=== PATIENT | female | born 1930 | race Caucasian/White ===

== ENCOUNTER 2016-12-04 12:16 | Inpatient (IN) | payer MEDICARE, OTHER ==
[~2016-12-04] VITALS: Ht 160 cm; Wt 67.0 kg
[~2016-12-04 12:16] MED LIST: ASPI-535 PO; ATOR40TA68 PO; CARV6.2579 PO; CLOP75TA4 PO; FURO20TA3 PO; LISI10TA2 PO
[2016-12-04] MEDS ORDERED: NITROGLYCERIN 2% 1 GM OINT PKT TD STA (13:24)
[2016-12-04] MEDS ORDERED: ASPIRIN 325 MG TAB PO STA (13:24)
[2016-12-04] MEDS ORDERED: FUROSEMIDE 40 MG INJ IV STA (13:24)
[2016-12-04 13:51] LABS: HEMATOCRIT 15.5 % (37.0-47.0); MEAN CORPUSCULAR HEMOGLOBIN 18.5 pg (29.0-33.0); MEAN CORPUSCULAR HGB CONC 29.6 g/dl (32.0-37.0); MEAN CORPUSCULAR VOLUME 62.3 fl (82.0-101.0); MEAN PLATELET VOLUME 7.6 fl (7.4-10.4); PLATELET COUNT 449 10^3/UL (140-440); RED BLOOD COUNT 2.49 10^6/ul (4.20-5.40); RED CELL DISTRIBUTION WIDTH 23.6 % (11.5-14.5); UNCORRECTED WBC 6.2 10^3/ul (4.8-10.8)
[2016-12-04 14:00] LABS: ALBUMIN 4.1 g/dl (3.3-4.9); CONDITION 1; LH ANALYZER COMMENTS 1
[2016-12-04 14:01] LABS: POTASSIUM 3.7 mmol/L (3.5-5.1)
[2016-12-04 14:02] LABS: PROTIME 13.2 Sec (12.2-14.2)
[2016-12-04 14:03] LABS: ALBUMIN/GLOBULIN RATIO 1.28; BILIRUBIN,INDIRECT 0.1 mg/dl (0-1.1); BILIRUBIN,TOTAL 0.1 mg/dl (0.2-1.3); CREATININE 0.75 mg/dl (0.44-1.00); HEMOGLOBIN 4.6 g/dl (12.0-16.0); PARTIAL THROMBOPLASTIN TIME 35.3 Sec (25.0-35.0); TOTAL PROTEIN 7.3 g/dl (6.1-8.1)
[2016-12-04] MEDS ORDERED: SOD CHLORIDE 0.9% 250 ML IV ONE (14:04)
[2016-12-04 14:15] LABS: TROPONIN-I 0.019 ng/ml (0.00-0.12)
--- NOTE | 2016-12-04 14:18 | RADRPT ---
PROCEDURE: XR Chest. CLINICAL INDICATION: Sepsis. TECHNIQUE: Single frontal view of the chest was obtained. COMPARISON: 11/05/2014. FINDINGS: Cardiac silhouette is normal. There is calcification in the thoracic aorta. Pulmonary vasculature appears normal. Lungs appear clear. Costophrenic angles are well defined. There are senescent sander nges in the axial skeleton.. IMPRESSION: 1. Borderline cardiomegaly and aortic atherosclerosis. 2. No acute cardiopulmonary process. RPTAT: [facility] Physician Luis Date Time Electronically viewed and signed by Martell Maier Physician on 12/04/2016 14:18 /
[2016-12-04] MEDS ORDERED: PANTOPRAZOLE 40 MG INJ IV ONE (14:30)
--- NOTE | 2016-12-04 14:51 | ERA ---
ER Documentation Chief Complaint Date/Time DATE: 12/04/16 TIME: 1321 Chief Complaint sent with admitting paperwork with the dx of CHF HPI 86 yo female referred from her physician's office for evaluation for SOB. Patient states over the last few days, she has had significant dyspnea on exertion. She states she cannot walk across the room without feeling exhausted. She reports no chest pain but feels short of breath. She reports no fevers or chills. She reports normal stool. She reports no other bleeding. She has no other complaints or pain. ROS All systems reviewed and are negative except as per history of present illness. Medications Home Meds Reported Medications Lisinopril* (Lisinopril*) 10 Mg Tablet, 10 MG PO DAILY, TAB 12/23/14 Atorvastatin* (Atorvastatin*) 40 Mg Tablet, 40 MG PO HS, TAB 12/23/14 Carvedilol* (Carvedilol*) 6.25 Mg Tablet, 6.25 MG PO BID, TAB 12/23/14 Furosemide* (Furosemide*) 20 Mg Tablet, 20 MG PO DAILY, TAB 12/23/14 Clopidogrel Bisulfate* (Clopidogrel Bisulfate*) 75 Mg Tablet, 75 MG PO DAILY, TAB 12/23/14 Aspirin Ec (Aspir 81) 81 Mg Tablet.dr, 81 MG PO DAILY, TAB 12/23/14 Allergies Allergies: Coded Allergies: No Known Allergy (Unverified , 03/30/15) PMhx/Soc History of Surgery: No Anesthesia Reaction: No Hx Neurological Disorder: No Hx Respiratory Disorders: No Hx Cardiac Disorders: No Hx Psychiatric Problems: No Hx Miscellaneous Medical Probl: Yes (CHF, Anemia) Hx Alcohol Use: No Hx Substance Use: No Hx Tobacco Use: No Smoking Status: Never smoker FmHx Noncontributory for chief complaint Physical Exam Vitals Vital Signs Date Time Temp Pulse Resp B/P Pulse Ox O2 Delivery O2 Flow Rate FiO2 12/04/16 12:24 98.4 78 18 149/59 99 Physical Exam GENERAL: Patient is a frail, pale, elderly patient in no acute distress HEENT: Pupils equal, round, and reactive to light. EOMI. There is no scleral icterus. NECK: C-spine is soft and supple, there is no meningismus. There is no cervical lymphadenopathy. LUNGS: Occasional crackle at both bases. No tachypnea or retractions HEART: Regular rate and rhythm, no murmurs, clicks, rubs or gallops. A murmur is appreciated in the precordium ABDOMEN: Soft, non-tender, non-distended. There are bowel sounds in all four quadrants. No rebound or guarding. EXTREMITIES: There is no peripheral cyanosis or edema. No focal swelling or erythema. NEURO: The patient moves all four extremities with 5/5 strength. Cranial nerves II - XII are intact. Normal gait. Alert and oriented SKIN: There is no apparent rash or petechiae. Pallor is noted HEME/LYMPHATIC: There is no evidence of excessive bruising or lymphedema. PSYCHIATRIC: The patient does not appear anxious or depressed. Result Diagram: 12/04/16 1330 12/04/16 1330 Results 24 hrs Laboratory Tests Test 12/04/16 13:30 Activated Partial Thromboplast Time 35.3Sec Alanine Aminotransferase (ALT/SGPT) 17IU/L Albumin 4.1g/dl Albumin/Globulin Ratio 1.28 Alkaline Phosphatase 154IU/L Anion Gap 17 Aspartate Amino Transf (AST/SGOT) 27IU/L B-Type Natriuretic Peptide 4390PG/ML Blood Morphology Comment Blood Urea Nitrogen 18mg/dl Calcium Level 9.0mg/dl Carbon Dioxide Level 28mmol/L Chloride Level 104mmol/L Creatinine 0.75mg/dl Direct Bilirubin 0.00mg/dl Globulin 3.20g/dl Glucose Level 124mg/dl Hematocrit 15.5% Hemoglobin 4.6g/dl INR International Normalized Ratio 1.00 Indirect Bilirubin 0.1mg/dl Mean Corpuscular Hemoglobin 18.5pg Mean Corpuscular Hemoglobin Concent 29.6g/dl Mean Corpuscular Volume 62.3fl Mean Platelet Volume 7.6fl Platelet Count 62774^3/UL Potassium Level 3.7mmol/L Prothrombin Time 13.2Sec Prothrombin Time Ratio 1.0 Red Blood Count 2.4910^6/ul Red Cell Distribution Width 23.6% Sodium Level 145mmol/L Total Bilirubin 0.1mg/dl Total Protein 7.3g/dl Troponin I 0.019ng/ml White Blood Count 6.210^3/ul Current Medications Medications (Trade) Dose Ordered Sig/Hemant Route PRN Reason Start Time Stop Time Status Last Admin Dose Admin Nitroglycerin (Nitroglycerin 2% Oint) 1 inch ONCE STAT TD 1/3/17 13:24 12/04/16 13:25 DC 12/04/16 13:45 Aspirin (Aspirin) 325 mg ONCE STAT PO 12/04/16 13:24 12/04/16 13:25 DC 12/04/16 13:43 Furosemide 40 mg 40 mg ONCE STAT IV 12/04/16 13:24 12/04/16 14:14 DC 12/04/16 13:44 Sodium Chloride (NS) 250 ml @ 0 mls/hr Q0M ONCE IV 12/04/16 14:04 12/04/16 14:06 DC Pantoprazole (Protonix Iv) 40 mg ONCE ONCE IV 12/04/16 14:30 12/04/16 14:31 DC Procedures/MDM Patient was taken to a room, seen and evaluated. Comfort measures were initiated. Diagnostic tests were ordered and reviewed. 3 LEAD RHYTHM STRIP: Normal sinus rhythm without ectopy EK lead EKG reviewed by myself: Normal Sinus Rhythm Left axis deviation, right bundle branch block Nonspecific ST and T-wave changes Impression: Nonspecific EKG RADIOLOGY: reviewed with the radiologist CONSULTATION: Patient's primary care doctor was notified for admission. GI consultation has been requested with Dr. Pennington REEVALUATION: Patient remained hemodynamically stable and comfortable in the emergency department with blood transfusion pending MEDICAL DECISION MAKIN-year-old female presents to the emergency department with shortness of breath. Initially, patient's initial presentation seem to be consistent with congestive heart failure especially given her history of heart disease and the crackles at her base. I initially treated her with aspirin and nitroglycerin with the thought that this was congestive heart failure. However, upon review of the patient's lab tests, it is clear that the patient's symptoms are consistent with her severe anemia. Given her use of aspirin and Plavix, it is likely that she has an underlying occult GI bleed causing the anemia and therefore symptoms. At this time, I have initiated GI protective medication and have requested transfusion. This is pending at this current time. Patient will require admission to the hospital for further observation, GI consultation, transfusion and further's treatment. CRITICAL CARE: Time:>35 minutes Patient has a significant chance of clinical deterioration Treatments/Evaluations: Close monitoring and treatment of unstable vital signs, cardiorespiratory, and neurologic status, while maintaining tight balance of fluid, respiratory, and cardiac interventions. Departure Diagnosis: Primary Impression: Anemia Additional Impressions: GI bleed Anticoagulant disorder Condition: Serious HERMINIO CORBIN Dec 04, 2016 14:50
[2016-12-04 14:54] LABS: ANISOCYTOSIS 3+; EOSINOPHILS # 0.1 10^3/ul (0.0-0.5); HYPOCHROMASIA 3+; MICROCYTOSIS 3+; MONOCYTE # 0.1 10^3/ul (0.3-0.9); PLATELET ESTIMATE PLT APPEAR ADEQUATE
[2016-12-04] MEDS ORDERED: PEG/ELECTROLYTES 4L BTL PO ONE (17:30)
[2016-12-04 20:30] VITALS: TEMP 98.4
[2016-12-04 23:30] VITALS: BP 156/72; PULSE 91; RESP 18; Ht 160 cm; Wt 67.0 kg
[2016-12-04 23:32] VITALS: PULSE 92
--- NOTE | 2016-12-04 23:59 | HP ---
DATE OF ADMISSION: 12/04/2016 CHIEF COMPLAINT: Shortness of breath. HISTORY OF PRESENT ILLNESS: This 86-year-old female with a history of coronary artery disease and congestive heart failure, status post non-STEMI in 2013, status post stent placement in November 2014 and December 2014 of the LAD and the left circumflex respectively, presents to the office with 2-week progressive weakness and shortness of breath when she walks. The patient has been having difficulty ambulating for a couple of steps and required her sister to bring her in a wheelchair. The patient reports that the symptoms are similar to when she had her heart attack 2 years previously. However, she denies any chest pain, any wheezing. No ankle edema. She also denies any fever , chills, any abdominal pain, nausea, vomiting. No blood in the stool. In the emergency room, the patient was noted to be severely anemic, most likely from occult GI source. The patient is admitted for workup of severe anemia and GI bleed. PAST MEDICAL HISTORY: 1. Coronary artery disease. 2. Congestive heart failure. 3. Knee osteoarthritis. 4. Hypertension. 5. Hypercholesterolemia. 6. Status post non-ST elevation myocardial infarction in 2013, status post angioplasty with stent placement in 2013 and possibly early 2014. ALLERGIES: NKDA. MEDICATIONS ON ADMISSION: Include: 1. Plavix 75 mg p.o. daily. 2. Atorvastatin 40 mg p.o. daily. 3. Carvedilol 6.25 mg p.o. b.i.d. 4. Lisinopril 10 mg p.o. daily. 5. Furosemide 20 mg p.o. daily. 6. Aspirin 81 mg p.o. daily. SOCIAL HISTORY: The patient lives with her sister and nephew in her own home. She does not smoke, does not drink alcohol. FAMILY HISTORY: Noncontributory. PHYSICAL EXAMINATION: GENERAL: Well-developed, well-nourished female who is awake, alert, and oriented, complaining of shortness of breath only with exertion. VITAL SIGNS: Temperature 98.9, blood pressure 144/53, pulse of 74, respiration rate of 20, O2 saturation 100% on room air. HEENT: Pupils equally round, reactive to light. There is conjunctival pallor. Oropharynx clear. NECK: No jugular venous distention, no nodes, no goiter. LUNGS: Notable for minimal bibasilar crackles. CARDIAC: Regular rate and rhythm. Normal S1, S2. ABDOMEN: Active bowel sounds, soft, nondistended, nontender. No hepatosplenomegaly. EXTREMITIES: No clubbing, cyanosis, or edema. LABORATORY: WBC of 6.2, hemoglobin of 4.6, hematocrit 15.5, platelet count 449, 000. Sodium 145, potassium 3.7, chloride 104, bicarbonate 28, BUN 18, creatinine 0.75, glucose 124. Her liver enzymes are notable for mildly elevated alkaline phosphatase of 154. Her proBNP is elevated at 4390. Troponin is normal at 0.019. The patient's PT is 13.2 with an INR of 1.0 and PTT mildly elevated at 35.3. Her EKG shows normal sinus rhythm with nonspecific ST-T wave changes. Her chest x-ray is notable for borderline cardiomegaly and aortic atherosclerosis, but no acute cardiopulmonary process. IMPRESSION: 1. Severe anemia. The patient will be admitted for transfusion and workup of occult gastrointestinal source of bleeding. We will have to hold the Plavix and aspirin. I will call hearing instrument specialist, Dr. Pennington, for probable endoscopy and colonoscopy. 2. Cardiac problems. We will continue the patient's blood pressure medications and diuretic. Check 2D-Echo for current systolic and diastolic dysfunction, especially in light of the multiple blood transfusions we will be giving her. I will notify dental prosthetist regarding the stopping of Plavix. Dictated By: RIANNA QUINTANA MD DP/NTS Conf#: [id number] DID#: [id number] MTDD
[2016-12-05] VITALS (22 sets, daily range): BP systolic 107–181; BP diastolic 51–86; PULSE 76–117; RESP 14–25
[2016-12-05] MEDS: PANTOPRAZOLE 40 MG INJ IV SCH ×2 (05:40→17:12)
[2016-12-05] MEDS ORDERED: FUROSEMIDE 20 MG INJ IV SCH ×2 (06:00→16:48)
[2016-12-05 07:38] LABS: HEMATOCRIT 26.8 % (37.0-47.0); HEMOGLOBIN 8.6 g/dl (12.0-16.0); MEAN CORPUSCULAR HEMOGLOBIN 22.6 pg (29.0-33.0); MEAN CORPUSCULAR HGB CONC 32.2 g/dl (32.0-37.0); MEAN CORPUSCULAR VOLUME 70.3 fl (82.0-101.0); MEAN PLATELET VOLUME 7.7 fl (7.4-10.4); PLATELET COUNT 381 10^3/UL (140-440); RED BLOOD COUNT 3.81 10^6/ul (4.20-5.40); RED CELL DISTRIBUTION WIDTH 28.2 % (11.5-14.5); UNCORRECTED WBC 9.4 10^3/ul (4.8-10.8); WHITE BLOOD COUNT 9.4 10^3/ul (4.8-10.8)
[2016-12-05 07:44] LABS: CONDITION 1; LH ANALYZER COMMENTS 1; SUSPECT 1
[2016-12-05] MEDS ORDERED: FUROSEMIDE 20 MG TAB PO SCH (09:00)
[2016-12-05] MEDS: LISINOPRIL 10 MG TAB PO SCH ×2 (09:00→13:10)
[2016-12-05 10:28] LABS: ANISOCYTOSIS 2+; HYPOCHROMASIA 2+; LYMPHOCYTES # 0.8 10^3/ul (0.8-2.9); MICROCYTOSIS 2+; MONOCYTE # 0.8 10^3/ul (0.3-0.9); NEUTROPHIL # 7.8 10^3/ul (1.6-7.5)
[2016-12-05] MEDS ORDERED: PROPOFOL 20 ML ONE ×3 (11:14→11:15)
[2016-12-05] MEDS ORDERED: FENTAnyl 50 MCG/ML VIAL ONE (11:14)
[2016-12-05] MEDS ORDERED: MIDAZOLAM 1 MG/ML 2 ML INJ ONE (11:14)
--- NOTE | 2016-12-05 12:05 | GILP ---
DATE OF PROCEDURE: 12/05/2016 NAME OF PROCEDURE: Esophagogastroduodenoscopy. PREOPERATIVE DIAGNOSIS: Patient presenting with history of severe iron deficiency anemia with hemog lobin 4.6. The patient has been on Plavix, rule out underlying peptic ulcer disease, arteriovenous malformation, neoplasm of the upper gastrointestinal tract. POSTOPERATIVE DIAGNOSES: 1. Multiple erosions noted in the antrum of the stomach. 2. Linear hyperemic area noted for about 2 cm in length above the GE junction. This represents eso phagitis. DESCRIPTION OF PROCEDURE: After informed written consent was obtained, the patient was asked to lie on the left lateral side. Intravenous anesthesia was given by anesthesiologist, Dr. Mcclelland. When the patient became somnolent, the Olympus video upper endoscope was introduced into the oropharynx, then into the esophagus. The esophagus showed evidence of a long hyperemic area above the GE juncti on for about 2 cm in length consistent with a grade II Overton classifications reflux esophagiti s. Biopsies were done to rule out Carlson's esophagus. Scope at this time was advanced into the [facility]. Multiple erosions were noted in the antrum of the stomach. Rest of the stomach appeared nor mal. No ulcers, no neoplasm or AVM noted. The mucosa of the duodenum appeared normal up to the end of the third portion with no evidence of ulcer. No evidence of AVM, etc. Scope at this time was w ithdrawn and on the way out, no additional abnormalities detected, but biopsies were done from the a ntrum, the lesser curvature and the fundus to rule out H. pylori infection. Scope at this time was withdrawn and the procedure was terminated. PLAN: Recommend proton pump inhibitor therapy to be continued. Recommend hold off on the Plavix fo r a brief period of time if possible. Dictated By: ANGELA MCLAIN/NTS Conf#: [id number] DID#: [id number] CC: RIANNA QUINTANA MD; ANGELA MAJOR MD;*EndCC*
--- NOTE | 2016-12-05 12:19 | GILP ---
DATE OF PROCEDURE: PROCEDURE: Colonoscopy and biopsy. PREOPERATIVE DIAGNOSIS: Patient presenting with history of severe iron deficiency anemia. Patient has been on Plavix, rule out gastrointestinal bleeding from the colon, either due to neoplasm, arter iovenous malformation, diverticulosis, etc. POSTOPERATIVE DIAGNOSES: 1. A 5 mm flat polyp was noted in the mid descending colon. Biopsy was done. 2. Diverticulosis. 3. Minimal internal and external hemorrhoids. DESCRIPTION OF PROCEDURE: After the informed written consent was obtained, the patient was asked to lie on the left lateral side. Intravenous anesthesia was given by anesthesiologist, Dr. Mcclelland. W hen the patient became somnolent, the Olympus video colonoscope was introduced into the rectum and s cope was advanced all the way to the cecum and severe diverticulosis noted all along the colon, but no active bleeding noted at this time. A 5 mm flat polyp was noted in the mid descending colon. Thi s was biopsied. Rest of the colon was again thoroughly examined. On the way out, minimal internal hemorrhoids and minimal external hemorrhoids were noted and the procedure was terminated. PLAN: Recommend small bowel evaluation by means of capsule endoscopy. Dictated By: ANGELA MCLAIN/NTS Conf#: [id number] DID#: [id number] CC: RIANNA QUINTANA MD; ANGELA MAJOR MD;*End*
--- NOTE | 2016-12-05 14:32 | RADRPT ---
Echocardiogram Report Patient Name: BERLIN WHITEHEAD Gender: Female Date: 1930 Study Date: 05-Dec-2016 Desk Director: Pepito Luke [facility] Location: [facility] Ref. Physician: JEFFRY SHANKS Quality: Good Procedures: Transthoracic echocardiogram with complete 2D, M-Mode, and doppler examination. Indications: Congestive Heart Failure. 2D/M Mode Doppler Measurement Value Normal Ranges Measurement Value Normal Ranges LVIDd 2D 6.2 3.5 - 5.6 cm AV Peak Guillaume 2.3 m/sec LVIDs 2D 4.4 2.1 - 4.1 cm AV Peak PG 20.7 mmHg LVPWd 2D 1.0 0.6 - 1.1 cm AI Peak PG 72.2 mmHg IVSd 2D 1.1 0.6 - 1.1 cm AI Peak Guillaume 4.2 m/sec AoR Diam 2D 2.7 2.0 - 3.7 cm AI PHT 195.5 msec EDV 2D 194.0 cm3 LVOT Peak Guillaume 1.2 m/sec ESV 2D 84.2 cm3 LVOT Peak PG 5.6 mmHg LA Dimen 2D 4.4 2.3 - 4.0 cm MV E Peak Guillaume 0.9 m/sec MV A Peak Guillaume 1.4 m/sec MV E/A 0.7 MV Decel Time 198 msec MV Decel Wagoner 5 MV E/A 0.7 TR Peak Guillaume 2.9 m/sec TR Peak PG 33.9 mmHg RVSP 49.0 mmHg Findings Left Ventricle: Normal left ventricular wall thickness. Mild enlargement of left ventricle cavity. Mild left ventricular systolic dysfunction. Ejection fraction is visually estimated at 45 %. Tissue Doppler/Mitral Doppler indices are consistent with impaired relaxation (Stage I diastolic dysfunction). Right Ventricle: Normal right ventricular size. Normal right ventricular systolic function. Left Atrium: There is mild enlargement of left atrium. Right Atrium: The right atrium is normal in size. Mitral Valve: Mitral valve leaflets appear mildly thickened. Mild mitral annular calcification. Mild to moderate mitral valve regurgitation. Aortic Valve: Aortic sclerosis without stenosis. Aortic cusps appear mildly calcified. Trace to mild aortic valve regurgitation. Tricuspid Valve: Normal appearance of the tricuspid valve. Estimated peak PA systolic pressure 49 mmHg. There is mild to moderate tricuspid regurgitation. Pericardium: Normal pericardium with no significant pericardial effusion. Aorta: Normal aortic root. IVC: Dilated IVC without respiratory collapse consistent with elevated right atrial pressure. Conclusions 1.Normal left ventricular wall thickness. Mild enlargement of left ventricle cavity. Mild left ventricular systolic dysfunction. Ejection fraction is visually estimated at 45 %. Tissue Doppler/Mitral Doppler indices are consistent with impaired relaxation (Stage I diastolic dysfunction). 2.Normal right ventricular size. Normal right ventricular systolic function. 3.There is mild enlargement of left atrium. 4.The right atrium is normal in size. 5.Mild to moderate mitral valve regurgitation. 6.Aortic sclerosis without stenosis. Trace to mild aortic valve regurgitation. 7.Estimated peak PA systolic pressure 49 mmHg. There is mild to moderate tricuspid regurgitation. 8.Normal pericardium with no significant pericardial effusion. Electronically Signed By: Asa Swann 05-Dec-2016 14:32:23 -0800 Patient Name: BERLIN WHITEHEAD Study Date: 05-Dec-[id number]
[2016-12-05] MEDS ORDERED: POTASSIUM CHLORIDE (SR) 10 MEQ TAB PO ONE (15:00)
[2016-12-05] MEDS ORDERED: FUROSEMIDE 20 MG INJ IM ONE (15:00)
--- NOTE | 2016-12-05 15:47 | CONS ---
Date/Time of Note Date/Time of Note DATE: 12/05/16 TIME: 15:38 Assessment/Plan Assessment/Plan Additional Assessment/Plan Acute blood loss anemia Acute decompensated systolic and diastolic congestive heart failure Cardiomyopathy with ejection fraction 45% Mitral and tricuspid valve regurgitation. Coronary artery disease with history of PCI, most recent December 2014 Carotid artery stenosis status post carotid endarterectomy Hypertension -Patient with significant improvement in symptoms after blood transfusion. Echocardiogram reviewed with improvement in ejection fraction to 45%, but pulmonary artery systolic pressures have increased compared to last echocardiogram as well as IVC is dilated and not collapsing likely indicative of volume overload. She is currently on 20 mg of IV Lasix daily, I would give an extra dose of Lasix this afternoon. Would switch to 40 mg Lasix daily starting from tomorrow. Would continue beta junaid and MERRY inhibitor. Antiplatelet therapy is on hold given concern for GI bleeding and severe anemia. Will not restart until okay by our gastroenterology colleagues. Continue statin therapy if no contraindication. Consultation Date/Type/Reason Admit Date/Time Dec 04, 2016 at 14:51 Type of Consultation: cv Reason for Consultation Shortness of breath and congestive heart failure Hx of Present Illness This is an 86-year-old female well-known to me from previous admissions with past medical history of cardiomyopathy, coronary artery disease with history of PCI, peripheral arterial disease who presented with symptoms of fatigue, shortness of breath progressing over the past 2-3 weeks. She denies any exertional chest pain but did feel at times lightheaded. Laboratory studies demonstrate severe anemia and patient was admitted for further management and care. She is status post 3 units of packed red blood cells with significant improvement in symptoms. She currently denies any chest pain, shortness of breath, dizziness and her energy has increased. She denies any rectal bleeding, epistaxis. 12 point review of systems was performed with all pertinent positives and negatives mentioned above and all else is negative Past Medical History Peripheral arterial disease Medical History: congestive heart failure, coronary artery disease, hypertension Past Surgical History Carotid endarterectomy Past Surgical Hx: angioplasty Family History Significant Family History: no pertinent family hx Social History Alcohol Use: rarely Smoking Status: Former smoker Exam/Review of Systems Vital Signs Vitals Vital Signs Date Time Temp Pulse Resp B/P Pulse Ox O2 Delivery O2 Flow Rate FiO2 12/05/16 12:46 98.4 85 18 142/63 96 Room Air 12/05/16 11:37 5 Intake and Output 12/04/16 12/04/16 12/05/16 15:00 23:00 07:00 Intake Total 700 ml 300 ml Balance 700 ml 300 ml Exam No apparent distress Constitutional: alert, oriented Head: normocephalic Neck: supple Respiratory: other (course breath sounds bilaterally, no wheezing) Cardiovascular: other (S1-S2 heard), regular rate and rhythm, systolic murmur Gastrointestinal: bowel sounds, non-tender, other (no guarding), soft Extremities: edema (trace) Results Result Diagram: 12/05/16 0720 12/04/16 1330 Results 24 hrs Laboratory Tests Test 12/05/16 07:20 Anisocytosis 2+ Blood Morphology Comment Differential Comment MANUAL DIFF Hematocrit 26.8 #L Hemoglobin 8.6 #L Hypochromasia 2+ Lymphocytes # 0.8 Lymphocytes % 8.0 L Mean Corpuscular Hemoglobin 22.6 #L Mean Corpuscular Hemoglobin Concent 32.2 Mean Corpuscular Volume 70.3 L Mean Platelet Volume 7.7 Microcytosis 2+ Monocytes # 0.8 Monocytes % 9.0 Neutrophils # 7.8 H Neutrophils % 83.0 H Platelet Count 381 Red Blood Count 3.81 #L Red Cell Distribution Width 28.2 H Thyroid Stimulating Hormone (TSH) 1.320 White Blood Count 9.4 # Medications Medications Current Medications Atorvastatin Calcium (Lipitor) 40 mg HS PO ; Start 12/05/16 at 21:00 Carvedilol (Coreg) 6.25 mg BID PO Last administered on 12/05/16 13:08; Admin Dose 6.25 MG; Start 12/05/16 at 09:00 Lisinopril (Zestril) 10 mg DAILY PO Last administered on 12/05/16 13:10; Admin Dose 10 MG; Start 12/05/16 at 09:00 Pantoprazole (Protonix Iv) 40 mg BID@06,18 IV Last administered on 12/05/16 05: 40; Admin Dose 40 MG; Start 12/05/16 at 06:00 Furosemide (Lasix) 20 mg DAILY@06 IV Last administered on 12/05/16 05:33; Admin Dose 20 MG; Start 12/05/16 at 06:00 Influenza Virus Vaccine (Fluzone) 0.5 ml ONCE ONCE IM* ; Start 12/07/16 at 09:00 ; Stop 12/07/16 at 09:01 Asa wSann DO Dec 05, 2016 15:46
[2016-12-05 16:43] LABS: WHITE BLOOD COUNT 6.2 10^3/ul (4.8-10.8)
[2016-12-05] MEDS: ATORVASTATIN 40 MG TAB PO SCH (20:34)
[2016-12-05] MEDS ORDERED: ONDANSETRON 4 MG INJ IV PRN (23:00)
--- NOTE | 2016-12-05 23:16 | PN ---
DATE: 12/05/2016 SUBJECTIVE: The patient reports feeling better after 3 units of blood transfusion. OBJECTIVE: VITAL SIGNS: Temperature 98.7, blood pressure 123/73, pulse of 74, respiration rate 20, O2 saturation 100% on room air. HEENT: Pupils equally round, reactive to light. Mild conjunctival pallor. NECK: No jugular venous distention. LUNGS: Minimal bibasilar rales. CARDIAC: Regular rate and rhythm. Normal S1, S2. ABDOMEN: Active bowel sounds, soft, nondistended, nontender. EXTREMITIES: No clubbing, cyanosis, or edema. LABORATORY DATA: Hemoglobin 8.6, hematocrit 26.8. Endoscopy reports multiple erosions in the gastric antrum as well as evidence of esophagitis. Colonoscopy shows a small polyp. No active sources of bleeding. ASSESSMENT AND PLAN: 1. Anemia, improving after transfusion. The patient is showing some evidence of fluid overload via the 2D echo. Will increase diuresis as per cardiology recommendation. 2. Gastrointestinal bleed versus other sources of anemia. Abdominal CT pending at electrician's recommendation. 3. Other problems stable. Continue current medicines. Dictated By: RIANNA QUINTANA MD DP/STU Conf#: [id number] DID#: [id number] MTDD
[2016-12-06] VITALS (10 sets, daily range): BP systolic 121–140; BP diastolic 56–59; PULSE 71–82; RESP 15–20
[2016-12-06] MEDS: PANTOPRAZOLE 40 MG INJ IV SCH ×2 (05:33→18:22)
[2016-12-06 07:37] LABS: HEMATOCRIT 24.5 % (37.0-47.0); HEMOGLOBIN 7.9 g/dl (12.0-16.0); MEAN CORPUSCULAR HEMOGLOBIN 22.9 pg (29.0-33.0); MEAN CORPUSCULAR HGB CONC 32.4 g/dl (32.0-37.0); MEAN CORPUSCULAR VOLUME 70.8 fl (82.0-101.0); MEAN PLATELET VOLUME 8.2 fl (7.4-10.4); PLATELET COUNT 310 10^3/UL (140-440); RED BLOOD COUNT 3.46 10^6/ul (4.20-5.40); RED CELL DISTRIBUTION WIDTH 28.8 % (11.5-14.5); UNCORRECTED WBC 7.1 10^3/ul (4.8-10.8); WHITE BLOOD COUNT 7.1 10^3/ul (4.8-10.8)
[2016-12-06 07:52] LABS: CONDITION 1; LH ANALYZER COMMENTS 1; POTASSIUM 3.6 mmol/L (3.5-5.1); SUSPECT 1
[2016-12-06 07:54] LABS: CREATININE 0.7 mg/dl (0.44-1.00)
[2016-12-06 07:55] LABS: CALCIUM 8.7 mg/dl (8.4-10.2)
[2016-12-06] MEDS: LISINOPRIL 10 MG TAB PO SCH (09:00)
[2016-12-06] MEDS: FUROSEMIDE 40 MG TAB PO SCH (09:00)
[2016-12-06 09:53] LABS: EOSINOPHILS # 0.3 10^3/ul (0.0-0.5); LYMPHOCYTES # 1.1 10^3/ul (0.8-2.9); MONOCYTE # 0.5 10^3/ul (0.3-0.9); NEUTROPHIL # 5.3 10^3/ul (1.6-7.5)
[2016-12-06 09:54] LABS: ANISOCYTOSIS 2+; BURR CELLS RARE; HYPOCHROMASIA 2+; MICROCYTOSIS 2+
[2016-12-06] MEDS: HYDROCODONE/APAP (5/325) TAB PO PRN ×2 (11:05→15:45)
[2016-12-06] MEDS ORDERED: ACETAMINOPHEN 500 MG TAB PO STA (15:21)
[2016-12-06] MEDS ORDERED: DIPHENHYDRAMINE 25 MG CAP PO ONE (15:30)
[2016-12-06] MEDS ORDERED: POTASSIUM CHLORIDE (SR) 20 MEQ TAB PO STA (16:14)
--- NOTE | 2016-12-06 16:16 | CONS ---
Date/Time of Note Date/Time of Note DATE: 12/06/16 TIME: 16:12 Assessment/Plan Assessment/Plan Additional Assessment/Plan Acute blood loss anemia Acute decompensated systolic and diastolic congestive heart failure Cardiomyopathy with ejection fraction 45% Mitral and tricuspid valve regurgitation. Coronary artery disease with history of PCI, most recent December 2014 Carotid artery stenosis status post carotid endarterectomy Hypertension -Patient feeling much better after diuretics and blood transfusion. Blood pressure trend has remained stable. Would continue Coreg, MERRY inhibitor, statin therapy. Would continue diuretic therapy. Antiplatelet therapy on hold until okay to restart by our gastroenterology colleagues. Patient plan for additional blood transfusion, would give diuretics as well. Consultation Date/Type/Reason Admit Date/Time Dec 04, 2016 at 14:51 Initial Consult Date Type of Consultation: cv 24 HR Interval Summary Free Text/Dictation Patient feels much better, energy has improved, denies exertional chest pain or shortness of breath Exam/Review of Systems Vital Signs Vitals Vital Signs Date Time Temp Pulse Resp B/P Pulse Ox O2 Delivery O2 Flow Rate FiO2 12/06/16 15:40 98.0 78 18 140/59 98 12/05/16 12:46 Room Air 12/05/16 11:37 5 Intake and Output 12/05/16 12/05/16 12/06/16 15:00 23:00 07:00 Intake Total 420 ml 500 ml Output Total 1000 ml 850 ml Balance -580 ml -350 ml Exam Constitutional: alert, oriented, other (no apparent distress) Neck: supple Respiratory: other (course breath sounds bilaterally, no wheezing) Cardiovascular: other (S1 and S2 heard), regular rate and rhythm Gastrointestinal: bowel sounds, non-tender, soft Extremities: edema (trace) Results Result Diagram: 12/06/16 0610 12/06/16 0610 Results 24 hrs Laboratory Tests Test 12/06/16 06:10 Anion Gap 17 H Anisocytosis 2+ Blood Morphology Comment Blood Urea Nitrogen 15 Calcium Level 8.7 Carbon Dioxide Level 27 Chloride Level 101 Creatinine 0.70 Differential Comment MANUAL DIFF Dimorphic Red Blood Cells RARE Eosinophils # 0.3 Eosinophils % 4.0 Glucose Level 97 Hematocrit 24.5 L Hemoglobin 7.9 L Hypochromasia 2+ Lymphocytes # 1.1 Lymphocytes % 15.0 Magnesium Level 1.9 Mean Corpuscular Hemoglobin 22.9 L Mean Corpuscular Hemoglobin Concent 32.4 Mean Corpuscular Volume 70.8 L Mean Platelet Volume 8.2 Microcytosis 2+ Monocytes # 0.5 Monocytes % 7.0 Neutrophils # 5.3 Neutrophils % 74.0 Platelet Count 310 Potassium Level 3.6 Red Blood Count 3.46 L Red Cell Distribution Width 28.8 H Sodium Level 141 White Blood Count 7.1 # Medications Medications Current Medications Atorvastatin Calcium (Lipitor) 40 mg HS PO Last administered on 12/05/16 20:34 ; Admin Dose 40 MG; Start 12/05/16 at 21:00 Carvedilol (Coreg) 6.25 mg BID PO Last administered on 12/06/16 09:00; Admin Dose 6.25 MG; Start 12/05/16 at 09:00 Lisinopril (Zestril) 10 mg DAILY PO Last administered on 12/06/16 09:00; Admin Dose 10 MG; Start 12/05/16 at 09:00 Pantoprazole (Protonix Iv) 40 mg BID@,18 IV Last administered on 12/06/16 05: 33; Admin Dose 40 MG; Start 12/05/16 at 06:00 Influenza Virus Vaccine (Fluzone) 0.5 ml ONCE ONCE IM* ; Start 12/07/16 at 09:00 ; Stop 12/07/16 at 09:01 Furosemide (Lasix) 40 mg DAILY PO Last administered on 12/06/16 09:00; Admin Dose 40 MG; Start 12/06/16 at 09:00 Acetaminophen (Tylenol Tab) 650 mg Q4H PRN PO PAIN AND OR ELEVATED TEMP; Start 12/05/16 at 23:00 Acetaminophen/ Hydrocodone Bitart ([place] (5/325)) 1 tab Q4H PRN PO PAIN LEVEL 4 -7 Last administered on 12/06/16 15:45; Admin Dose 1 TAB; Start 12/05/16 at 23:00 Ondansetron HCl (Zofran Inj) 4 mg Q8 PRN IV NAUSEA AND/OR VOMITING; Start at 23:00 Clonidine (Catapres) 0.1 mg Q6H PRN PO ELEVATED BLOOD PRESSURE; Start 12/05/16 at 23:00 Ferrous Sulfate (Slow Fe) 142 mg BID PO ; Start 12/06/16 at 21:00 Asa Swann DO Dec 06, 2016 16:15
[2016-12-06] MEDS ORDERED: MAGNESIUM SULFATE 2 GM/50 ML 50 ML IVPB ONE (16:30)
[2016-12-06] MEDS ORDERED: FUROSEMIDE 20 MG INJ IV ONE (16:30)
[2016-12-06 17:19] LABS: IRON 14 ug/dl (35-150)
[2016-12-06 17:29] LABS: TOTAL IRON BINDING CAPACITY 486 ug/dl (241-421)
[2016-12-06] MEDS: FERROUS SULFATE (SR) 142 MG TAB PO SCH (21:03)
[2016-12-06] MEDS: ATORVASTATIN 40 MG TAB PO SCH (21:04)
[2016-12-06] MEDS ORDERED: SOD CHLORIDE 0.9% 100 ML ONE (21:06)
[2016-12-06] MEDS ORDERED: IOHEXOL 300MG/ML 150 ML BTL ONE (21:06)
--- NOTE | 2016-12-06 22:27 | RADRPT ---
PROCEDURE: CT Abdomen and Pelvis with Contrast CLINICAL INDICATION: Anemia TECHNIQUE: Transaxial images were obtained through the abdomen and pelvis on a multi-slice scanner following the intravenous administration of iodinated contrast. no oral contrast had previously bee n given. Sagittal and coronal re-formations were subsequently reconstructed. One or more of the following dose reduction techniques were used: - Automated exposure control. - Adjustment of the mA and/or kV according to patient size. - Use of iterative reconstruction technique. Radiation dose: CTDIvol = 12.32 mGy; DLP = 628.85 mGy-cm. COMPARISON: No prior studies are available for comparison. FINDINGS: Lung bases: There is a trace gravitating left pleural fluid accumulation. Subsegmental atelectasis is seen in the right middle lobe containing a 3 mm calcification suspicious for a granuloma. A 5 mm calcified granuloma is seen in the left lower lobe. The heart is mildly enlarged. Liver: The liver is mildly enlarged but no focal lesion is evident. The hepatic and portal veins ar e patent. \ Gallbladder: The wall is not thickened. No radiopaque stones are identified. Bile ducts: The intra and extrahepatic bile ducts are normal in caliber. Pancreas: The pancreatic duct is borderline thickened at 2 mm but the pancreas otherwise appears unr emarkable. Spleen: Normal in size with no focal lesion. Adrenals: The adrenals are slightly prominent particularly on the left but no discrete nodule is bryan dent. Kidneys, ureters and bladder: A 5 cm cyst is seen to extend superiorly off the anterior superior latrell e of the right kidney. 3 other small cysts less than 6 mm in diameter are seen in the right kidney. A 3 cm parapelvic cyst is seen within the inferior pole of the left kidney extending posteriorly a nd a 4 mm cyst is seen at the anterior mid pole of the left kidney. There is no significant hydrone phrosis. The ureters and bladder appear unremarkable. Reproductive organs: The uterus deviates to the right of midline. No adnexal mass is evident. Stomach, bowel, and mesentery: There is colonic diverticulosis most evident in the sigmoid region. Substantial stool seen within the colon. Neural there is no evidence of bowel obstruction. There i s a moderate-sized right inguinal hernia containing small bowel. The stomach is moderately distende d with food debris.. Appendix: The vermiform appendix is not discretely identified. Peritoneum: No free intraperitoneal fluid or air is identified. Aorta: There is atherosclerotic vascular calcification with no abdominal aortic aneurysm evident. IVC: Unremarkable. Lymph nodes: No pathologically enlarged nodes are identified. Osseous structures: There is grade 1 anterolisthesis of L4 on L5 associated degenerative disk endpla te and facet changes. There are diffuse degenerative disk changes and extensive anterior spondylosi s is noted. IMPRESSION: 1. There is a moderate-sized right inguinal hernia containing loops of small bowel. There is diver ticulosis of the colon with substantial stool seen in the colon without evidence of bowel obstructio n or inflammation. The stomach is moderately distended with food debris. 2. Bilateral renal cysts as described without evidence of urinary outflow obstruction or ureterolit hiasis. The bladder appears unremarkable. 3. Mild hepatomegaly with no focal lesion. 4. No evidence of cholelithiasis or bile duct dilatation. The pancreatic duct is borderline promin ent just under 2 mm. 5. Atherosclerotic vascular calcification 6. Extensive degenerative spine changes with grade 1 anterolisthesis of L4 on L5 associated degener ative disk endplate and facet changes. 7. Trace gravitating left pleural fluid accumulation with discoid atelectasis seen in the right mid dle lobe containing a 3 mm calcified granuloma and with a 5 mm calcified granuloma seen in the left lower lobe. The heart is mildly enlarged with coronary artery disease. Physician Ministerio Date Time Electronically viewed and signed by Physician Ministerio on 12/06/2016 22:26 /
[2016-12-07] VITALS (10 sets, daily range): BP systolic 103–144; BP diastolic 48–82; PULSE 81–87; RESP 15–20
--- NOTE | 2016-12-07 00:44 | PN ---
DATE: 12/06/2016 SUBJECTIVE: The patient reports feeling weak and tired today but then she has not been getting any food because she was waiting for the abdominal CT all day. OBJECTIVE: VITAL SIGNS: Temperature 98.7, blood pressure 123/58, pulse of 74, respiration rate 20, O2 saturation 100% on room air. HEENT: Pupils equally round, reactive to light. Mild conjunctival pallor. CHEST: Lungs are clear to auscultation. CARDIAC: Regular rate and rhythm. ABDOMEN: Active bowel sounds, soft, nondistended, nontender. EXTREMITIES: No clubbing, cyanosis, or edema. LABORATORY DATA: Notable for decreased hemoglobin of 7.9 and hematocrit of 24.5. BMP values are within normal limits. ASSESSMENT AND PLAN 1. Anemia, most likely from GI bleed from gastric erosions. Await abdominal CT result. In the meantime, since the patient is markedly anemic again, we will transfuse her with 2 units of packed red cells and premedicate with Tylenol and Benadryl. 2. Congestive heart failure. Will continue diuresis with Lasix, especially after the 2 units of packed red blood cells tomorrow morning. 3. Other problems stable. Continue current medications. Dictated By: RIANNA QUINTANA MD DP/STU Conf#: [id number] DID#: [id number] MTDD
[2016-12-07] MEDS: ACETAMINOPHEN 325 MG TAB PO PRN (02:12)
[2016-12-07] MEDS ORDERED: FUROSEMIDE 20 MG INJ IV ONE ×2 (03:00→15:00)
[2016-12-07] MEDS: HYDROCODONE/APAP (5/325) TAB PO PRN (04:41)
[2016-12-07] MEDS: PANTOPRAZOLE 40 MG INJ IV SCH ×2 (05:17→17:27)
[2016-12-07 08:07] LABS: BASOPHILS % 0.1 % (0.0-2.0); EOSINOPHILS % 0.1 % (0.0-7.0); HEMATOCRIT 32.2 % (37.0-47.0); HEMOGLOBIN 10.6 g/dl (12.0-16.0); LYMPHOCYTES # 0.9 10^3/ul (0.8-2.9); LYMPHOCYTES % 8.9 % (15.0-51.0); MEAN CORPUSCULAR HEMOGLOBIN 24.5 pg (29.0-33.0); MEAN CORPUSCULAR HGB CONC 32.8 g/dl (32.0-37.0); MEAN CORPUSCULAR VOLUME 74.7 fl (82.0-101.0); MEAN PLATELET VOLUME 7.9 fl (7.4-10.4); MONOCYTE # 1.3 10^3/ul (0.3-0.9); MONOCYTES % 13.2 % (0.0-11.0); NEUTROPHIL # 7.4 10^3/ul (1.6-7.5); NEUTROPHILS % 77.7 % (39.0-77.0); PLATELET COUNT 282 10^3/UL (140-440); RED BLOOD COUNT 4.31 10^6/ul (4.20-5.40); RED CELL DISTRIBUTION WIDTH 27.5 % (11.5-14.5); UNCORRECTED WBC 9.6 10^3/ul (4.8-10.8); WHITE BLOOD COUNT 9.6 10^3/ul (4.8-10.8)
[2016-12-07 08:10] LABS: CONDITION 1; LH ANALYZER COMMENTS 1; SUSPECT 1
[2016-12-07] MEDS: FUROSEMIDE 40 MG TAB PO SCH (08:12)
[2016-12-07] MEDS: FERROUS SULFATE (SR) 142 MG TAB PO SCH ×2 (08:12→22:27)
[2016-12-07] MEDS: LISINOPRIL 10 MG TAB PO SCH (08:12)
[2016-12-07 08:31] LABS: ALBUMIN 3.7 g/dl (3.3-4.9)
[2016-12-07 08:34] LABS: ALBUMIN/GLOBULIN RATIO 1.19; BILIRUBIN,INDIRECT 0.5 mg/dl (0-1.1); BILIRUBIN,TOTAL 0.5 mg/dl (0.2-1.3); CREATININE 0.89 mg/dl (0.44-1.00); TOTAL PROTEIN 6.8 g/dl (6.1-8.1)
[2016-12-07 08:35] LABS: CALCIUM 8.7 mg/dl (8.4-10.2); MAGNESIUM 2.3 mg/dl (1.7-2.5)
[2016-12-07] MEDS ORDERED: FUROSEMIDE 20 MG INJ IM ONE (09:00)
[2016-12-07] MEDS ORDERED: INFLUENZA VIRUS VACCINE 0.5 ML SYG IM* ONE (09:00)
[2016-12-07 09:31] LABS: THYROID STIMULATING HORMONE 1.46 MIU/L (0.465-4.680)
--- NOTE | 2016-12-07 11:44 | CONS ---
Date/Time of Note Date/Time of Note DATE: 12/07/16 TIME: 11:42 Assessment/Plan Assessment/Plan Additional Assessment/Plan Acute blood loss anemia Acute decompensated systolic and diastolic congestive heart failure Cardiomyopathy with ejection fraction 45% Mitral and tricuspid valve regurgitation. Coronary artery disease with history of PCI, most recent December 2014 Carotid artery stenosis status post carotid endarterectomy Hypertension -Patient status post more units of blood transfusion yesterday and feeling better. Hemoglobin now 10. Would give extra dose of IV diuretics this afternoon. From a congestive heart failure standpoint, patient with good progress. Blood pressure well-controlled on current medication regimen. Would continue maintenance diuretics, DC planning next one to 2 days from a cardiovascular standpoint. Antiplatelet therapy on hold until cleared by GI to restart. Consultation Date/Type/Reason Admit Date/Time Dec 04, 2016 at 14:51 Type of Consultation: cv 24 HR Interval Summary Free Text/Dictation Patient continues to feel better, denies chest pain, shortness of breath. Fatigue has improved Exam/Review of Systems Vital Signs Vitals Vital Signs Date Time Temp Pulse Resp B/P Pulse Ox O2 Delivery O2 Flow Rate FiO2 12/07/16 11:22 98.2 84 20 144/69 98 12/07/16 07:57 Nasal Cannula 2.0 Intake and Output 12/06/16 12/06/16 12/07/16 15:00 23:00 07:00 Intake Total 0 ml 850 ml Balance 0 ml 850 ml Exam No apparent distress Constitutional: alert, oriented Head: normocephalic Neck: supple Respiratory: other (course breath sounds bilaterally, minimal crackles left base) Cardiovascular: other (S1-S2 heard), regular rate and rhythm Gastrointestinal: bowel sounds, non-tender, soft Extremities: edema (trace) Results Result Diagram: 12/07/16 0750 12/07/16 0750 Results 24 hrs Laboratory Tests Test 12/06/16 16:25 12/07/16 07:50 Erythrocyte Sedimentation Rate 60 H 45 H Iron Level 14 L Percent Iron Saturation 3 L Total Iron Binding Capacity 486 H Alanine Aminotransferase (ALT/SGPT) 30 Albumin 3.7 Albumin/Globulin Ratio 1.19 Alkaline Phosphatase 162 H Amylase Level 85 Anion Gap 14 Aspartate Amino Transf (AST/SGOT) 52 H B-Type Natriuretic Peptide 63584 H Basophils # 0.0 Basophils % 0.1 Blood Morphology Comment Blood Urea Nitrogen 19 Calcium Level 8.7 Carbon Dioxide Level 29 Chloride Level 102 Creatinine 0.89 Direct Bilirubin 0.00 Eosinophils # 0.0 Eosinophils % 0.1 Globulin 3.10 Glucose Level 146 # Hematocrit 32.2 #L Hemoglobin 10.6 #L Indirect Bilirubin 0.5 Lipase 144 Lymphocytes # 0.9 Lymphocytes % 8.9 L Magnesium Level 2.3 Mean Corpuscular Hemoglobin 24.5 L Mean Corpuscular Hemoglobin Concent 32.8 Mean Corpuscular Volume 74.7 L Mean Platelet Volume 7.9 Monocytes # 1.3 H Monocytes % 13.2 H Neutrophils # 7.4 Neutrophils % 77.7 H Nucleated Red Blood Cells # 0.0 Nucleated Red Blood Cells % 0.0 Platelet Count 282 Potassium Level 4.0 Red Blood Count 4.31 # Red Cell Distribution Width 27.5 H Sodium Level 141 Thyroid Stimulating Hormone (TSH) 1.460 Total Bilirubin 0.5 Total Protein 6.8 White Blood Count 9.6 # Medications Medications Current Medications Atorvastatin Calcium (Lipitor) 40 mg HS PO Last administered on 12/06/16 21:04 ; Admin Dose 40 MG; Start 12/05/16 at 21:00 Carvedilol (Coreg) 6.25 mg BID PO Last administered on 12/07/16 08:12; Admin Dose 6.25 MG; Start 12/05/16 at 09:00 Lisinopril (Zestril) 10 mg DAILY PO Last administered on 12/07/16 08:12; Admin Dose 10 MG; Start 12/05/16 at 09:00 Pantoprazole (Protonix Iv) 40 mg BID@06,18 IV Last administered on 12/07/16 05: 17; Admin Dose 40 MG; Start 12/05/16 at 06:00 Furosemide (Lasix) 40 mg DAILY PO Last administered on 12/07/16 08:12; Admin Dose 40 MG; Start 12/06/16 at 09:00 Acetaminophen (Tylenol Tab) 650 mg Q4H PRN PO PAIN AND OR ELEVATED TEMP Last administered on 12/07/16 02:12; Admin Dose 650 MG; Start 12/05/16 at 23:00 Acetaminophen/ Hydrocodone Bitart ([place] (5/325)) 1 tab Q4H PRN PO PAIN LEVEL 4 -7 Last administered on 12/07/16 04:41; Admin Dose 1 TAB; Start 12/05/16 at 23:00 Ondansetron HCl (Zofran Inj) 4 mg Q8 PRN IV NAUSEA AND/OR VOMITING; Start at 23:00 Clonidine (Catapres) 0.1 mg Q6H PRN PO ELEVATED BLOOD PRESSURE; Start 12/05/16 at 23:00 Ferrous Sulfate (Slow Fe) 142 mg BID PO Last administered on 12/07/16t 08:12; Admin Dose 142 MG; Start 12/06/16 at 21:00 Asa Swann DO Dec 07, 2016 11:44
[2016-12-07] MEDS ORDERED: POTASSIUM CHLORIDE (SR) 20 MEQ TAB PO STA (15:38)
[2016-12-07] MEDS ORDERED: FUROSEMIDE 40 MG INJ IV ONE (16:00)
[2016-12-07] MEDS ORDERED: SOD CHLORIDE 0.9% 100 ML ONE (18:59)
[2016-12-07] MEDS ORDERED: IODIXANOL LOCM 100 ML BTL ONE (18:59)
--- NOTE | 2016-12-07 19:35 | RADRPT ---
PROCEDURE: CT Chest with contrast. CLINICAL INDICATION: Bilateral lung nodules, not otherwise specified. TECHNIQUE: CT scan of the chest with contrast was performed on a multidetector high-resolution CT scanner. The patient was scanned following the uncomplicated intravenous administration of 100 cc o f Omnipaque-300 contrast. Coronal and sagittal reformatted images were obtained from the axial sour ce images. Images were reviewed on a high-resolution PACS workstation. The total exam CTDI equals 8. 64 mGy and the total exam DLP equals 291.45 mGy-cm. COMPARISON: Plain film chest dated 12/04/2016. CT examination of the abdomen and pelvis dated 12/06. FINDINGS: Small bilateral pleural effusions, left greater than right. Atelectasis of the bilateral anterior l ungs and bilateral posterior costophrenic angles, left greater than right. Hyperinflation suggests a degree of COPD, and there are likely changes of centrolobular emphysema. Lungs are otherwise subst antially clear. Calcified granulomata again identified bilateral lung bases. Otherwise, no identif ied noncalcified pulmonary nodules. Cardiomegaly. No evident pleural effusion or pleural thickening The mediastinum is unremarkable without evidence for mass or lymphadenopathy. The vascular structur es of the mediastinum are normal in course and caliber. Aortic vascular calcifications and coronary artery calcifications are present. The heart size is normal without evidence for pericardial thick ening or effusion. The axillary regions, subpectoral regions, and supraclavicular regions are all unremarkable. The samir rounding chest wall is unremarkable. Imaging obtained through the upper abdomen reveals 4 cm septate d right renal cyst. Septations are thin, without identified enhancing mass or nodularity. Consider ultrasound correlation. Nonspecific 26 x 14 mm left renal nodule. Post contrast enhancement measures up to about [address] examination of the abdomen dated 12/06/2015. Pre and postcontrast CT examination of the abdomen, i ncluding delayed images may be of further use in characterizing this lesion. Otherwise, CT followup is required. The surrounding osseous structures are remarkable for degenerative spondylosis of the spine. No ost eolytic or osteoblastic lesion is detected. IMPRESSION: 1. Small bilateral pleural effusions, left greater than right. 2. Bilateral lung base atelectasis, at the anterior lungs and of the posterior costophrenic angles, left greater than right. 3. Cardiomegaly. 4. 4 cm septated right renal cyst is partially visualized. 5. Nonspecific 26 x 14 mm left renal nodule. Consider pre and postcontrast CT examination of the a bdomen and pelvis for further characterization. 6. Calcified granulomata again identified bilateral lung bases. 7. Otherwise, no identified noncalcified pulmonary nodules. RPTAT: [facility] Physician Jazz Date Time Electronically viewed and signed by Physician Jazz on 12/07/2016 19:35 RS/
--- NOTE | 2016-12-07 20:19 | RADRPT ---
PROCEDURE: XR Chest. CLINICAL INDICATION: chf TECHNIQUE: PA and lateral views of the chest were obtained COMPARISON: None FINDINGS: The cardiac silhouette is mildly enlarged. Mild vascular congestion. Small bilateral pleural effusions left greater than right. Left base air space opacity. The bones and soft tissues are unremarkable. IMPRESSION: Vascular congestion and bilateral pleural effusions left greater than right. Superimposed infectiou s or inflammatory process cannot be excluded. RPTAT:AAJJ Physician Pipe Date Time Electronically viewed and signed by Physician Pipe on 12/07/2016 20:19 ENRIQUE/
[2016-12-07] MEDS: ATORVASTATIN 40 MG TAB PO SCH (22:26)
--- NOTE | 2016-12-07 23:44 | PN ---
DATE: 12/07/2016 SUBJECTIVE: The patient reports mild fatigue and weakness, but she says she can ambulate to the bathroom on her own. OBJECTIVE: VITAL SIGNS: Temperature 98.2, blood pressure 144/69, pulse of 84, respiration rate 20, O2 saturation 98% on 2 liters nasal cannula. HEENT: Pupils equally round, reactive to light. Oropharynx clear. CHEST: Lungs are clear to auscultation except for mild bibasilar crackles. CARDIAC: Regular rate and rhythm, normal S1, S2. ABDOMEN: Active bowel sounds, soft, nondistended, nontender. EXTREMITIES: No clubbing, cyanosis, or edema. LABORATORY DATA: WBC 9.6, hemoglobin 10.6, hematocrit 32.2, platelet count is 282,000. ESR is 45. The patient's sodium is 141, potassium 4.0, chloride 102, bicarb 29, BUN 19, creatinine 0.89, glucose 146. Iron is 14. TIBC is 486, percent saturation is 3%. The patient's liver enzymes are noted for mildly elevated AST of 52, ALT of 162 and proBNP is double from admission at 11,300. The patient's abdominal and pelvic CT scan notable for a moderate sized right inguinal hernia containing loops of small bowel. There is diverticulosis of the colon with substantial stool seen in the colon. Stomach moderately distended with food, bilateral renal cysts without evidence of urinary outflow obstruction or stones, mild hepatomegaly with no focal lesions, pancreatic duct is borderline prominent just under 2 mm, but there is no evidence of cholelithiasis or bile duct dilatation. There are degenerative changes in the spine, particularly on L4 and L5 level. There are trace gravitating left pleural fluid accumulation with discoid atelectasis in the right middle lobe containing a 3 mm calcified granuloma and with a 5 mm calcified granuloma seen in the left lower lobe. The heart is mildly enlarged with coronary artery disease. ASSESSMENT AND PLAN: 1. Anemia, most likely source of iron deficiency anemia is chronic slow bleed from gastric erosions. The patient has been started on pantoprazole and her anemia has improved with 5 units of packed red blood cells transfusion. We will recheck the hemoglobin and hematocrit tomorrow and if her anemia remains stable I will discharge her to home. 2. Congestive heart failure. The patient has increased proBNP and mild increased hypoxia. I will check a stat chest x-ray for evidence of congestion and increase diuresis tonight with 40 mg IV Lasix and increase potassium supplement. 3. Bilateral pulmonary calcified nodules. These were not noted on previous chest x-ray. Since the patient is in the hospital I will obtain a chest CT scan to clarify the etiology of these lung nodules. 4. Weakness. The patient is able to ambulate independently, but could use further physical therapy in the outpatient setting. I will plan on discharging her to home with home health nurse. Dictated By: RIANNA QUINTANA MD DP/NTS Conf#: [id number] DID#: [id number] CC: RIANNA QUINTANA MD;*EndCC* MTDD
[2016-12-08] MEDS: PANTOPRAZOLE 40 MG INJ IV SCH ×2 (06:08→17:56)
[2016-12-08 06:23] LABS: HEMOGLOBIN 10.6 g/dl (12.0-16.0); MEAN CORPUSCULAR HEMOGLOBIN 24.6 pg (29.0-33.0); MEAN CORPUSCULAR VOLUME 74.5 fl (82.0-101.0); MEAN PLATELET VOLUME 8.4 fl (7.4-10.4); PLATELET COUNT 287 10^3/UL (140-440); RED CELL DISTRIBUTION WIDTH 28.5 % (11.5-14.5); UNCORRECTED WBC 7.4 10^3/ul (4.8-10.8); WHITE BLOOD COUNT 7.4 10^3/ul (4.8-10.8)
[2016-12-08 06:39] LABS: CONDITION 1; LH ANALYZER COMMENTS 1; SUSPECT 1
--- NOTE | 2016-12-08 06:47 | PN ---
Date/Time of Note Date/Time of Note DATE: 12/08/16 TIME: 06:46 Assessment/Plan VTE Prophylaxis VTE Prophylaxis Intervention: SCD's Lines/Catheters IV [facility]ter Type (from [facility]): Saline Lock Urinary Cath still in place: No Assessment/Plan Assessment/Plan Acute blood loss anemia Acute decompensated systolic and diastolic congestive heart failure Cardiomyopathy with ejection fraction 45% Mitral and tricuspid valve regurgitation. Coronary artery disease with history of PCI, most recent December 2014 Carotid artery stenosis status post carotid endarterectomy Hypertension -Patient status post more units of blood transfusion and feeling better. s/p extra dose of IV diuretics yesterday Conintue po lasix wiht good diuresis overnight -From a congestive heart failure standpoint, patient with good progress. Blood pressure well-controlled on current medication regimen. Would continue maintenance diuretics, DC planning next one to 2 days from a cardiovascular standpoint. Antiplatelet therapy on hold until cleared by GI to restart. Subjective 24 Hr Interval Summary Free Text/Dictation The patient stable overnight Exam/Review of Systems Vital Signs Vitals Vital Signs Date Time Temp Pulse Resp B/P Pulse Ox O2 Delivery O2 Flow Rate FiO2 12/07/16 20:04 98.6 92 16 141/82 95 12/07/16 17:56 2.0 12/07/16 07:57 Nasal Cannula Intake and Output 12/07/16 12/07/16 12/08/16 15:00 23:00 07:00 Intake Total 720 ml 200 ml Output Total 1300 ml Balance -580 ml 200 ml Results Result Diagram: 12/08/16 0505 12/07/16 0750 Results 24 hrs Laboratory Tests Test 12/07/16 07:50 12/08/16 05:05 Alanine Aminotransferase (ALT/SGPT) 30 Albumin 3.7 Albumin/Globulin Ratio 1.19 Alkaline Phosphatase 162 H Amylase Level 85 Anion Gap 14 Aspartate Amino Transf (AST/SGOT) 52 H B-Type Natriuretic Peptide 30561 H Basophils # 0.0 Basophils % 0.1 Blood Morphology Comment Blood Urea Nitrogen 19 Calcium Level 8.7 Carbon Dioxide Level 29 Chloride Level 102 Creatinine 0.89 Direct Bilirubin 0.00 Eosinophils # 0.0 Eosinophils % 0.1 Erythrocyte Sedimentation Rate 45 H Globulin 3.10 Glucose Level 146 # Hematocrit 32.2 #L 32.0 L Hemoglobin 10.6 #L 10.6 L Indirect Bilirubin 0.5 Lipase 144 Lymphocytes # 0.9 Lymphocytes % 8.9 L Magnesium Level 2.3 Mean Corpuscular Hemoglobin 24.5 L 24.6 L Mean Corpuscular Hemoglobin Concent 32.8 33.0 Mean Corpuscular Volume 74.7 L 74.5 L Mean Platelet Volume 7.9 8.4 Monocytes # 1.3 H Monocytes % 13.2 H Neutrophils # 7.4 Neutrophils % 77.7 H Nucleated Red Blood Cells # 0.0 Nucleated Red Blood Cells % 0.0 Platelet Count 282 287 Potassium Level 4.0 Red Blood Count 4.31 # 4.30 Red Cell Distribution Width 27.5 H 28.5 H Sodium Level 141 Thyroid Stimulating Hormone (TSH) 1.460 Total Bilirubin 0.5 Total Protein 6.8 White Blood Count 9.6 # 7.4 # Medications Medications Current Medications Atorvastatin Calcium (Lipitor) 40 mg HS PO Last administered on 12/07/16 22:26 ; Admin Dose 40 MG; Start 12/05/16 at 21:00 Carvedilol (Coreg) 6.25 mg BID PO Last administered on 12/07/16 22:27; Admin Dose 6.25 MG; Start 12/05/16 at 09:00 Lisinopril (Zestril) 10 mg DAILY PO Last administered on 12/07/16 08:12; Admin Dose 10 MG; Start 12/05/16 at 09:00 Pantoprazole (Protonix Iv) 40 mg BID@06,18 IV Last administered on 12/08/16 06: 08; Admin Dose 40 MG; Start 12/05/16 at 06:00 Furosemide (Lasix) 40 mg DAILY PO Last administered on 12/07/16 08:12; Admin Dose 40 MG; Start 12/06/16 at 09:00 Acetaminophen (Tylenol Tab) 650 mg Q4H PRN PO PAIN AND OR ELEVATED TEMP Last administered on 12/07/16 02:12; Admin Dose 650 MG; Start 12/05/16 at 23:00 Acetaminophen/ Hydrocodone Bitart ([place] (5/325)) 1 tab Q4H PRN PO PAIN LEVEL 4 -7 Last administered on 12/07/16 04:41; Admin Dose 1 TAB; Start 12/05/16 at 23:00 Ondansetron HCl (Zofran Inj) 4 mg Q8 PRN IV NAUSEA AND/OR VOMITING; Start at 23:00 Clonidine (Catapres) 0.1 mg Q6H PRN PO ELEVATED BLOOD PRESSURE; Start 12/05/16 at 23:00 Ferrous Sulfate (Slow Fe) 142 mg BID PO Last administered on 12/07/16t 22:27; Admin Dose 142 MG; Start 12/06/16 at 21:00 TANK BATES MD Dec 08, 2016 06:47
[2016-12-08 06:52] LABS: CREATININE 0.85 mg/dl (0.44-1.00)
[2016-12-08 06:53] LABS: CALCIUM 8.7 mg/dl (8.4-10.2); MAGNESIUM 2.1 mg/dl (1.7-2.5)
[2016-12-08 07:26] LABS: POTASSIUM 2.9 mmol/L (3.5-5.1)
[2016-12-08] MEDS ORDERED: POTASSIUM CHLORIDE 20 MEQ POWDER FOR ORAL SOLN PO ONE ×2 (08:00→12:00)
[2016-12-08 08:04] VITALS: BP 109/84; RESP 18
[2016-12-08] MEDS: LISINOPRIL 10 MG TAB PO SCH (09:15)
[2016-12-08] MEDS: FUROSEMIDE 40 MG TAB PO SCH (09:15)
[2016-12-08] MEDS: FERROUS SULFATE (SR) 142 MG TAB PO SCH ×2 (09:15→21:41)
[2016-12-08] MEDS ORDERED: POTASSIUM CHLORIDE 20 MEQ in SOD CHLORIDE 0.9% 100 ML IVPB ONE (09:30)
[2016-12-08 10:26] LABS: EOSINOPHILS # 0.1 10^3/ul (0.0-0.5); LYMPHOCYTES # 1.7 10^3/ul (0.8-2.9); NEUTROPHIL # 4.4 10^3/ul (1.6-7.5)
--- NOTE | 2016-12-08 12:15 | PN ---
Date/Time of Note Date/Time of Note DATE: 12/08/16 TIME: 12:14 Assessment/Plan VTE Prophylaxis VTE Prophylaxis Intervention: contraindicated Lines/Catheters IV Catheter Type (from [facility]): Saline Lock Urinary Cath still in place: No Assessment/Plan Chief Complaint/Hosp Course 1) anemia - monitor blood count - workup ongoing 2) CHF - stable at this point Problems: Subjective 24 Hr Interval Summary Free Text/Dictation Patient has no complaints, no longer feel weak Exam/Review of Systems Vital Signs Vitals Vital Signs Date Time Temp Pulse Resp B/P Pulse Ox O2 Delivery O2 Flow Rate FiO2 12/08/16 08:04 98.0 72 18 109/84 95 12/07/16 17:56 2.0 12/07/16 07:57 Nasal Cannula Intake and Output 12/07/16 12/07/16 12/08/16 15:00 23:00 07:00 Intake Total 720 ml 200 ml Output Total 1300 ml Balance -580 ml 200 ml Exam Constitutional: well developed Head: atraumatic, normocephalic Neck: supple Respiratory: clear to auscultation Cardiovascular: regular rate and rhythm Gastrointestinal: non-tender, soft Extremities: normal pulses Results Result Diagram: 12/08/16 0505 12/08/16 0505 Results 24 hrs Laboratory Tests Test 12/08/16 05:05 Anion Gap 16 B-Type Natriuretic Peptide 65339 H Band Neutrophils % 2.0 Blood Morphology Comment Blood Urea Nitrogen 20 Calcium Level 8.7 Carbon Dioxide Level 33 H Chloride Level 98 Creatinine 0.85 Differential Comment MANUAL DIFF Eosinophils # 0.1 Eosinophils % 2.0 Glucose Level 88 # Hematocrit 32.0 L Hemoglobin 10.6 L Lymphocytes # 1.7 Lymphocytes % 23.0 Magnesium Level 2.1 Mean Corpuscular Hemoglobin 24.6 L Mean Corpuscular Hemoglobin Concent 33.0 Mean Corpuscular Volume 74.5 L Mean Platelet Volume 8.4 Monocytes # 1.0 H Monocytes % 13.0 H Neutrophils # 4.4 Neutrophils % 60.0 Platelet Count 287 Potassium Level 2.9 *L Red Blood Count 4.30 Red Cell Distribution Width 28.5 H Sodium Level 144 White Blood Count 7.4 # Medications Medications Current Medications Atorvastatin Calcium (Lipitor) 40 mg HS PO Last administered on 12/07/16t 22:26 ; Admin Dose 40 MG; Start 12/05/16 at 21:00 Carvedilol (Coreg) 6.25 mg BID PO Last administered on 12/07/16 22:27; Admin Dose 6.25 MG; Start 12/05/16 at 09:00 Lisinopril (Zestril) 10 mg DAILY PO Last administered on 12/08/16 09:15; Admin Dose 10 MG; Start 12/05/16 at 09:00 Pantoprazole (Protonix Iv) 40 mg BID@18 IV Last administered on 12/08/16 06: 08; Admin Dose 40 MG; Start 12/05/16 at 06:00 Furosemide (Lasix) 40 mg DAILY PO Last administered on 12/08/16 09:15; Admin Dose 40 MG; Start 12/06/16 at 09:00 Acetaminophen (Tylenol Tab) 650 mg Q4H PRN PO PAIN AND OR ELEVATED TEMP Last administered on 12/07/16 02:12; Admin Dose 650 MG; Start 12/05/16 at 23:00 Acetaminophen/ Hydrocodone Bitart ([place] (5/325)) 1 tab Q4H PRN PO PAIN LEVEL 4 -7 Last administered on 12/07/16 04:41; Admin Dose 1 TAB; Start 12/05/16 at 23:00 Ondansetron HCl (Zofran Inj) 4 mg Q8 PRN IV NAUSEA AND/OR VOMITING; Start at 23:00 Clonidine (Catapres) 0.1 mg Q6H PRN PO ELEVATED BLOOD PRESSURE; Start 12/05/16 at 23:00 Ferrous Sulfate (Slow Fe) 142 mg BID PO Last administered on 12/08/16 09:15; Admin Dose 142 MG; Start 12/06/16 at 21:00 MICHAEL RÍOS Dec 08, 2016 12:15
[2016-12-08 19:29] VITALS: BP 151/68; RESP 18
[2016-12-08 19:34] VITALS: BP 127/67; RESP 16
[2016-12-08] MEDS: ATORVASTATIN 40 MG TAB PO SCH (21:41)
[2016-12-08] MEDS: ACETAMINOPHEN 325 MG TAB PO PRN (21:42)
[2016-12-09] VITALS (7 sets, daily range): BP systolic 145–191; BP diastolic 63–86; PULSE 73–82; RESP 16–22
[2016-12-09] MEDS: HYDROCODONE/APAP (5/325) TAB PO PRN ×2 (00:40→20:10)
[2016-12-09] MEDS: PANTOPRAZOLE 40 MG INJ IV SCH ×2 (05:29→18:42)
[2016-12-09 05:45] LABS: POTASSIUM 3.9 mmol/L (3.5-5.1)
[2016-12-09 05:47] LABS: CREATININE 0.77 mg/dl (0.44-1.00)
[2016-12-09 05:48] LABS: CALCIUM 8.9 mg/dl (8.4-10.2)
[2016-12-09 05:50] LABS: BASOPHILS % 0.1 % (0.0-2.0); EOSINOPHILS # 0.2 10^3/ul (0.0-0.5); EOSINOPHILS % 2.9 % (0.0-7.0); LYMPHOCYTES # 1.7 10^3/ul (0.8-2.9); LYMPHOCYTES % 24.1 % (15.0-51.0); MEAN CORPUSCULAR HEMOGLOBIN 24.4 pg (29.0-33.0); MEAN CORPUSCULAR HGB CONC 32.3 g/dl (32.0-37.0); MEAN CORPUSCULAR VOLUME 75.4 fl (82.0-101.0); MEAN PLATELET VOLUME 8.6 fl (7.4-10.4); MONOCYTE # 0.7 10^3/ul (0.3-0.9); MONOCYTES % 10.1 % (0.0-11.0); NEUTROPHIL # 4.4 10^3/ul (1.6-7.5); NEUTROPHILS % 62.8 % (39.0-77.0); PLATELET COUNT 321 10^3/UL (140-440); RED CELL DISTRIBUTION WIDTH 28.7 % (11.5-14.5); UNCORRECTED WBC 6.9 10^3/ul (4.8-10.8); WHITE BLOOD COUNT 6.9 10^3/ul (4.8-10.8)
[2016-12-09 06:09] LABS: CONDITION 1; LH ANALYZER COMMENTS 1; NUCLEATED RED BLOOD CELLS # 0.1 10^3/ul (0.0-0.0); SUSPECT 1
[2016-12-09] MEDS: LISINOPRIL 10 MG TAB PO SCH (09:32)
[2016-12-09] MEDS: FUROSEMIDE 40 MG TAB PO SCH (09:32)
[2016-12-09] MEDS: FERROUS SULFATE (SR) 142 MG TAB PO SCH ×2 (09:32→20:11)
--- NOTE | 2016-12-09 11:20 | PN ---
Date/Time of Note Date/Time of Note DATE: 12/09/16 TIME: 11:19 Assessment/Plan VTE Prophylaxis VTE Prophylaxis Intervention: contraindicated Lines/Catheters IV Catheter Type (from [facility]): Saline Lock Urinary Cath still in place: No Assessment/Plan Chief Complaint/Hosp Course 1) anemia - monitor blood count - workup ongoing 2) CHF - stable at this point Problems: Subjective 24 Hr Interval Summary Free Text/Dictation Patient has no complaints Exam/Review of Systems Vital Signs Vitals Vital Signs Date Time Temp Pulse Resp B/P Pulse Ox O2 Delivery O2 Flow Rate FiO2 12/09/16 07:48 98.4 68 22 170/73 97 12/07/16 17:56 2.0 12/07/16 07:57 Nasal Cannula Intake and Output 12/08/16 12/08/16 12/09/16 15:00 23:00 07:00 Intake Total 100 ml 1420 ml 860 ml Balance 100 ml 1420 ml 860 ml Exam Constitutional: well developed Head: atraumatic, normocephalic Neck: supple Respiratory: clear to auscultation Cardiovascular: regular rate and rhythm Gastrointestinal: non-tender, soft Results Result Diagram: 12/09/16 0443 12/09/16 0443 Results 24 hrs Laboratory Tests Test 12/08/16 18:45 12/09/16 04:43 Potassium Level 4.0 3.9 Anion Gap 17 H Basophils # 0.0 Basophils % 0.1 Blood Morphology Comment Blood Urea Nitrogen 20 Calcium Level 8.9 Carbon Dioxide Level 28 Chloride Level 103 Creatinine 0.77 Eosinophils # 0.2 Eosinophils % 2.9 Glucose Level 124 Hematocrit 34.0 L Hemoglobin 11.0 L Lymphocytes # 1.7 Lymphocytes % 24.1 Mean Corpuscular Hemoglobin 24.4 L Mean Corpuscular Hemoglobin Concent 32.3 Mean Corpuscular Volume 75.4 L Mean Platelet Volume 8.6 Monocytes # 0.7 Monocytes % 10.1 Neutrophils # 4.4 Neutrophils % 62.8 Nucleated Red Blood Cells # 0.1 H Nucleated Red Blood Cells % 2.0 H Platelet Count 321 Red Blood Count 4.50 Red Cell Distribution Width 28.7 H Sodium Level 144 White Blood Count 6.9 Medications Medications Current Medications Atorvastatin Calcium (Lipitor) 40 mg HS PO Last administered on 12/08/16t 21:41 ; Admin Dose 40 MG; Start 12/05/16 at 21:00 Carvedilol (Coreg) 6.25 mg BID PO Last administered on 12/09/16 09:33; Admin Dose 6.25 MG; Start 12/05/16 at 09:00 Lisinopril (Zestril) 10 mg DAILY PO Last administered on 12/09/16 09:32; Admin Dose 10 MG; Start 12/05/16 at 09:00 Pantoprazole (Protonix Iv) 40 mg BID@,18 IV Last administered on 12/09/16 05: 29; Admin Dose 40 MG; Start 12/05/16 at 06:00 Furosemide (Lasix) 40 mg DAILY PO Last administered on 12/09/16 09:32; Admin Dose 40 MG; Start 12/06/16 at 09:00 Acetaminophen (Tylenol Tab) 650 mg Q4H PRN PO PAIN AND OR ELEVATED TEMP Last administered on 12/08/16 21:42; Admin Dose 650 MG; Start 12/05/16 at 23:00 Acetaminophen/ Hydrocodone Bitart ([place] (5/325)) 1 tab Q4H PRN PO PAIN LEVEL 4 -7 Last administered on 12/09/16 00:40; Admin Dose 1 TAB; Start 12/05/16 at 23:00 Ondansetron HCl (Zofran Inj) 4 mg Q8 PRN IV NAUSEA AND/OR VOMITING; Start at 23:00 Clonidine (Catapres) 0.1 mg Q6H PRN PO ELEVATED BLOOD PRESSURE; Start 12/05/16 at 23:00 Ferrous Sulfate (Slow Fe) 142 mg BID PO Last administered on 12/09/16 09:32; Admin Dose 142 MG; Start 12/06/16 at 21:00 MICHAEL RÍOS Dec 09, 2016 11:20
[2016-12-09] MEDS ORDERED: DIPHENHYDRAMINE 25 MG CAP PO PRN (11:30)
--- NOTE | 2016-12-09 11:54 | CONS ---
Date/Time of Note Date/Time of Note DATE: 12/09/16 TIME: 11:52 Assessment/Plan Assessment/Plan Additional Assessment/Plan Acute blood loss anemia Acute decompensated systolic and diastolic congestive heart failure Cardiomyopathy with ejection fraction 45% Mitral and tricuspid valve regurgitation. Coronary artery disease with history of PCI, most recent December 2014 Carotid artery stenosis status post carotid endarterectomy Hypertension Conintue po lasix -From a congestive heart failure appearts euvolemic Blood pressure well-controlled on current medication regimen. Would continue maintenance diuretics, . Antiplatelet therapy on hold until cleared by GI to restart. Consultation Date/Type/Reason Admit Date/Time Dec 04, 2016 at 14:51 Initial Consult Date Type of Consultation: cv Exam/Review of Systems Vital Signs Vitals Vital Signs Date Time Temp Pulse Resp B/P Pulse Ox O2 Delivery O2 Flow Rate FiO2 12/09/16 07:48 98.4 68 22 170/73 97 12/07/16 17:56 2.0 12/07/16 07:57 Nasal Cannula Intake and Output 12/08/16 12/08/16 12/09/16 15:00 23:00 07:00 Intake Total 100 ml 1420 ml 860 ml Balance 100 ml 1420 ml 860 ml Exam Constitutional: alert, distress, frail, non-verbal, obese, oriented, other, well developed Eyes: nl conjunctiva Respiratory: clear to auscultation Cardiovascular: regular rate and rhythm Results Result Diagram: 12/09/16 0443 12/09/16 0443 Results 24 hrs Laboratory Tests Test 12/08/16 18:45 12/09/16 04:43 Potassium Level 4.0 3.9 Anion Gap 17 H Basophils # 0.0 Basophils % 0.1 Blood Morphology Comment Blood Urea Nitrogen 20 Calcium Level 8.9 Carbon Dioxide Level 28 Chloride Level 103 Creatinine 0.77 Eosinophils # 0.2 Eosinophils % 2.9 Glucose Level 124 Hematocrit 34.0 L Hemoglobin 11.0 L Lymphocytes # 1.7 Lymphocytes % 24.1 Mean Corpuscular Hemoglobin 24.4 L Mean Corpuscular Hemoglobin Concent 32.3 Mean Corpuscular Volume 75.4 L Mean Platelet Volume 8.6 Monocytes # 0.7 Monocytes % 10.1 Neutrophils # 4.4 Neutrophils % 62.8 Nucleated Red Blood Cells # 0.1 H Nucleated Red Blood Cells % 2.0 H Platelet Count 321 Red Blood Count 4.50 Red Cell Distribution Width 28.7 H Sodium Level 144 White Blood Count 6.9 Medications Medications Current Medications Atorvastatin Calcium (Lipitor) 40 mg HS PO Last administered on 12/08/16 21:41 ; Admin Dose 40 MG; Start 12/05/16 at 21:00 Carvedilol (Coreg) 6.25 mg BID PO Last administered on 12/09/16 09:33; Admin Dose 6.25 MG; Start 12/05/16 at 09:00 Lisinopril (Zestril) 10 mg DAILY PO Last administered on 12/09/16 09:32; Admin Dose 10 MG; Start 12/05/16 at 09:00 Pantoprazole (Protonix Iv) 40 mg BID@18 IV Last administered on 12/09/16 05: 29; Admin Dose 40 MG; Start 12/05/16 at 06:00 Furosemide (Lasix) 40 mg DAILY PO Last administered on 12/09/16 09:32; Admin Dose 40 MG; Start 12/06/16 at 09:00 Acetaminophen (Tylenol Tab) 650 mg Q4H PRN PO PAIN AND OR ELEVATED TEMP Last administered on 12/08/16 21:42; Admin Dose 650 MG; Start 12/05/16 at 23:00 Acetaminophen/ Hydrocodone Bitart ([place] (5/325)) 1 tab Q4H PRN PO PAIN LEVEL 4 -7 Last administered on 12/09/16 00:40; Admin Dose 1 TAB; Start 12/05/16 at 23:00 Ondansetron HCl (Zofran Inj) 4 mg Q8 PRN IV NAUSEA AND/OR VOMITING; Start at 23:00 Clonidine (Catapres) 0.1 mg Q6H PRN PO ELEVATED BLOOD PRESSURE; Start 12/05/16 at 23:00 Ferrous Sulfate (Slow Fe) 142 mg BID PO Last administered on 12/09/16 09:32; Admin Dose 142 MG; Start 12/06/16 at 21:00 Diphenhydramine HCl (Benadryl) 25 mg Q6H PRN PO ITCHING; Start 12/09/16 at 11:30 IGOR ABDI MD Dec 09, 2016 11:54
[2016-12-09] MEDS: ATORVASTATIN 40 MG TAB PO SCH (20:11)
[2016-12-10 06:04] LABS: POTASSIUM 3.9 mmol/L (3.5-5.1)
[2016-12-10 06:06] LABS: CREATININE 0.71 mg/dl (0.44-1.00)
[2016-12-10 06:12] LABS: BASOPHILS % 0.3 % (0.0-2.0); EOSINOPHILS # 0.3 10^3/ul (0.0-0.5); EOSINOPHILS % 3.3 % (0.0-7.0); HEMATOCRIT 34.5 % (37.0-47.0); HEMOGLOBIN 11.1 g/dl (12.0-16.0); LYMPHOCYTES # 2.1 10^3/ul (0.8-2.9); LYMPHOCYTES % 26.1 % (15.0-51.0); MEAN CORPUSCULAR HEMOGLOBIN 24.2 pg (29.0-33.0); MEAN CORPUSCULAR HGB CONC 32.1 g/dl (32.0-37.0); MEAN CORPUSCULAR VOLUME 75.4 fl (82.0-101.0); MEAN PLATELET VOLUME 8.1 fl (7.4-10.4); MONOCYTE # 0.7 10^3/ul (0.3-0.9); MONOCYTES % 8.7 % (0.0-11.0); NEUTROPHIL # 4.9 10^3/ul (1.6-7.5); NEUTROPHILS % 61.6 % (39.0-77.0); PLATELET COUNT 349 10^3/UL (140-440); RED BLOOD COUNT 4.57 10^6/ul (4.20-5.40); RED CELL DISTRIBUTION WIDTH 28.6 % (11.5-14.5)
[2016-12-10 06:18] LABS: CONDITION 1; LH ANALYZER COMMENTS 1; NUCLEATED RED BLOOD CELLS # 0.2 10^3/ul (0.0-0.0); SUSPECT 1
[2016-12-10] MEDS: PANTOPRAZOLE 40 MG INJ IV SCH ×2 (06:21→18:15)
[2016-12-10 07:26] VITALS: BP 169/72; RESP 22
[2016-12-10] MEDS: FERROUS SULFATE (SR) 142 MG TAB PO SCH (08:43)
[2016-12-10] MEDS: FUROSEMIDE 40 MG TAB PO SCH (08:44)
[2016-12-10] MEDS: LISINOPRIL 10 MG TAB PO SCH (08:44)
--- NOTE | 2016-12-10 15:41 | CONS ---
Date/Time of Note Date/Time of Note DATE: 12/10/16 TIME: 15:39 Assessment/Plan Assessment/Plan Additional Assessment/Plan Acute blood loss anemia Acute decompensated systolic and diastolic congestive heart failure Cardiomyopathy with ejection fraction 45% Mitral and tricuspid valve regurgitation. Coronary artery disease with history of PCI, most recent December 2014 Carotid artery stenosis status post carotid endarterectomy Hypertension -Blood pressure has been elevated, would increase lisinopril dosing to twice a day, antiplatelet therapy on hold secondary to anemia requiring blood transfusion. Patient appears near euvolemic and would continue on maintenance diuretics as long as renal function permits. DC planning Consultation Date/Type/Reason Admit Date/Time Dec 04, 2016 at 14:51 Type of Consultation: cv 24 HR Interval Summary Free Text/Dictation Denies shortness of breath, chest pain or palpitations Exam/Review of Systems Vital Signs Vitals Vital Signs Date Time Temp Pulse Resp B/P Pulse Ox O2 Delivery O2 Flow Rate FiO2 12/10/16 07:26 97.6 69 22 169/72 97 12/09/16 20:58 Room Air 12/07/16 17:56 2.0 Intake and Output 12/09/16 12/09/16 12/10/16 15:00 23:00 07:00 Intake Total 720 ml 120 ml Balance 720 ml 120 ml Exam No apparent distress Constitutional: alert, oriented Head: normocephalic Neck: supple Respiratory: other (course breath sounds bilaterally, no wheezing) Cardiovascular: other (S1-S2 heard), regular rate and rhythm Gastrointestinal: bowel sounds, non-tender, soft Extremities: edema Results Result Diagram: 12/10/16 0510 12/10/16 0510 Results 24 hrs Laboratory Tests Test 12/10/16 05:10 Anion Gap 18 H Basophils # 0.0 Basophils % 0.3 Blood Morphology Comment Blood Urea Nitrogen 15 Calcium Level 9.0 Carbon Dioxide Level 30 Chloride Level 101 Creatinine 0.71 Eosinophils # 0.3 Eosinophils % 3.3 Glucose Level 93 Hematocrit 34.5 L Hemoglobin 11.1 L Lymphocytes # 2.1 Lymphocytes % 26.1 Mean Corpuscular Hemoglobin 24.2 L Mean Corpuscular Hemoglobin Concent 32.1 Mean Corpuscular Volume 75.4 L Mean Platelet Volume 8.1 Monocytes # 0.7 Monocytes % 8.7 Neutrophils # 4.9 Neutrophils % 61.6 Nucleated Red Blood Cells # 0.2 H Nucleated Red Blood Cells % 2.0 H Platelet Count 349 Potassium Level 3.9 Red Blood Count 4.57 Red Cell Distribution Width 28.6 H Sodium Level 145 H White Blood Count 8.0 Medications Medications Current Medications Atorvastatin Calcium (Lipitor) 40 mg HS PO Last administered on 12/09/16 20:11 ; Admin Dose 40 MG; Start 12/05/16 at 21:00 Carvedilol (Coreg) 6.25 mg BID PO Last administered on 12/10/16 08:43; Admin Dose 6.25 MG; Start 12/05/16 at 09:00 Lisinopril (Zestril) 10 mg DAILY PO Last administered on 12/10/16 08:44; Admin Dose 10 MG; Start 12/05/16 at 09:00 Pantoprazole (Protonix Iv) 40 mg BID@06,18 IV Last administered on 12/10/16 06: 21; Admin Dose 40 MG; Start 12/05/16 at 06:00 Furosemide (Lasix) 40 mg DAILY PO Last administered on 12/10/16 08:44; Admin Dose 40 MG; Start 12/06/16 at 09:00 Acetaminophen (Tylenol Tab) 650 mg Q4H PRN PO PAIN AND OR ELEVATED TEMP Last administered on 12/08/16 21:42; Admin Dose 650 MG; Start 12/05/16 at 23:00 Acetaminophen/ Hydrocodone Bitart ([place] (5/325)) 1 tab Q4H PRN PO PAIN LEVEL 4 -7 Last administered on 12/09/16 20:10; Admin Dose 1 TAB; Start 12/05/16 at 23:00 Ondansetron HCl (Zofran Inj) 4 mg Q8 PRN IV NAUSEA AND/OR VOMITING; Start at 23:00 Clonidine (Catapres) 0.1 mg Q6H PRN PO ELEVATED BLOOD PRESSURE Last administered on 12/09/16 20:11; Admin Dose 0.1 MG; Start 12/05/16 at 23:00 Ferrous Sulfate (Slow Fe) 142 mg BID PO Last administered on 12/10/16 08:43; Admin Dose 142 MG; Start 12/06/16 at 21:00 Diphenhydramine HCl (Benadryl) 25 mg Q6H PRN PO ITCHING Last administered on t 12:42; Admin Dose 25 MG; Start 12/09/16 at 11:30 Asa Swann DO Dec 10, 2016 15:41
[2016-12-10] MEDS ORDERED: FERR140T2 PO (17:46)
[2016-12-10] MEDS ORDERED: PANT40TA4 PO (17:46)
[2016-12-10] MEDS ORDERED: LISI10TA2 PO (17:46)
[2016-12-10] MEDS ORDERED: FURO40TA4 PO (17:46)
[2016-12-10] MEDS ORDERED: LISINOPRIL 10 MG TAB PO SCH (21:00)
--- NOTE | 2016-12-11 10:19 | DS ---
DATE OF ADMISSION: 12/04/2016 DATE OF DISCHARGE: 12/10/2016 DISCHARGE DIAGNOSES 1. Severe anemia. 2. Gastritis. 3. Congestive heart failure. 4. Fluid overload. 5. Hypokalemia. PROCEDURES DONE THIS ADMISSION: Endoscopy, colonoscopy, 5 units packed red blood cell transfusion, 2D echocardiogram. HOSPITAL COURSE: This is an 86-year-old female with history of coronary artery disease, h ypertension, congestive heart failure, was admitted with severe weakness and shortness of breath on exertion. The patient was then noted to be severely anemic and received 3 units of packed red blood cells on the day of admission. The patient was seen by button spindler, Dr. Pennington, and kennyen t endoscopy and colonoscopy the following day. The colonoscopy showed a 5 mm flat polyp in the mid descending colon which was biopsied. Diverticulosis and minimal internal and external hemorrhoids. The endoscopy showed multiple erosions in the antrum of the stomach and linear hyperemic area about 2 cm in length above the gastroesophageal junction representing esophagitis. The patient was placed on proton pump inhibitor with Pantoprazole 40 mg IV b.i.d. We discontinued t he Plavix and aspirin the patient was on. Cardiology consultation was obtained regarding the fact th at Plavix discontinuation, will have on her stent placement 2 years previously, and regarding possib le fluid overload following blood transfusion. Indeed, the patient's proBNP did rise from a baseline of 4390 on admission to 11,300 after blood transfusion despite doubling of the patient's normal dos e of Lasix from 20 to 40 mg daily. We thus gave the patient and extra dose of 40 mg IV Lasix after the patient received another 2 units of packed red blood cells and followed her H and H which came up from a low of 4.6/15.5 to 7.9/24.5 to 10.6/ 32.0 and stayed above this level throughout the remai nder of the hospitalization. However, following the IV Lasix, the patient's potassium dropped down from 4.0 to 2.9 requiring extr a potassium supplementation and subsequent potassium check showed 3.9 to 4.0 potassium. The patient was also ambulated by physical therapy and deemed to have mild weakness. With the patient able to ambulate with assistive device of a small based quad cane for short distances, the patient was thus deemed safe and stable for discharge today. DISPOSITION: The patient is discharged to home where she lives with her sister and nephew. We will send out a home health nurse and physical therapist to assess the patient in her home safety and am bulation strengthening, as well as following up on medication adjustments. DISCHARGE MEDICATIONS: 1. Pantoprazole 40 mg p.o. b.i.d. 2. Carvedilol 6.25 mg p.o. b.i.d. 3. Lisinopril 10 mg p.o. b.i.d. 4. Ferrous sulfate 142 mg p.o. b.i.d. 5. Lasix 40 mg p.o. every day. 6. Atorvastatin 40 mg p.o. q.p.m. FOLLOWUP: The patient will be seen for followup on further gastroenterology workup with Dr. Pennington who is considering small bowel follow through to assess other sources of bleed since her anemia is s till much more severe than what is evident on endoscopy. DISPOSITION: Patient is also told to follow up with Dr. Faith Burton within 1 to 2 weeks after disch arge. Dictated By: FAITH BURTON MD DP/STU Conf#: [id number] DID#: [id number]
== END 2016-12-10 19:15 | disposition home or self-care (01) | DRG 811 ==
LOC: E/R 12:16 → TEL 14:51 → MS2 12-07 19:32
PROVIDERS: ADMIT Internal Medicine; ATTEND Internal Medicine
PROC: 30233N1 Transfusion of Nonautologous Red Blood Cells into Peripheral Vein, Percutaneous Approach (ICD-10-PCS; 2016-12-04)
PROC: 0DBM8ZX Excision of Descending Colon, Via Natural or Artificial Opening Endoscopic, Diagnostic (ICD-10-PCS; 2016-12-05)
PROC: 0DB58ZX Excision of Esophagus, Via Natural or Artificial Opening Endoscopic, Diagnostic (ICD-10-PCS; principal; 2016-12-05 11:00)
PROC: 0DB68ZX Excision of Stomach, Via Natural or Artificial Opening Endoscopic, Diagnostic (ICD-10-PCS; 2016-12-05 11:00)
DX: D62 Acute posthemorrhagic anemia (principal); I50.43 Acute on chronic combined systolic (congestive) and diastolic (congestive) heart failure; I42.9 Cardiomyopathy, unspecified; I10 Essential (primary) hypertension; K29.70 Gastritis, unspecified, without bleeding; K25.9 Gastric ulcer, unspecified as acute or chronic, without hemorrhage or perforation; E87.6 Hypokalemia; I25.10 Atherosclerotic heart disease of native coronary artery without angina pectoris; K57.90 Diverticulosis of intestine, part unspecified, without perforation or abscess without bleeding; I25.2 Old myocardial infarction; E78.5 Hyperlipidemia, unspecified; K21.0 Gastro-esophageal reflux disease with esophagitis; D12.4 Benign neoplasm of descending colon; I08.1 Rheumatic disorders of both mitral and tricuspid valves; Z95.5 Presence of coronary angioplasty implant and graft
CPT/HCPCS: 36415; 36430; 71010; 71020; 71260; 74177; 80048; 80053; 82150; 83540; 83690; 83735; 83880; 84132; 84443; 84484; 85025; 85610; 85651; 85730; 86644; 86850; 86900; 86901; 86920; 88305; 88312; 88313; 90686; 93005; 93306; 96374; 97110; 97116; 97162; 97530; J1940; C9113; J2250; J3010; J3475; J3480; J7040; P9016; Q9967

== ENCOUNTER 2017-05-24 10:43 | Inpatient (IN) | payer MEDICARE, OTHER ==
[2017-05-24] VITALS (18 sets, daily range): BP systolic 125–217; BP diastolic 55–92; PULSE 72–103; RESP 13–25; Ht 160 cm; Wt 50.0 kg
[~2017-05-24] VITALS: Ht 160 cm; Wt 50.0 kg
[~2017-05-24 10:43] MED LIST changes: -ASPI-535 PO; -CLOP75TA4 PO; +FERR140T2 PO; -FURO20TA3 PO; +FURO40TA4 PO; +PANT40TA4 PO; +SUCCINYLCHOLINE CHLORIDE 100 MG/5 ML SYG IV ONE
[2017-05-24] MEDS ORDERED: SODIUM CHLORIDE 0.9% 1L BAG IV* STA (11:00)
[2017-05-24] MEDS ORDERED: VANCOMYCIN 1 GM (PMX) 250 ML IVPB ONE (11:00)
[2017-05-24] MEDS ORDERED: CEFEPIME 2GM/50 ML (PMX) 50 ML IVPB STA (11:00)
[2017-05-24] MEDS ORDERED: ONDANSETRON 4 MG INJ IV STA (11:10)
[2017-05-24] MEDS ORDERED: morphine 4 MG/ML VIAL IV STA (11:10)
[2017-05-24] MEDS ORDERED: ONDANSETRON 4 MG INJ IV PRN ×2 (11:30→12:30)
[2017-05-24] MEDS ORDERED: ACETAMINOPHEN 325 MG TAB PO PRN (11:30)
[2017-05-24] MEDS ORDERED: LISI10TA2 PO (11:32)
[2017-05-24] MEDS ORDERED: FURO40TA4 PO (11:32)
[2017-05-24 11:33] LABS: ADD SCAN DIFF NO
[2017-05-24 11:36] LABS: BASOPHILS % 0.4 % (0.0-2.0); EOSINOPHILS # 0.1 10^3/ul (0.0-0.5); EOSINOPHILS % 1.3 % (0.0-7.0); HEMOGLOBIN 12.1 g/dl (12.0-16.0); LYMPHOCYTES # 1.6 10^3/ul (0.8-2.9); LYMPHOCYTES % 19.7 % (15.0-51.0); MEAN CORPUSCULAR HGB CONC 32.7 g/dl (32.0-37.0); MEAN CORPUSCULAR VOLUME 85.6 fl (82.0-101.0); MEAN PLATELET VOLUME 10.2 fl (7.4-10.4); MONOCYTE # 0.6 10^3/ul (0.3-0.9); NEUTROPHIL # 5.5 10^3/ul (1.6-7.5); NEUTROPHILS % 70.2 % (39.0-77.0); PLATELET COUNT 328 10^3/UL (140-415); RED BLOOD COUNT 4.32 10^6/ul (4.20-5.40); RED CELL DISTRIBUTION WIDTH 15.1 % (11.5-14.5); WHITE BLOOD COUNT 7.9 10^3/ul (4.8-10.8)
[2017-05-24 11:53] LABS: ALBUMIN/GLOBULIN RATIO 1.47; BILIRUBIN,INDIRECT 0.2 mg/dl (0-1.1); BILIRUBIN,TOTAL 0.2 mg/dl (0.2-1.3); CALCIUM 9.9 mg/dl (8.4-10.2); CREATININE 0.78 mg/dl (0.44-1.00); POTASSIUM 3.8 mmol/L (3.5-5.1); TOTAL PROTEIN 8.4 g/dl (6.1-8.1)
[2017-05-24 11:56] LABS: INR 0.9; PROTIME 12.1 Sec (12.2-14.2); PT RATIO 0.9
[2017-05-24 11:57] LABS: PARTIAL THROMBOPLASTIN TIME 41.8 Sec (25.0-35.0)
[2017-05-24] MEDS ORDERED: FENTAnyl 50 MCG/ML VIAL ONE (12:04)
[2017-05-24] MEDS ORDERED: NEOSTIGMINE 3 MG/3 ML SYRINGE ONE (12:04)
[2017-05-24] MEDS ORDERED: ROCURONIUM 50 MG INJ ONE (12:04)
[2017-05-24] MEDS ORDERED: GLYCOPYRROLATE 0.4 MG INJ ONE (12:04)
[2017-05-24] MEDS ORDERED: MIDAZOLAM 1 MG/ML 2 ML INJ ONE ×2 (12:04→15:49)
[2017-05-24] MEDS ORDERED: PROPOFOL 20 ML ONE (12:04)
[2017-05-24] MEDS ORDERED: LIDOCAINE 2% (SDV) 5 ML INJ ONE (12:04)
[2017-05-24 12:05] LABS: TROPONIN-I 0.021 ng/ml (0.00-0.12)
[2017-05-24] MEDS ORDERED: DEXAMETHASONE 4 MG/ML 1 ML INJ ONE (12:05)
[2017-05-24] MEDS ORDERED: BUPIVACAINE 0.25%/EPI (SDV) 30 ML INJ ONE (12:05)
[2017-05-24] MEDS ORDERED: ONDANSETRON 4 MG INJ ONE (12:05)
[2017-05-24] MEDS ORDERED: OXYCODONE/ACETAMINOPHEN (5/325) TAB PO PRN ×2 (12:30)
[2017-05-24] MEDS ORDERED: MIDAZOLAM 1 MG/ML 2 ML INJ IV PRN (12:30)
[2017-05-24] MEDS ORDERED: MEPERIDINE 25 MG INJ IV PRN (12:30)
[2017-05-24] MEDS ORDERED: FENTAnyl 50 MCG/ML VIAL IV PRN ×2 (12:30)
[2017-05-24] MEDS ORDERED: LABETALOL HCL 20MG INJ IV PRN (12:30)
[2017-05-24] MEDS ORDERED: EPHEDrine SULFATE 50 MG/5 ML SYG IV PRN (12:30)
[2017-05-24] MEDS ORDERED: morphine (1 MG/ML) 10ML SYRINGE IV PRN ×3 (12:30)
[2017-05-24] MEDS ORDERED: DIPHENHYDRAMINE 50 MG INJ IV PRN (12:30)
[2017-05-24] MEDS ORDERED: HYDROmorphONE (0.2 MG/ML) 10ML SYG IV PRN ×3 (12:30)
[2017-05-24] MEDS ORDERED: ATROPINE 1 MG/10 ML SYRINGE IV PRN (12:30)
--- NOTE | 2017-05-24 13:00 | HPN ---
Date/Time of Note Date/Time of Note DATE: 05/24/17 TIME: 13:00 Interval H&P Admission Note Pt. seen H&P reviewed: No system changes Pt. seen H&P reviewed. No system changes (I attest that I have seen and examined the patient and reviewed the operation in detail, as well as its risks , benefits and alternatives of the operation). I attest that I have seen and examined the patient and reviewed in detail the operation, and its associated risks, benefits and alternative. I have answered all the patient's questions to the best of my ability and the patient wishes to proceed. Please refer to rest of electronic medical record for additional updates. CAS RODRIGUEZ M.D. May 24, 2017 13:00
--- NOTE | 2017-05-24 13:37 | ERA ---
ER Documentation Chief Complaint Date/Time DATE: 05/24/17 TIME: 13:35 Chief Complaint Sent from MD for eval HPI Patient is an 87-year-old female with hypertension who presents for incarcerated hernia. She was seen by Dr. Wright seen in the office today and was sent to the emergency department for admission. He requested consultation with Dr. West from general surgery as well. The patient has nausea but no vomiting. The patient has no fevers. She noted a bulging in her right groin with mild pain last night. Her last meal was this morning at 730. ROS All systems reviewed and are negative except as per history of present illness. Medications Home Meds Reported Medications Lisinopril* (Lisinopril*) 10 Mg Tablet, 10 MG PO BID, #30 TAB 05/24/17 Furosemide* (Furosemide*) 40 Mg Tablet, 40 MG PO DAILY, TAB 05/24/17 Atorvastatin* (Atorvastatin*) 40 Mg Tablet, 40 MG PO HS, TAB 12/23/14 Carvedilol* (Carvedilol*) 6.25 Mg Tablet, 6.25 MG PO BID, TAB 12/23/14 Discontinued Scripts Pantoprazole* (Pantoprazole*) 40 Mg Tablet.dr, 40 MG PO DAILY for 30 Days, #30 TAB Prov:RIANNA QUINTANA MD 12/10/16 Lisinopril* (Lisinopril*) 10 Mg Tablet, 10 MG PO BID for 30 Days, #60 TAB Prov:RIANNA QUINTANA MD 12/10/16 Furosemide* (Furosemide*) 40 Mg Tablet, 40 MG PO DAILY for 30 Days, #30 TAB Prov:RIANNA QUINTANA MD 12/10/16 Ferrous Sulfate* (Ferrous Sulfate*) 140 Mg Tablet.er, 142 MG PO BID for 30 Days , #60 TAB Prov:RIANNA QUINTANA MD 12/10/16 Allergies Allergies: Coded Allergies: No Known Allergy (Unverified , 12/06/16) PMhx/Soc Anesthesia Reaction: No Hx Neurological Disorder: No Hx Respiratory Disorders: No Hx Cardiac Disorders: Yes (CHF,CAD,HIGH CHOLESTEROL,GA;) Hx Psychiatric Problems: No Hx Miscellaneous Medical Probl: Yes (OA, HTN, HYPERCHOLESTEROLEMIA) Hx Alcohol Use: No Hx Substance Use: No Hx Tobacco Use: No Smoking Status: Never smoker FmHx Family History: No diabetes Physical Exam Vitals Vital Signs Date Time Temp Pulse Resp B/P Pulse Ox O2 Delivery O2 Flow Rate FiO2 05/24/17 12:10 77 20 163/89 98 05/24/17 10:46 98.2 93 20 234/103 98 Physical Exam Const: No acute distress Head: Atraumatic Eyes: Normal Conjunctiva ENT: Normal External Ears, Nose and Mouth. Neck: Full range of motion..~ No meningismus. Resp: Clear to auscultation bilaterally Cardio: Regular rate and rhythm, no murmurs Abd: Large hernia to the right groin which is tender to palpation, tense, and unable to reduce Skin: No petechiae or rashes Back: No midline or flank tenderness Ext: No cyanosis, or edema Neur: Awake and alert Psych: Normal Mood and Affect Result Diagram: 05/24/17 1123 05/24/17 1123 Results 24 hrs Laboratory Tests Test 05/24/17 11:23 White Blood Count 7.910^3/ul Red Blood Count 4.3210^6/ul Hemoglobin 12.1g/dl Hematocrit 37.0% Mean Corpuscular Volume 85.6fl Mean Corpuscular Hemoglobin 28.0pg Mean Corpuscular Hemoglobin Concent 32.7g/dl Red Cell Distribution Width 15.1% Platelet Count 51107^3/UL Mean Platelet Volume 10.2fl Neutrophils % 70.2% Lymphocytes % 19.7% Monocytes % 8.0% Eosinophils % 1.3% Basophils % 0.4% Nucleated Red Blood Cells % 0.0/100WBC Neutrophils # 5.510^3/ul Lymphocytes # 1.610^3/ul Monocytes # 0.610^3/ul Eosinophils # 0.110^3/ul Basophils # 0.010^3/ul Nucleated Red Blood Cells # 0.010^3/ul Prothrombin Time 12.1Sec Prothrombin Time Ratio 0.9 INR International Normalized Ratio 0.90 Activated Partial Thromboplast Time 41.8Sec Sodium Level 141mmol/L Potassium Level 3.8mmol/L Chloride Level 103mmol/L Carbon Dioxide Level 27mmol/L Anion Gap 15 Blood Urea Nitrogen 16mg/dl Creatinine 0.78mg/dl Glucose Level 102mg/dl Lactic Acid Level 1.0mmol/L Calcium Level 9.9mg/dl Total Bilirubin 0.2mg/dl Direct Bilirubin 0.00mg/dl Indirect Bilirubin 0.2mg/dl Aspartate Amino Transf (AST/SGOT) 26IU/L Alanine Aminotransferase (ALT/SGPT) 22IU/L Alkaline Phosphatase 189IU/L Troponin I 0.021ng/ml Total Protein 8.4g/dl Albumin 5.0g/dl Globulin 3.40g/dl Albumin/Globulin Ratio 1.47 Lipase 155U/L Current Medications Medications (Trade) Dose Ordered Sig/Hemant Route PRN Reason Start Time Stop Time Status Last Admin Dose Admin Sodium Chloride 1550 ml 1,550 ml BOLUS OVER 2 HOURS STAT IV* 05/24/17 11:00 05/24/17 11:02 DC 05/24/17 11:34 Cefepime HCl 50 ml @ 100 mls/hr ONCE STAT IVPB 05/24/17 11:00 05/24/17 11:01 DC Vancomycin HCl (Vancocin) 250 ml @ 125 mls/hr ONCE ONCE IVPB 05/24/17 11:00 05/24/17 11:02 DC Ondansetron HCl (Zofran Inj) 4 mg BRIDGE ORDER PRN IV NAUSEA AND/OR VOMITING 05/24/17 11:30 05/25/17 11:29 Acetaminophen (Tylenol Tab) 650 mg ER BRIDGE PRN PO MILD PAIN/FEVER 05/24/17 11:30 05/25/17 11:29 Morphine Sulfate (morphine) 4 mg ONCE STAT IV 05/24/17 11:10 05/24/17 11:11 DC 05/24/17 11:34 Ondansetron HCl (Zofran Inj) 4 mg ONCE STAT IV 05/24/17 11:10 05/24/17 11:11 DC 05/24/17 11:33 Morphine Sulfate (morphine (REC)) 2 mg PACU ORDER PRN IV MILD PAIN LEVEL 1-3 05/24/17 12:30 05/24/17 17:00 Morphine Sulfate (morphine (REC)) 4 mg PACU ORDER PRN IV MODERATE PAIN LEVEL 4-6 05/24/17 12:30 05/24/17 17:00 Morphine Sulfate (morphine (REC)) 6 mg PACU ORDER PRN IV SEVERE PAIN LEVEL 7-10 05/24/17 12:30 05/24/17 17:00 Hydromorphone HCl (Dilaudid (Rec)) 0.2 mg PACU ORDER PRN IV MILD PAIN LEVEL 1-3 05/24/17 12:30 05/24/17 17:00 Hydromorphone HCl (Dilaudid (Rec)) 0.4 mg PACU ORDER PRN IV MODERATE PAIN LEVEL 4-6 05/24/17 12:30 05/24/17 17:00 Hydromorphone HCl (Dilaudid (Rec)) 0.6 mg PACU ORDER PRN IV SEVERE PAIN LEVEL 7-10 05/24/17 12:30 05/24/17 17:00 Fentanyl (Sublimaze) 25 mcg PACU ORDER PRN IV MILD PAIN LEVEL 1-3 05/24/17 12:30 05/24/17 17:00 Fentanyl (Sublimaze) 50 mcg PACU ODER PRN IV MODERATE PAIN LEVEL 4-6 05/24/17 12:30 05/24/17 17:00 Oxycodone/ Acetaminophen (Percocet (5/ 325)) 1 tab PACU ORDER PRN PO PAIN LEVEL 1-5 05/24/17 12:30 05/24/17 17:00 Oxycodone/ Acetaminophen (Percocet (5/ 325)) 2 tab PACU ORDER PRN PO PAIN LEVEL 6-10 05/24/17 12:30 05/24/17 17:00 Ondansetron HCl (Zofran Inj) 4 mg PACU ORDER PRN IV NAUSEA AND/OR VOMITING 05/24/17 12:30 05/24/17 17:00 Labetalol HCl (Labetalol) 5 mg PACU ORDER PRN IV HIGH BLOOD PRESSURE 05/24/17 12:30 05/24/17 17:00 Hydralazine HCl (Apresoline) 5 mg PACU ORDER PRN IV HIGH BLOOD PRESSURE 05/24/17 12:30 05/24/17 17:00 Ephedrine Sulfate 5 mg PACU ORDER PRN IV MAP LESS THAN 60 05/24/17 12:30 05/24/17 17:00 Atropine Sulfate (Atropine (Syringe)) 0.5 mg PACU ORDER PRN IV HR 50 OR LESS 05/24/17 12:30 05/24/17 17:00 Meperidine HCl (Demerol) 25 mg PACU ORDER PRN IV POST-OP RIGORS 05/24/17 12:30 05/24/17 17:00 Diphenhydramine HCl (Benadryl) 25 mg PACU ORDER PRN IV PRURITUS 05/24/17 12:30 05/24/17 17:00 Midazolam HCl (Versed) 0.5 mg PACU ORDER PRN IV ANXIETY 05/24/17 12:30 05/24/17 17:00 Procedures/MDM CT scan pending at this time. Patient is an 87-year-old female presents with what appears to be an acute incarcerated right inguinal hernia. I spoke with Dr. Downey who called telling me that he was that he meet the patient in the emergency department. I spoke with Dr. West from general surgery who said that he would take the patient to the operating room immediately. The patient will need to be admitted to Dr. Downey following surgery. I am concerned about incarceration and obstruction. Critical Care: Time: 35 minutes excluding all billable procedures. Treatments/Evaluations: Close monitoring and treatment of unstable vital signs, cardiorespiratory, and neurologic status, while maintaining tight balance of fluid, respiratory, and cardiac interventions. Departure Diagnosis: Primary Impression: Incarcerated hernia Condition: GRAHAM Lopez MD May 24, 2017 13:37
--- NOTE | 2017-05-24 13:49 | CONS ---
[facility] INITIAL INPATIENT CONSULTATION DATE OF CONSULTATION: 05/24/2017 PLACE OF SERVICE: Preoperative area ASSESSMENT AND PLAN: A very pleasant 87-year-old lady with multiple comorbid issues, mainly centered around her heart, who is presenting with an incarcerated , possibly strangulated right inguinal hernia containing loops of bowel. This is not reducible and in my judgment, it needs to be addressed in an emergency fashion in the operating room. The patient is obviously high risk and I have already a conversation with Dr. Faith Burton, who knows the patient well, as well as Dr. Nelson Glass, who is a tannery gummer. We all agreed that the risk of this incarcerated hernia threatening the patient's life is much more than the risk of her cardiac condition for general anesthesia. I also discussed this in detail with the patient and her sister, both of whom appeared to understand and agreed with the proposed plans of operating. I described the operation in detail and discussed the risks, benefits, and alternatives. The patient and her sister had a chance to have all their questions answered to the best of my ability. After careful consideration of all their options, they appeared to understand and agreed with proceeding with surgery. With above assessment, I recommend the followin. To the operating room for above. Thank you again for allowing us to participate in the care of this very pleasant lady and her wonderful family. If there are any questions, please feel free to contact me at [phone] UPDATED CLINICAL SUMMARY: The patient is a very pleasant 87-year-old lady with comorbidities including cardiomyopathy, coronary artery disease with history of PCI and peripheral arterial disease with a known right inguinal hernia since at least 12/2016, presenting with what appears to be an incarcerated right inguinal hernia which is somewhat threatened. COMORBIDITIES: 1. BMI 20.2 (previously 26.03 December 2016) 2. Cardiomyopathy. 3. Coronary artery disease with history of PCI. 4. Peripheral arterial disease. 5. Status post 3 units of packed red blood cell transfusion in December 2016. 6. History of congestive heart failure. 7. Hypertension. 8. Carotid endarterectomy. 9. Angioplasty. 10. Ejection fraction of 45%. 11. Acute blood loss anemia. 12. Mitral valve regurgitation. 13. Tricuspid valve regurgitation. 14. Status post percutaneous coronary intervention, most recent in December 2014. 15. Knee osteoarthritis (left). 16. Hypercholesterolemia. 17. Status post non-ST elevation myocardial infarction in 2013, status post angioplasty with stent placement in 2013 and also in 2015 as above. DATE OF ADMISSION: 05/24/2017 HISTORY OF PRESENT ILLNESS: The patient is a very pleasant 87-year-old lady with above-mentioned comorbidities who we were kindly asked to consult regarding management of her right inguinal incarcerated hernia. The patient reported having 1 to 2-day history of above-mentioned pain without associated significant nausea or vomiting and some mild abdominal discomfort. She has had flatus and bowel movements in the last few days. She has known about this inguinal hernia at least since 12/2016 but no other prior episodes of obstruction or need for emergency room evaluation. In the emergency department , her workup included laboratory values that are essentially all normal with the exception of slightly raised alkaline phosphatase of 189. Prior imaging, including CT of abdomen and pelvis 12/06/2016 demonstrated the presence of right inguinal hernia with loop of bowel inside of it. There were also bilateral renal cysts, mild hepatomegaly with no focal lesions, no evidence of cholelithiasis or bile duct dilatation with pancreatic duct that was borderline prominent just under 2 mm, atherosclerotic vascular calcification, extensive degenerative spine changes with grade I anterolisthesis of L4 on L5, associated degenerative disk end plate and facet changes, and trace gravitating left pleural fluid accumulation with discoid atelectasis in the right middle lobe containing a 3 mm calcified granuloma and a 5 mm calcified granuloma seen in the left lower lobe. Heart was also mildly enlarged with coronary artery disease. Currently, no imaging is available. No other complaints during my visit with the patient. SOCIAL HISTORY: The patient lives with her sister and nephew in her own home. She does not report any smoking, drinking, or intravenous drug use. FAMILY HISTORY: No mention of major medical, surgical or oncologic problems in the family. ALLERGIES: NO KNOWN DRUG ALLERGIES. MEDICATIONS: 1. Atorvastatin. 2. Carvedilol. 3. Furosemide. 4. Lisinopril. REVIEW OF SYSTEMS: Other than the above-mentioned, there are no other pertinent positives or pertinent negatives in a complete 14-point review of systems. PHYSICAL EXAMINATION: GENERAL: The patient appears to be a very pleasant lady of non- descent, appearing stated age, lying in bed comfortably and in no acute distress. VITAL SIGNS: Temperature 98.2, blood pressure 162/89, pulse 77, respiratory rate 20, pulse oximetry 98% on room air. HEENT: Normocephalic and atraumatic. Extraocular muscles and hearing are grossly intact bilaterally and symmetrically. Sclerae are nonicteric. Oral cavity is clear; oral mucosa appeared to be pink and moist. Dentition: poor. NECK: Supple. There is no lymphadenopathy or JVD. There is no submental, submandibular or supraclavicular lymphadenopathy. CHEST: Rises symmetrically with each breath; patient is breathing comfortably. There are no audible wheezes, rales or rhonchi on the gross exam. HEART: Pulse is regular and palpable on the left wrist. Capillary refill was normal. Carotid pulses are palpable bilaterally and symmetrically in the neck. EXTREMITIES: Lower extremities contain no pitting edema around the ankles bilaterally and symmetrically. ABDOMEN: Soft, nondistended, and mildly tender to palpation, mainly in the right lower side. The right groin has a large bulge approximately 10 cm in greatest diameter with skin that is slightly discolored over the area. This area is firm and tender to palpation. I was not able to reduce this area with patient relaxation and putting her into Trendelenburg position. There are no peritoneal signs or guarding and no evidence of organomegaly, caput medusae, engorged subcutaneous veins, or ascites. SKIN: Appears to be pink and feels warm to touch. NEUROLOGIC: Awake, alert, and follows commands appropriately. LABORATORY DATA: As above. IMAGING: As above. Note that I personally reviewed all the available and pertinent images and I agree in general with their overall reported findings. Dictated By: CAS PARISH/STU Conf#: [id number] DID#: [id number] MECCA
[2017-05-24] MEDS ORDERED: LABETALOL HCL 20MG INJ ONE (13:58)
[2017-05-24] MEDS ORDERED: BUPIVACAINE 0.25%/EPI (SDV) 30 ML INJ INJ ONE (14:22)
[2017-05-24] MEDS ORDERED: FUROSEMIDE 20 MG INJ ONE (14:39)
[2017-05-24] MEDS ORDERED: BISACODYL 10 MG SUPP PR PRN (16:00)
[2017-05-24] MEDS ORDERED: DOCUSATE SODIUM 100 MG CAP PO PRN (16:00)
[2017-05-24] MEDS ORDERED: HYDROCODONE/APAP (5/325) TAB PO PRN (16:00)
[2017-05-24] MEDS ORDERED: NA PHOSPHATE/BIPHOS 133 ML ENEMA PR PRN (16:00)
[2017-05-24] MEDS ORDERED: HYDROmorphONE 1 MG/ML SYG IV PRN (16:00)
--- NOTE | 2017-05-24 16:05 | OPR ---
Date/Time of Note Date/Time of Note DATE: 05/24/17 TIME: 16:05 Operative Report Operative\Procedure Findings [facility] INPATIENT OPERATIVE NOTE PLACE OF SERVICE: [facility] DATE OF SURGERY: 05/24/2017 PREOPERATIVE DIAGNOSIS: 1. Incarcerated right inguinal hernia 2. BMI 20.2 (previously 26.03 December 2016) 3. Cardiomyopathy. 4. Coronary artery disease with history of PCI. 5. Peripheral arterial disease. 6. Status post 3 units of packed red blood cell transfusion in December 2016. 7. History of congestive heart failure. 8. Hypertension. 9. Angioplasty. 10. Ejection fraction of 45%. 11. Acute blood loss anemia. 12. Mitral valve regurgitation. 13. Tricuspid valve regurgitation. 14. Status post percutaneous coronary intervention, most recent in December 2014. 15. Knee osteoarthritis (left). 16. Hypercholesterolemia. 17. Status post non-ST elevation myocardial infarction in 2013, status post angioplasty with stent placement in 2013 and also in 2014 as above. 18. Carotid endarterectomy. POSTOPERATIVE DIAGNOSIS: 1. Incarcerated right inguinal hernia 2. BMI 20.2 (previously 26.03 December 2016) 3. Cardiomyopathy. 4. Coronary artery disease with history of PCI. 5. Peripheral arterial disease. 6. Status post 3 units of packed red blood cell transfusion in December 2016. 7. History of congestive heart failure. 8. Hypertension. 9. Angioplasty. 10. Ejection fraction of 45%. 11. Acute blood loss anemia. 12. Mitral valve regurgitation. 13. Tricuspid valve regurgitation. 14. Status post percutaneous coronary intervention, most recent in December 2014. 15. Knee osteoarthritis (left). 16. Hypercholesterolemia. 17. Status post non-ST elevation myocardial infarction in 2013, status post angioplasty with stent placement in 2013 and also in 2014 as above. 18. Carotid endarterectomy. OPERATION: 1. Laparoscopic right inguinal hernia repair with mesh (10 cm x 17 cm Symbotex) SURGEON: Cas Rodriguez M.D. DEVELOPMENT DISABILITY SPECIALIST: None ANESTHESIA: General endotracheal tube anesthesia ANESTHESIOLOGIST: Darshan Butcher M.D. BRIEF SUMMARY: An otherwise uncomplicated laparoscopic right inguinal hernia repair with mesh was performed with findings of incarcerated but not strangulated and not ischemic bowel (large bowel and small bowel). UPDATED CLINICAL SUMMARY: The patient is a very pleasant 87-year-old lady with comorbidities including cardiomyopathy, coronary artery disease with history of PCI and peripheral arterial disease with a known right inguinal hernia since at least 12/2016, presenting with what appears to be an incarcerated right inguinal hernia which is somewhat threatened. COMORBIDITIES: 1. BMI 20.2 (previously 26.03 December 2016) 2. Cardiomyopathy. 3. Coronary artery disease with history of PCI. 4. Peripheral arterial disease. 5. Status post 3 units of packed red blood cell transfusion in December 2016. 6. History of congestive heart failure. 7. Hypertension. 8. Carotid endarterectomy. 9. Angioplasty. 10. Ejection fraction of 45%. 11. Acute blood loss anemia. 12. Mitral valve regurgitation. 13. Tricuspid valve regurgitation. 14. Status post percutaneous coronary intervention, most recent in December 2014. 15. Knee osteoarthritis (left). 16. Hypercholesterolemia. 17. Status post non-ST elevation myocardial infarction in 2013, status post angioplasty with stent placement in 2013 and also in 2014 as above. BRIEF HISTORY: The patient is a very pleasant 87-year-old lady with multiple comorbid issues, mainly centered around her heart, who is presenting with an incarcerated, possibly strangulated right inguinal hernia containing loops of bowel. This is not reducible and in my judgment, it needs to be addressed in an emergency fashion in the operating room. The patient is obviously high risk and I have already a conversation with Dr. Faith Burton, who knows the patient well, as well as Dr. Nelson Glass, who is a screener and blender. We all agreed that the risk of this incarcerated hernia threatening the patient's life is much more than the risk of her cardiac condition for general anesthesia. I also discussed this in detail with the patient and her sister, both of whom appeared to understand and agreed with the proposed plans of operating. I described the operation in detail and discussed the risks, benefits, and alternatives. The patient and her sister had a chance to have all their questions answered to the best of my ability. After careful consideration of all their options, they appeared to understand and agreed with proceeding with surgery. For a detailed report of my consultation with patient and family, please refer to my separate consultation note. STATEMENT OF THE INFORMED CONSENT: The patient and family appeared to understand the risks of the operation to include, but not be limited to risk of postoperative pain and scar tissue, possible infection or bleeding requiring other interventions such as opening the wound, placement of drainage catheters, or other operative interventions; possible injury to surrounding to structures including bowel, bladder, bile duct, or blood vessels, or solid organs such as liver, kidney, or pancreas requiring other interventions or procedures; possible infection of the mesh causing significant increase in morbidity and mortality and requiring multiple interventions including but not limited to, placement of drainage catheters, imaging studies, as well as operative interventions with possible removal of the mesh and recurrence of hernia requiring future repair; possible other source of sepsis such as urinary tract infections or pneumonias, or other sources of potentially life threatening problems such as deep venous thrombus formation causing pulmonary embolism, myocardial arrhythmias and infarctions, and even . After careful consideration of all their options, the patient and family appeared to understand and wished to proceed with surgery. DESCRIPTION OF PROCEDURE: After obtaining informed consent, the patient was brought into the operating room and was placed in a normal supine position, where successful general endotracheal tube anesthesia was performed. Intravenous access was already in place and intravenous antimicrobials had been appropriately chosen and dosed prior to the operation. The patient's abdominal skin was prepped and draped from the nipple line down to the level of the upper thighs including the groin and in the usual sterile fashion. We then called a surgical time-out where the patient's identification, date of , nature of the operation, allergies, presence of intravenous antimicrobials, presence of needed equipment, and any other concerns were reviewed and agreed upon by all members of the operating room team. We then started the operation by placing a 5 mm [employer] trocar into the peritoneal space through a left lower quadrant 5 mm skin incision and using direct entry technique visualizing all the layers of the abdominal wall as we entered. Upon entry to the peritoneal space, we did not notice any obvious evidence of injury to underlying structures. We insufflated the abdominal cavity to a maximum pressure of 15 mmHg and again noted no significant adhesions in the region and found presence of a right inguinal hernia as suggested by the preoperative evaluation. We placed a 12 mm trocar in the supra umbilical space as well as another 5 mm trocar in the right lower quadrant all under direct visualization and after injecting the sites with quarter percent Marcaine with epinephrine. With our instruments in place, we had excellent visualization and access to the pelvis. We positioned the patient in a Trendelenburg left side down position. The contents of the inguinal hernia included large bowel and small bowel. We gentle maneuvers both from the inside as well as pushing gently on the outside, I was able to reduce the contents of the hernia sac out back into the abdominal cavity. The bowel appeared to be viable. We carefully inspected the left side and there was no evidence of any hernia on that side. The bladder appear to be full and a Vigil catheter was not placed prior to induction and prepping. For this reason I asked the OR nurse to place a Vigil catheter while we kept all the covering above sterile. This was accomplished without any difficulty. We then placed a transverse cut above the area of the hernia in the standard fashion on the peritoneum and took down the peritoneal covering from the right groin region until we were able to dissect the sac completely from the cord structures. After complete dissection of the sac from the cord structures, we ensured adequate hemostasis and then placed a 10 cm x 17 cm mesh Symbotex mesh into the abdominal cavity and widely covered the area of the right hernia with mesh within the pocket. The mesh laid in the pocket nicely. We then secured the mesh onto the pubic tubercle and on the superior aspect and the most lateral aspect of the mesh using absorbable tacks. This was done under low insufflation. When tacking the upper edge of the mesh, we noticed slight amount of arterial type bleeding. This appeared to be coming from a branch of the iliac artery before going into the femoral artery. The pulse in the right femoral artery was strong and symmetrically identical to the one on the left. It appeared to be a small branch and I placed 1 more clip and after adequate amount of time spent waiting under local to no pressure, we ensured adequate hemostasis. I then covered the mesh with peritoneum using the peritoneal layer that we had taken down previously. After insuring adequate hemostasis, we removed all our equipment from the abdominal cavity including the pneumoperitoneum, closed the supra umbilical fascial defect using one figure-of- eight 0 Vicryl suture on a UR 6 needle, washed the wounds with copious amounts normal saline, injected the initial entry site with quarter percent Marcaine with epinephrine, and then closed the skin using interrupted 4 Monocryl suture. Light dressing was then applied. At the end of the operation, both the sponge count and needle count were reportedly correct x2. The patient tolerated the procedure without any reported complications. ESTIMATED BLOOD LOSS: 30 mL BLOOD OR BLOOD PRODUCT TRANSFUSIONS: None to my knowledge. SPECIMENS: None COMPLICATIONS: None. DISPOSITION: Recovery area. Disclaimer: Inadvertent spelling and grammatical errors are likely due to EHR/ dictation software use and do not reflect on the quality of delivered patient care. Also, please note that the electronic time recorded on this node does not necessarily reflect the actual time of the visit. CAS RODRIGUEZ M.D. May 24, 2017 16:05
[2017-05-24] MEDS: hydrALAzine 20 MG INJ IV PRN ×2 (16:26→16:51)
[2017-05-24] MEDS ORDERED: D5W-0.45 NACL + KCL 20 MEQ 1,000 ML IV ONE (16:33)
[2017-05-24 16:59] LABS: ADD SCAN DIFF NO
[2017-05-24 17:00] LABS: BASOPHILS % 0.2 % (0.0-2.0); EOSINOPHILS # 0.1 10^3/ul (0.0-0.5); EOSINOPHILS % 0.6 % (0.0-7.0); HEMATOCRIT 37.6 % (37.0-47.0); HEMOGLOBIN 12.4 g/dl (12.0-16.0); LYMPHOCYTES % 10.8 % (15.0-51.0); MEAN CORPUSCULAR HEMOGLOBIN 28.7 pg (29.0-33.0); MEAN PLATELET VOLUME 10.6 fl (7.4-10.4); MONOCYTE # 0.2 10^3/ul (0.3-0.9); MONOCYTES % 2.5 % (0.0-11.0); NEUTROPHIL # 8.3 10^3/ul (1.6-7.5); NEUTROPHILS % 85.5 % (39.0-77.0); PLATELET COUNT 328 10^3/UL (140-415); RED BLOOD COUNT 4.32 10^6/ul (4.20-5.40); RED CELL DISTRIBUTION WIDTH 15.3 % (11.5-14.5); WHITE BLOOD COUNT 9.7 10^3/ul (4.8-10.8)
[2017-05-24 17:24] LABS: INR 0.88; PROTIME 11.9 Sec (12.2-14.2); PT RATIO 0.9
[2017-05-24 17:33] LABS: PARTIAL THROMBOPLASTIN TIME 42.5 Sec (25.0-35.0)
[2017-05-24 17:38] LABS: ALBUMIN 4.9 g/dl (3.3-4.9); ALBUMIN/GLOBULIN RATIO 1.4; BILIRUBIN,INDIRECT 0.3 mg/dl (0-1.1); BILIRUBIN,TOTAL 0.3 mg/dl (0.2-1.3); TOTAL PROTEIN 8.4 g/dl (6.1-8.1)
[2017-05-24 17:39] LABS: PHOSPHORUS 3.6 mg/dl (2.5-4.9)
[2017-05-24 17:43] LABS: CALCIUM 9.6 mg/dl (8.4-10.2); CREATININE 0.75 mg/dl (0.44-1.00); POTASSIUM 3.7 mmol/L (3.5-5.1)
--- NOTE | 2017-05-24 18:20 | RADRPT ---
PROCEDURE: XR Chest. CLINICAL INDICATION: Possible Sepsis TECHNIQUE: Single frontal view of the chest. COMPARISON: 12/07/2016. FINDINGS: Cardiomegaly. Atherosclerotic calcifications in the thoracic aorta. Decreased mild right lung base atelectasis versus airspace disease. Interval resolution of left pleural effusion. Likely changes of centrolobular emphysema.. No signs of pleural fluid or pneumothorax are seen. The osseous struct ures and soft tissues are unremarkable. IMPRESSION: 1. Decreased but persistent mild right lung base atelectasis versus airspace disease. 2. Interval resolution of left pleural effusion. RPTAT: [facility] Physician Jazz Date Time Electronically viewed and signed by Physician Jazz on 05/24/2017 18:19 RS/
[2017-05-24] MEDS: D5W-0.45 NACL + KCL 20 MEQ 1,000 ML IV SCH (18:35)
--- NOTE | 2017-05-24 20:14 | HP ---
DATE OF ADMISSION: 05/24/2017 CHIEF COMPLAINT: Large incarcerated hernia. Duration 2 days. HISTORY OF PRESENT ILLNESS: The patient awoke this morning with a large lump in the suprapubic area . The patient states that this mass was not present when she went to bed last night. Examination r evealed a large incarcerated hernia in the suprapubic area. The patient is being admitted to the [facility] at this time for stat surgical consultation and reduction of incarcerated hernia before it be comes strangulated. The patient went to bed last night with no hernia evident; however, she did noti ce she did have an abdominal hernia in the past and has been told that. However, when she awoke this morning there was a large mass in the suprapubic area which could not be reduced, and which was shar rly painful. This was felt to be an incarcerated hernia and she was immediately referred to the [facility] room of this hospital for surgical consultation and reduction and repair of her hernia. The fatou venegas also has arteriosclerotic cardiovascular disease and her blind installer, Dr. Camp has b een called in consultation. For past history, review of systems, etc., please see previous chart, chart # [id number], dated . FAMILY HISTORY: Noncontributory. MEDICATIONS: The patient is on the following medications: She takes: 1. Pantoprazole 40 mg twice a day. 2. Carvedilol 6.25 mg twice a day. 3. Lisinopril 10 mg twice a day. 4. Ferrous sulfate 142 mg twice a day. 5. Lasix 40 mg every day. 6. Atorvastatin 40 mg at bedtime p.r.n. sleep. ALLERGIES: NO KNOWN DRUG ALLERGIES. PHYSICAL EXAMINATION: GENERAL: The patient is a well-developed elderly female who does not appear to be acutely or chroni junior ill but who appears to be in acute distress. VITAL SIGNS: Blood pressure 167/84, pulse 80, respirations 16, temperature 98.6. SKIN: No evidence of dermatitis. NECK: Supple. Thyroid is not palpable. HEENT: Head is symmetrical with no evidence of injury or deformity. EYES: PERRLA, EOM normal. Disks flat. Peripheral and forward vision grossly intact. Ears, nose a nd throat clear. NECK: Supple. Thyroid is not palpable. HEART: PMI left fifth interspace, left midclavicular line. No murmurs, no thrills, no bruits. A2 is greater than P2. No distention of jugular veins. No ankle edema. Hepatojugular reflux is not p resent. CHEST: Clear to A and P. ABDOMEN: Liver, kidneys, spleen are not palpable. Bowel sounds are normal. There are no intraabdo jose masses or bruits. There is a large incarcerated hernia in the suprapubic area, hernia is slig htly tender. Bowel sounds are normal. EXTREMITIES: No evidence of deformity of the musculoskeletal system. NEUROLOGICAL: Normal. DTRs normal and equal bilaterally including biceps, triceps, wrists, knees, a nd ankles. Plantars are flexor and no pathological reflexes are present. PERIPHERAL VASCULAR: No carotid or subclavian artery bruits. Femoral and dorsal pedal pulses are n ormal and equal bilaterally. Posterior tibial pulses are absent bilaterally. IMPRESSION: Incarcerated hernia. Plan patient was referred to the emergency room of the [facility] for reduction of hernia before it becomes strangulated. Surgeon has been notified and cardiologis t has been notified because the patient has arteriosclerotic cardiovascular disease. ADDITIONAL DIAGNOSES: 1. Arteriosclerotic cardiovascular disease. 2. History of congestive heart failure. 3. Osteoarthritis of the knees. 4. Hypertension. 5. Hypercholesterolemia. 6. Status post myocardial infarction. 7. Status post carotid endarterectomy. Dictated By: JEFFRY FLORES/STU Conf#: [id number] DID#: [id number]
[2017-05-24] MEDS: ATORVASTATIN 40 MG TAB PO SCH (20:49)
[2017-05-24] MEDS: LISINOPRIL 10 MG TAB PO SCH (20:49)
[2017-05-24] MEDS: HYDROmorphONE 1 MG/ML SYG IV PRN (20:50)
--- NOTE | 2017-05-24 20:53 | HP ---
DATE OF ADMISSION: 05/24/2017 CHIEF COMPLAINT: Right inguinal pain. HISTORY OF PRESENT ILLNESS: This 87-year-old female with history of hypertension and olman nary artery disease as well as longstanding right inguinal hernia, presents with severe pain since y esterday in the right groin, associated with nausea but no vomiting. No fever, no chills. In the e mergency room, the patient was noted to have incarcerated right inguinal hernia and required acute s urgical consultation. Dr. West saw the patient and took her to the operating room immediately for a laparoscopic right inguinal hernia repair with mesh. I am seeing the patient in the recovery [facility]. She is awake, alert, and oriented, no acute complaints at this time. PAST MEDICAL HISTORY: Includes: 1. Right inguinal hernia. 2. Hypertension. 3. Borderline diabetes mellitus. 4. Left lower extremity peripheral vascular disease. 5. Osteoarthritis. 6. Coronary artery disease status post non-ST elevation myocardial infarction in November 2014 and had 2 angioplasties with stent placement since then, one in November 2014 and one in December 2014. MEDICATIONS: On admission, patient is on: 1. Coreg 6.5 mg p.o. b.i.d. 2. Lasix 40 mg p.o. every day. 3. Protonix 40 mg p.o. b.i.d. 4. Lipitor 1 p.o. every day. 5. Lisinopril 20 mg p.o. every day. SOCIAL HISTORY: Patient lives alone in her own home. She used to smoke prior to her heart attack a nd had a [id number]-mhza history, quit in 2013. No alcohol use. FAMILY HISTORY: The patient's sister of heart attack in her 80s. PHYSICAL EXAMINATION GENERAL: Well-developed, well-nourished patient who is awake and alert. VITAL SIGNS: Temperature 97.8, blood pressure 151/71, pulse of 82, respiration rate 13,%, O2 satura tion 98% on room air. HEENT: Anicteric sclerae. Oropharynx clear. LUNGS: Clear to auscultation. CARDIAC: Regular rate and rhythm, normal S1, S2. ABDOMEN: Active bowel sounds, soft, nondistended, nontender. No erythema around a small surgical sc ars. EXTREMITIES: No clubbing, cyanosis, or edema. LABORATORY: WBC 9.7, hemoglobin 12.4, hematocrit 37.6, platelet count 328,000. Sodium 142, potassi um 3.7, chloride 101, carbon dioxide 30, BUN 14, creatinine 0.75, glucose 128. Liver enzymes notabl e for mildly elevated alkaline phosphatase of 189 and elevated total protein 8.4 with globulin of 3. 5. Troponin was at 0.029. Lipase was normal at 155. ASSESSMENT AND PLAN: Incarcerated inguinal hernia status post laparoscopic hernia repair with mesh placement, appears to be doing well postoperatively. We will resume preoperative blood pressure med ications. We will monitor the patient for postoperative complications and anticipate discharge to [facility] when okay with surgery. Dictated By: RIANNA QUINTANA MD DP/STU Conf#: [id number] DID#: [id number]
--- NOTE | 2017-05-24 22:22 | RADRPT ---
PROCEDURE: CT abdomen and pelvis without contrast. CLINICAL INDICATION: Recent surgery for incarcerated right inguinal hernia. TECHNIQUE: CT scan of the abdomen and pelvis without contrast was performed. Sagittal and coronal reformatted images were obtained from the axial source images. CTDI = 13.27 mGy; DLP = 703.19 mGy-c m COMPARISON: None available FINDINGS: Visualized lower thorax: Mild bronchiectasis right middle lobe with bibasilar subsegmental atelecta sis. Mild cardiomegaly is present. Tiny right pleural effusion is seen. Liver, gallbladder, pancreas and spleen: The liver is normal and size, contour and attenuation. Th ere is no evidence for a liver mass or ductal dilatation. The gallbladder is unremarkable. No comm on bile duct abnormality is demonstrated. The pancreas is unremarkable. The spleen is normal in si ze. Adrenal glands and genitourinary system: Bilateral adrenal gland hyperplasia is present. There are bilateral renal cysts the right upper pole cyst has a thin calcified septation. The left parapelvic cyst is unremarkable. There is no evidence of calculus or hydronephrosis. The ureters are unremar kable. No urinary bladder abnormality is demonstrated. The uterus is atrophic. No ovarian or adne xal masses are present. Gastrointestinal system: A hitghpuj-kz-xzeyk hiatal hernia is present with fluid in the dilated dis kiana esophagus and the stomach distended without wall thickening. The small bowel is normal in calib er with no ileus, obstruction or wall thickening. The appendix and surrounding fat are within the l imits of normal. Diffuse extensive diverticular disease of the descending and sigmoid colon is pres ent. There is no evidence for colitis or diverticulitis. Changes in the right inguinal region are c onsistent with recent surgery including postoperative gas and fluid without organized collection Peritoneum, retroperitoneum, lymph nodes and vessels: The abdominal aorta is normal in caliber. The re is severe extensive aortic and iliac system atherosclerotic calcification. The inferior vena cav a is unremarkable. There is no evidence for adenopathy or mass. There is no ascites. No abscess is demonstrated. Punctate foci of pneumoperitoneum throughout the peritoneal cavity including the uppe r abdomen is present related to recent surgery. Osseous structures and musculoskeletal findings: Demineralization severe spondylosis and multilevel degenerative disk disease of the lumbar spine is present without acute osseous abnormality, lytic o r blastic lesion. Extensive subcutaneous emphysema is identified throughout the anterior lower abdo jose wall. RPTAT:HJJR IMPRESSION: 1. Findings compatible with the provided history of recent right inguinal hernia surgery with fluid and gas in the postoperative bed and extensive subcutaneous emphysema along the lower abdominal wal l as well as pneumoperitoneum. Findings are discussed by telephone with the patient's nurse, Emily , at 22:20. 2. Hiatal hernia with a fluid distended stomach but no evidence of bowel obstruction or ileus, diff use diverticular disease of the colon without diverticulitis. 3. Bilateral renal cysts including a calcified septation in the right renal cyst. 4. Adrenal gland hyperplasia. 5. Extensive atherosclerotic calcification. Physician Jet Date Time Electronically viewed and signed by Hola Leigh Physician on 05/24/2017 22:21 /
[2017-05-25] VITALS (12 sets, daily range): BP systolic 113–142; BP diastolic 54–65; PULSE 72–78; RESP 16–19
[2017-05-25 07:11] LABS: ADD SCAN DIFF NO
[2017-05-25 07:24] LABS: BASOPHILS % 0.1 % (0.0-2.0); HEMATOCRIT 35.3 % (37.0-47.0); HEMOGLOBIN 11.1 g/dl (12.0-16.0); LYMPHOCYTES # 1.2 10^3/ul (0.8-2.9); LYMPHOCYTES % 10.6 % (15.0-51.0); MEAN CORPUSCULAR HEMOGLOBIN 27.5 pg (29.0-33.0); MEAN CORPUSCULAR HGB CONC 31.4 g/dl (32.0-37.0); MEAN CORPUSCULAR VOLUME 87.4 fl (82.0-101.0); MEAN PLATELET VOLUME 10.5 fl (7.4-10.4); MONOCYTE # 1.2 10^3/ul (0.3-0.9); MONOCYTES % 10.2 % (0.0-11.0); NEUTROPHILS % 78.8 % (39.0-77.0); PLATELET COUNT 334 10^3/UL (140-415); RED BLOOD COUNT 4.04 10^6/ul (4.20-5.40); RED CELL DISTRIBUTION WIDTH 15.8 % (11.5-14.5); WHITE BLOOD COUNT 11.5 10^3/ul (4.8-10.8)
[2017-05-25 07:56] LABS: INR 0.98
[2017-05-25 07:57] LABS: PARTIAL THROMBOPLASTIN TIME 38.9 Sec (25.0-35.0)
[2017-05-25 08:00] LABS: ALBUMIN 4.5 g/dl (3.3-4.9); ALBUMIN/GLOBULIN RATIO 1.6; BILIRUBIN,INDIRECT 0.3 mg/dl (0-1.1); BILIRUBIN,TOTAL 0.3 mg/dl (0.2-1.3); CALCIUM 9.2 mg/dl (8.4-10.2); CREATININE 0.82 mg/dl (0.44-1.00); PHOSPHORUS 4.4 mg/dl (2.5-4.9); POTASSIUM 4.2 mmol/L (3.5-5.1); TOTAL PROTEIN 7.3 g/dl (6.1-8.1)
[2017-05-25] MEDS ORDERED: FAMOTIDINE 20 MG INJ IV SCH (09:00)
[2017-05-25] MEDS: FUROSEMIDE 40 MG TAB PO SCH (09:33)
[2017-05-25] MEDS: LISINOPRIL 10 MG TAB PO SCH ×2 (09:33→21:09)
[2017-05-25] MEDS: HYDROCODONE/APAP (5/325) TAB PO PRN (09:35)
[2017-05-25] MEDS: ENOXAPARIN 40 MG/0.4 ML SYG SC SCH (09:52)
[2017-05-25] MEDS: D5W-0.45 NACL + KCL 20 MEQ 1,000 ML IV SCH (10:51)
--- NOTE | 2017-05-25 12:09 | CONS ---
Date/Time of Note Date/Time of Note DATE: 05/25/17 TIME: 12:06 Assessment/Plan Assessment/Plan Additional Assessment/Plan 1. Right inguinal hernia s/p herniorrphy by Dr. West 2. Hypertension. 3. Borderline diabetes mellitus. 4. Left lower extremity peripheral vascular disease. 5. Osteoarthritis. 6. Coronary artery disease status post non-ST elevation myocardial infarction in November 2014 and had 2 angioplasties with stent placement since then, one in November 2014 and one in December 2014. 7. Elevated BNP - continue surgical care -continue cardiac meds -monitor on tele -elevated bnp but no overt chf Consultation Date/Type/Reason Admit Date/Time May 24, 2017 at 11:02 Hx of Present Illness This 87-year-old female with history of hypertension and coronary artery disease as well as longstanding right inguinal hernia, presents with severe pain since yesterday in the right groin, associated with nausea but no vomiting. No fever, no chills. In the emergency room, the patient was noted to have incarcerated right inguinal hernia and required acute surgical consultation. Dr. West saw the patient and took her to the operating room immediately for a laparoscopic right inguinal hernia repair with mesh. I am seeing the patient in the recovery room. She is awake, alert, and oriented, no acute complaints at this time. She has a hx of CAD but no chest pain, no sob and no overt chf and currentlys table post herniorraphy Past Surgical History Past Surgical Hx: angioplasty Social History Smoking Status: Never smoker Exam/Review of Systems Vital Signs Vitals Vital Signs Date Time Temp Pulse Resp B/P Pulse Ox O2 Delivery O2 Flow Rate FiO2 05/25/17 11:24 98.1 73 18 113/54 99 05/24/17 18:00 Room Air Intake and Output 05/24/17 05/24/17 05/25/17 15:00 23:00 07:00 Intake Total 1000 ml 100 ml 400 ml Output Total 630 ml 500 ml Balance 370 ml -400 ml 400 ml Results Result Diagram: 05/25/17 0646 05/25/17 0640 Results 24 hrs Laboratory Tests Test 05/24/17 16:35 05/24/17 18:35 05/24/17 20:55 05/25/17 00:09 White Blood Count 9.7 # Red Blood Count 4.32 Hemoglobin 12.4 Hematocrit 37.6 Mean Corpuscular Volume 87.0 Mean Corpuscular Hemoglobin 28.7 L Mean Corpuscular Hemoglobin Concent 33.0 Red Cell Distribution Width 15.3 H Platelet Count 328 Mean Platelet Volume 10.6 H Neutrophils % 85.5 H Lymphocytes % 10.8 L Monocytes % 2.5 Eosinophils % 0.6 Basophils % 0.2 Nucleated Red Blood Cells % 0.0 Neutrophils # 8.3 H Lymphocytes # 1.0 Monocytes # 0.2 L Eosinophils # 0.1 Basophils # 0.0 Nucleated Red Blood Cells # 0.0 Prothrombin Time 11.9 L Prothrombin Time Ratio 0.9 INR International Normalized Ratio 0.88 Activated Partial Thromboplast Time 42.5 H Sodium Level 142 Potassium Level 3.7 Chloride Level 101 Carbon Dioxide Level 30 Anion Gap 15 Blood Urea Nitrogen 14 Creatinine 0.75 Glucose Level 128 Lactic Acid Level 1.6 1.9 2.2 Calcium Level 9.6 Phosphorus Level 3.6 Magnesium Level 2.0 Total Bilirubin 0.3 Direct Bilirubin 0.00 Indirect Bilirubin 0.3 Aspartate Amino Transf (AST/SGOT) 28 Alanine Aminotransferase (ALT/SGPT) 24 Alkaline Phosphatase 189 H Troponin I 0.029 0.024 Total Protein 8.4 H Albumin 4.9 Globulin 3.50 H Albumin/Globulin Ratio 1.40 Test 05/25/17 06:40 05/25/17 06:46 Sodium Level 140 Potassium Level 4.2 Chloride Level 99 Carbon Dioxide Level 29 Anion Gap 16 Blood Urea Nitrogen 15 Creatinine 0.82 Glucose Level 113 Calcium Level 9.2 Phosphorus Level 4.4 Magnesium Level 2.0 Total Bilirubin 0.3 Direct Bilirubin 0.00 Indirect Bilirubin 0.3 Aspartate Amino Transf (AST/SGOT) 26 Alanine Aminotransferase (ALT/SGPT) 22 Alkaline Phosphatase 140 H B-Type Natriuretic Peptide 3650 H Total Protein 7.3 # Albumin 4.5 Globulin 2.80 Albumin/Globulin Ratio 1.60 White Blood Count 11.5 H Red Blood Count 4.04 L Hemoglobin 11.1 L Hematocrit 35.3 L Mean Corpuscular Volume 87.4 Mean Corpuscular Hemoglobin 27.5 L Mean Corpuscular Hemoglobin Concent 31.4 L Red Cell Distribution Width 15.8 H Platelet Count 334 Mean Platelet Volume 10.5 H Neutrophils % 78.8 H Lymphocytes % 10.6 L Monocytes % 10.2 Eosinophils % 0.0 Basophils % 0.1 Nucleated Red Blood Cells % 0.0 Neutrophils # 9.0 H Lymphocytes # 1.2 Monocytes # 1.2 H Eosinophils # 0.0 Basophils # 0.0 Nucleated Red Blood Cells # 0.0 Prothrombin Time 13.0 Prothrombin Time Ratio 1.0 INR International Normalized Ratio 0.98 Activated Partial Thromboplast Time 38.9 H Lactic Acid Level 1.9 Medications Medications Current Medications Potassium Chloride/Dextrose/ Sod Cl (D5-1/2ns + KCl 20 Meq) 1,000 ml @ 50 mls/ hr Q20H IV ; Start 05/24/17 at 15:50 Acetaminophen/ Hydrocodone Bitart ([place] (5/325)) 1 tab Q4H PRN PO PAIN LEVEL 4 -7 Last administered on 05/25/17 09:35; Admin Dose 1 TAB; Start 05/24/17 at 16: 00 Acetaminophen/ Hydrocodone Bitart ([place] (5/325)) 2 tab Q4H PRN PO PAIN LEVEL 7 -10; Start 05/24/17 at 16:00 Hydromorphone HCl (Dilaudid) 0.5 mg Q2 PRN IV PAIN; Start 05/24/17 at 16:00 Hydromorphone HCl (Dilaudid) 1 mg Q2 PRN IV PAIN Last administered on 20:50; Admin Dose 1 MG; Start 05/24/17 at 16:00 Docusate Sodium (Colace) 100 mg BID PRN PO CONSTIPATION; Start 05/24/17 at 16: 00 Bisacodyl (Dulcolax Supp) 10 mg BID PRN [place] CONSTIPATION; Start 05/24/17 at 16: 00 Sodium Biphosphate/ Sodium Phosphate (Fleet Enema) 133 ml BID PRN [place] CONSTIPATION; Start 05/24/17 at 16:00 Famotidine (Pepcid Iv) 20 mg DAILY IV Last administered on 05/25/17 09:33; Admin Dose 20 MG; Start 05/25/17 at 09:00 Enoxaparin Sodium (Lovenox) 40 mg DAILY SC Last administered on 05/25/17 09:52 ; Admin Dose 40 MG; Start 05/25/17 at 09:00 Atorvastatin Calcium (Lipitor) 40 mg HS PO Last administered on 05/24/17 20:49 ; Admin Dose 40 MG; Start 05/24/17 at 21:00 Carvedilol (Coreg) 6.25 mg BID PO Last administered on 05/25/17 09:34; Admin Dose 6.25 MG; Start 05/24/17 at 21:00 Furosemide (Lasix) 40 mg DAILY PO Last administered on 05/25/17 09:33; Admin Dose 40 MG; Start 05/25/17 at 09:00 Lisinopril (Zestril) 10 mg BID PO Last administered on 05/25/17 09:33; Admin Dose 10 MG; Start 05/24/17 at 21:00 Clonidine (Catapres) 0.1 mg Q4H PRN PO ELEVATED BLOOD PRESSURE; Start 05/24/17 at 19:00 TANK BATES MD May 25, 2017 12:08
--- NOTE | 2017-05-25 15:20 | PN ---
Date/Time of Note Date/Time of Note DATE: 05/25/17 TIME: 15:16 Assessment/Plan Lines/Catheters IV Catheter Type (from Nrs): Peripheral IV Vigil in Place (from Nrs): No Assessment/Plan Assessment/Plan [facility] Progress Note Date of Service: 05/25/17 Today's Impression & Plan: Overall doing well post op without major issues. No major wound problems. Abd remains benign. No indication of hemorrhage or other major post operative complications. Stable from a cardiac standpoint. D/w Dr. Glass. With above assessment, I've recommended the following for today: 1. Increase activity 2. Increase ICS 3. Regular diet 4. Set up for discharge home today or tomorrow am (does not need more from a surgical standpoint) 5. F/u with me in my office in 2-3 weeks 6. D/c instructions: "Please call [phone] if any of fever, nausea, vomiting, discharge from wound, wound redness, increase or sudden pain, blood in stool or vomit, or any other unusual signs or symptoms. Also, please call the same number in a few days to schedule an appointment for your follow up visit. Patient may remove dressings tomorrow. Showers OK starting tomorrow. No swimming , hot tub or bath for 2 weeks. No lifting more than 25 lbs for 8 weeks." Thank you again for your great care of this very pleasant patient and wonderful family. If there are any questions, please feel free to call me at [phone]. TOTAL VISIT TIME: 20 minutes of which more than half was spent in [id number] discussion with the patient, possibly including family, as well as coordination of care between multiple physicians and providers. Disclaimer: Inadvertent spelling or grammatical errors are likely due to EHR/ dictation software use and do not reflect on the overall quality of patient care. Updated Clinical Summary: The patient is a very pleasant 87-year-old lady with comorbidities including cardiomyopathy, coronary artery disease with history of PCI and peripheral arterial disease with a known right inguinal hernia since at least 12/2016, presenting with what appears to be an incarcerated right inguinal hernia which is somewhat threatened. S/p laparoscopic right inguinal hernia repair with mesh (10 cm x 17 cm Symbotex) at [facility] 05/24/17. COMORBIDITIES: 1. Incarcerated right inguinal hernia, s/p laparoscopic right inguinal hernia repair with mesh (10 cm x 17 cm Symbotex) at [facility] 05/24/17 2. BMI 20.2 (previously 26.03 December 2016) 3. Cardiomyopathy. 4. Coronary artery disease with history of PCI. 5. Peripheral arterial disease. 6. Status post 3 units of packed red blood cell transfusion in December 2016. 7. History of congestive heart failure. 8. Hypertension. 9. Angioplasty. 10. Ejection fraction of 45%. 11. Acute blood loss anemia. 12. Mitral valve regurgitation. 13. Tricuspid valve regurgitation. 14. Status post percutaneous coronary intervention, most recent in December 2014. 15. Knee osteoarthritis (left). 16. Hypercholesterolemia. 17. Status post non-ST elevation myocardial infarction in 2013, status post angioplasty with stent placement in 2013 and also in 2014 as above. 18. Carotid endarterectomy. Subjective: No major events or complaints; no major abd pain and under control with medications; no n/v/d; no sob or cp; + flatus; - BM; minimal activity Objective: Vitals: See below Exam: GENERAL: On exam, the patient was laying in bed and appeared to be comfortable and in no acute distress. ABDOMEN: Soft, nontender and nondistended. Incision dressings are clean, dry and intact without any evidence of obvious underlying erythema, edema, discharge , or hernia. There are no peritoneal signs or guarding. SKIN: Skin appears to be pink and feels warm to touch. NEUROLOGIC: Patient is awake, alert, and follows commands appropriately. Exam/Review of Systems Vital Signs Vitals Vital Signs Date Time Temp Pulse Resp B/P Pulse Ox O2 Delivery O2 Flow Rate FiO2 05/25/17 15:14 97.9 77 18 122/55 93 05/24/17 18:00 Room Air Intake and Output 05/24/17 05/24/17 05/25/17 15:00 23:00 07:00 Intake Total 1000 ml 100 ml 400 ml Output Total 630 ml 500 ml Balance 370 ml -400 ml 400 ml Results Result Diagram: 05/25/17 0646 05/25/17 0640 CAS RODRIGUEZ M.D. May 25, 2017 15:20
--- NOTE | 2017-05-25 17:02 | PN ---
Date/Time of Note Date/Time of Note DATE: 05/25/17 TIME: 17:01 Assessment/Plan VTE Prophylaxis VTE Prophylaxis Intervention: other Lines/Catheters IV [facility]ter Type (from [facility]): Peripheral IV Urinary Cath still in place: No Assessment/Plan Chief Complaint/Hosp Course 1) Incarcerated inguinal hernia status post laparoscopic hernia repair with mesh placement, appears to be doing well postoperatively. 2) hypertension - resume preoperative blood pressure medications. Problems: Subjective 24 Hr Interval Summary Free Text/Dictation Patient still has some abdominal discomfort Exam/Review of Systems Vital Signs Vitals Vital Signs Date Time Temp Pulse Resp B/P Pulse Ox O2 Delivery O2 Flow Rate FiO2 05/25/17 16:23 77 05/25/17 15:14 97.9 18 122/55 93 05/24/17 18:00 Room Air Intake and Output 05/24/17 05/24/17 05/25/17 15:00 23:00 07:00 Intake Total 1000 ml 100 ml 400 ml Output Total 630 ml 500 ml Balance 370 ml -400 ml 400 ml Exam Constitutional: well developed Head: atraumatic, normocephalic Neck: supple Respiratory: clear to auscultation Cardiovascular: regular rate and rhythm Gastrointestinal: soft, tender Extremities: normal pulses Results Result Diagram: 05/25/17 0646 05/25/17 0640 Results 24 hrs Laboratory Tests Test 05/24/17 18:35 05/24/17 20:55 05/25/17 00:09 05/25/17 06:40 Lactic Acid Level 1.9 2.2 Troponin I 0.024 Sodium Level 140 Potassium Level 4.2 Chloride Level 99 Carbon Dioxide Level 29 Anion Gap 16 Blood Urea Nitrogen 15 Creatinine 0.82 Glucose Level 113 Calcium Level 9.2 Phosphorus Level 4.4 Magnesium Level 2.0 Total Bilirubin 0.3 Direct Bilirubin 0.00 Indirect Bilirubin 0.3 Aspartate Amino Transf (AST/SGOT) 26 Alanine Aminotransferase (ALT/SGPT) 22 Alkaline Phosphatase 140 H B-Type Natriuretic Peptide 3650 H Total Protein 7.3 # Albumin 4.5 Globulin 2.80 Albumin/Globulin Ratio 1.60 Test 05/25/17 06:46 05/25/17 11:52 White Blood Count 11.5 H Red Blood Count 4.04 L Hemoglobin 11.1 L Hematocrit 35.3 L Mean Corpuscular Volume 87.4 Mean Corpuscular Hemoglobin 27.5 L Mean Corpuscular Hemoglobin Concent 31.4 L Red Cell Distribution Width 15.8 H Platelet Count 334 Mean Platelet Volume 10.5 H Neutrophils % 78.8 H Lymphocytes % 10.6 L Monocytes % 10.2 Eosinophils % 0.0 Basophils % 0.1 Nucleated Red Blood Cells % 0.0 Neutrophils # 9.0 H Lymphocytes # 1.2 Monocytes # 1.2 H Eosinophils # 0.0 Basophils # 0.0 Nucleated Red Blood Cells # 0.0 Prothrombin Time 13.0 Prothrombin Time Ratio 1.0 INR International Normalized Ratio 0.98 Activated Partial Thromboplast Time 38.9 H Lactic Acid Level 1.9 Troponin I 0.019 Medications Medications Current Medications Potassium Chloride/Dextrose/ Sod Cl (D5-1/2ns + KCl 20 Meq) 1,000 ml @ 50 mls/ hr Q20H IV ; Start 05/24/17 at 15:50 Acetaminophen/ Hydrocodone Bitart ([place] (5/325)) 1 tab Q4H PRN PO PAIN LEVEL 4 -7 Last administered on 05/25/17 09:35; Admin Dose 1 TAB; Start 05/24/17 at 16: 00 Acetaminophen/ Hydrocodone Bitart ([place] (5/325)) 2 tab Q4H PRN PO PAIN LEVEL 7 -10; Start 05/24/17 at 16:00 Hydromorphone HCl (Dilaudid) 0.5 mg Q2 PRN IV PAIN; Start 05/24/17 at 16:00 Hydromorphone HCl (Dilaudid) 1 mg Q2 PRN IV PAIN Last administered on 20:50; Admin Dose 1 MG; Start 05/24/17 at 16:00 Docusate Sodium (Colace) 100 mg BID PRN PO CONSTIPATION; Start 05/24/17 at 16: 00 Bisacodyl (Dulcolax Supp) 10 mg BID PRN [place] CONSTIPATION; Start 05/24/17 at 16: 00 Sodium Biphosphate/ Sodium Phosphate (Fleet Enema) 133 ml BID PRN [place] CONSTIPATION; Start 05/24/17 at 16:00 Enoxaparin Sodium (Lovenox) 40 mg DAILY SC Last administered on 05/25/17 09:52 ; Admin Dose 40 MG; Start 05/25/17 at 09:00 Atorvastatin Calcium (Lipitor) 40 mg HS PO Last administered on 05/24/17 20:49 ; Admin Dose 40 MG; Start 05/24/17 at 21:00 Carvedilol (Coreg) 6.25 mg BID PO Last administered on 05/25/17 09:34; Admin Dose 6.25 MG; Start 05/24/17 at 21:00 Furosemide (Lasix) 40 mg DAILY PO Last administered on 05/25/17 09:33; Admin Dose 40 MG; Start 05/25/17 at 09:00 Lisinopril (Zestril) 10 mg BID PO Last administered on 05/25/17 09:33; Admin Dose 10 MG; Start 05/24/17 at 21:00 Clonidine (Catapres) 0.1 mg Q4H PRN PO ELEVATED BLOOD PRESSURE; Start 05/24/17 at 19:00 Famotidine (Pepcid) 20 mg DAILY PO ; Start 05/26/17 at 09:00 MICHAEL RÍOS May 25, 2017 17:02
[2017-05-25] MEDS: ATORVASTATIN 40 MG TAB PO SCH (21:09)
[2017-05-25] MEDS: HYDROmorphONE 1 MG/ML SYG IV PRN (21:13)
[2017-05-26] VITALS (12 sets, daily range): BP systolic 92–187; BP diastolic 46–78; PULSE 65–75; RESP 16–18
[2017-05-26] MEDS: D5W-0.45 NACL + KCL 20 MEQ 1,000 ML IV SCH (07:50)
[2017-05-26] MEDS: FUROSEMIDE 40 MG TAB PO SCH (08:45)
[2017-05-26] MEDS: LISINOPRIL 10 MG TAB PO SCH ×2 (08:45→20:30)
[2017-05-26] MEDS: FAMOTIDINE 20 MG TAB PO SCH (08:45)
[2017-05-26] MEDS: ENOXAPARIN 40 MG/0.4 ML SYG SC SCH (08:48)
[2017-05-26] MEDS: HYDROCODONE/APAP (5/325) TAB PO PRN ×2 (08:56→14:39)
--- NOTE | 2017-05-26 09:53 | PN ---
Date/Time of Note Date/Time of Note DATE: 05/26/17 TIME: 09:50 Assessment/Plan Lines/Catheters IV Catheter Type (from Nrs): Saline Lock Vigil in Place (from Nrs): No Assessment/Plan Assessment/Plan [facility] Progress Note Date of Service: 05/26/17 Today's Impression & Plan: Overall doing well post op without major issues. No major wound problems. Abd remains benign. No indication of hemorrhage or other major post operative complications. Stable from a cardiac standpoint. Can d/c home from my standpoint. With above assessment, I've recommended the following for today: 1. D/c home 2. F/u with me in my office in 2-3 weeks 3. D/c instructions: "Please call [phone] if any of fever, nausea, vomiting, discharge from wound, wound redness, increase or sudden pain, blood in stool or vomit, or any other unusual signs or symptoms. Also, please call the same number in a few days to schedule an appointment for your follow up visit. Patient may remove dressings tomorrow. Showers OK starting tomorrow. No swimming , hot tub or bath for 2 weeks. No lifting more than 25 lbs for 8 weeks." Thank you again for your great care of this very pleasant patient and wonderful family. If there are any questions, please feel free to call me at [phone]. TOTAL VISIT TIME: 20 minutes of which more than half was spent in [id number] discussion with the patient, possibly including family, as well as coordination of care between multiple physicians and providers. Disclaimer: Inadvertent spelling or grammatical errors are likely due to EHR/ dictation software use and do not reflect on the overall quality of patient care. Updated Clinical Summary: The patient is a very pleasant 87-year-old lady with comorbidities including cardiomyopathy, coronary artery disease with history of PCI and peripheral arterial disease with a known right inguinal hernia since at least 12/2016, presenting with what appears to be an incarcerated right inguinal hernia which is somewhat threatened. S/p laparoscopic right inguinal hernia repair with mesh (10 cm x 17 cm Symbotex) at [facility] 05/24/17. COMORBIDITIES: 1. Incarcerated right inguinal hernia, s/p laparoscopic right inguinal hernia repair with mesh (10 cm x 17 cm Symbotex) at [facility] 05/24/17 2. BMI 20.2 (previously 26.03 December 2016) 3. Cardiomyopathy. 4. Coronary artery disease with history of PCI. 5. Peripheral arterial disease. 6. Status post 3 units of packed red blood cell transfusion in December 2016. 7. History of congestive heart failure. 8. Hypertension. 9. Angioplasty. 10. Ejection fraction of 45%. 11. Acute blood loss anemia. 12. Mitral valve regurgitation. 13. Tricuspid valve regurgitation. 14. Status post percutaneous coronary intervention, most recent in December 2014. 15. Knee osteoarthritis (left). 16. Hypercholesterolemia. 17. Status post non-ST elevation myocardial infarction in 2013, status post angioplasty with stent placement in 2013 and also in 2014 as above. 18. Carotid endarterectomy. Subjective: No major events or complaints; no major abd pain and under control with medications; no n/v/d; no sob or cp; + flatus; + BM; + activity Objective: Vitals: See below Exam: GENERAL: On exam, the patient was laying in bed and appeared to be comfortable and in no acute distress. ABDOMEN: Soft, nontender and nondistended. Incision dressings d/c'd and incisions are clean, dry and intact without any evidence of obvious erythema, edema, discharge, or hernia. There are no peritoneal signs or guarding. SKIN: Skin appears to be pink and feels warm to touch. NEUROLOGIC: Patient is awake, alert, and follows commands appropriately. Exam/Review of Systems Vital Signs Vitals Vital Signs Date Time Temp Pulse Resp B/P Pulse Ox O2 Delivery O2 Flow Rate FiO2 05/26/17 08:17 70 05/26/17 08:08 98.3 18 187/78 91 05/24/17 18:00 Room Air Intake and Output 05/25/17 05/25/17 05/26/17 15:00 23:00 07:00 Intake Total 500 ml Output Total 300 ml Balance 200 ml Results Result Diagram: 05/25/17 0646 05/25/17 0640 CAS RODRIGUEZ M.D. May 26, 2017 09:53
--- NOTE | 2017-05-26 12:08 | PN ---
Date/Time of Note Date/Time of Note DATE: 05/26/17 TIME: 12:07 Assessment/Plan VTE Prophylaxis VTE Prophylaxis Intervention: other Lines/Catheters IV Catheter Type (from Nrsg): Saline Lock Urinary Cath still in place: Yes Reason Cath still needed: skin wounds contaminated by urine Assessment/Plan Chief Complaint/Hosp Course 1) Incarcerated inguinal hernia status post laparoscopic hernia repair with mesh placement, appears to be doing well postoperatively. 2) hypertension - resume preoperative blood pressure medications. Problems: Subjective 24 Hr Interval Summary Free Text/Dictation Patient still with some abdominal discomfort and also difficulty with transfer to and from bed Exam/Review of Systems Vital Signs Vitals Vital Signs Date Time Temp Pulse Resp B/P Pulse Ox O2 Delivery O2 Flow Rate FiO2 05/26/17 11:24 98.9 70 17 179/72 92 05/24/17 18:00 Room Air Intake and Output 05/25/17 05/25/17 05/26/17 15:00 23:00 07:00 Intake Total 500 ml Output Total 300 ml Balance 200 ml Exam Constitutional: well developed Head: atraumatic, normocephalic Neck: supple Respiratory: clear to auscultation Cardiovascular: regular rate and rhythm Gastrointestinal: non-tender, soft Extremities: normal pulses Results Result Diagram: 05/25/17 0646 05/25/17 0640 Medications Medications Current Medications Potassium Chloride/Dextrose/ Sod Cl (D5-1/2ns + KCl 20 Meq) 1,000 ml @ 50 mls/ hr Q20H IV ; Start 05/24/17 at 15:50 Acetaminophen/ Hydrocodone Bitart ([place] (5/325)) 1 tab Q4H PRN PO PAIN LEVEL 4 -7 Last administered on 05/26/17 08:56; Admin Dose 1 TAB; Start 05/24/17 at 16: 00 Acetaminophen/ Hydrocodone Bitart ([place] (5/325)) 2 tab Q4H PRN PO PAIN LEVEL 7 -10 Last administered on 05/25/17 18:49; Admin Dose 2 TAB; Start 05/24/17 at 16 :00 Hydromorphone HCl (Dilaudid) 0.5 mg Q2 PRN IV PAIN; Start 05/24/17 at 16:00 Hydromorphone HCl (Dilaudid) 1 mg Q2 PRN IV PAIN Last administered on 21:13; Admin Dose 1 MG; Start 05/24/17 at 16:00 Docusate Sodium (Colace) 100 mg BID PRN PO CONSTIPATION; Start 05/24/17 at 16: 00 Bisacodyl (Dulcolax Supp) 10 mg BID PRN [place] CONSTIPATION; Start 05/24/17 at 16: 00 Sodium Biphosphate/ Sodium Phosphate (Fleet Enema) 133 ml BID PRN [place] CONSTIPATION; Start 05/24/17 at 16:00 Enoxaparin Sodium (Lovenox) 40 mg DAILY SC Last administered on 05/26/17 08:48 ; Admin Dose 40 MG; Start 05/25/17 at 09:00 Atorvastatin Calcium (Lipitor) 40 mg HS PO Last administered on 05/25/17 21:09 ; Admin Dose 40 MG; Start 05/24/17 at 21:00 Carvedilol (Coreg) 6.25 mg BID PO Last administered on 05/26/17 08:46; Admin Dose 6.25 MG; Start 05/24/17 at 21:00 Furosemide (Lasix) 40 mg DAILY PO Last administered on 05/26/17 08:45; Admin Dose 40 MG; Start 05/25/17 at 09:00 Lisinopril (Zestril) 10 mg BID PO Last administered on 05/26/17 08:45; Admin Dose 10 MG; Start 05/24/17 at 21:00 Clonidine (Catapres) 0.1 mg Q4H PRN PO ELEVATED BLOOD PRESSURE Last administered on 05/26/17 11:35; Admin Dose 0.1 MG; Start 05/24/17 at 19:00 Famotidine (Pepcid) 20 mg DAILY PO Last administered on 05/26/17 08:45; Admin Dose 20 MG; Start 05/26/17 at 09:00 MICHAEL RÍOS May 26, 2017 12:08
[2017-05-26] MEDS: ATORVASTATIN 40 MG TAB PO SCH (20:29)
[2017-05-27] VITALS (12 sets, daily range): BP systolic 126–206; BP diastolic 60–82; PULSE 63–76; RESP 20
[2017-05-27] MEDS: D5W-0.45 NACL + KCL 20 MEQ 1,000 ML IV SCH (03:50)
[2017-05-27] MEDS: HYDROCODONE/APAP (5/325) TAB PO PRN ×2 (07:53→20:22)
--- NOTE | 2017-05-27 08:27 | PN ---
Date/Time of Note Date/Time of Note DATE: 05/27/17 TIME: 08: Assessment/Plan VTE Prophylaxis VTE Prophylaxis Intervention: SCD's Lines/Catheters IV Catheter Type (from [facility]): Saline Lock Urinary Cath still in place: No Assessment/Plan Chief Complaint/Hosp Course This 87-year-old female with history of hypertension and coronary artery disease as well as longstanding right inguinal hernia, presents with severe pain since yesterday in the right groin, associated with nausea but no vomiting. No fever, no chills. In the emergency room, the patient was noted to have incarcerated right inguinal hernia and required acute surgical consultation. Dr. West saw the patient and took her to the operating room immediately for a laparoscopic right inguinal hernia repair with mesh. I am seeing the patient in the recovery room. She is awake, alert, and oriented, no acute complaints at this time. She has a hx of CAD but no chest pain, no sob and no overt chf and currentlys table post herniorraphy Problems: Assessment/Plan 1. Right inguinal hernia s/p herniorrphy by Dr. West 2. Hypertension. 3. Borderline diabetes mellitus. 4. Left lower extremity peripheral vascular disease. 5. Osteoarthritis. 6. Coronary artery disease status post non-ST elevation myocardial infarction in November 2014 and had 2 angioplasties with stent placement since then, one in November 2014 and one in December 2014. 7. Elevated BNP - continue surgical care -continue cardiac meds -april d/c telemetry -elevated bnp but no overt chf -no further cardiac work up or monitoring necessary Subjective 24 Hr Interval Summary Free Text/Dictation The patient with no change and doing well Exam/Review of Systems Vital Signs Vitals Vital Signs Date Time Temp Pulse Resp B/P Pulse Ox O2 Delivery O2 Flow Rate FiO2 05/27/17 08:14 71 05/27/17 07:34 98.3 20 206/82 96 05/24/17 18:00 Room Air Intake and Output 05/26/17 05/26/17 05/27/17 15:00 23:00 07:00 Intake Total 1000 ml 500 ml Balance 1000 ml 500 ml Results Result Diagram: 05/25/17 0646 05/25/17 0640 Medications Medications Current Medications Potassium Chloride/Dextrose/ Sod Cl (D5-1/2ns + KCl 20 Meq) 1,000 ml @ 50 mls/ hr Q20H IV ; Start 05/24/17 at 15:50 Acetaminophen/ Hydrocodone Bitart ([place] (5/325)) 1 tab Q4H PRN PO PAIN LEVEL 4 -7 Last administered on 05/27/17 07:53; Admin Dose 1 TAB; Start 05/24/17 at 16: 00 Acetaminophen/ Hydrocodone Bitart ([place] (5/325)) 2 tab Q4H PRN PO PAIN LEVEL 7 -10 Last administered on 05/25/17 18:49; Admin Dose 2 TAB; Start 05/24/17 at 16 :00 Hydromorphone HCl (Dilaudid) 0.5 mg Q2 PRN IV PAIN Last administered on 20:30; Admin Dose 0.5 MG; Start 05/24/17 at 16:00 Hydromorphone HCl (Dilaudid) 1 mg Q2 PRN IV PAIN Last administered on 21:13; Admin Dose 1 MG; Start 05/24/17 at 16:00 Docusate Sodium (Colace) 100 mg BID PRN PO CONSTIPATION Last administered on 17:46; Admin Dose 100 MG; Start 05/24/17 at 16:00 Bisacodyl (Dulcolax Supp) 10 mg BID PRN [place] CONSTIPATION; Start 05/24/17 at 16: 00 Sodium Biphosphate/ Sodium Phosphate (Fleet Enema) 133 ml BID PRN [place] CONSTIPATION; Start 05/24/17 at 16:00 Enoxaparin Sodium (Lovenox) 40 mg DAILY SC Last administered on 05/26/17 08:48 ; Admin Dose 40 MG; Start 05/25/17 at 09:00 Atorvastatin Calcium (Lipitor) 40 mg HS PO Last administered on 05/26/17 20:29 ; Admin Dose 40 MG; Start 05/24/17 at 21:00 Carvedilol (Coreg) 6.25 mg BID PO Last administered on 05/26/17 20:30; Admin Dose 6.25 MG; Start 05/24/17 at 21:00 Furosemide (Lasix) 40 mg DAILY PO Last administered on 05/26/17 08:45; Admin Dose 40 MG; Start 05/25/17 at 09:00 Lisinopril (Zestril) 10 mg BID PO Last administered on 05/26/17 20:30; Admin Dose 10 MG; Start 05/24/17 at 21:00 Clonidine (Catapres) 0.1 mg Q4H PRN PO ELEVATED BLOOD PRESSURE Last administered on 05/27/17 07:40; Admin Dose 0.1 MG; Start 05/24/17 at 19:00 Famotidine (Pepcid) 20 mg DAILY PO Last administered on 05/26/17 08:45; Admin Dose 20 MG; Start 05/26/17 at 09:00 TANK BATES MD May 27, 2017 08:27
[2017-05-27] MEDS: FAMOTIDINE 20 MG TAB PO SCH (08:46)
[2017-05-27] MEDS: FUROSEMIDE 40 MG TAB PO SCH (08:46)
[2017-05-27] MEDS: LISINOPRIL 10 MG TAB PO SCH ×2 (08:46→20:16)
[2017-05-27] MEDS: ENOXAPARIN 40 MG/0.4 ML SYG SC SCH (09:01)
[2017-05-27] MEDS ORDERED: MAGNESIUM HYDROXIDE 30ML CUP PO ONE (19:00)
[2017-05-27] MEDS: ATORVASTATIN 40 MG TAB PO SCH (20:16)
--- NOTE | 2017-05-27 22:37 | RADRPT ---
PROCEDURE: XR Chest. CLINICAL INDICATION: Chest pain and leukocytosis TECHNIQUE: AP Portable chest. COMPARISON: 12/07/2016 PA and lateral chest x-ray FINDINGS: The soft tissues and bones are remarkable for generalized osteopenia and thoracic spondylosis.. No f ocal infiltrates, masses, or effusions are noted. The mediastinum and heart are remarkable for vasc ular calcifications of the thoracic aorta and mild cardiomegaly. No pneumothorax is present. IMPRESSION: 1. No radiographic evidence for acute cardiopulmonary disease 2. Mild cardiomegaly and atherosclerotic vascular disease RPTAT: HDC .Kaley Carmichael MD, MD Date Time Electronically viewed and signed by .Kaley Carmichael MD, on 05/27/2017 22:37 .C/
[2017-05-28] VITALS (12 sets, daily range): BP systolic 141–181; BP diastolic 65–79; PULSE 61–75; RESP 17–20
--- NOTE | 2017-05-28 00:05 | PN ---
Date/Time of Note Date/Time of Note DATE: 05/27/17 TIME: 23:59 Assessment/Plan VTE Prophylaxis VTE Prophylaxis Intervention: ambulation Lines/Catheters IV Catheter Type (from Nrs): Saline Lock Urinary Cath still in place: No Assessment/Plan Assessment/Plan Number one. Incarcerated inguinal hernia status post repair with mesh placement. Still with marked pain on ambulation now with the elevated white cell count . I will check for the sources of infection including urine cultures and blood cultures as well as chest x-ray. I will recheck the CBC in the morning and if the white cell count improves we should be able to discharge her home with home health care and physical therapy for follow-up. Subjective 24 Hr Interval Summary Free Text/Dictation mild abdominal pain with ambulation, patient also has not had about movement since on admission Exam/Review of Systems Vital Signs Vitals Vital Signs Date Time Temp Pulse Resp B/P Pulse Ox O2 Delivery O2 Flow Rate FiO2 05/27/17 20:19 69 05/27/17 20:00 98.3 20 198/66 96 05/24/17 18:00 Room Air Intake and Output 05/26/17 05/26/17 05/27/17 15:00 23:00 07:00 Intake Total 1000 ml 500 ml Balance 1000 ml 500 ml Exam Constitutional: alert, oriented Eyes: nl conjunctiva Neck: non-tender, supple Respiratory: clear to auscultation, normal air movement Cardiovascular: nl pulses, regular rate and rhythm Gastrointestinal: soft, tender Musculoskeletal: nl extremities to inspection Results Result Diagram: 05/25/17 0646 05/25/17 0640 Medications Medications Current Medications Acetaminophen/ Hydrocodone Bitart ([place] (5/325)) 1 tab Q4H PRN PO PAIN LEVEL 4 -7 Last administered on 05/27/17 20:22; Admin Dose 1 TAB; Start 05/24/17 at 16: 00 Acetaminophen/ Hydrocodone Bitart ([place] (5/325)) 2 tab Q4H PRN PO PAIN LEVEL 7 -10 Last administered on 05/25/17 18:49; Admin Dose 2 TAB; Start 05/24/17 at 16 :00 Hydromorphone HCl (Dilaudid) 0.5 mg Q2 PRN IV PAIN Last administered on 20:30; Admin Dose 0.5 MG; Start 05/24/17 at 16:00 Hydromorphone HCl (Dilaudid) 1 mg Q2 PRN IV PAIN Last administered on 21:13; Admin Dose 1 MG; Start 05/24/17 at 16:00 Docusate Sodium (Colace) 100 mg BID PRN PO CONSTIPATION Last administered on 17:46; Admin Dose 100 MG; Start 05/24/17 at 16:00 Bisacodyl (Dulcolax Supp) 10 mg BID PRN [place] CONSTIPATION; Start 05/24/17 at 16: 00 Sodium Biphosphate/ Sodium Phosphate (Fleet Enema) 133 ml BID PRN [place] CONSTIPATION; Start 05/24/17 at 16:00 Enoxaparin Sodium (Lovenox) 40 mg DAILY SC Last administered on 05/27/17 09:01 ; Admin Dose 40 MG; Start 05/25/17 at 09:00 Atorvastatin Calcium (Lipitor) 40 mg HS PO Last administered on 05/27/17 20:16 ; Admin Dose 40 MG; Start 05/24/17 at 21:00 Carvedilol (Coreg) 6.25 mg BID PO Last administered on 05/27/17 20:15; Admin Dose 6.25 MG; Start 05/24/17 at 21:00 Furosemide (Lasix) 40 mg DAILY PO Last administered on 05/27/17 08:46; Admin Dose 40 MG; Start 05/25/17 at 09:00 Lisinopril (Zestril) 10 mg BID PO Last administered on 05/27/17 20:16; Admin Dose 10 MG; Start 05/24/17 at 21:00 Clonidine (Catapres) 0.1 mg Q4H PRN PO ELEVATED BLOOD PRESSURE Last administered on 05/27/17 07:40; Admin Dose 0.1 MG; Start 05/24/17 at 19:00 Famotidine (Pepcid) 20 mg DAILY PO Last administered on 05/27/17 08:46; Admin Dose 20 MG; Start 05/26/17 at 09:00 RIANNA QUINTANA MD May 28, 2017 00:05
[2017-05-28 07:45] LABS: ADD SCAN DIFF NO
[2017-05-28 07:57] LABS: BASOPHILS % 0.1 % (0.0-2.0); EOSINOPHILS # 0.2 10^3/ul (0.0-0.5); EOSINOPHILS % 2.7 % (0.0-7.0); HEMATOCRIT 30.9 % (37.0-47.0); HEMOGLOBIN 9.7 g/dl (12.0-16.0); LYMPHOCYTES # 1.6 10^3/ul (0.8-2.9); LYMPHOCYTES % 22.6 % (15.0-51.0); MEAN CORPUSCULAR HEMOGLOBIN 27.6 pg (29.0-33.0); MEAN CORPUSCULAR HGB CONC 31.4 g/dl (32.0-37.0); MEAN PLATELET VOLUME 10.4 fl (7.4-10.4); MONOCYTE # 0.8 10^3/ul (0.3-0.9); MONOCYTES % 11.3 % (0.0-11.0); NEUTROPHIL # 4.4 10^3/ul (1.6-7.5); PLATELET COUNT 291 10^3/UL (140-415); RED BLOOD COUNT 3.51 10^6/ul (4.20-5.40); RED CELL DISTRIBUTION WIDTH 15.8 % (11.5-14.5); WHITE BLOOD COUNT 7.1 10^3/ul (4.8-10.8)
[2017-05-28] MEDS: FAMOTIDINE 20 MG TAB PO SCH (08:13)
[2017-05-28] MEDS: LISINOPRIL 10 MG TAB PO SCH ×2 (08:13→20:53)
[2017-05-28] MEDS: FUROSEMIDE 40 MG TAB PO SCH (08:13)
[2017-05-28 08:14] LABS: ALBUMIN 4.1 g/dl (3.3-4.9); ALBUMIN/GLOBULIN RATIO 1.51; BILIRUBIN,INDIRECT 0.1 mg/dl (0-1.1); BILIRUBIN,TOTAL 0.1 mg/dl (0.2-1.3); CALCIUM 9.3 mg/dl (8.4-10.2); CREATININE 0.83 mg/dl (0.44-1.00); POTASSIUM 3.6 mmol/L (3.5-5.1); TOTAL PROTEIN 6.8 g/dl (6.1-8.1)
[2017-05-28] MEDS: ENOXAPARIN 40 MG/0.4 ML SYG SC SCH (08:27)
[2017-05-28] MEDS: HYDROCODONE/APAP (5/325) TAB PO PRN ×2 (09:12→19:06)
--- NOTE | 2017-05-28 15:30 | CONS ---
Date/Time of Note Date/Time of Note DATE: 05/28/17 TIME: 15:23 Assessment/Plan Assessment/Plan Additional Assessment/Plan Incarcerated hernia status post emergent surgery Cardiomyopathy with ejection fraction 45% Mitral and tricuspid valve regurgitation. Coronary artery disease with history of PCI, most recent December 2014 Carotid artery stenosis status post carotid endarterectomy Hypertension -Patient doing well from a cardiac perspective with no evidence of acute decompensated congestive heart failure. Blood pressure on the higher end and patient complaining of significant groin pain. Patient currently on cardiac home medication regimen. Would restart aspirin when okay by our surgery colleagues. Would start hydralazine. If blood pressure trend remains elevated , would increase current medication regimen dosing. Consultation Date/Type/Reason Admit Date/Time May 24, 2017 at 11:02 Initial Consult Date Type of Consultation: cv 24 HR Interval Summary Free Text/Dictation Denies chest pain or shortness of breath. Undergoing physical therapy and feels much better, denies dizziness or lightheadedness Exam/Review of Systems Vital Signs Vitals Vital Signs Date Time Temp Pulse Resp B/P Pulse Ox O2 Delivery O2 Flow Rate FiO2 05/28/17 15:09 97.4 70 20 160/70 97 05/24/17 18:00 Room Air Intake and Output 05/27/17 05/27/17 05/28/17 15:00 23:00 07:00 Intake Total 600 ml Balance 600 ml Exam No apparent distress, undergoing physical therapy Constitutional: alert, oriented Head: normocephalic Neck: supple Respiratory: other (Coarse breath sounds bilaterally, no wheezing) Cardiovascular: other (S1-S2 heard), regular rate and rhythm Gastrointestinal: bowel sounds, non-tender, other (No guarding), soft Extremities: other (No edema) Results Result Diagram: 05/28/17 0656 05/28/17 0656 Results 24 hrs Laboratory Tests Test 05/28/17 06:56 White Blood Count 7.1 # Red Blood Count 3.51 L Hemoglobin 9.7 L Hematocrit 30.9 L Mean Corpuscular Volume 88.0 Mean Corpuscular Hemoglobin 27.6 L Mean Corpuscular Hemoglobin Concent 31.4 L Red Cell Distribution Width 15.8 H Platelet Count 291 Mean Platelet Volume 10.4 Neutrophils % 63.0 Lymphocytes % 22.6 Monocytes % 11.3 H Eosinophils % 2.7 Basophils % 0.1 Nucleated Red Blood Cells % 0.0 Neutrophils # 4.4 Lymphocytes # 1.6 Monocytes # 0.8 Eosinophils # 0.2 Basophils # 0.0 Nucleated Red Blood Cells # 0.0 Erythrocyte Sedimentation Rate 71.0 H Sodium Level 141 Potassium Level 3.6 Chloride Level 100 Carbon Dioxide Level 34 H Anion Gap 11 Blood Urea Nitrogen 19 Creatinine 0.83 Glucose Level 109 Calcium Level 9.3 Total Bilirubin 0.1 L Direct Bilirubin 0.00 Indirect Bilirubin 0.1 Aspartate Amino Transf (AST/SGOT) 33 Alanine Aminotransferase (ALT/SGPT) 33 Alkaline Phosphatase 167 H Total Protein 6.8 Albumin 4.1 Globulin 2.70 Albumin/Globulin Ratio 1.51 Medications Medications Current Medications Acetaminophen/ Hydrocodone Bitart ([place] (5/325)) 1 tab Q4H PRN PO PAIN LEVEL 4 -7 Last administered on 05/28/17 09:12; Admin Dose 1 TAB; Start 05/24/17 at 16: 00 Acetaminophen/ Hydrocodone Bitart ([place] (5/325)) 2 tab Q4H PRN PO PAIN LEVEL 7 -10 Last administered on 05/25/17 18:49; Admin Dose 2 TAB; Start 05/24/17 at 16 :00 Hydromorphone HCl (Dilaudid) 0.5 mg Q2 PRN IV PAIN Last administered on 20:30; Admin Dose 0.5 MG; Start 05/24/17 at 16:00 Hydromorphone HCl (Dilaudid) 1 mg Q2 PRN IV PAIN Last administered on 21:13; Admin Dose 1 MG; Start 05/24/17 at 16:00 Docusate Sodium (Colace) 100 mg BID PRN PO CONSTIPATION Last administered on 17:46; Admin Dose 100 MG; Start 05/24/17 at 16:00 Bisacodyl (Dulcolax Supp) 10 mg BID PRN [place] CONSTIPATION; Start 05/24/17 at 16: 00 Sodium Biphosphate/ Sodium Phosphate (Fleet Enema) 133 ml BID PRN [place] CONSTIPATION Last administered on 05/28/17 09:39; Admin Dose 133 ML; Start at 16:00 Enoxaparin Sodium (Lovenox) 40 mg DAILY SC Last administered on 05/28/17 08:27 ; Admin Dose 40 MG; Start 05/25/17 at 09:00 Atorvastatin Calcium (Lipitor) 40 mg HS PO Last administered on 05/27/17 20:16 ; Admin Dose 40 MG; Start 05/24/17 at 21:00 Carvedilol (Coreg) 6.25 mg BID PO Last administered on 05/28/17 08:13; Admin Dose 6.25 MG; Start 05/24/17 at 21:00 Furosemide (Lasix) 40 mg DAILY PO Last administered on 05/28/17 08:13; Admin Dose 40 MG; Start 05/25/17 at 09:00 Lisinopril (Zestril) 10 mg BID PO Last administered on 05/28/17 08:13; Admin Dose 10 MG; Start 05/24/17 at 21:00 Clonidine (Catapres) 0.1 mg Q4H PRN PO ELEVATED BLOOD PRESSURE Last administered on 05/27/17 07:40; Admin Dose 0.1 MG; Start 05/24/17 at 19:00 Famotidine (Pepcid) 20 mg DAILY PO Last administered on 05/28/17 08:13; Admin Dose 20 MG; Start 05/26/17 at 09:00 Asa Swann DO May 28, 2017 15:29
--- NOTE | 2017-05-28 17:37 | PN ---
Date/Time of Note Date/Time of Note DATE: 05/28/17 TIME: 17:36 Assessment/Plan Lines/Catheters IV Catheter Type (from Nrs): Saline Lock Vigil in Place (from Nrs): No Assessment/Plan Assessment/Plan [facility] Progress Note Date of Service: 05/28/17 Today's Impression & Plan: Overall doing well post op without major issues. No major wound problems. Abd remains benign. No indication of hemorrhage or other major post operative complications. Stable from a cardiac standpoint. Can d/c home from my standpoint. With above assessment, I've recommended the following for today: 1. D/c home 2. F/u with me in my office in 2-3 weeks 3. D/c instructions: "Please call [phone] if any of fever, nausea, vomiting, discharge from wound, wound redness, increase or sudden pain, blood in stool or vomit, or any other unusual signs or symptoms. Also, please call the same number in a few days to schedule an appointment for your follow up visit. Patient may remove dressings tomorrow. Showers OK starting tomorrow. No swimming , hot tub or bath for 2 weeks. No lifting more than 25 lbs for 8 weeks." Thank you again for your great care of this very pleasant patient and wonderful family. If there are any questions, please feel free to call me at [phone]. TOTAL VISIT TIME: 20 minutes of which more than half was spent in [id number] discussion with the patient, possibly including family, as well as coordination of care between multiple physicians and providers. Disclaimer: Inadvertent spelling or grammatical errors are likely due to EHR/ dictation software use and do not reflect on the overall quality of patient care. Updated Clinical Summary: The patient is a very pleasant 87-year-old lady with comorbidities including cardiomyopathy, coronary artery disease with history of PCI and peripheral arterial disease with a known right inguinal hernia since at least 12/2016, presenting with what appears to be an incarcerated right inguinal hernia which is somewhat threatened. S/p laparoscopic right inguinal hernia repair with mesh (10 cm x 17 cm Symbotex) at [facility] 05/24/17. COMORBIDITIES: 1. Incarcerated right inguinal hernia, s/p laparoscopic right inguinal hernia repair with mesh (10 cm x 17 cm Symbotex) at [facility] 05/24/17 2. BMI 20.2 (previously 26.03 December 2016) 3. Cardiomyopathy. 4. Coronary artery disease with history of PCI. 5. Peripheral arterial disease. 6. Status post 3 units of packed red blood cell transfusion in December 2016. 7. History of congestive heart failure. 8. Hypertension. 9. Angioplasty. 10. Ejection fraction of 45%. 11. Acute blood loss anemia. 12. Mitral valve regurgitation. 13. Tricuspid valve regurgitation. 14. Status post percutaneous coronary intervention, most recent in December 2014. 15. Knee osteoarthritis (left). 16. Hypercholesterolemia. 17. Status post non-ST elevation myocardial infarction in 2013, status post angioplasty with stent placement in 2013 and also in 2014 as above. 18. Carotid endarterectomy. Subjective: No major events or complaints; no major abd pain and under control with medications; no n/v/d; no sob or cp; + flatus; + BM; + activity Objective: Vitals: See below Exam: GENERAL: On exam, the patient was sitting up in a chair and appeared to be comfortable and in no acute distress. ABDOMEN: Soft, nontender and nondistended. Incisions are clean, dry and intact without any evidence of obvious erythema, edema, discharge, or hernia. There are no peritoneal signs or guarding. SKIN: Skin appears to be pink and feels warm to touch. NEUROLOGIC: Patient is awake, alert, and follows commands appropriately. Exam/Review of Systems Vital Signs Vitals Vital Signs Date Time Temp Pulse Resp B/P Pulse Ox O2 Delivery O2 Flow Rate FiO2 05/28/17 16:31 69 05/28/17 15:09 97.4 20 160/70 97 05/24/17 18:00 Room Air Intake and Output 05/27/17 05/27/17 05/28/17 14:59 22:59 06:59 Intake Total 600 ml Balance 600 ml Results Result Diagram: 05/28/17 0656 05/28/17 0656 CAS RODRIGUEZ M.D. May 28, 2017 17:37
[2017-05-28] MEDS: ATORVASTATIN 40 MG TAB PO SCH (20:49)
--- NOTE | 2017-05-28 22:49 | PN ---
Date/Time of Note Date/Time of Note DATE: 05/28/17 TIME: 22:33 Assessment/Plan VTE Prophylaxis VTE Prophylaxis Intervention: ambulation Lines/Catheters IV C[facility]ter Type (from [facility]): Saline Lock Urinary Cath still in place: No Assessment/Plan Assessment/Plan incarcerated inguinal hernia status post repair. Improving in pain level and function. Leukocytosis. Improved, cxr clear. elevated esr may be post surgical. Anemia. New onset drop in h/h, maybe due to dilution but will need recheck in am. If stable, will discharge to home with home health care. Subjective 24 Hr Interval Summary Constitutional: improved, no complaints Gastrointestinal: pain, passing stool Exam/Review of Systems Vital Signs Vitals Vital Signs Date Time Temp Pulse Resp B/P Pulse Ox O2 Delivery O2 Flow Rate FiO2 05/28/17 20:56 97.6 75 18 181/75 05/28/17 15:09 97 05/24/17 18:00 Room Air Intake and Output 05/27/17 05/27/17 05/28/17 15:00 23:00 07:00 Intake Total 600 ml Balance 600 ml Exam ENMT: nl external ears & nose Neck: non-tender, supple Respiratory: clear to auscultation Cardiovascular: regular rate and rhythm Gastrointestinal: soft, tender Musculoskeletal: nl extremities to inspection Results Result Diagram: 05/28/17 0656 05/28/17 0656 Results 24 hrs Laboratory Tests Test 05/28/17 06:56 White Blood Count 7.1 # Red Blood Count 3.51 L Hemoglobin 9.7 L Hematocrit 30.9 L Mean Corpuscular Volume 88.0 Mean Corpuscular Hemoglobin 27.6 L Mean Corpuscular Hemoglobin Concent 31.4 L Red Cell Distribution Width 15.8 H Platelet Count 291 Mean Platelet Volume 10.4 Neutrophils % 63.0 Lymphocytes % 22.6 Monocytes % 11.3 H Eosinophils % 2.7 Basophils % 0.1 Nucleated Red Blood Cells % 0.0 Neutrophils # 4.4 Lymphocytes # 1.6 Monocytes # 0.8 Eosinophils # 0.2 Basophils # 0.0 Nucleated Red Blood Cells # 0.0 Erythrocyte Sedimentation Rate 71.0 H Sodium Level 141 Potassium Level 3.6 Chloride Level 100 Carbon Dioxide Level 34 H Anion Gap 11 Blood Urea Nitrogen 19 Creatinine 0.83 Glucose Level 109 Calcium Level 9.3 Total Bilirubin 0.1 L Direct Bilirubin 0.00 Indirect Bilirubin 0.1 Aspartate Amino Transf (AST/SGOT) 33 Alanine Aminotransferase (ALT/SGPT) 33 Alkaline Phosphatase 167 H Total Protein 6.8 Albumin 4.1 Globulin 2.70 Albumin/Globulin Ratio 1.51 Medications Medications Current Medications Acetaminophen/ Hydrocodone Bitart ([place] (5/325)) 1 tab Q4H PRN PO PAIN LEVEL 4 -7 Last administered on 05/28/17 19:06; Admin Dose 1 TAB; Start 05/24/17 at 16: 00 Acetaminophen/ Hydrocodone Bitart ([place] (5/325)) 2 tab Q4H PRN PO PAIN LEVEL 7 -10 Last administered on 05/25/17 18:49; Admin Dose 2 TAB; Start 05/24/17 at 16 :00 Hydromorphone HCl (Dilaudid) 0.5 mg Q2 PRN IV PAIN Last administered on 20:30; Admin Dose 0.5 MG; Start 05/24/17 at 16:00 Hydromorphone HCl (Dilaudid) 1 mg Q2 PRN IV PAIN Last administered on 21:13; Admin Dose 1 MG; Start 05/24/17 at 16:00 Docusate Sodium (Colace) 100 mg BID PRN PO CONSTIPATION Last administered on 17:46; Admin Dose 100 MG; Start 05/24/17 at 16:00 Bisacodyl (Dulcolax Supp) 10 mg BID PRN [place] CONSTIPATION; Start 05/24/17 at 16: 00 Sodium Biphosphate/ Sodium Phosphate (Fleet Enema) 133 ml BID PRN [place] CONSTIPATION Last administered on 05/28/17 09:39; Admin Dose 133 ML; Start at 16:00 Enoxaparin Sodium (Lovenox) 40 mg DAILY SC Last administered on 05/28/17 08:27 ; Admin Dose 40 MG; Start 05/25/17 at 09:00 Atorvastatin Calcium (Lipitor) 40 mg HS PO Last administered on 05/28/17 20:49 ; Admin Dose 40 MG; Start 05/24/17 at 21:00 Carvedilol (Coreg) 6.25 mg BID PO Last administered on 05/28/17 20:52; Admin Dose 6.25 MG; Start 05/24/17 at 21:00 Furosemide (Lasix) 40 mg DAILY PO Last administered on 05/28/17 08:13; Admin Dose 40 MG; Start 05/25/17 at 09:00 Lisinopril (Zestril) 10 mg BID PO Last administered on 05/28/17 20:53; Admin Dose 10 MG; Start 05/24/17 at 21:00 Clonidine (Catapres) 0.1 mg Q4H PRN PO ELEVATED BLOOD PRESSURE Last administered on 05/28/17 19:07; Admin Dose 0.1 MG; Start 05/24/17 at 19:00 Famotidine (Pepcid) 20 mg DAILY PO Last administered on 05/28/17 08:13; Admin Dose 20 MG; Start 05/26/17 at 09:00 Hydralazine HCl (Apresoline) 10 mg Q8 PO Last administered on 05/28/17 21:03; Admin Dose 10 MG; Start 05/28/17 at 15:30 RIANNA QUINTANA MD May 28, 2017 22:47
[2017-05-29] VITALS (10 sets, daily range): BP systolic 115–159; BP diastolic 53–85; PULSE 61–70; RESP 17–20
[2017-05-29] MEDS: HYDROCODONE/APAP (5/325) TAB PO PRN ×2 (00:33→10:27)
[2017-05-29 07:33] LABS: ADD SCAN DIFF NO
[2017-05-29 07:37] LABS: BASOPHILS % 0.1 % (0.0-2.0); EOSINOPHILS # 0.2 10^3/ul (0.0-0.5); EOSINOPHILS % 3.1 % (0.0-7.0); HEMATOCRIT 30.9 % (37.0-47.0); HEMOGLOBIN 9.9 g/dl (12.0-16.0); LYMPHOCYTES # 1.8 10^3/ul (0.8-2.9); LYMPHOCYTES % 26.9 % (15.0-51.0); MEAN CORPUSCULAR VOLUME 87.5 fl (82.0-101.0); MEAN PLATELET VOLUME 9.8 fl (7.4-10.4); MONOCYTE # 0.8 10^3/ul (0.3-0.9); MONOCYTES % 11.1 % (0.0-11.0); NEUTROPHIL # 3.9 10^3/ul (1.6-7.5); NEUTROPHILS % 58.5 % (39.0-77.0); PLATELET COUNT 298 10^3/UL (140-415); RED BLOOD COUNT 3.53 10^6/ul (4.20-5.40); RED CELL DISTRIBUTION WIDTH 15.6 % (11.5-14.5); WHITE BLOOD COUNT 6.7 10^3/ul (4.8-10.8)
[2017-05-29] MEDS: FUROSEMIDE 40 MG TAB PO SCH (09:37)
[2017-05-29] MEDS: FAMOTIDINE 20 MG TAB PO SCH (09:37)
[2017-05-29] MEDS: LISINOPRIL 10 MG TAB PO SCH (09:37)
[2017-05-29] MEDS: ENOXAPARIN 40 MG/0.4 ML SYG SC SCH (09:40)
--- NOTE | 2017-05-29 11:30 | CONS ---
Date/Time of Note Date/Time of Note DATE: 05/29/17 TIME: 11:29 Assessment/Plan Assessment/Plan Additional Assessment/Plan Incarcerated hernia status post emergent surgery Cardiomyopathy with ejection fraction 45% Mitral and tricuspid valve regurgitation. Coronary artery disease with history of PCI, most recent December 2014 Carotid artery stenosis status post carotid endarterectomy Hypertension -Blood pressure trend improving. If hemoglobin remains stable, would restart aspirin. Consultation Date/Type/Reason Admit Date/Time May 24, 2017 at 11:02 Type of Consultation: cv 24 HR Interval Summary Free Text/Dictation Denies chest pain, shortness of breath. Having less groin pain Exam/Review of Systems Vital Signs Vitals Vital Signs Date Time Temp Pulse Resp B/P Pulse Ox O2 Delivery O2 Flow Rate FiO2 05/29/17 11:05 98.3 67 17 157/63 97 Intake and Output 05/28/17 05/28/17 05/29/17 15:00 23:00 07:00 Intake Total 800 ml 240 ml Balance 800 ml 240 ml Exam No apparent distress Constitutional: alert, oriented Head: normocephalic Neck: supple Respiratory: clear to auscultation, normal air movement Cardiovascular: other (S1-S2 heard), regular rate and rhythm Gastrointestinal: bowel sounds, non-tender, soft Extremities: other (No edema) Results Result Diagram: 05/29/17 0730 05/28/17 0656 Results 24 hrs Laboratory Tests Test 05/29/17 07:30 White Blood Count 6.7 Red Blood Count 3.53 L Hemoglobin 9.9 L Hematocrit 30.9 L Mean Corpuscular Volume 87.5 Mean Corpuscular Hemoglobin 28.0 L Mean Corpuscular Hemoglobin Concent 32.0 Red Cell Distribution Width 15.6 H Platelet Count 298 Mean Platelet Volume 9.8 Neutrophils % 58.5 Lymphocytes % 26.9 Monocytes % 11.1 H Eosinophils % 3.1 Basophils % 0.1 Nucleated Red Blood Cells % 0.0 Neutrophils # 3.9 Lymphocytes # 1.8 Monocytes # 0.8 Eosinophils # 0.2 Basophils # 0.0 Nucleated Red Blood Cells # 0.0 Medications Medications Current Medications Acetaminophen/ Hydrocodone Bitart ([employer] (5/325)) 1 tab Q4H PRN PO PAIN LEVEL 4 -7 Last administered on 05/29/17t 10:27; Admin Dose 1 TAB; Start 05/24/17 at 16: 00 Acetaminophen/ Hydrocodone Bitart ([employer] (5/325)) 2 tab Q4H PRN PO PAIN LEVEL 7 -10 Last administered on 05/25/17 18:49; Admin Dose 2 TAB; Start 05/24/17 at 16 :00 Hydromorphone HCl (Dilaudid) 0.5 mg Q2 PRN IV PAIN Last administered on 20:30; Admin Dose 0.5 MG; Start 05/24/17 at 16:00 Hydromorphone HCl (Dilaudid) 1 mg Q2 PRN IV PAIN Last administered on 21:13; Admin Dose 1 MG; Start 05/24/17 at 16:00 Docusate Sodium (Colace) 100 mg BID PRN PO CONSTIPATION Last administered on 17:46; Admin Dose 100 MG; Start 05/24/17 at 16:00 Bisacodyl (Dulcolax Supp) 10 mg BID PRN [place] CONSTIPATION; Start 05/24/17 at 16: 00 Sodium Biphosphate/ Sodium Phosphate (Fleet Enema) 133 ml BID PRN [place] CONSTIPATION Last administered on 05/28/17 09:39; Admin Dose 133 ML; Start at 16:00 Enoxaparin Sodium (Lovenox) 40 mg DAILY SC Last administered on 05/29/17 09:40 ; Admin Dose 40 MG; Start 05/25/17 at 09:00 Atorvastatin Calcium (Lipitor) 40 mg HS PO Last administered on 05/28/17 20:49 ; Admin Dose 40 MG; Start 05/24/17 at 21:00 Carvedilol (Coreg) 6.25 mg BID PO Last administered on 05/29/17 09:37; Admin Dose 6.25 MG; Start 05/24/17 at 21:00 Furosemide (Lasix) 40 mg DAILY PO Last administered on 05/29/17 09:37; Admin Dose 40 MG; Start 05/25/17 at 09:00 Lisinopril (Zestril) 10 mg BID PO Last administered on 05/29/17 09:37; Admin Dose 10 MG; Start 05/24/17 at 21:00 Clonidine (Catapres) 0.1 mg Q4H PRN PO ELEVATED BLOOD PRESSURE Last administered on 05/28/17 19:07; Admin Dose 0.1 MG; Start 05/24/17 at 19:00 Famotidine (Pepcid) 20 mg DAILY PO Last administered on 05/29/17 09:37; Admin Dose 20 MG; Start 05/26/17 at 09:00 Hydralazine HCl (Apresoline) 10 mg Q8 PO Last administered on 05/29/17 06:22; Admin Dose 10 MG; Start 05/28/17 at 15:30 Asa Swann DO May 29, 2017 11:30
--- NOTE | 2017-05-29 15:02 | DS ---
Date/Time of Note Date/Time of Note DATE: 05/29/17 TIME: 14:43 Discharge Summary Admission/Discharge Info Admit Date/Time May 24, 2017 at 11:02 Discharge Date/Time May 29, 2017 Discharge Diagnosis 1. Incarcerated inguinal hernia s/p repair with mesh 2. Anemia 3. Leukocytosis 4. Subcutaneous emphysema 5. Constipation 5. Hypertension 6. Coronary artery disease s/p acute HI and stents [id number] Patient Condition: Fair Consults Surgery Cardiology Procedures Inguinal hernia repair with mesh placement Hospital Course Patient was admitted with incarcerated inguinal hernia, underwent laparoscopic hernia repair with mesh placement immediately by Dr. West. Postoperatively , patient had persistent pain especially with ambulation, and constipation. Abdominal CT was good except for subcutaneous emphysema and her constipation resolved with milk of magnesia . She also had transient leukocytosis and new onset anemia that remained stable with follow up cbc. Her hypertension was stable on her preoperative blood pressure medications. Patient is discharged to home with outpatient home health care follow up for wound check and rehabilitation. Home Meds Reported Medications Lisinopril* (Lisinopril*) 10 Mg Tablet, 10 MG PO BID, #30 TAB 05/24/17 Furosemide* (Furosemide*) 40 Mg Tablet, 40 MG PO DAILY, TAB 05/24/17 Atorvastatin* (Atorvastatin*) 40 Mg Tablet, 40 MG PO HS, TAB 12/23/14 Carvedilol* (Carvedilol*) 6.25 Mg Tablet, 6.25 MG PO BID, TAB 12/23/14 Discontinued Scripts Pantoprazole* (Pantoprazole*) 40 Mg Tablet.dr, 40 MG PO DAILY for 30 Days, #30 TAB Prov:RIANNA BURTON MD 12/10/16 Lisinopril* (Lisinopril*) 10 Mg Tablet, 10 MG PO BID for 30 Days, #60 TAB Prov:RIANNA BURTON MD 12/10/16 Furosemide* (Furosemide*) 40 Mg Tablet, 40 MG PO DAILY for 30 Days, #30 TAB Prov:RIANNA BURTON MD 12/10/16 Ferrous Sulfate* (Ferrous Sulfate*) 140 Mg Tablet.er, 142 MG PO BID for 30 Days , #60 TAB Prov:RIANNA BURTON MD 12/10/16 Follow-up Plan Home health care follow up by [facility]. Follow up with Dr. Burton in 3 weeks Follow up with Dr. West in 2 weeks Primary Care Provider Rianna Burton MD Time spent on discharge: > 30 minutes Pending Labs Laboratory Tests Test 05/29/17 07:30 White Blood Count 6.710^3/ul (4.8-10.8) Red Blood Count 3.5310^6/ul (4.20-5.40) Hemoglobin 9.9g/dl (12.0-16.0) Hematocrit 30.9% (37.0-47.0) Mean Corpuscular Volume 87.5fl (82.0-101.0) Mean Corpuscular Hemoglobin 28.0pg (29.0-33.0) Mean Corpuscular Hemoglobin Concent 32.0g/dl (32.0-37.0) Red Cell Distribution Width 15.6% (11.5-14.5) Platelet Count 91778^3/UL (140-415) Mean Platelet Volume 9.8fl (7.4-10.4) Neutrophils % 58.5% (39.0-77.0) Lymphocytes % 26.9% (15.0-51.0) Monocytes % 11.1% (0.0-11.0) Eosinophils % 3.1% (0.0-7.0) Basophils % 0.1% (0.0-2.0) Nucleated Red Blood Cells % 0.0/100WBC (0.0-0.0) Neutrophils # 3.910^3/ul (1.6-7.5) Lymphocytes # 1.810^3/ul (0.8-2.9) Monocytes # 0.810^3/ul (0.3-0.9) Eosinophils # 0.210^3/ul (0.0-0.5) Basophils # 0.010^3/ul (0.0-0.1) Nucleated Red Blood Cells # 0.010^3/ul (0.0-0.0) RIANNA BURTON MD May 29, 2017 14:56
== END 2017-05-29 16:05 | disposition home health service (06) | DRG 351 ==
LOC: E/R 10:43 → MS1 11:02 → REC 12:17 → TEL 17:30
PROC: 0YU54JZ Supplement Right Inguinal Region with Synthetic Substitute, Percutaneous Endoscopic Approach (ICD-10-PCS; principal; 2017-05-24 13:00)
DX: K40.30 Unilateral inguinal hernia, with obstruction, without gangrene, not specified as recurrent (principal); I42.9 Cardiomyopathy, unspecified; D62 Acute posthemorrhagic anemia; I73.9 Peripheral vascular disease, unspecified; I11.0 Hypertensive heart disease with heart failure; I50.9 Heart failure, unspecified; I08.1 Rheumatic disorders of both mitral and tricuspid valves; D72.829 Elevated white blood cell count, unspecified; I25.10 Atherosclerotic heart disease of native coronary artery without angina pectoris; E78.00 Pure hypercholesterolemia, unspecified; Z95.5 Presence of coronary angioplasty implant and graft; I25.2 Old myocardial infarction; Z98.890 Other specified postprocedural states; Z60.2 Problems related to living alone; Z87.891 Personal history of nicotine dependence; R73.03 Prediabetes; M17.9 Osteoarthritis of knee, unspecified; T81.82XA Emphysema (subcutaneous) resulting from a procedure, initial encounter; Y83.9 Surgical procedure, unspecified as the cause of abnormal reaction of the patient, or of later complication, without mention of misadventure at the time of the procedure; Y92.239 Unspecified place in hospital as the place of occurrence of the external cause; K59.00 Constipation, unspecified
CPT/HCPCS: 36415; 71010; 74176; 80053; 83605; 83690; 83735; 83880; 84100; 84484; 85025; 85610; 85651; 85730; 87040; 93005; 96374; 96375; 97110; 97116; 97162; 97530; J1940; J0360; J1100; J1170; J1650; J2250; J2270; J2405; J2710; J3010; J3480; J7030; J7999

== ENCOUNTER 2018-10-16 20:32 | Inpatient (IN) | END 2018-10-23 12:04 | disposition home or self-care (01) | DRG 382 ==

== ENCOUNTER 2019-01-05 17:28 | Inpatient (IN) | payer MEDICARE, OTHER ==
[~2019-01-05] VITALS: Ht 160 cm; Wt 54.6 kg
[~2019-01-05 17:28] MED LIST changes: +DOCU-144 PO; +FER325 PO; -FERR140T2 PO; -SUCCINYLCHOLINE CHLORIDE 100 MG/5 ML SYG IV ONE
[2019-01-05 18:25] VITALS: Ht 160 cm; Wt 54.6 kg
[2019-01-05] MEDS: DEXTROSE 5%-0.45% NACL 1,000 ML IV SCH (18:26)
[2019-01-05 18:28] VITALS: BP 172/74; RESP 18
[2019-01-05] MEDS: PIPER-TAZO 3.375 GM IV (PMX) 100 ML IVPB SCH ×2 (18:31→23:56)
[2019-01-05 20:18] VITALS: BP 151/68; PULSE 75; RESP 18
--- NOTE | 2019-01-05 22:28 | HP ---
Date/Time of Note Date/Time of Note DATE: 01/05/19 TIME: 21:51 Assessment/Plan VTE Prophylaxis SCD applied (from Nsg): Yes Pharmacological prophylaxis: NA/contraindicated Pharm contraindication: bleeding, blood coag disorder Lines/Catheters IV Catheter Type (from Nrsg): Peripheral IV Assessment/Plan Problems: (1) Mass of right lung Status: Acute Comment: Start antibiotics and nebulizer for possible post-obstructive pneumonia. Obtain chest CT to clarify nature of mass and if necessary , evaluate for best approach for biopsy. (2) Congestive heart failure Status: Chronic Comment: Continue carvedilol and lisinopril as tolerated by bp but hold lasix for today due to azotemia. Will resume when bun/ creat better. (3) Gastric ulcer Status: Acute Comment: Continue pantoprazole. Hold anticoagulants. (4) Anemia Status: Chronic Comment: Patient is scheduled for small bowel follow through with Dr. Pennington later this week. Will notify him regarding patient's hospitalization. (5) Hypertension Status: Chronic Comment: continue current meds. (6) Elevated partial thromboplastin time (PTT) Status: Acute Comment: Most likely due to hemolysis but will recheck in am along with lupus anticoagulant. If abnormality persist , will consult Heme/Onc for further work up, especially since patient has history of severe anemia. Result Diagram: 01/05/19181401/05/19 1916 Results 24hrs Laboratory Tests Test 01/05/19 18:15 01/05/19 19:16 White Blood Count 12.8 #H Red Blood Count 3.75 L Hemoglobin 9.9 L Hematocrit 32.3 L Mean Corpuscular Volume 86.1 Mean Corpuscular Hemoglobin 26.4 L Mean Corpuscular Hemoglobin Concent 30.7 L Red Cell Distribution Width 25.8 #H Platelet Count 498 #H Mean Platelet Volume 11.2 H Immature Granulocytes % 0.400 Neutrophils % 78.6 H Lymphocytes % 13.9 L Monocytes % 6.9 Eosinophils % 0.0 Basophils % 0.2 Nucleated Red Blood Cells % 0.0 Immature Granulocytes # 0.050 H Neutrophils # 10.1 H Lymphocytes # 1.8 Monocytes # 0.9 Eosinophils # 0.0 Basophils # 0.0 Nucleated Red Blood Cells # 0.0 Prothrombin Time 13.3 Prothrombin Time Ratio 1.0 INR International Normalized Ratio 1.00 Activated Partial Thromboplast Time 48.9 H Sodium Level 142 Potassium Level 3.5 Chloride Level 97 Carbon Dioxide Level 36 H Anion Gap 9 Blood Urea Nitrogen 22 H Creatinine 1.29 H Est Glomerular Filtrat Rate mL/min Glucose Level 124 Calcium Level 9.3 Total Bilirubin 0.1 L Direct Bilirubin 0.00 Indirect Bilirubin 0.1 Aspartate Amino Transf (AST/SGOT) 18 Alanine Aminotransferase (ALT/SGPT) < 6 L Alkaline Phosphatase 185 H Total Protein 7.7 Albumin 3.6 Globulin 4.10 H Albumin/Globulin Ratio 0.87 HPI/ROS Admit Date/Time Admit Date/Time Jan 05, 2019 at 17:45 Hx of Present Illness 88 year old female presents with progressive weakness, loss of appetite and weig ht loss. Work up shows elevated wbc, bun/ cr and right middle lobe mass. Patient is admitted for treatment and work up of pneumonia vs neoplasm. ROS Constitutional: fatigue, poor po, weight change ENT: no complaints Respiratory: cough Cardiovascular: no complaints Gastrointestinal: decreased appetite Musculoskeletal: bone/joint pain Neurologic: confusion PMH/Family/Social Past Medical History Medical History: congestive heart failure, coronary artery disease, GI bleed, high cholesterol, hypertension Medications Current Medications Dextrose/Sodium Chloride 1,000 ml @ 100 mls/hr Q10H IV Last administered on 01/05/19at 18:26; Admin Dose 100 MLS/HR; Start 01/05/19 at 18:00 Piperacillin Sod/ Tazobactam Sod 100 ml @ 200 mls/hr Q6 IVPB Last administered on 01/05/19at 18:31; Admin Dose 200 MLS/HR; Start 01/05/19 at 18:00 Coded Allergies: No Known Allergy (Unverified , 12/06/16) Past Surgical History Past Surgical Hx: angioplasty, other Family History Significant Family History: no pertinent family hx Social History Alcohol Use: occasionally Smoking Status: Former smoker Drug Use: none Exam/Review of Systems Vital Signs Vitals Vital Signs Date Temp Pulse Resp B/P (MAP) Pulse Ox O2 O2 Flow FiO2 Time Delivery Rate 01/05/19 97.6 75 18 151/68 95 20:18 (95) 01/05/19 Room Air 18:28 Exam Constitutional: alert, oriented, frail Head: normocephalic, atraumatic Eyes: nl conjunctiva, EOMI ENMT: nl external ears & nose Neck: supple, non-tender Respiratory: clear to auscultation, normal air movement Cardiovascular: regular rate and rhythm Gastrointestinal: soft, non-tender Musculoskeletal: nl extremities to inspection RIANNA QUINTANA MD Jan 05, 2019 22:02
[2019-01-05] MEDS ORDERED: SOD CHLORIDE 0.9% 100 ML ONE (23:06)
[2019-01-05] MEDS ORDERED: IOHEXOL 300MG/ML 150 ML BTL ONE (23:06)
[2019-01-06 02:35] VITALS: BP 175/77; PULSE 88; RESP 18
[2019-01-06] MEDS: LEVALBUTEROL (NEB) 0.63 MG/3 ML AMP HHN SCH ×4 (04:16→23:12)
[2019-01-06] MEDS: DEXTROSE 5%-0.45% NACL 1,000 ML IV SCH (06:19)
[2019-01-06] MEDS: PIPER-TAZO 3.375 GM IV (PMX) 100 ML IVPB SCH ×3 (06:19→18:21)
[2019-01-06] MEDS: PANTOPRAZOLE (EC) 40 MG TAB PO SCH (06:23)
[2019-01-06 06:29] VITALS: BP 135/62; PULSE 79
[2019-01-06] MEDS ORDERED: POTASSIUM CHLORIDE (SR) 20 MEQ TAB PO STA ×2 (07:06→16:03)
[2019-01-06 07:39] VITALS: BP 125/60; PULSE 81; RESP 18
[2019-01-06] MEDS: FERROUS SULFATE (EC) 325 MG TAB PO SCH ×2 (08:42→20:34)
[2019-01-06] MEDS: LISINOPRIL 10 MG TAB PO SCH ×2 (08:42→20:34)
--- NOTE | 2019-01-06 09:30 | CONS ---
Assessment/Plan Assessment/Plan Hospital Course (Demo Recall) 1) probable lung abscess with an indolent course the usual therapy is a prolonged course of antibiotics continue with zosyn at present (unasyn would be sufficient but there is a supply problem with unasyn at present) I have ordered routine sputum cx, nasal swab for MRSA and AFB culture and smear she is a prior smoker so atypical mycobacteria is a possibility I have ordered quant TB gold but doubt she has TB but with lung abscess that is always a possibility I have ordered beta d glucan and coccidiodomycosis titers also I have also ordered procalcitonin 2) CAD with hx of angioplasty and stenting 3) hx of CHF 4) HTN 5) elevated cholesterol 6) hx of GI bleed 7) ARF hydration is already bringing the creatinine down u/a, urine cx are pending Consultation Date/Type/Reason Admit Date/Time Jan 05, 2019 at 17:45 Date of Consultation: Jan 06, 2019 Type of Consult ID Date/Time of Note DATE: 01/06/19 TIME: 09:18 Hx of Present Illness pt reports a cough productive of yellowish phlegm for about 4-6 weeks she has had some chills for about 4 weeks no N, V, D no sore throat, joint pains, muscle aches pt does not typically get URI and was not sick with cold or flu prior to her about symptoms No rashes, dysuria, CHURCH no sick contacts no recent travel Past Medical History Medical History: congestive heart failure, coronary artery disease, GI bleed, high cholesterol, hypertension Home Meds Active Scripts Ferrous Sulfate* (Ferrous Sulfate*) 325 Mg Tabec, 325 MG PO BID for 30 Days, TAB Prov:RIANNA QUINTANA MD 10/22/18 Pantoprazole* (Pantoprazole*) 40 Mg Tablet.dr, 40 MG PO AC BREAKFAST for 30 Days, TAB Prov:RIANNA QUINTANA MD 10/22/18 Reported Medications Lisinopril* (Lisinopril*) 10 Mg Tablet, 10 MG PO BID, #30 TAB 05/24/17 Furosemide* (Furosemide*) 40 Mg Tablet, 40 MG PO DAILY, TAB 05/24/17 Atorvastatin* (Atorvastatin*) 40 Mg Tablet, 40 MG PO HS, TAB 12/23/14 Carvedilol* (Carvedilol*) 6.25 Mg Tablet, 6.25 MG PO BID, TAB 12/23/14 Discontinued Scripts Docusate Sodium* (Colace*) 100 Mg Capsule, 200 MG PO DAILY, #30 CAP Prov:RIANNA QUINTANA MD 10/22/18 Medications Current Medications Piperacillin Sod/ Tazobactam Sod 100 ml @ 200 mls/hr Q6 IVPB Last administered on 01/06/19 06:19; Admin Dose 200 MLS/HR; Start 01/05/19 at 18:00 Atorvastatin Calcium (Lipitor) 40 mg HS PO ; Start 01/06/19 at 21:00 Carvedilol (Coreg) 6.25 mg BID PO Last administered on 01/06/19at 08:41; Admin Dose 6.25 MG; Start 01/06/19 at 09:00 Ferrous Sulfate (Ferrous Sulfate (Ec)) 325 mg BID PO Last administered on 01/06/19at 08:42; Admin Dose 325 MG; Start 01/06/19 at 09:00 Lisinopril (Zestril) 10 mg BID PO Last administered on 01/06/19at 08:42; Admin Dose 10 MG; Start 01/06/19 at 09:00 Pantoprazole (Protonix Tab) 40 mg AC BREAKFAST PO Last administered on 01/06/19 06:23; Admin Dose 40 MG; Start 01/06/19 at 07:00 Levalbuterol (Xopenex Neb) 0.63 mg Q8H RESP THERAPY HHN Last administered on 01/06/19 07:19; Admin Dose 0.63 MG; Start 01/06/19 at 00:00 Clonidine (Catapres) 0.1 mg Q6H PRN PO ELEVATED BLOOD PRESSURE Last administered on 01/06/19 03:18; Admin Dose 0.1 MG; Start 01/06/19 at 03:00 Allergies: Coded Allergies: No Known Allergy (Unverified , 12/06/16) Past Surgical History Past Surgical Hx: angioplasty, other Social History Alcohol Use: occasionally Smoking Status: Former smoker Drug Use: none Exam/Review of Systems Exam Vitals Vital Signs Date Temp Pulse Resp B/P (MAP) Pulse Ox O2 O2 Flow FiO2 Time Delivery Rate 01/06/19 98.2 81 18 125/60 93 Room Air 07:39 (81) 01/06/19 21 07:22 Intake and Output 01/05/19 01/05/19 01/06/19 1414:59 22:59 06:59 IntakeIntake Total 220 ml 1200 ml BalanceBalance 220 ml 1200 ml Constitutional: alert, oriented Eyes: nl sclera ENMT: mucosa pink and moist Neck: supple Respiratory: other (decreased BS at R base) Cardiovascular: regular rate and rhythm Gastrointestinal: soft, non-tender Extremities: other (no edema) Results Result Diagram: 01/06/19 0520 01/06/19 0520 Results 24hrs Laboratory Tests Test 01/05/19 18:15 01/05/19 19:16 01/06/19 05:19 01/06/19 05:20 White Blood Count 12.8 #H 12.3 H Red Blood Count 3.75 L 3.26 L Hemoglobin 9.9 L 8.5 L Hematocrit 32.3 L 27.6 L Mean Corpuscular Volume 86.1 84.7 Mean Corpuscular 26.4 L 26.1 L Hemoglobin Mean Corpuscular 30.7 L 30.8 L Hemoglobin Concent Red Cell Distribution 25.8 #H 24.2 H Width Platelet Count 498 #H 508 H Mean Platelet Volume 11.2 H 9.0 Immature Granulocytes % 0.400 0.500 H Neutrophils % 78.6 H 81.5 H Lymphocytes % 13.9 L 11.1 L Monocytes % 6.9 6.5 Eosinophils % 0.0 0.2 Basophils % 0.2 0.2 Nucleated Red Blood 0.0 0.0 Cells % Immature Granulocytes # 0.050 H 0.060 H Neutrophils # 10.1 H 10.0 H Lymphocytes # 1.8 1.4 Monocytes # 0.9 0.8 Eosinophils # 0.0 0.0 Basophils # 0.0 0.0 Nucleated Red Blood 0.0 0.0 Cells # Prothrombin Time 13.3 Prothrombin Time Ratio 1.0 INR International 1.00 Normalized Ratio Activated 48.9 H 56.0 H Partial Thromboplast Time Sodium Level 142 140 Potassium Level 3.5 2.9 *L Chloride Level 97 97 Carbon Dioxide Level 36 H 32 H Anion Gap 9 11 Blood Urea Nitrogen 22 H 18 Creatinine 1.29 H 1.07 H Est Glomerular Filtrat Rate mL/min Glucose Level 124 144 Calcium Level 9.3 8.6 Total Bilirubin 0.1 L Direct Bilirubin 0.00 Indirect Bilirubin 0.1 Aspartate Amino 18 Transf (AST/SGOT) Alanine < 6 L Aminotransferase (ALT/SG PT) Alkaline Phosphatase 185 H Total Protein 7.7 Albumin 3.6 Globulin 4.10 H Albumin/Globulin Ratio 0.87 Erythrocyte 135 H Sedimentation Rate Medications Medication Current Medications Piperacillin Sod/ Tazobactam Sod 100 ml @ 200 mls/hr Q6 IVPB Last administered on 01/06/19 06:19; Admin Dose 200 MLS/HR; Start 01/05/19 at 18:00 Atorvastatin Calcium (Lipitor) 40 mg HS PO ; Start 01/06/19 at 21:00 Carvedilol (Coreg) 6.25 mg BID PO Last administered on 01/06/19 08:41; Admin Dose 6.25 MG; Start 01/06/19 at 09:00 Ferrous Sulfate (Ferrous Sulfate (Ec)) 325 mg BID PO Last administered on 01/06/19 08:42; Admin Dose 325 MG; Start 01/06/19 at 09:00 Lisinopril (Zestril) 10 mg BID PO Last administered on 01/06/19 08:42; Admin Dose 10 MG; Start 01/06/19 at 09:00 Pantoprazole (Protonix Tab) 40 mg AC BREAKFAST PO Last administered on 01/06/19 06:23; Admin Dose 40 MG; Start 01/06/19 at 07:00 Levalbuterol (Xopenex Neb) 0.63 mg Q8H RESP THERAPY HHN Last administered on 01/06/19 07:19; Admin Dose 0.63 MG; Start 01/06/19 at 00:00 Clonidine (Catapres) 0.1 mg Q6H PRN PO ELEVATED BLOOD PRESSURE Last a dministered on 01/06/19 03:18; Admin Dose 0.1 MG; Start 01/06/19 at 03:00 TAYLOR ADAM MD Jan 06, 2019 09:28
[2019-01-06 14:46] VITALS: BP 145/64; PULSE 77; RESP 20
--- NOTE | 2019-01-06 16:17 | PN ---
Date/Time of Note Date/Time of Note DATE: 01/06/19 TIME: 16:10 Assessment/Plan VTE Prophylaxis Risk score (from [facility] [place])>0 risk: 7 SCD applied (from [facility] [place]): Yes Pharmacological prophylaxis: NA/contraindicated Pharm contraindication: blood coag disorder Lines/Catheters IV Catheter Type ([facility]): Peripheral IV Assessment/Plan Assessment/Plan (1) Mass of right lung Status: Acute Comment: Cont antibiotics for probable pneumonia with abcess. Agree with non- invasive work up per ID guidance. (2) Congestive heart failure Status: Chronic Comment: Continue carvedilol and lisinopril , replace potassium orally and in IV fluid. Resume lasix in am since bun/ creat better. (3) Gastric ulcer Status: Acute Comment: Continue pantoprazole. Hold anticoagulants. (4) Anemia Status: Chronic Comment: Patient was scheduled for small bowel follow through later this week. Dr. Pennington has been notified regarding patient's hospitalization. (5) Hypertension/ Coronary artery disease Status: Chronic Comment: continue current meds. (6) Elevated partial thromboplastin time (PTT) Status: Acute Comment: Consult Heme/Onc for further work up, especially since patient has history of severe anemia out of proportion to GI findings. Result Diagram: 01/06/19 0520 01/06/19 1056 Results 24hrs Laboratory Tests Test 01/05/19 18:15 01/05/19 19:16 01/06/19 05:19 01/06/19 05:20 White Blood Count 12.8 #H 12.3 H Red Blood Count 3.75 L 3.26 L Hemoglobin 9.9 L 8.5 L Hematocrit 32.3 L 27.6 L Mean Corpuscular Volume 86.1 84.7 Mean Corpuscular 26.4 L 26.1 L Hemoglobin Mean Corpuscular 30.7 L 30.8 L Hemoglobin Concent Red Cell Distribution 25.8 #H 24.2 H Width Platelet Count 498 #H 508 H Mean Platelet Volume 11.2 H 9.0 Immature Granulocytes % 0.400 0.500 H Neutrophils % 78.6 H 81.5 H Lymphocytes % 13.9 L 11.1 L Monocytes % 6.9 6.5 Eosinophils % 0.0 0.2 Basophils % 0.2 0.2 Nucleated Red Blood 0.0 0.0 Cells % Immature Granulocytes # 0.050 H 0.060 H Neutrophils # 10.1 H 10.0 H Lymphocytes # 1.8 1.4 Monocytes # 0.9 0.8 Eosinophils # 0.0 0.0 Basophils # 0.0 0.0 Nucleated Red Blood 0.0 0.0 Cells # Prothrombin Time 13.3 Prothrombin Time Ratio 1.0 INR International 1.00 Normalized Ratio Activated 48.9 H 56.0 H Partial Thromboplast Time Sodium Level 142 140 Potassium Level 3.5 2.9 *L Chloride Level 97 97 Carbon Dioxide Level 36 H 32 H Anion Gap 9 11 Blood Urea Nitrogen 22 H 18 Creatinine 1.29 H 1.07 H Est Glomerular Filtrat Rate mL/min Glucose Level 124 144 Calcium Level 9.3 8.6 Total Bilirubin 0.1 L Direct Bilirubin 0.00 Indirect Bilirubin 0.1 Aspartate Amino 18 Transf (AST/SGOT) Alanine < 6 L Aminotransferase (ALT/SG PT) Alkaline Phosphatase 185 H Total Protein 7.7 Albumin 3.6 Globulin 4.10 H Albumin/Globulin Ratio 0.87 Erythrocyte 135 H Sedimentation Rate Test 01/06/19 10:56 Potassium Level 3.2 L Subjective 24 Hr Interval Summary Constitutional: no complaints Exam/Review of Systems Exam Vitals Vital Signs Date Temp Pulse Resp B/P (MAP) Pulse Ox O2 O2 Flow FiO2 Time Delivery Rate 01/06/19 97.9 77 20 145/64 95 Room Air 14:46 (91) 01/06/19 21 07:22 Intake and Output 01/05/19 01/05/19 01/06/19 1414:59 22:59 06:59 IntakeIntake Total 220 ml 1200 ml BalanceBalance 220 ml 1200 ml Constitutional: alert, oriented Psych: no complaints Head: normocephalic, atraumatic ENMT: nl external ears & nose Respiratory: clear to auscultation, normal air movement Cardiovascular: regular rate and rhythm Gastrointestinal: soft, non-tender Musculoskeletal: nl extremities to inspection Results Results 24hrs Laboratory Tests Test 01/05/19 18:15 01/05/19 19:16 01/06/19 05:19 01/06/19 05:20 White Blood Count 12.8 #H 12.3 H Red Blood Count 3.75 L 3.26 L Hemoglobin 9.9 L 8.5 L Hematocrit 32.3 L 27.6 L Mean Corpuscular Volume 86.1 84.7 Mean Corpuscular 26.4 L 26.1 L Hemoglobin Mean Corpuscular 30.7 L 30.8 L Hemoglobin Concent Red Cell Distribution 25.8 #H 24.2 H Width Platelet Count 498 #H 508 H Mean Platelet Volume 11.2 H 9.0 Immature Granulocytes % 0.400 0.500 H Neutrophils % 78.6 H 81.5 H Lymphocytes % 13.9 L 11.1 L Monocytes % 6.9 6.5 Eosinophils % 0.0 0.2 Basophils % 0.2 0.2 Nucleated Red Blood 0.0 0.0 Cells % Immature Granulocytes # 0.050 H 0.060 H Neutrophils # 10.1 H 10.0 H Lymphocytes # 1.8 1.4 Monocytes # 0.9 0.8 Eosinophils # 0.0 0.0 Basophils # 0.0 0.0 Nucleated Red Blood 0.0 0.0 Cells # Prothrombin Time 13.3 Prothrombin Time Ratio 1.0 INR International 1.00 Normalized Ratio Activated 48.9 H 56.0 H Partial Thromboplast Time Sodium Level 142 140 Potassium Level 3.5 2.9 *L Chloride Level 97 97 Carbon Dioxide Level 36 H 32 H Anion Gap 9 11 Blood Urea Nitrogen 22 H 18 Creatinine 1.29 H 1.07 H Est Glomerular Filtrat Rate mL/min Glucose Level 124 144 Calcium Level 9.3 8.6 Total Bilirubin 0.1 L Direct Bilirubin 0.00 Indirect Bilirubin 0.1 Aspartate Amino 18 Transf (AST/SGOT) Alanine < 6 L Aminotransferase (ALT/SG PT) Alkaline Phosphatase 185 H Total Protein 7.7 Albumin 3.6 Globulin 4.10 H Albumin/Globulin Ratio 0.87 Erythrocyte 135 H Sedimentation Rate Test 01/06/19 10:56 Potassium Level 3.2 L Medications Medication Current Medications Piperacillin Sod/ Tazobactam Sod 100 ml @ 200 mls/hr Q6 IVPB Last administered on 01/06/19at 13:03; Admin Dose 200 MLS/HR; Start 01/05/19 at 18:00 Atorvastatin Calcium (Lipitor) 40 mg HS PO ; Start 01/06/19 at 21:00 Carvedilol (Coreg) 6.25 mg BID PO Last administered on 01/06/19at 08:41; Admin Dose 6.25 MG; Start 01/06/19 at 09:00 Ferrous Sulfate (Ferrous Sulfate (Ec)) 325 mg BID PO Last administered on 01/06/19 08:42; Admin Dose 325 MG; Start 01/06/19 at 09:00 Lisinopril (Zestril) 10 mg BID PO Last administered on 01/06/19at 08:42; Admin Dose 10 MG; Start 01/06/19 at 09:00 Pantoprazole (Protonix Tab) 40 mg AC BREAKFAST PO Last administered on 01/06/19at 06:23; Admin Dose 40 MG; Start 01/06/19 at 07:00 Levalbuterol (Xopenex Neb) 0.63 mg Q8H RESP THERAPY HHN Last administered on 01/06/19 07:19; Admin Dose 0.63 MG; Start 01/06/19 at 00:00 Clonidine (Catapres) 0.1 mg Q6H PRN PO ELEVATED BLOOD PRESSURE Last administered on 01/06/19at 03:18; Admin Dose 0.1 MG; Start 01/06/19 at 03:00 Potassium Chloride/Dextrose/ Sod Cl 1,000 ml @ 50 mls/hr Q20H IV ; Start 01/06/19 at 16:30 Furosemide (Lasix) 20 mg DAILY PO ; Start 01/07/19 at 09:00 RIANNA QUINTANA MD Jan 06, 2019 16:17
[2019-01-06] MEDS: D5-NS + KCL 20 MEQ 1,000 ML IV SCH (18:22)
[2019-01-06 19:39] VITALS: BP 117/55; PULSE 78; RESP 18
[2019-01-06] MEDS: ATORVASTATIN 40 MG TAB PO SCH (20:33)
[2019-01-07 01:16] VITALS: BP 132/98; PULSE 86; RESP 16
[2019-01-07] MEDS: PANTOPRAZOLE (EC) 40 MG TAB PO SCH (06:38)
[2019-01-07] MEDS: PIPER-TAZO 3.375 GM IV (PMX) 100 ML IVPB SCH ×4 (06:38→17:21)
--- NOTE | 2019-01-07 07:16 | CONS ---
Assessment/Plan Assessment/Plan Hospital Course (Demo Recall) 1) probable lung abscess with an indolent course the usual therapy is a prolonged course of antibiotics continue with zosyn at present (unasyn would be sufficient but there is a supply problem with unasyn at present) I have ordered routine sputum cx, nasal swab for MRSA and AFB culture and smear she is a prior smoker so atypical mycobacteria is a possibility I have ordered quant TB gold but doubt she has TB but with lung abscess that is always a possibility I have ordered beta d glucan and coccidiodomycosis titers also I have also ordered procalcitonin 2/ - sputum cx was just sent to micro this a.m. continue with zosyn and when sputum cx is done can likely fashion an oral antibiotic regimen 2) CAD with hx of angioplasty and stenting 3) hx of CHF 4) HTN 5) elevated cholesterol 6) hx of GI bleed 7) ARF hydration is already bringing the creatinine down u/a, urine cx are pending 01/07 - spoke to nurse as u/a and urine cx are uncollected Consultation Date/Type/Reason Admit Date/Time Jan 05, 2019 at 17:45 Initial Consult Date 01/06/19 Type of Consult ID Date/Time of Note DATE: 01/07/19 TIME: 07:12 24 HR Interval Summary Free Text/Dictation pt is comfortable on RA no CP, N, V, D has a cough and sputum was collected this a.m. Exam/Review of Systems Exam Vitals Vital Signs Date Temp Pulse Resp B/P (MAP) Pulse Ox O2 O2 Flow FiO2 Time Delivery Rate 01/07/19 97.0 86 16 132/98 91 01:16 (109) 01/06/19 Room Air 14:46 01/06/19 21 07:22 Intake and Output 01/06/19 01/06/19 01/07/19 1515:00 23:00 07:00 IntakeIntake Total 700 ml 340 ml 900 ml BalanceBalance 700 ml 340 ml 900 ml Constitutional: alert, oriented Eyes: nl sclera ENMT: mucosa pink and moist Respiratory: other (decreased BS at R base) Cardiovascular: regular rate and rhythm Gastrointestinal: soft, non-tender Results Result Diagram: 01/06/19 0520 01/06/19 1056 Results 24hrs Laboratory Tests Test 01/06/19 10:56 Potassium Level 3.2 L Medications Medication Current Medications Piperacillin Sod/ Tazobactam Sod 100 ml @ 200 mls/hr Q6 IVPB Last administered on 01/07/19 06:39; Admin Dose 200 MLS/HR; Start 01/05/19 at 18:00 Atorvastatin Calcium (Lipitor) 40 mg HS PO Last administered on 01/06/19 20:33; Admin Dose 40 MG; Start 01/06/19 at 21:00 Carvedilol (Coreg) 6.25 mg BID PO Last administered on 01/06/19 20:34; Admin Dose 6.25 MG; Start 01/06/19 at 09:00 Ferrous Sulfate (Ferrous Sulfate (Ec)) 325 mg BID PO Last administered on 01/06/19 20:34; Admin Dose 325 MG; Start 01/06/19 at 09:00 Lisinopril (Zestril) 10 mg BID PO Last administered on 01/06/19 20:34; Admin Dose 10 MG; Start 01/06/19 at 09:00 Pantoprazole (Protonix Tab) 40 mg AC BREAKFAST PO Last administered on 01/07/19 06:38; Admin Dose 40 MG; Start 01/06/19 at 07:00 Levalbuterol (Xopenex Neb) 0.63 mg Q8H RESP THERAPY HHN Last administered on 01/06/19 07:19; Admin Dose 0.63 MG; Start 01/06/19 at 00:00 Clonidine (Catapres) 0.1 mg Q6H PRN PO ELEVATED BLOOD PRESSURE Last administ ered on 01/06/19 03:18; Admin Dose 0.1 MG; Start 01/06/19 at 03:00 Potassium Chloride/Dextrose/ Sod Cl 1,000 ml @ 50 mls/hr Q20H IV Last administered on 01/06/19 18:22; Admin Dose 50 MLS/HR; Start 01/06/19 at 16:30 Furosemide (Lasix) 20 mg DAILY PO ; Start 01/07/19 at 09:00 TAYLOR ADAM MD Jan 07, 2019 07:16
[2019-01-07 07:34] VITALS: BP 165/69; PULSE 81; RESP 20
[2019-01-07] MEDS: LEVALBUTEROL (NEB) 0.63 MG/3 ML AMP HHN SCH ×3 (08:00→23:11)
--- NOTE | 2019-01-07 08:23 | CONS ---
DATE OF ADMISSION: 01/05/2019 DATE OF CONSULTATION: 01/07/2019 REQUESTING PHYSICIAN: Dr. Faith Burton. REASON FOR CONSULTATION: Anemia and right middle lobe mass. Dear Dr. Burton: Thank you very much for asking me to see this very interesting and pleasant patient in hematologic an d oncologic consultation. As you know, I am familiar with the patient who is an 88-year-old female w ho was admitted to [facility] on 01/05/2019 with complaints of increasing weakness, and loss of appetite. The patient on admission was [place] [address] with 78% neutrophils. T he hemoglobin was 9.9, hematocrit 32.3, MCV 86.3, MCH 26.4, MCHC 30.7, RDW 25.8 and platelet count 49 8,000. Sedimentation rate was 135. On admission, comprehensive metabolic panel revealed a CO2 of 36 , BUN 22, creatinine 1.29. Total bilirubin 0.1, direct bilirubin 0, AST 18, ALT less than 6, alkalin e phosphatase 185 and a total protein 7.7 with albumin of 3.6. Other laboratory included a protime of 13.3 seconds, INR of 1, PTT was 40.9 seconds. This was repeat ed and was 56 seconds. X-rays on admission did reveal a 7x7 cm mass in the right middle lobe which was apparently present on previous examination. A CT scan of the chest was obtained and this demonstrated near complete if no t complete alveolar consolidation of the right middle lobe with an area of necrosis in the right midd le lobe. It was necrosis versus abscess. There was no mention of hilar mass or adenopathy. As mentioned, the patient was admitted because of increasing weakness and fatigue as well as decrease d appetite and weight loss. The patient is unable to quantitate weight loss; however. She states th at her sister had told her that she had a weight loss. The patient did not have any significant feve rs or shaking chills. She denies shortness of breath or cough. She states she has not had any chest pain or hemoptysis. As mentioned, I have seen this patient previously. This was during the hospitalization from 10/16/20 to 10/22/2018. At that time, the patient was admitted to the hospital with a hemoglobin of 6.6 on 10/16/2018. She was found to have significant iron deficiency. The patient was found to have a gas tric ulcer on upper GI endoscopy. A biopsy of this ulcer did not reveal any evidence of malignancy o r H. pylori. During that hospitalization, the patient was transfused with 2 units of packed red bloo d cells and did receive a total of 625 mg of elemental iron. When she was discharged from the hospit al on 10/22/2018 her hemoglobin was 9.3. At that time, chest x-ray did not show any type of parenchy mal lesion. PAST MEDICAL HISTORY: The patient's past history is relatively unremarkable. Prior to her admission to the hospital in October of 2018 the patient had not seen a physician for many years. 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 PAST SURGICAL HISTORY: Review of old records does demonstrate the patient had a laparoscopic reducti on of incarcerated hernia approximately a year ago as well as a left carotid endarterectomy. The pat lee also has a history of coronary artery disease as well as hypertension. On admission, the patient's medications were somewhat limited. ALLERGIES: SHE HAS NO KNOWN ALLERGIES. SOCIAL HISTORY: The patient lives with her sister. She is a former smoker. She uses alcohol occasi onally. PHYSICAL EXAMINATION: GENERAL: At this time reveals a well-developed, well-nourished female who is in no acute distress. VITAL SIGNS: Temperature 98.7 orally, pulse 80 per minute and regular, respirations 20, blood pressu re 165/69 and pulse oximetry is 92% on room air. SKIN: No ecchymosis, no petechiae or rashes. HEENT: Normocephalic with no evidence of trauma. Pupils are equal, round, react to light and accomm odation. Sclerae are nonicteric. Oral mucosa is moist without lesions. Tongue is well papillated. There is no gingival hyperplasia, no hypertrophy of Waldeyer ring. The conjunctiva and oral mucosa are pale. NECK: Supple. No jugular venous distention or thyroid enlargement. No carotid bruits. CHEST: Clear to auscultation and percussion. No rhonchi, wheezes, rales or rubs. HEART: Regular sinus rhythm, no S3, S4 or murmurs. No rubs. ABDOMEN: Soft. There are no masses or ascites. Bowel sounds are active. No hernia defects. EXTREMITIES: Good range of motion. No clubbing, no edema or cyanosis. No palpable cords or Homans sign. NEUROLOGIC: Normal. DISCUSSION: This patient does have a persistent anemia. Although, the indices are not that of hyper chromic and microcytic. The RDW is certainly consistent with iron deficiency as is the increased in platelets. As previously noted, the patient previously did have a gastric ulcer, which was felt to be the cause of iron deficiency during her admission of 10/2018. The patient does not note any melena or hematochezia but do feel stools for occult blood should be ch ecked. We will also repeat iron studies. The patient's right middle lobe consolidation suggesting pneumonia with necrosis. We must consider t he possibility of a postobstructive pneumonia, however. The patient is a former smoker and therefore , a lung cancer should be considered. The patient has a prolonged PTT. It was 40.9 seconds on admission and 56 seconds on repeat. During previous admission, the patient's PTT was minimally prolonged. We will perform a 50/50 PTT to determine whether or not this prolongation is due to an inhibitor such as lupus anticoagulant versus factor deficiency. Depending on the patient's iron studies, we will replace iron parenterally if necessary. Once again, thank you very much for the opportunity of participating in the medical care of this very interesting and pleasant patient. I will be happy to follow this patient with you and assist in her hematologic and oncologic evaluation and followup as necessary. Sincerely, Dictated By: ATILIO PARKER MD SR/NTS Conf#: [id number] DID#: [id number] CC: FAITH BURTON MD;*EndCC*
[2019-01-07] MEDS: FERROUS SULFATE (EC) 325 MG TAB PO SCH ×2 (09:01→20:27)
[2019-01-07] MEDS: FUROSEMIDE 20 MG TAB PO SCH (09:02)
[2019-01-07] MEDS: LISINOPRIL 10 MG TAB PO SCH ×2 (09:03→20:27)
[2019-01-07] MEDS: D5-NS + KCL 20 MEQ 1,000 ML IV SCH ×2 (12:30→15:50)
[2019-01-07 14:26] VITALS: BP 155/69; PULSE 83; RESP 18
--- NOTE | 2019-01-07 18:01 | PN ---
Date/Time of Note Date/Time of Note DATE: 01/07/19 TIME: 17:58 Assessment/Plan VTE Prophylaxis Risk score (from [facility] [place])>0 risk: 7 SCD applied (from [facility] [place]): Yes Pharmacological prophylaxis: NA/contraindicated Pharm contraindication: blood coag disorder Lines/Catheters IV Catheter Type (from [facility]): Peripheral IV Assessment/Plan Assessment/Plan (1) Mass of right lung Status: Acute Comment: Cont antibiotics for probable pneumonia with abcess. Sputum cultures and titers are pending. Continue non-invasive work up per ID guidance. Will check with pulmonary re. possible bronchoscopy versus needle biopsy to rule out post-obstructive disease. (2) Congestive heart failure Status: Chronic Comment: Continue carvedilol and lisinopril , replace potassium orally and in IV fluid. Resume lasix in am since bun/ creat better. (3) Gastric ulcer Status: Acute Comment: Continue pantoprazole. Hold anticoagulants. (4) Anemia Status: Chronic Comment: Patient was scheduled for small bowel follow through later this week. Dr. Pennington has been notified regarding patient's hospitalization. (5) Hypertension/ Coronary artery disease Status: Chronic Comment: continue current meds. (6) Elevated partial thromboplastin time (PTT) Status: Acute Comment: Work up per Heme/Onc. Result Diagram: 01/06/19 0520 01/06/19 1056 Results 24hrs Laboratory Tests Test 01/07/19 07:00 01/07/19 08:19 01/07/19 14:42 Iron Level 26 L Total Iron Binding Capacity 162 L Percent Iron Saturation 16 L Ferritin 306.0 H Activated Partial Thromboplast Time 54.7 H Mix PTT Normal Plasma Immediate 47.8 Mix PTT Normal Plasma 1 Hour Urine Color STRAW Urine Clarity CLEAR Urine pH 5.0 Urine Specific [place] 1.012 Urine Ketones NEGATIVE Urine Nitrite NEGATIVE Urine Bilirubin NEGATIVE Urine Urobilinogen NEGATIVE Urine Leukocyte Esterase NEGATIVE Urine Microscopic RBC 0 Urine Microscopic WBC 2 Urine Hemoglobin 1+ H Urine Glucose NEGATIVE Urine Total Protein NEGATIVE Stool Occult Blood NEGATIVE Subjective 24 Hr Interval Summary Constitutional: no complaints Exam/Review of Systems Exam Vitals Vital Signs Date Temp Pulse Resp B/P (MAP) Pulse Ox O2 O2 Flow FiO2 Time Delivery Rate 01/07/19 98.0 83 18 155/69 93 Room Air 14:26 (97) 01/06/19 21 07:22 Intake and Output 01/06/19 01/06/19 01/07/19 1515:00 23:00 07:00 IntakeIntake Total 700 ml 340 ml 900 ml BalanceBalance 700 ml 340 ml 900 ml Constitutional: alert, oriented Psych: no complaints Head: normocephalic, atraumatic ENMT: nl external ears & nose Respiratory: clear to auscultation, normal air movement Cardiovascular: regular rate and rhythm Gastrointestinal: soft, non-tender Musculoskeletal: nl extremities to inspection Results Results 24hrs Laboratory Tests Test 01/07/19 07:00 01/07/19 08:19 01/07/19 14:42 Iron Level 26 L Total Iron Binding Capacity 162 L Percent Iron Saturation 16 L Ferritin 306.0 H Activated Partial Thromboplast Time 54.7 H Mix PTT Normal Plasma Immediate 47.8 Mix PTT Normal Plasma 1 Hour Urine Color STRAW Urine Clarity CLEAR Urine pH 5.0 Urine Specific [place] 1.012 Urine Ketones NEGATIVE Urine Nitrite NEGATIVE Urine Bilirubin NEGATIVE Urine Urobilinogen NEGATIVE Urine Leukocyte Esterase NEGATIVE Urine Microscopic RBC 0 Urine Microscopic WBC 2 Urine Hemoglobin 1+ H Urine Glucose NEGATIVE Urine Total Protein NEGATIVE Stool Occult Blood NEGATIVE Medications Medication Current Medications Piperacillin Sod/ Tazobactam Sod 100 ml @ 200 mls/hr Q6 IVPB Last administered on 01/07/19 17:21; Admin Dose 200 MLS/HR; Start 01/05/19 at 18:00 Atorvastatin Calcium (Lipitor) 40 mg HS PO Last administered on 01/06/19at 20:33; Admin Dose 40 MG; Start 01/06/19 at 21:00 Carvedilol (Coreg) 6.25 mg BID PO Last administered on 01/07/19 09:03; Admin Dose 6.25 MG; Start 01/06/19 at 09:00 Ferrous Sulfate (Ferrous Sulfate (Ec)) 325 mg BID PO Last administered on 01/07/19 09:01; Admin Dose 325 MG; Start 01/06/19 at 09:00 Lisinopril (Zestril) 10 mg BID PO Last administered on 01/07/19 09:03; Admin Dose 10 MG; Start 01/06/19 at 09:00 Pantoprazole (Protonix Tab) 40 mg AC BREAKFAST PO Last administered on 01/07/19at 06:38; Admin Dose 40 MG; Start 01/06/19 at 07:00 Levalbuterol (Xopenex Neb) 0.63 mg Q8H RESP THERAPY HHN Last administered on 01/06/19at 07:19; Admin Dose 0.63 MG; Start 01/06/19 at 00:00 Clonidine (Catapres) 0.1 mg Q6H PRN PO ELEVATED BLOOD PRESSURE Last administered on 01/06/19at 03:18; Admin Dose 0.1 MG; Start 01/06/19 at 03:00 Potassium Chloride/Dextrose/ Sod Cl 1,000 ml @ 50 mls/hr Q20H IV Last admin istered on 01/07/19at 15:50; Admin Dose 50 MLS/HR; Start 01/06/19 at 16:30 Furosemide (Lasix) 20 mg DAILY PO Last administered on 01/07/19at 09:02; Admin Dose 20 MG; Start 01/07/19 at 09:00 RIANNA QUINTANA MD Jan 07, 2019 18:01
[2019-01-07 20:00] VITALS: BP 169/73; PULSE 80; RESP 18
[2019-01-07] MEDS: ATORVASTATIN 40 MG TAB PO SCH (20:27)
[2019-01-07 22:00] VITALS: BP 145/65; PULSE 82; RESP 18
[2019-01-08] VITALS (7 sets, daily range): BP systolic 122–191; BP diastolic 54–79; PULSE 72–86; RESP 18–20
[2019-01-08] MEDS: PIPER-TAZO 3.375 GM IV (PMX) 100 ML IVPB SCH ×4 (00:20→17:19)
[2019-01-08] MEDS: PANTOPRAZOLE (EC) 40 MG TAB PO SCH (06:05)
--- NOTE | 2019-01-08 07:29 | CONS ---
Assessment/Plan Assessment/Plan Hospital Course (Demo Recall) 1) probable lung abscess with an indolent course the usual therapy is a prolonged course of antibiotics continue with zosyn at present (unasyn would be sufficient but there is a supply problem with unasyn at present) I have ordered routine sputum cx, nasal swab for MRSA and AFB culture and smear she is a prior smoker so atypical mycobacteria is a possibility I have ordered quant TB gold but doubt she has TB but with lung abscess that is always a possibility I have ordered beta d glucan and coccidiodomycosis titers also I have also ordered procalcitonin 2 - sputum cx was just sent to micro this a.m. continue with zosyn and when sputum cx is done can likely fashion an oral antibiotic regimen 01/08 - nasal for MRSA was neg, sputum cx is only yeast at this time continue with zosyn I will order chest U/S to quantify the fluid collection and see if it appears more like an abscess or pleural effusion and if accessible by IR 2) CAD with hx of angioplasty and stenting 3) hx of CHF 4) HTN 5) elevated cholesterol 6) hx of GI bleed 7) ARF hydration is already bringing the creatinine down u/a, urine cx are pending 01/07 - spoke to nurse as u/a and urine cx are uncollected 01/08 - u/a is benign looking and creatinine is back to baseline Consultation Date/Type/Reason Admit Date/Time Jan 05, 2019 at 17:45 Initial Consult Date 01/06/19 Type of Consult ID Date/Time of Note DATE: 01/08/19 TIME: 07:25 24 HR Interval Summary Free Text/Dictation pt denies pain, N, V, D Exam/Review of Systems Exam Vitals Vital Signs Date Temp Pulse Resp B/P (MAP) Pulse Ox O2 O2 Flow FiO2 Time Delivery Rate 01/08/19 72 18 158/64 04:00 (95) 01/08/19 97.9 93 02:00 01/07/19 Room Air 14:26 01/06/19 21 07:22 Intake and Output 01/07/19 01/07/19 01/08/19 1515:00 23:00 07:00 IntakeIntake Total 440 ml 1255 ml 940 ml BalanceBalance 440 ml 1255 ml 940 ml Constitutional: alert Eyes: nl sclera Respiratory: other (decreased BS at R base) Cardiovascular: regular rate and rhythm Gastrointestinal: soft, non-tender Results Result Diagram: 01/08/1943801/08/19438 Results 24hrs Laboratory Tests Test 01/07/19 08:19 01/07/19 14:42 01/08/19 04:39 Activated Partial Thromboplast Time 54.7 H Mix PTT Normal Plasma Immediate 47.8 Mix PTT Normal Plasma 1 Hour Urine Color STRAW Urine Clarity CLEAR Urine pH 5.0 Urine Specific [place] 1.012 Urine Ketones NEGATIVE Urine Nitrite NEGATIVE Urine Bilirubin NEGATIVE Urine Urobilinogen NEGATIVE Urine Leukocyte Esterase NEGATIVE Urine Microscopic RBC 0 Urine Microscopic WBC 2 Urine Hemoglobin 1+ H Urine Glucose NEGATIVE Urine Total Protein NEGATIVE Stool Occult Blood NEGATIVE White Blood Count 8.0 # Red Blood Count 3.03 L Hemoglobin 8.0 L Hematocrit 25.7 L Mean Corpuscular Volume 84.8 Mean Corpuscular Hemoglobin 26.4 L Mean Corpuscular Hemoglobin Concent 31.1 L Red Cell Distribution Width 24.6 H Platelet Count 488 H Mean Platelet Volume 9.2 Immature Granulocytes % 0.400 Neutrophils % 69.5 Lymphocytes % 20.5 Monocytes % 8.1 Eosinophils % 1.4 Basophils % 0.1 Nucleated Red Blood Cells % 0.0 Immature Granulocytes # 0.030 Neutrophils # 5.6 Lymphocytes # 1.6 Monocytes # 0.7 Eosinophils # 0.1 Basophils # 0.0 Nucleated Red Blood Cells # 0.0 Sodium Level 142 Potassium Level 3.4 L Chloride Level 104 Carbon Dioxide Level 30 Anion Gap 8 Blood Urea Nitrogen 5 #L Creatinine 0.73 Est Glomerular Filtrat Rate mL/min Glucose Level 116 Calcium Level 8.7 Medications Medication Current Medications Piperacillin Sod/ Tazobactam Sod 100 ml @ 200 mls/hr Q6 IVPB Last administered on 01/08/19at 06:05; Admin Dose 200 MLS/HR; Start 01/05/19 at 18:00 Atorvastatin Calcium (Lipitor) 40 mg HS PO Last administered on 01/07/19at 20:27; Admin Dose 40 MG; Start 01/06/19 at 21:00 Carvedilol (Coreg) 6.25 mg BID PO Last administered on 01/07/19at 20:27; Admin Dose 6.25 MG; Start 01/06/19 at 09:00 Ferrous Sulfate (Ferrous Sulfate (Ec)) 325 mg BID PO Last administered on 01/07/19 20:27; Admin Dose 325 MG; Start 01/06/19 at 09:00 Lisinopril (Zestril) 10 mg BID PO Last administered on 01/07/19 20:27; Admin Dose 10 MG; Start 01/06/19 at 09:00 Pantoprazole (Protonix Tab) 40 mg AC BREAKFAST PO Last administered on 01/08/19 06:05; Admin Dose 40 MG; Start 01/06/19 at 07:00 Levalbuterol (Xopenex Neb) 0.63 mg Q8H RESP THERAPY HHN Last administered on 01/06/19 07:19; Admin Dose 0.63 MG; Start 01/06/19 at 00:00 Clonidine (Catapres) 0.1 mg Q6H PRN PO ELEVATED BLOOD PRESSURE Last administered on 01/08/19 02:26; Admin Dose 0.1 MG; Start 01/06/19 at 03:00 Potassium Chloride/Dextrose/ Sod Cl 1,000 ml @ 50 mls/hr Q20H IV Last admini stered on 01/07/19 15:50; Admin Dose 50 MLS/HR; Start 01/06/19 at 16:30 Furosemide (Lasix) 20 mg DAILY PO Last administered on 01/07/19 09:02; Admin Dose 20 MG; Start 01/07/19 at 09:00 TAYLOR ADAM MD Jan 08, 2019 07:29
[2019-01-08] MEDS: LEVALBUTEROL (NEB) 0.63 MG/3 ML AMP HHN SCH ×2 (07:52→16:00)
[2019-01-08] MEDS: FUROSEMIDE 20 MG TAB PO SCH (08:22)
[2019-01-08] MEDS: LISINOPRIL 10 MG TAB PO SCH ×2 (08:22→20:23)
[2019-01-08] MEDS: FERROUS SULFATE (EC) 325 MG TAB PO SCH ×2 (08:22→20:23)
[2019-01-08] MEDS ORDERED: POTASSIUM CHLORIDE (SR) 20 MEQ TAB PO STA (16:38)
--- NOTE | 2019-01-08 16:43 | PN ---
Date/Time of Note Date/Time of Note DATE: 01/08/19 TIME: 16:35 Assessment/Plan VTE Prophylaxis Risk score (from Ns)>0 risk: 6 [place]CD applied [place]from [facility] [place] Yes Pharmacological prophylaxis: NA/contraindicated Pharm contraindication: surgical contra Lines/Catheters IV C[facility]ter Type (from [facility]): Peripheral IV Urinary Cath still in place: No Assessment/Plan Assessment/Plan (1) Mass of right lung Status: Acute Comment: Clinically improved with normalizing WBC, will continue antibiotics for probable pneumonia with abcess. Sputum cultures and titers are pending. Continue work up per ID guidance. Plan for ultrasound guided thoracentesis. Will check with pulmonary consult re. bronchoscopy. Recheck cxr in am. (2) Congestive heart failure Status: Chronic Comment: Continue carvedilol, lisinopril and lasix . Add kdur for hypokalemia, jeff lytes in am. (3) Elevated partial thromboplastin time (PTT) Status: Acute Comment: Work up per Heme/Onc shows presence of lupus anticoagulant which may i ncrease risk of thrombotic events. Will need anticoagulant after patient is done with biopsy or bronchoscopy. (4) Anemia Status: Chronic Comment: work up and treatment per Heme. Patient does have gastric ulcer, esophagitis with hiatal hernia and colon polyp on previous GI work up but anemia is more severe than expected. (5) Hypertension/ Coronary artery disease Status: Chronic Comment: continue current meds. (6) Gastric ulcer Status: Acute Comment: Continue pantoprazole. Result Diagram: 01/08/19 0439 01/08/19 0439 Results 24hrs Laboratory Tests Test 01/08/19 04:39 White Blood Count 8.0 # Red Blood Count 3.03 L Hemoglobin 8.0 L Hematocrit 25.7 L Mean Corpuscular Volume 84.8 Mean Corpuscular Hemoglobin 26.4 L Mean Corpuscular Hemoglobin Concent 31.1 L Red Cell Distribution Width 24.6 H Platelet Count 488 H Mean Platelet Volume 9.2 Immature Granulocytes % 0.400 Neutrophils % 69.5 Lymphocytes % 20.5 Monocytes % 8.1 Eosinophils % 1.4 Basophils % 0.1 Nucleated Red Blood Cells % 0.0 Immature Granulocytes # 0.030 Neutrophils # 5.6 Lymphocytes # 1.6 Monocytes # 0.7 Eosinophils # 0.1 Basophils # 0.0 Nucleated Red Blood Cells # 0.0 Sodium Level 142 Potassium Level 3.4 L Chloride Level 104 Carbon Dioxide Level 30 Anion Gap 8 Blood Urea Nitrogen 5 #L Creatinine 0.73 Est Glomerular Filtrat Rate mL/min Glucose Level 116 Calcium Level 8.7 Subjective 24 Hr Interval Summary Constitutional: no complaints Exam/Review of Systems Exam Vitals Vital Signs Date Temp Pulse Resp B/P (MAP) Pulse Ox O2 O2 Flow FiO2 Time Delivery Rate 01/08/19 97.8 86 20 179/79 97 Room Air 14:45 (112) 01/08/19 21 07:52 Intake and Output 01/07/19 01/07/19 01/08/19 1515:00 23:00 07:00 IntakeIntake Total 440 ml 1255 ml 940 ml BalanceBalance 440 ml 1255 ml 940 ml Constitutional: alert, oriented Eyes: nl conjunctiva, EOMI ENMT: nl external ears & nose Respiratory: clear to auscultation Cardiovascular: regular rate and rhythm Gastrointestinal: soft, non-tender Musculoskeletal: nl extremities to inspection Results Results 24hrs Laboratory Tests Test 01/08/19 04:39 White Blood Count 8.0 # Red Blood Count 3.03 L Hemoglobin 8.0 L Hematocrit 25.7 L Mean Corpuscular Volume 84.8 Mean Corpuscular Hemoglobin 26.4 L Mean Corpuscular Hemoglobin Concent 31.1 L Red Cell Distribution Width 24.6 H Platelet Count 488 H Mean Platelet Volume 9.2 Immature Granulocytes % 0.400 Neutrophils % 69.5 Lymphocytes % 20.5 Monocytes % 8.1 Eosinophils % 1.4 Basophils % 0.1 Nucleated Red Blood Cells % 0.0 Immature Granulocytes # 0.030 Neutrophils # 5.6 Lymphocytes # 1.6 Monocytes # 0.7 Eosinophils # 0.1 Basophils # 0.0 Nucleated Red Blood Cells # 0.0 Sodium Level 142 Potassium Level 3.4 L Chloride Level 104 Carbon Dioxide Level 30 Anion Gap 8 Blood Urea Nitrogen 5 #L Creatinine 0.73 Est Glomerular Filtrat Rate mL/min Glucose Level 116 Calcium Level 8.7 Medications Medication Current Medications Piperacillin Sod/ Tazobactam Sod 100 ml @ 200 mls/hr Q6 IVPB Last administered on 01/08/19at 11:46; Admin Dose 200 MLS/HR; Start 01/05/19 at 18:00 Atorvastatin Calcium (Lipitor) 40 mg HS PO Last administered on 01/07/19 20:27; Admin Dose 40 MG; Start 01/06/19 at 21:00 Carvedilol (Coreg) 6.25 mg BID PO Last administered on 01/08/19 08:23; Admin Dose 6.25 MG; Start 01/06/19 at 09:00 Ferrous Sulfate (Ferrous Sulfate (Ec)) 325 mg BID PO Last administered on 01/08/19 08:22; Admin Dose 325 MG; Start 01/06/19 at 09:00 Lisinopril (Zestril) 10 mg BID PO Last administered on 01/08/19 08:22; Admin Dose 10 MG; Start 01/06/19 at 09:00 Pantoprazole (Protonix Tab) 40 mg AC BREAKFAST PO Last administered on 9at 06:05; Admin Dose 40 MG; Start 01/06/19 at 07:00 Levalbuterol (Xopenex Neb) 0.63 mg Q8H RESP THERAPY HHN Last administered on 01/06/19 07:19; Admin Dose 0.63 MG; Start 01/06/19 at 00:00 Clonidine (Catapres) 0.1 mg Q6H PRN PO ELEVATED BLOOD PRESSURE Last administered on 01/08/19 02:26; Admin Dose 0.1 MG; Start 01/06/19 at 03:00 Potassium Chloride/Dextrose/ Sod Cl 1,000 ml @ 50 mls/hr Q20H IV Last administered on 01/07/19 15:50; Admin Dose 50 MLS/HR; Start 01/06/19 at 16:30 Furosemide (Lasix) 20 mg DAILY PO Last administered on 01/08/19 08:22; Admin Dose 20 MG; Start 01/07/19 at 09:00 RIANNA QUINTANA MD Jan 08, 2019 16:43
--- NOTE | 2019-01-08 18:46 | PN ---
DATE: 01/08/2019 SUBJECTIVE: The patient has no new complaints. Denies chest pain, cough, or hemoptysis. OBJECTIVE: GENERAL: The patient is a well-developed, well-nourished female in no acute distress. VITAL SIGNS: Temperature 97.8, pulse 86 per minute and regular, respirations 20, blood pressure 179/ 79, and pulse oximetry 92% on room air. SKIN: Pale. No ecchymosis. No petechiae or rashes. HEENT: Normocephalic. No evidence of trauma. Pupils equal, round, and react to light and accommoda tion. Sclerae nonicteric. Oral mucosa is moist without lesions. Tongue is well papillated. No gin gival hyperplasia. No hypertrophy of Waldeyer's ring. There is pallor of the mucosa and conjunctiva . NECK: Supple. No jugular venous distention or thyroid enlargement. No carotid bruits. CHEST: Decreased breath sounds on the right side. There are no rhonchi, wheezes, rales, or rubs. T here is dullness to percussion in the right base. No FRANKIE changes HEART: Regular sinus rhythm. No S3 or S4. No murmurs. No rubs. NODES: No palpable lymphadenopathy in any lymph node bearing area. ABDOMEN: Soft. No masses and no ascites. Bowel sounds active. EXTREMITIES: No clubbing, edema, or cyanosis. No palpable cords or Homans sign. NEUROLOGIC: Normal. LABORATORY DATA: White count 8,000 with an absolute neutrophil count of 5,600; hemoglobin 8; hematoc rit 25.7; MCV 84.8; MCH 26.4; MCHC 31.1; RDW 24.6; and platelet count 488,000. Serum iron is 26, iron binding capacity 162 and percent saturation 16, and ferritin is 306. The PTT does not correct with dilution with normal plasma. This is consistent with an inhibitor. Fu rther studies do demonstrate that this is a "lupus anticoagulant." Still pending are the anticardiol ipin antibodies and JAZMIN. ASSESSMENT: 1. 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 2. Right middle lobe infiltrate, probable pneumonia, rule out tuberculosis, and rule out postobstruc tive pneumonia. 3. Lupus anticoagulant. DISCUSSION: As noted, I feel that this patient's anemia is due to both iron deficiency, which has be en a recurrent problem for this patient as well as a decreased erythropoiesis due to an inflammatory process i.e. the patient's right middle lobe pneumonic process. We will institute parenteral iron replacement. As noted, the patient does have lupus anticoagulant, which is associated with increased thromboemboli c events. Would favor use of some type of anticoagulation; however, perhaps this should be delayed u ntil invasive procedures such as bronchoscopy and biopsy have been completed. Dictated By: ATILIO PARKER MD SR/NTS Conf#: [id number] DID#: [id number] CC: JEFFRY SHANKS MD; CAS RODRIGUEZ MD; NAMITA ANGEL MD; ATILIO PARKER MD; PRIMITIVO ROSS MD; RIANNA QUINTANA MD; ANGELA MAJOR MD; SHWETA ROY MD; KULDEEP SALES DO; SHWETA HITCHCOCK MD;*EndCC*
[2019-01-08] MEDS: ATORVASTATIN 40 MG TAB PO SCH (20:22)
[2019-01-09] VITALS (7 sets, daily range): BP systolic 128–194; BP diastolic 60–87; PULSE 72–83; RESP 16–18
[2019-01-09] MEDS: PIPER-TAZO 3.375 GM IV (PMX) 100 ML IVPB SCH ×4 (00:30→17:29)
[2019-01-09] MEDS: PANTOPRAZOLE (EC) 40 MG TAB PO SCH (06:02)
--- NOTE | 2019-01-09 07:10 | CONS ---
Assessment/Plan Assessment/Plan Hospital Course (Demo Recall) 1) probable lung abscess with an indolent course the usual therapy is a prolonged course of antibiotics continue with zosyn at present (unasyn would be sufficient but there is a supply problem with unasyn at present) I have ordered routine sputum cx, nasal swab for MRSA and AFB culture and smear she is a prior smoker so atypical mycobacteria is a possibility I have ordered quant TB gold but doubt she has TB but with lung abscess that is always a possibility I have ordered beta d glucan and coccidiodomycosis titers also I have also ordered procalcitonin 01/07 - sputum cx was just sent to micro this a.m. continue with zosyn and when sputum cx is done can likely fashion an oral antibiotic regimen 01/08 - nasal for MRSA was neg, sputum cx is only yeast at this time continue with zosyn I will order chest U/S to quantify the fluid collection and see if it appears more like an abscess or pleural effusion and if accessible by IR 01/09 - moderate pleural effusion seen I have order u/s guided thorancentesis with routine, fungal and AFB cx, LDH, pH, glucose, protein and serum LDH continue with zosyn, sputum cx only had c.alb which is likely a colonizer 2) CAD with hx of angioplasty and stenting 3) hx of CHF 4) HTN 5) elevated cholesterol 6) hx of GI bleed 7) ARF hydration is already bringing the creatinine down u/a, urine cx are pending 01/07 - spoke to nurse as u/a and urine cx are uncollected 01/08 - u/a is benign looking and creatinine is back to baseline Consultation Date/Type/Reason Admit Date/Time Jan 05, 2019 at 17:45 Initial Consult Date 01/06/19 Type of Consult ID Date/Time of Note DATE: 01/09/19 TIME: 07:09 24 HR Interval Summary Free Text/Dictation pt is stable no N, V, D Exam/Review of Systems Exam Vitals Vital Signs Date Temp Pulse Resp B/P (MAP) Pulse Ox O2 O2 Flow FiO2 Time Delivery Rate 01/09/19 79 18 149/87 04:30 (107) 01/09/19 98.4 91 02:00 01/08/19 21 16:36 01/08/19 Room Air 14:45 Intake and Output 01/08/19 01/08/19 01/09/19 1515:00 23:00 07:00 IntakeIntake Total 340 ml 685 ml 200 ml BalanceBalance 340 ml 685 ml 200 ml Results Result Diagram: 01/09/19 0446 01/09/19 0446 Results 24hrs Laboratory Tests Test 01/09/19 04:46 White Blood Count 9.2 Red Blood Count 3.08 L Hemoglobin 8.3 L Hematocrit 26.9 L Mean Corpuscular Volume 87.3 Mean Corpuscular Hemoglobin 26.9 L Mean Corpuscular Hemoglobin Concent 30.9 L Red Cell Distribution Width 23.9 H Platelet Count 470 H Mean Platelet Volume 9.0 Immature Granulocytes % 0.400 Neutrophils % 70.5 Lymphocytes % 19.5 Monocytes % 8.1 Eosinophils % 1.3 Basophils % 0.2 Nucleated Red Blood Cells % 0.0 Immature Granulocytes # 0.040 H Neutrophils # 6.5 Lymphocytes # 1.8 Monocytes # 0.7 Eosinophils # 0.1 Basophils # 0.0 Nucleated Red Blood Cells # 0.0 Sodium Level 141 Potassium Level 3.5 Chloride Level 102 Carbon Dioxide Level 29 Anion Gap 10 Blood Urea Nitrogen 5 L Creatinine 0.69 Est Glomerular Filtrat Rate mL/min Glucose Level 118 Calcium Level 8.7 Medications Medication Current Medications Piperacillin Sod/ Tazobactam Sod 100 ml @ 200 mls/hr Q6 IVPB Last administered on 01/09/19at 06:02; Admin Dose 200 MLS/HR; Start 01/05/19 at 18:00 Atorvastatin Calcium (Lipitor) 40 mg HS PO Last administered on 01/08/19 20:22; Admin Dose 40 MG; Start 01/06/19 at 21:00 Carvedilol (Coreg) 6.25 mg BID PO Last administered on 01/08/19 20:23; Admin Dose 6.25 MG; Start 01/06/19 at 09:00 Ferrous Sulfate (Ferrous Sulfate (Ec)) 325 mg BID PO Last administered on 20:23; Admin Dose 325 MG; Start 01/06/19 at 09:00 Lisinopril (Zestril) 10 mg BID PO Last administered on 01/08/19 20:23; Admin Dose 10 MG; Start 01/06/19 at 09:00 Pantoprazole (Protonix Tab) 40 mg AC BREAKFAST PO Last administered on 01/09/19 06:02; Admin Dose 40 MG; Start 01/06/19 at 07:00 Levalbuterol (Xopenex Neb) 0.63 mg Q8H RESP THERAPY HHN Last administered on 01/06/19 07:19; Admin Dose 0.63 MG; Start 01/06/19 at 00:00 Clonidine (Catapres) 0.1 mg Q6H PRN PO ELEVATED BLOOD PRESSURE Last administered on 01/09/19at 02:28; Admin Dose 0.1 MG; Start 01/06/19 at 03:00 Furosemide (Lasix) 20 mg DAILY PO Last administered on 01/08/19 08:22; Admin Dose 20 MG; Start 01/07/19 at 09:00 Potassium Chloride (Klor-Con 10) 10 meq DAILY PO ; Start 01/09/19 at 09:00 Ferric Sodium Gluconate Complex 125 mg/Sodium Chloride 100 ml @ 100 mls/hr DAILY@1300 IVPB ; Start 01/09/19 at 13:00; Stop 01/11/19 at 13:59 Epoetin Arvin (Epogen (Esrd)) 10,000 units MoWeFr@17 SC ; Start 01/09/19 at 17:00 TAYLOR ADAM MD Jan 09, 2019 07:10
[2019-01-09] MEDS: LEVALBUTEROL (NEB) 0.63 MG/3 ML AMP HHN SCH ×4 (08:00→17:16)
[2019-01-09] MEDS: FUROSEMIDE 20 MG TAB PO SCH (08:37)
[2019-01-09] MEDS: FERROUS SULFATE (EC) 325 MG TAB PO SCH ×2 (08:37→21:14)
[2019-01-09] MEDS: LISINOPRIL 10 MG TAB PO SCH ×2 (08:37→21:14)
[2019-01-09] MEDS ORDERED: POTASSIUM CHLORIDE (SR) 10 MEQ TAB PO SCH (09:00)
[2019-01-09] MEDS: SOD FERRIC GLUC COMPLX 125 MG in SOD CHLORIDE 0.9% 100 ML IVPB SCH (13:22)
--- NOTE | 2019-01-09 17:22 | PN ---
Date/Time of Note Date/Time of Note DATE: 01/09/19 TIME: 17:13 Assessment/Plan VTE Prophylaxis Risk score [place]from [facility] [place] risk: 5 SCD applied (from [facility] [place] Yes Pharmacological prophylaxis: NA/contraindicated Pharm contraindication: surgical contra Lines/Catheters [facility]from [facility] Saline Lock Urinary Cath still in place: No Assessment/Plan Assessment/Plan (1) Right lung abcess vs post-obstructive pneumonia with necrosis Status: Acute Comment: Status post ultrasound guided thoracentesis. Discussed with Pulmonary consult re. bronchoscopy. Recheck clinical status on Saturday. For now, will continue antibiotics for probable pneumonia with abcess. Sputum and pleural fluid cultures and titers are pending. So far, AFB stain has been negative, but need to obtain 2 more AFB sputum , when AFB stains are negative times 3 , we can take patient off respiratory isolation. (2) Congestive heart failure Status: Chronic Comment: Continue carvedilol, lisinopril and lasix . (3) Elevated partial thromboplastin time (PTT) Status: Acute Comment: Work up per Heme/Onc shows presence of lupus anticoagulant which may increase risk of thrombotic events. Will need anticoagulant after patient is done with biopsy or bronchoscopy. (4) Anemia Status: Chronic Comment: work up and treatment per Heme. Patient does have gastric ulcer, esophagitis with hiatal hernia and colon polyp on previous GI work up but anemia is more severe than expected. (5) Hypertension/ Coronary artery disease Status: Chronic Comment: Increase carvedilol for rising bp. (6) Gastric ulcer/ GERD Status: Acute Comment: Continue pantoprazole. Result Diagram: 01/09/19 0446 01/09/19 0446 Results 24hrs Laboratory Tests Test 01/09/19 04:44 01/09/19 04:46 01/09/19 12:08 Sodium Level 141 141 Potassium Level 4.0 3.5 Chloride Level 105 102 Carbon Dioxide Level 31 29 Anion Gap 5 10 # Blood Urea Nitrogen 4 L 5 L Creatinine 0.69 0.69 Est Glomerular Filtrat Rate mL/min Glucose Level 111 118 Calcium Level 8.6 8.7 Total Bilirubin 0.0 L Direct Bilirubin 0.00 Indirect Bilirubin 0.0 Aspartate Amino 21 Transf (AST/SGOT) Alanine 16 Aminotransferase (ALT/SGPT) Alkaline Phosphatase 165 H Total Protein 5.7 L Albumin 2.6 L Globulin 3.10 Albumin/Globulin Ratio 0.83 White Blood Count 9.2 Red Blood Count 3.08 L Hemoglobin 8.3 L Hematocrit 26.9 L Mean Corpuscular Volume 87.3 Mean Corpuscular Hemoglobin 26.9 L Mean Corpuscular 30.9 L Hemoglobin Concent Red Cell Distribution Width 23.9 H Platelet Count 470 H Mean Platelet Volume 9.0 Immature Granulocytes % 0.400 Neutrophils % 70.5 Lymphocytes % 19.5 Monocytes % 8.1 Eosinophils % 1.3 Basophils % 0.2 Nucleated Red Blood Cells % 0.0 Immature Granulocytes # 0.040 H Neutrophils # 6.5 Lymphocytes # 1.8 Monocytes # 0.7 Eosinophils # 0.1 Basophils # 0.0 Nucleated Red Blood Cells # 0.0 Body Fluid Type PARACENTESIS FLUID Body Fluid Glucose 103 Body Fluid Total Protein 4.1 Body Fluid Lactate Dehydrogenase 854 Subjective 24 Hr Interval Summary Constitutional: no complaints Exam/Review of Systems Exam Vitals Vital Signs Date Temp Pulse Resp B/P (MAP) Pulse Ox O2 O2 Flow FiO2 Time Delivery Rate 01/09/19 98.3 80 18 194/81 92 15:09 (118) 01/09/19 21 09:02 01/08/19 Room Air 14:45 Intake and Output 01/08/19 01/08/19 01/09/19 1515:00 23:00 07:00 IntakeIntake Total 340 ml 685 ml 200 ml BalanceBalance 340 ml 685 ml 200 ml Constitutional: alert, oriented Head: normocephalic, atraumatic ENMT: nl external ears & nose Respiratory: clear to auscultation, normal air movement Cardiovascular: regular rate and rhythm Gastrointestinal: soft, non-tender Musculoskeletal: nl extremities to inspection Extremities: normal pulses Results Results 24hrs Laboratory Tests Test 01/09/19 04:44 01/09/19 04:46 01/09/19 12:08 Sodium Level 141 141 Potassium Level 4.0 3.5 Chloride Level 105 102 Carbon Dioxide Level 31 29 Anion Gap 5 10 # Blood Urea Nitrogen 4 L 5 L Creatinine 0.69 0.69 Est Glomerular Filtrat Rate mL/min Glucose Level 111 118 Calcium Level 8.6 8.7 Total Bilirubin 0.0 L Direct Bilirubin 0.00 Indirect Bilirubin 0.0 Aspartate Amino 21 Transf (AST/SGOT) Alanine 16 Aminotransferase (ALT/SGPT) Alkaline Phosphatase 165 H Total Protein 5.7 L Albumin 2.6 L Globulin 3.10 Albumin/Globulin Ratio 0.83 White Blood Count 9.2 Red Blood Count 3.08 L Hemoglobin 8.3 L Hematocrit 26.9 L Mean Corpuscular Volume 87.3 Mean Corpuscular Hemoglobin 26.9 L Mean Corpuscular 30.9 L Hemoglobin Concent Red Cell Distribution Width 23.9 H Platelet Count 470 H Mean Platelet Volume 9.0 Immature Granulocytes % 0.400 Neutrophils % 70.5 Lymphocytes % 19.5 Monocytes % 8.1 Eosinophils % 1.3 Basophils % 0.2 Nucleated Red Blood Cells % 0.0 Immature Granulocytes # 0.040 H Neutrophils # 6.5 Lymphocytes # 1.8 Monocytes # 0.7 Eosinophils # 0.1 Basophils # 0.0 Nucleated Red Blood Cells # 0.0 Body Fluid Type PARACENTESIS FLUID Body Fluid Glucose 103 Body Fluid Total Protein 4.1 Body Fluid Lactate Dehydrogenase 854 Medications Medication Current Medications Piperacillin Sod/ Tazobactam Sod 100 ml @ 200 mls/hr Q6 IVPB Last administered on 01/09/19 12:39; Admin Dose 200 MLS/HR; Start 01/05/19 at 18:00 Atorvastatin Calcium (Lipitor) 40 mg HS PO Last administered on 01/08/19 20:22; Admin Dose 40 MG; Start 01/06/19 at 21:00 Carvedilol (Coreg) 6.25 mg BID PO Last administered on 01/09/19 08:37; Admin Dose 6.25 MG; Start 01/06/19 at 09:00 Ferrous Sulfate (Ferrous Sulfate (Ec)) 325 mg BID PO Last administered on 01/09/19 08:37; Admin Dose 325 MG; Start 01/06/19 at 09:00 Lisinopril (Zestril) 10 mg BID PO Last administered on 01/09/19 08:37; Admin Dose 10 MG; Start 01/06/19 at 09:00 Pantoprazole (Protonix Tab) 40 mg AC BREAKFAST PO Last administered on 01/09/19 06:02; Admin Dose 40 MG; Start 01/06/19 at 07:00 Levalbuterol (Xopenex Neb) 0.63 mg Q8H RESP THERAPY HHN Last administered on 2/5/19at 07:19; Admin Dose 0.63 MG; Start 01/06/19 at 00:00 Clonidine (Catapres) 0.1 mg Q6H PRN PO ELEVATED BLOOD PRESSURE Last admi nistered on 01/09/19at 14:35; Admin Dose 0.1 MG; Start 01/06/19 at 03:00 Furosemide (Lasix) 20 mg DAILY PO Last administered on 01/09/19at 08:37; Admin Dose 20 MG; Start 01/07/19 at 09:00 Potassium Chloride (Klor-Con 10) 10 meq DAILY PO Last administered on 01/09/19at 09:58; Admin Dose 10 MEQ; Start 01/09/19 at 09:00 Ferric Sodium Gluconate Complex 125 mg/Sodium Chloride 100 ml @ 100 mls/hr DAILY@1300 IVPB Last administered on 01/09/19at 13:22; Admin Dose 100 MLS/HR; Start 01/09/19 at 13:00; Stop 01/11/19 at 13:59 Epoetin Arvin (Epogen (Esrd)) 10,000 units MoWeFr@17 SC ; Start 01/09/19 at 17:00 RIANNA QUINTANA MD Jan 09, 2019 17:22
[2019-01-09] MEDS: EPOETIN 10000 UNITS/1 ML INJ (ESRD) SC SCH (17:30)
--- NOTE | 2019-01-09 17:54 | CONS ---
DATE OF ADMISSION: 01/05/2019 DATE OF CONSULTATION: TYPE OF CONSULTATION: Pulmonary. REASON FOR CONSULT: Shortness of breath, abnormal chest CT. HISTORY OF PRESENT ILLNESS: This is a pleasant 88-year-old lady who presents with weakness, fatigue, weight loss and dense right lower lobe infiltrate with loculated fluid collections and cavitating pr ocess. The patient is a poor historian, unable to give me significant history; however, she states s he was well up until about 4 weeks ago. No preceding upper respiratory tract symptoms. No hemoptysi s, hematemesis. PAST MEDICAL HISTORY: As above. MEDICATIONS: Per chart. ALLERGIES: NONE. SOCIAL HISTORY: She is a nonsmoker. No alcohol, no history of drug use. FAMILY HISTORY: Noncontributory. REVIEW OF SYSTEMS: A 12-point review of systems was negative other than that mentioned above. PHYSICAL EXAMINATION: GENERAL: Well-nourished, well-developed lady, comfortable at rest, in no acute distress. VITAL SIGNS: Currently afebrile, pulse is 80, blood pressure 169/77, O2 saturation 96% on room air. NECK: Supple. No JVD. No lymphadenopathy. CARDIAC: S1, S2. No added sounds or murmurs. CHEST: Diminished air entry bilaterally. ABDOMEN: Soft, nontender. No guarding or rebound. EXTREMITIES: No cyanosis, clubbing, edema. NEUROLOGIC: Grossly intact. No focal deficits. IMAGING: Chest findings per chart. LABORATORY DATA: White count initially 12.8, now 9.2. Chemistry within normal limits. Negative JAZMIN , status post thoracentesis with pleural fluid studies. IMPRESSION AND PLAN: Dense multi-loculated process in the right middle lobe with air fluid level, ap pears to be necrotic abscess, likely secondary to aspiration from probable hiatal hernia. The patient should: 1. Continue with current antibiotic coverage, pending pleural fluid studies. 2. Repeat imaging in several days' time to quantify any improvement. 3. If no significant improvement, may require bronchoscopy to exclude endobronchial lesion; however I feel this is less likely. Dictated By: LAURA LOTT MD SV/NTS Conf#: [id number] DID#: [id number] CC: RIANNA QUINTANA MD;*EndCC*
[2019-01-09] MEDS: ATORVASTATIN 40 MG TAB PO SCH (21:14)
[2019-01-09] MEDS: DOCUSATE SODIUM 100 MG CAP PO SCH (21:14)
[2019-01-10] VITALS (7 sets, daily range): BP systolic 126–177; BP diastolic 60–79; PULSE 75–85; RESP 16–18
[2019-01-10] MEDS: LEVALBUTEROL (NEB) 0.63 MG/3 ML AMP HHN SCH ×3 (00:04→16:00)
[2019-01-10] MEDS: PIPER-TAZO 3.375 GM IV (PMX) 100 ML IVPB SCH ×4 (00:24→17:22)
[2019-01-10] MEDS: PANTOPRAZOLE (EC) 40 MG TAB PO SCH (06:17)
--- NOTE | 2019-01-10 07:04 | CONS ---
Assessment/Plan Assessment/Plan Hospital Course (Demo Recall) 1) probable lung abscess with an indolent course the usual therapy is a prolonged course of antibiotics continue with zosyn at present (unasyn would be sufficient but there is a supply problem with unasyn at present) I have ordered routine sputum cx, nasal swab for MRSA and AFB culture and smear she is a prior smoker so atypical mycobacteria is a possibility I have ordered quant TB gold but doubt she has TB but with lung abscess that is always a possibility I have ordered beta d glucan and coccidiodomycosis titers also I have also ordered procalcitonin 01/07 - sputum cx was just sent to micro this a.m. continue with zosyn and when sputum cx is done can likely fashion an oral antibiotic regimen 01/08 - nasal for MRSA was neg, sputum cx is only yeast at this time continue with zosyn I will order chest U/S to quantify the fluid collection and see if it appears more like an abscess or pleural effusion and if accessible by IR 01/09 - moderate pleural effusion seen I have order u/s guided thorancentesis with routine, fungal and AFB cx, LDH, pH, glucose, protein and serum LDH continue with zosyn, sputum cx only had c.alb which is likely a colonizer 01/10 - pt has exudative fluid, around 500cc removed, pH was not done and I have just ordered the cell count on the fluid in lab LDH from serum was not done as ordered either, will order one today cx from pleural fluid are pending, cytology for pleural fluid ordered today continue with zosyn special serologies are pending 2) CAD with hx of angioplasty and stenting 3) hx of CHF 4) HTN 5) elevated cholesterol 6) hx of GI bleed 7) ARF hydration is already bringing the creatinine down u/a, urine cx are pending 01/07 - spoke to nurse as u/a and urine cx are uncollected 01/08 - u/a is benign looking and creatinine is back to baseline Consultation Date/Type/Reason Admit Date/Time Jan 05, 2019 at 17:45 Initial Consult Date 01/06/19 Type of Consult ID Date/Time of Note DATE: 01/10/19 TIME: 06:59 24 HR Interval Summary Free Text/Dictation pt states she feels a bit better, less SOB cough is less no N, V, D Exam/Review of Systems Exam Vitals Vital Signs Date Temp Pulse Resp B/P (MAP) Pulse Ox O2 O2 Flow FiO2 Time Delivery Rate 01/10/19 97.8 85 18 150/79 92 01:27 (102) 01/10/19 21 00:05 01/08/19 Room Air 14:45 Intake and Output 01/09/19 01/09/19 01/10/19 1515:00 23:00 07:00 IntakeIntake Total 580 ml 920 ml 200 ml BalanceBalance 580 ml 920 ml 200 ml Constitutional: alert Eyes: nl sclera ENMT: mucosa pink and moist Respiratory: other (better aeration to R lung) Cardiovascular: regular rate and rhythm Gastrointestinal: soft, non-tender Results Result Diagram: 01/09/1944501/09/19445 Results 24hrs Laboratory Tests Test 01/09/19 12:08 Body Fluid Type PARACENTESIS FLUID Body Fluid Glucose 103 Body Fluid Total Protein 4.1 Body Fluid Lactate Dehydrogenase 854 Medications Medication Current Medications Piperacillin Sod/ Tazobactam Sod 100 ml @ 200 mls/hr Q6 IVPB Last administered on 01/10/19 05:50; Admin Dose 200 MLS/HR; Start 01/05/19 at 18:00 Atorvastatin Calcium (Lipitor) 40 mg HS PO Last administered on 01/09/19 21:14; Admin Dose 40 MG; Start 01/06/19 at 21:00 Ferrous Sulfate (Ferrous Sulfate (Ec)) 325 mg BID PO Last administered on 01/09/19 21:14; Admin Dose 325 MG; Start 01/06/19 at 09:00 Lisinopril (Zestril) 10 mg BID PO Last administered on 01/09/19 21:14; Admin Dose 10 MG; Start 01/06/19 at 09:00 Pantoprazole (Protonix Tab) 40 mg AC BREAKFAST PO Last administered on 01/10/19 06:17; Admin Dose 40 MG; Start 01/06/19 at 07:00 Levalbuterol (Xopenex Neb) 0.63 mg Q8H RESP THERAPY HHN Last administered on 01/10/19 00:04; Admin Dose 0.63 MG; Start 01/06/19 at 00:00 Clonidine (Catapres) 0.1 mg Q6H PRN PO ELEVATED BLOOD PRESSURE Last adminis tered on 01/09/19 14:35; Admin Dose 0.1 MG; Start 01/06/19 at 03:00 Furosemide (Lasix) 20 mg DAILY PO Last administered on 01/09/19 08:37; Admin Dose 20 MG; Start 01/07/19 at 09:00 Ferric Sodium Gluconate Complex 125 mg/Sodium Chloride 100 ml @ 100 mls/hr DAILY@1300 IVPB Last administered on 01/09/19 13:22; Admin Dose 100 MLS/HR; Start 01/09/19 at 13:00; Stop 01/11/19 at 13:59 Epoetin Arvin (Epogen (Esrd)) 10,000 units MoWeFr@17 SC Last administered on 01/09/19 17:30; Admin Dose 10,000 UNITS; Start 01/09/19 at 17:00 Carvedilol (Coreg) 12.5 mg BID PO Last administered on 01/09/19 21:16; Admin D ose 12.5 MG; Start 01/09/19 at 21:00 Potassium Chloride (Klor-Con 20) 20 meq DAILY PO ; Start 01/10/19 at 09:00 Docusate Sodium (Colace) 200 mg HS PO Last administered on 01/09/19 21:14; Admin Dose 200 MG; Start 01/09/19 at 21:00 TAYLOR ADAM MD Jan 10, 2019 07:04
[2019-01-10] MEDS: FERROUS SULFATE (EC) 325 MG TAB PO SCH ×2 (08:53→21:02)
[2019-01-10] MEDS: FUROSEMIDE 20 MG TAB PO SCH (08:53)
[2019-01-10] MEDS: POTASSIUM CHLORIDE (SR) 20 MEQ TAB PO SCH (08:53)
[2019-01-10] MEDS: LISINOPRIL 10 MG TAB PO SCH ×2 (08:54→21:05)
--- NOTE | 2019-01-10 09:10 | CONS ---
Consult Date/Type/Reason Admit Date/Time Jan 05, 2019 at 17:45 Initial Consult Date 01/06/19 Date/Time of Note DATE: 01/10/19 TIME: 09:08 Subjective No new issues. Some sob and cough but overall breathing easier. Objective Vitals Vital Signs Date Temp Pulse Resp B/P (MAP) Pulse Ox O2 O2 Flow FiO2 Time Delivery Rate 01/10/19 99.1 79 18 177/76 92 Room Air 07:53 (109) 01/10/19 21 00:05 Intake and Output 01/09/19 01/09/19 01/10/19 1515:00 23:00 07:00 IntakeIntake Total 580 ml 920 ml 200 ml BalanceBalance 580 ml 920 ml 200 ml Exam NAD/A&Ox4 OP clear RRR no m/g/r Bilateral rales (right greater than left) Soft, NT, ND, +BS No c/c/e Results/Medications Result Diagram: 01/09/1944501/09/196 Results 24 hrs Laboratory Tests Test 01/09/19 12:08 01/09/19 12:10 01/10/19 08:28 Body Fluid Type PARACENTESIS FLUID THORACENTESIS Body Fluid Glucose 103 Body Fluid Total Protein 4.1 Body Fluid 854 Lactate Dehydrogenase Body Fluid Volume 400.0 Body Fluid Color YELLOW Body Fluid Appearance SLIGHTLY CLOUDY Body Fluid WBC 56325 Body Fluid RBC (Auto) 2000 Body Fluid Polynuclear 85.1 WBCs (%) Body Fluid Mononuclear 14.9 Cells % Auto Lactate Dehydrogenase 382 Home Meds Active Scripts Ferrous Sulfate* (Ferrous Sulfate*) 325 Mg Tabec, 325 MG PO BID for 30 Days, TAB Prov:RIANNA QUINTANA MD 10/22/18 Pantoprazole* (Pantoprazole*) 40 Mg Tablet.dr, 40 MG PO AC BREAKFAST for 30 Days, TAB Prov:RIANNA QUINTANA MD 10/22/18 Reported Medications Lisinopril* (Lisinopril*) 10 Mg Tablet, 10 MG PO BID, #30 TAB 05/24/17 Furosemide* (Furosemide*) 40 Mg Tablet, 40 MG PO DAILY, TAB 05/24/17 Atorvastatin* (Atorvastatin*) 40 Mg Tablet, 40 MG PO HS, TAB 12/23/14 Carvedilol* (Carvedilol*) 6.25 Mg Tablet, 6.25 MG PO BID, TAB 12/23/14 Discontinued Scripts Docusate Sodium* (Colace*) 100 Mg Capsule, 200 MG PO DAILY, #30 CAP Prov:RIANNA QUINTANA MD 10/22/18 Medications Current Medications Piperacillin Sod/ Tazobactam Sod 100 ml @ 200 mls/hr Q6 IVPB Last administered on 01/10/19 05:50; Admin Dose 200 MLS/HR; Start 01/05/19 at 18:00 Atorvastatin Calcium (Lipitor) 40 mg HS PO Last administered on 01/09/19 21:14; Admin Dose 40 MG; Start 01/06/19 at 21:00 Ferrous Sulfate (Ferrous Sulfate (Ec)) 325 mg BID PO Last administered on 01/10/19 08:53; Admin Dose 325 MG; Start 01/06/19 at 09:00 Lisinopril (Zestril) 10 mg BID PO Last administered on 01/10/19 08:54; Admin Dose 10 MG; Start 01/06/19 at 09:00 Pantoprazole (Protonix Tab) 40 mg AC BREAKFAST PO Last administered on 06:17; Admin Dose 40 MG; Start 01/06/19 at 07:00 Levalbuterol (Xopenex Neb) 0.63 mg Q8H RESP THERAPY HHN Last administered on 01/10/19 09:01; Admin Dose 0.63 MG; Start 01/06/19 at 00:00 Clonidine (Catapres) 0.1 mg Q6H PRN PO ELEVATED BLOOD PRESSURE Last administered on 01/09/19 14:35; Admin Dose 0.1 MG; Start 01/06/19 at 03:00 Furosemide (Lasix) 20 mg DAILY PO Last administered on 01/10/19 08:53; Admin Dose 20 MG; Start 01/07/19 at 09:00 Ferric Sodium Gluconate Complex 125 mg/Sodium Chloride 100 ml @ 100 mls/hr DAILY@1300 IVPB Last administered on 01/09/19 13:22; Admin Dose 100 MLS/HR; Start 01/09/19 at 13:00; Stop 01/11/19 at 13:59 Epoetin Arvin (Epogen (Esrd)) 10,000 units MoWeFr@17 SC Last administered on 2/8/19at 17:30; Admin Dose 10,000 UNITS; Start 01/09/19 at 17:00 Carvedilol (Coreg) 12.5 mg BID PO Last administered on 01/10/19at 08:53; Admin Dose 12.5 MG; Start 01/09/19 at 21:00 Potassium Chloride (Klor-Con 20) 20 meq DAILY PO Last administered on 01/10/19at 08:53; Admin Dose 20 MEQ; Start 01/10/19 at 09:00 Docusate Sodium (Colace) 200 mg HS PO Last administered on 01/09/19at 21:14; Admin Dose 200 MG; Start 01/09/19 at 21:00 Assessment/Plan Assessment/Plan (Daily) 1. Anemia: secondary to anemia of chronic disease (PNA). Associated with high ferritin, low TIBC, and elevated ESR. Given IV iron. Hb 8.3. Stable. 2. RML PNA: on abx. W/u ongoing 3. 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 Recommend Lovenox 30mg sq day. Will start. SUMI CHRISTIANSEN Jan 10, 2019 09:10
--- NOTE | 2019-01-10 11:23 | PN ---
Date/Time of Note Date/Time of Note DATE: 01/10/19 TIME: 11:21 Assessment/Plan VTE [place]phylaxis [place] [facility] [place]: 4 [place]CD applied [place] [facility] [place] Yes Pharmacological prophylaxis: NA/contraindicated Pharm contraindication: bleeding Lines/Catheters IV Catheter Type (from [facility] [place] Saline Lock Urinary Cath still in place: No Assessment/Plan Assessment/Plan (1) Right lung abcess vs post-obstructive pneumonia with necrosis Status: Acute Comment: Status post ultrasound guided thoracentesis. Discussed with Pulmonary consult re. bronchoscopy. Recheck clinical status on Saturday. For now, will continue antibiotics for probable pneumonia with abcess. Sputum and pleural fluid cultures and titers are pending. So far, AFB stain has been negative, but need to obtain 2 more AFB sputum , when AFB stains are negative times 3 , we can take patient off respiratory isolation. (2) Congestive heart failure Status: Chronic Comment: Continue carvedilol, lisinopril and lasix . (3) Elevated partial thromboplastin time (PTT) Status: Acute Comment: Work up per Heme/Onc shows presence of lupus anticoagulant which may increase risk of thrombotic events. Will need anticoagulant after patient is done with biopsy or bronchoscopy. (4) Anemia Status: Chronic Comment: work up and treatment per Heme. Patient does have gastric ulcer, esophagitis with hiatal hernia and colon polyp on previous GI work up but anemia is more severe than expected. (5) Hypertension/ Coronary artery disease Status: Chronic Comment: Increase carvedilol for rising bp. (6) Gastric ulcer/ GERD Status: Acute Comment: Continue pantoprazole. Result Diagram: 7 htn poor control. will add low dose amlodipine 2.5. Result Diagram: 01/09/19 0446 01/09/19 0446 Results 24hrs Laboratory Tests Test 01/09/19 12:08 01/09/19 12:10 01/10/19 08:28 Body Fluid Type PARACENTESIS FLUID THORACENTESIS Body Fluid Glucose 103 Body Fluid Total Protein 4.1 Body Fluid 854 Lactate Dehydrogenase Body Fluid Volume 400.0 Body Fluid Color YELLOW Body Fluid Appearance SLIGHTLY CLOUDY Body Fluid WBC 00616 Body Fluid RBC (Auto) 2000 Body Fluid Polynuclear 85.1 WBCs (%) Body Fluid Mononuclear 14.9 Cells % Auto Lactate Dehydrogenase 382 Subjective 24 Hr Interval Summary Free Text/Dictation denies any acute problems. denies n/v. does complain that it is cold in the room. Exam/Review of Systems Exam Vitals Vital Signs Date Temp Pulse Resp B/P (MAP) Pulse Ox O2 O2 Flow FiO2 Time Delivery Rate 01/10/19 99.1 79 18 177/76 92 Room Air 07:53 (109) 01/10/19 21 00:05 Intake and Output 01/09/19 01/09/19 01/10/19 1515:00 23:00 07:00 IntakeIntake Total 580 ml 920 ml 200 ml BalanceBalance 580 ml 920 ml 200 ml Exam talkative. alert Constitutional: alert Cardiovascular: regular rate and rhythm Results Results 24hrs Laboratory Tests Test 01/09/19 12:08 01/09/19 12:10 01/10/19 08:28 Body Fluid Type PARACENTESIS FLUID THORACENTESIS Body Fluid Glucose 103 Body Fluid Total Protein 4.1 Body Fluid 854 Lactate Dehydrogenase Body Fluid Volume 400.0 Body Fluid Color YELLOW Body Fluid Appearance SLIGHTLY CLOUDY Body Fluid WBC 81722 Body Fluid RBC (Auto) 2000 Body Fluid Polynuclear 85.1 WBCs (%) Body Fluid Mononuclear 14.9 Cells % Auto Lactate Dehydrogenase 382 Medications Medication Current Medications Piperacillin Sod/ Tazobactam Sod 100 ml @ 200 mls/hr Q6 IVPB Last administered on 01/10/19 05:50; Admin Dose 200 MLS/HR; Start 01/05/19 at 18:00 Atorvastatin Calcium (Lipitor) 40 mg HS PO Last administered on 01/09/19at 21:14; Admin Dose 40 MG; Start 01/06/19 at 21:00 Ferrous Sulfate (Ferrous Sulfate (Ec)) 325 mg BID PO Last administered on 01/10/19 08:53; Admin Dose 325 MG; Start 01/06/19 at 09:00 Lisinopril (Zestril) 10 mg BID PO Last administered on 01/10/19 08:54; Admin Dose 10 MG; Start 01/06/19 at 09:00 Pantoprazole (Protonix Tab) 40 mg AC BREAKFAST PO Last administered on 01/10/19 06:17; Admin Dose 40 MG; Start 01/06/19 at 07:00 Levalbuterol (Xopenex Neb) 0.63 mg Q8H RESP THERAPY HHN Last administered on 01/10/19 09:01; Admin Dose 0.63 MG; Start 01/06/19 at 00:00 Clonidine (Catapres) 0.1 mg Q6H PRN PO ELEVATED BLOOD PRESSURE Last administered on 01/09/19 14:35; Admin Dose 0.1 MG; Start 01/06/19 at 03:00 Furosemide (Lasix) 20 mg DAILY PO Last administered on 01/10/19 08:53; Admin Dose 20 MG; Start 01/07/19 at 09:00 Ferric Sodium Gluconate Complex 125 mg/Sodium Chloride 100 ml @ 100 mls/hr DAILY@1300 IVPB Last administered on 01/09/19 13:22; Admin Dose 100 MLS/HR; Start 01/09/19 at 13:00; Stop 01/11/19 at 13:59 Epoetin Arvin (Epogen (Esrd)) 10,000 units MoWeFr@17 SC Last administered on 01/09/19 17:30; Admin Dose 10,000 UNITS; Start 01/09/19 at 17:00 Carvedilol (Coreg) 12.5 mg BID PO Last administered on 01/10/19 08:53; Admin Dose 12.5 MG; Start 01/09/19 at 21:00 Potassium Chloride (Klor-Con 20) 20 meq DAILY PO Last administered on 01/10/19 08:53; Admin Dose 20 MEQ; Start 01/10/19 at 09:00 Docusate Sodium (Colace) 200 mg HS PO Last administered on 01/09/19 21:14; Admin Dose 200 MG; Start 01/09/19 at 21:00 Enoxaparin Sodium (Lovenox) 30 mg DAILY SC ; Start 01/10/19 at 09:30 KYLE ALONSO MD Jan 10, 2019 11:23
[2019-01-10] MEDS: ENOXAPARIN 30 MG/0.3 ML SYG SC SCH (11:34)
--- NOTE | 2019-01-10 12:33 | CONS ---
Consult Date/Type/Reason Admit Date/Time Jan 05, 2019 at 17:45 Initial Consult Date 01/06/19 Type of Consultation: PULM Date/Time of Note DATE: 01/10/19 TIME: 12:28 Subjective No overnight events. Resp status remains stable. Objective Vitals Vital Signs Date Temp Pulse Resp B/P (MAP) Pulse Ox O2 O2 Flow FiO2 Time Delivery Rate 01/10/19 99.1 79 18 177/76 92 Room Air 07:53 (109) 01/10/19 21 00:05 Intake and Output 01/09/19 01/09/19 01/10/19 1414:59 22:59 06:59 IntakeIntake Total 580 ml 920 ml 200 ml BalanceBalance 580 ml 920 ml 200 ml Exam HEENT: Neck supple; no JVD; no LAD CVS: RRR, S1 and S2 CHEST: Diminished BS right base/axilla ABD: Soft, NT, + BS EXT: No c/c/e Results/Medications Result Diagram: 01/09/1944501/09/196 Results 24 hrs Laboratory Tests Test 01/10/19 08:28 01/10/19 11:29 Lactate Dehydrogenase 382 Lab Scanned Report REFERENCE LAB Home Meds Active Scripts Ferrous Sulfate* (Ferrous Sulfate*) 325 Mg Tabec, 325 MG PO BID for 30 Days, TAB Prov:RIANNA QUINTANA MD 10/22/18 Pantoprazole* (Pantoprazole*) 40 Mg Tablet.dr, 40 MG PO AC BREAKFAST for 30 Days, TAB Prov:RIANNA QUINTANA MD 10/22/18 Reported Medications Lisinopril* (Lisinopril*) 10 Mg Tablet, 10 MG PO BID, #30 TAB 05/24/17 Furosemide* (Furosemide*) 40 Mg Tablet, 40 MG PO DAILY, TAB 05/24/17 Atorvastatin* (Atorvastatin*) 40 Mg Tablet, 40 MG PO HS, TAB 12/23/14 Carvedilol* (Carvedilol*) 6.25 Mg Tablet, 6.25 MG PO BID, TAB 12/23/14 Discontinued Scripts Docusate Sodium* (Colace*) 100 Mg Capsule, 200 MG PO DAILY, #30 CAP Prov:RIANNA QUINTANA MD 10/22/18 Medications Current Medications Piperacillin Sod/ Tazobactam Sod 100 ml @ 200 mls/hr Q6 IVPB Last administered on 01/10/19 11:30; Admin Dose 200 MLS/HR; Start 01/05/19 at 18:00 Atorvastatin Calcium (Lipitor) 40 mg HS PO Last administered on 01/09/19 21:14; Admin Dose 40 MG; Start 01/06/19 at 21:00 Ferrous Sulfate (Ferrous Sulfate (Ec)) 325 mg BID PO Last administered on 01/10/19 08:53; Admin Dose 325 MG; Start 01/06/19 at 09:00 Lisinopril (Zestril) 10 mg BID PO Last administered on 01/10/19 08:54; Admin Dose 10 MG; Start 01/06/19 at 09:00 Pantoprazole (Protonix Tab) 40 mg AC BREAKFAST PO Last administered on 01/10/19 06:17; Admin Dose 40 MG; Start 01/06/19 at 07:00 Levalbuterol (Xopenex Neb) 0.63 mg Q8H RESP THERAPY HHN Last administered on 01/10/19 09:01; Admin Dose 0.63 MG; Start 01/06/19 at 00:00 Clonidine (Catapres) 0.1 mg Q6H PRN PO ELEVATED BLOOD PRESSURE Last administered on 01/09/19 14:35; Admin Dose 0.1 MG; Start 01/06/19 at 03:00 Furosemide (Lasix) 20 mg DAILY PO Last administered on 01/10/19 08:53; Admin Dose 20 MG; Start 01/07/19 at 09:00 Ferric Sodium Gluconate Complex 125 mg/Sodium Chloride 100 ml @ 100 mls/hr DAILY@1300 IVPB Last administered on 01/09/19 13:22; Admin Dose 100 MLS/HR; Start 01/09/19 at 13:00; Stop 01/11/19 at 13:59 Epoetin Arvin (Epogen (Esrd)) 10,000 units MoWeFr@17 SC Last administered on 01/09/19 17:30; Admin Dose 10,000 UNITS; Start 01/09/19 at 17:00 Carvedilol (Coreg) 12.5 mg BID PO Last administered on 01/10/19 08:53; Admin Dose 12.5 MG; Start 01/09/19 at 21:00 Potassium Chloride (Klor-Con 20) 20 meq DAILY PO Last administered on 01/10/19at 08:53; Admin Dose 20 MEQ; Start 01/10/19 at 09:00 Docusate Sodium (Colace) 200 mg HS PO Last administered on 01/09/19at 21:14; Admin Dose 200 MG; Start 01/09/19 at 21:00 Enoxaparin Sodium (Lovenox) 30 mg DAILY SC Last administered on 01/10/19at 11:34; Admin Dose 30 MG; Start 01/10/19 at 09:30 Amlodipine Besylate (Norvasc) 2.5 mg DAILY PO ; Start 01/10/19 at 12:30 Assessment/Plan Assessment/Plan (Daily) IMP: 1. RML heterogenous/necrotic opacity--c/w lung abscess. However, cannot exclude a primary necrotic NSCLC. 2. Neutrophilic-predominant right-sided exudative effusion--likely related to #1. RECS: 1. Would favor 4-6 week course of abx with augmentin followed by repeat chest imaging. 2. CT chest does not show obvious proximal obstructive lesion which could contribute to the development of a post-obstructive pna; therefore, bronchoscopy will likely be low yield. ABELINO NGUYEN MD Jan 10, 2019 12:33
[2019-01-10] MEDS: SOD FERRIC GLUC COMPLX 125 MG in SOD CHLORIDE 0.9% 100 ML IVPB SCH (12:55)
[2019-01-10] MEDS: AMLODIPINE 2.5 MG TAB PO SCH (13:01)
[2019-01-10] MEDS: DOCUSATE SODIUM 100 MG CAP PO SCH (21:02)
[2019-01-10] MEDS: ATORVASTATIN 40 MG TAB PO SCH (21:02)
[2019-01-11] MEDS: PIPER-TAZO 3.375 GM IV (PMX) 100 ML IVPB SCH ×4 (00:41→17:37)
[2019-01-11 02:00] VITALS: BP 131/57; PULSE 70; RESP 16
[2019-01-11] MEDS: PANTOPRAZOLE (EC) 40 MG TAB PO SCH (05:55)
[2019-01-11] MEDS: LEVALBUTEROL (NEB) 0.63 MG/3 ML AMP HHN SCH ×4 (08:00→23:28)
--- NOTE | 2019-01-11 08:12 | CONS ---
Consult Date/Type/Reason Admit Date/Time Jan 05, 2019 at 17:45 Initial Consult Date 01/06/19 Type of Consultation: PULM Date/Time of Note DATE: 01/11/19 TIME: 08:09 Subjective No new issues. Denies significant sob. No fevers or chills. Objective Vitals Vital Signs Date Temp Pulse Resp B/P (MAP) Pulse Ox O2 O2 Flow FiO2 Time Delivery Rate 01/11/19 98.9 70 16 131/57 91 02:00 (81) 01/11/19 21 01:19 01/10/19 Room Air 14:00 Intake and Output 01/10/19 01/10/19 01/11/19 1515:00 23:00 07:00 IntakeIntake Total 800 ml 220 ml 200 ml BalanceBalance 800 ml 220 ml 200 ml Exam NAD/A&Ox3 OP clear Bilateral rales RRR no m/g/r Soft, NT, ND, +BS No c/c/e Skin: exam without signs of rashes Neuro: non-focal Results/Medications Result Diagram: 01/09/1944501/09/196 Results 24 hrs Laboratory Tests Test 01/10/19 08:28 01/10/19 11:29 Lactate Dehydrogenase 382 Lab Scanned Report REFERENCE LAB Home Meds Active Scripts Ferrous Sulfate* (Ferrous Sulfate*) 325 Mg Tabec, 325 MG PO BID for 30 Days, TAB Prov:RIANNA QUINTANA MD 10/22/18 Pantoprazole* (Pantoprazole*) 40 Mg Tablet.dr, 40 MG PO AC BREAKFAST for 30 Days, TAB Prov:RIANNA QUINTANA MD 10/22/18 Reported Medications Lisinopril* (Lisinopril*) 10 Mg Tablet, 10 MG PO BID, #30 TAB 05/24/17 Furosemide* (Furosemide*) 40 Mg Tablet, 40 MG PO DAILY, TAB 05/24/17 Atorvastatin* (Atorvastatin*) 40 Mg Tablet, 40 MG PO HS, TAB 12/23/14 Carvedilol* (Carvedilol*) 6.25 Mg Tablet, 6.25 MG PO BID, TAB 12/23/14 Discontinued Scripts Docusate Sodium* (Colace*) 100 Mg Capsule, 200 MG PO DAILY, #30 CAP Prov:RIANNA QUINTANA MD 10/22/18 Medications Current Medications Piperacillin Sod/ Tazobactam Sod 100 ml @ 200 mls/hr Q6 IVPB Last administered on 01/11/19 05:54; Admin Dose 200 MLS/HR; Start 01/05/19 at 18:00 Atorvastatin Calcium (Lipitor) 40 mg HS PO Last administered on 01/10/19 21:02; Admin Dose 40 MG; Start 01/06/19 at 21:00 Ferrous Sulfate (Ferrous Sulfate (Ec)) 325 mg BID PO Last administered on 01/10/19 21:02; Admin Dose 325 MG; Start 01/06/19 at 09:00 Lisinopril (Zestril) 10 mg BID PO Last administered on 01/10/19 21:05; Admin Dose 10 MG; Start 01/06/19 at 09:00 Pantoprazole (Protonix Tab) 40 mg AC BREAKFAST PO Last administered on 01/11/19 05:55; Admin Dose 40 MG; Start 01/06/19 at 07:00 Levalbuterol (Xopenex Neb) 0.63 mg Q8H RESP THERAPY HHN Last administered on 01/10/19 09:01; Admin Dose 0.63 MG; Start 01/06/19 at 00:00 Clonidine (Catapres) 0.1 mg Q6H PRN PO ELEVATED BLOOD PRESSURE Last administered on 01/10/19 18:29; Admin Dose 0.1 MG; Start 01/06/19 at 03:00 Furosemide (Lasix) 20 mg DAILY PO Last administered on 01/10/19 08:53; Admin Dose 20 MG; Start 01/07/19 at 09:00 Ferric Sodium Gluconate Complex 125 mg/Sodium Chloride 100 ml @ 100 mls/hr DAILY@1300 IVPB Last administered on 01/10/19 12:55; Admin Dose 100 MLS/HR; Start 01/09/19 at 13:00; Stop 01/11/19 at 13:59 Epoetin Arvin (Epogen (Esrd)) 10,000 units MoWeFr@17 SC Last administered on 01/09/19 17:30; Admin Dose 10,000 UNITS; Start 01/09/19 at 17:00 Carvedilol (Coreg) 12.5 mg BID PO Last administered on 01/10/19 21:05; Admin Dose 12.5 MG; Start 01/09/19 at 21:00 Potassium Chloride (Klor-Con 20) 20 meq DAILY PO Last administered on 01/10/19at 08:53; Admin Dose 20 MEQ; Start 01/10/19 at 09:00 Docusate Sodium (Colace) 200 mg HS PO Last administered on 01/10/19at 21:02; Admin Dose 200 MG; Start 01/09/19 at 21:00 Enoxaparin Sodium (Lovenox) 30 mg DAILY SC Last administered on 01/10/19at 11:34; Admin Dose 30 MG; Start 01/10/19 at 09:30 Amlodipine Besylate (Norvasc) 2.5 mg DAILY PO Last administered on 01/10/19 13:01; Admin Dose 2.5 MG; Start 01/10/19 at 12:30 Assessment/Plan Assessment/Plan (Daily) Pt with h/o anemia secondary to chronic disease (PNA). On Zosyn. Recent pleural effusion which is exudative. Cultures negative today. Hb as of 01/09 stable. Pt is s/p IV iron and is on Epo 3x per week. Started on Lovenox for dvt ppx. Will check CBC in am. Cont supportive care. SUMI CHRISTIANSEN Jan 11, 2019 08:12
[2019-01-11 08:24] VITALS: BP 165/72; PULSE 78; RESP 18
[2019-01-11] MEDS: FERROUS SULFATE (EC) 325 MG TAB PO SCH ×2 (08:43→20:21)
[2019-01-11] MEDS: FUROSEMIDE 20 MG TAB PO SCH (08:43)
[2019-01-11] MEDS: LISINOPRIL 10 MG TAB PO SCH ×2 (08:43→20:21)
[2019-01-11] MEDS: AMLODIPINE 2.5 MG TAB PO SCH (08:44)
[2019-01-11] MEDS: ENOXAPARIN 30 MG/0.3 ML SYG SC SCH (08:49)
[2019-01-11] MEDS: POTASSIUM CHLORIDE (SR) 20 MEQ TAB PO SCH (08:50)
--- NOTE | 2019-01-11 11:12 | PN ---
Date/Time of Note Date/Time of Note DATE: 01/11/19 TIME: 11:08 Assessment/Plan VTE Prophylaxis Risk score (from Ns)>0 risk: 4 SCD applied (from Ns): Yes Pharmacological prophylaxis: LMWH Lines/Catheters IV C[facility] Type [facility]from [facility] Saline Lock Urinary Cath still in place: No Assessment/Plan Assessment/Plan (1) Right lung abcess vs post-obstructive pneumonia with necrosis Status: Acute Comment: Status post ultrasound guided thoracentesis. Discussed with Pulmonary consult re. bronchoscopy. Recheck clinical status on Saturday. For now, will continue antibiotics for probable pneumonia with abcess. Sputum and pleural fluid cultures and titers are pending. So far, AFB stain has been negative, when AFB stains are negative times 3 , we can take patient off respiratory isolation. (2) Congestive heart failure Status: Chronic Comment: Continue carvedilol, lisinopril and lasix . (3) Elevated partial thromboplastin time (PTT) Status: Acute Comment: Work up per Heme/Onc shows presence of lupus anticoagulant which may increase risk of thrombotic events. Will need anticoagulant after patient is done with biopsy or bronchoscopy. (4) Anemia Status: Chronic Comment: work up and treatment per Heme. Patient does have gastric ulcer, esophagitis with hiatal hernia and colon polyp on previous GI work up but anemia is more severe than expected. hgb been stable at 8.3. on fe iv and epo 3x/wk. (5) Hypertension/ Coronary artery disease Status: Chronic Comment: Increase carvedilol for rising bp. on low dose lisinopril. amlodipine added 01/10 due to elevation. improved in past 24 hours. (6) Gastric ulcer/ GERD Status: Acute Comment: Continue pantoprazole. Result Diagram: Result Diagram: 01/11/19 0853 01/09/19 0446 Results 24hrs Laboratory Tests Test 01/10/19 11:29 01/11/19 08:53 Lab Scanned Report REFERENCE LAB White Blood Count 9.7 Red Blood Count 3.09 L Hemoglobin 8.3 L Hematocrit 27.4 L Mean Corpuscular Volume 88.7 Mean Corpuscular Hemoglobin 26.9 L Mean Corpuscular Hemoglobin Concent 30.3 L Red Cell Distribution Width 23.9 H Platelet Count 465 H Mean Platelet Volume 8.7 Immature Granulocytes % 0.800 H Neutrophils % 75.3 Lymphocytes % 16.7 Monocytes % 6.0 Eosinophils % 1.0 Basophils % 0.2 Nucleated Red Blood Cells % 0.0 Immature Granulocytes # 0.080 H Neutrophils # 7.3 Lymphocytes # 1.6 Monocytes # 0.6 Eosinophils # 0.1 Basophils # 0.0 Nucleated Red Blood Cells # 0.0 Subjective 24 Hr Interval Summary Free Text/Dictation in good mood. no new c/o still very cold in her room Exam/Review of Systems Exam Vitals Vital Signs Date Temp Pulse Resp B/P (MAP) Pulse Ox O2 O2 Flow FiO2 Time Delivery Rate 01/11/19 98.8 78 18 165/72 95 Room Air 08:24 (103) 01/11/19 21 01:19 Intake and Output 01/10/19 01/10/19 01/11/19 1515:00 23:00 07:00 IntakeIntake Total 800 ml 220 ml 200 ml BalanceBalance 800 ml 220 ml 200 ml Results Results 24hrs Laboratory Tests Test 01/10/19 11:29 01/11/19 08:53 Lab Scanned Report REFERENCE LAB White Blood Count 9.7 Red Blood Count 3.09 L Hemoglobin 8.3 L Hematocrit 27.4 L Mean Corpuscular Volume 88.7 Mean Corpuscular Hemoglobin 26.9 L Mean Corpuscular Hemoglobin Concent 30.3 L Red Cell Distribution Width 23.9 H Platelet Count 465 H Mean Platelet Volume 8.7 Immature Granulocytes % 0.800 H Neutrophils % 75.3 Lymphocytes % 16.7 Monocytes % 6.0 Eosinophils % 1.0 Basophils % 0.2 Nucleated Red Blood Cells % 0.0 Immature Granulocytes # 0.080 H Neutrophils # 7.3 Lymphocytes # 1.6 Monocytes # 0.6 Eosinophils # 0.1 Basophils # 0.0 Nucleated Red Blood Cells # 0.0 Medications Medication Current Medications Piperacillin Sod/ Tazobactam Sod 100 ml @ 200 mls/hr Q6 IVPB Last administered on 01/11/19at 05:54; Admin Dose 200 MLS/HR; Start 01/05/19 at 18:00 Atorvastatin Calcium (Lipitor) 40 mg HS PO Last administered on 01/10/19at 21:02; Admin Dose 40 MG; Start 01/06/19 at 21:00 Ferrous Sulfate (Ferrous Sulfate (Ec)) 325 mg BID PO Last administered on 01/11/19at 08:43; Admin Dose 325 MG; Start 01/06/19 at 09:00 Lisinopril (Zestril) 10 mg BID PO Last administered on 01/11/19 08:43; Admin Dose 10 MG; Start 01/06/19 at 09:00 Pantoprazole (Protonix Tab) 40 mg AC BREAKFAST PO Last administered on 01/11/19 05:55; Admin Dose 40 MG; Start 01/06/19 at 07:00 Levalbuterol (Xopenex Neb) 0.63 mg Q8H RESP THERAPY HHN Last administered on 01/10/19 09:01; Admin Dose 0.63 MG; Start 01/06/19 at 00:00 Clonidine (Catapres) 0.1 mg Q6H PRN PO ELEVATED BLOOD PRESSURE Last administered on 01/10/19 18:29; Admin Dose 0.1 MG; Start 01/06/19 at 03:00 Furosemide (Lasix) 20 mg DAILY PO Last administered on 01/11/19 08:43; Admin Dose 20 MG; Start 01/07/19 at 09:00 Ferric Sodium Gluconate Complex 125 mg/Sodium Chloride 100 ml @ 100 mls/hr DAILY@1300 IVPB Last administered on 01/10/19 12:55; Admin Dose 100 MLS/HR; Start 01/09/19 at 13:00; Stop 01/11/19 at 13:59 Epoetin Arvin (Epogen (Esrd)) 10,000 units MoWeFr@17 SC Last administered on 01/09/19 17:30; Admin Dose 10,000 UNITS; Start 01/09/19 at 17:00 Carvedilol (Coreg) 12.5 mg BID PO Last administered on 01/11/19 08:44; Admin Dose 12.5 MG; Start 01/09/19 at 21:00 Potassium Chloride (Klor-Con 20) 20 meq DAILY PO Last administered on 01/11/19 08:50; Admin Dose 20 MEQ; Start 01/10/19 at 09:00 Docusate Sodium (Colace) 200 mg HS PO Last administered on 01/10/19 21:02; Admi n Dose 200 MG; Start 01/09/19 at 21:00 Enoxaparin Sodium (Lovenox) 30 mg DAILY SC Last administered on 01/11/19 08:49; Admin Dose 30 MG; Start 01/10/19 at 09:30 Amlodipine Besylate (Norvasc) 2.5 mg DAILY PO Last administered on 01/11/19 08:44; Admin Dose 2.5 MG; Start 01/10/19 at 12:30 KYLE ALONSO MD Jan 11, 2019 11:12
--- NOTE | 2019-01-11 12:40 | CONS ---
Consult Date/Type/Reason Admit Date/Time Jan 05, 2019 at 17:45 Initial Consult Date 01/06/19 Type of Consultation: PULM Date/Time of Note DATE: 01/11/19 TIME: 12:39 Subjective No events overnight. Objective Vitals Vital Signs Date Temp Pulse Resp B/P (MAP) Pulse Ox O2 O2 Flow FiO2 Time Delivery Rate 01/11/19 98.8 78 18 165/72 95 Room Air 08:24 (103) 01/11/19 21 01:19 Intake and Output 01/10/19 01/10/19 01/11/19 1515:00 23:00 07:00 IntakeIntake Total 800 ml 220 ml 200 ml BalanceBalance 800 ml 220 ml 200 ml Exam HEENT: Neck supple; no JVD; no LAD CVS: RRR, S1 and S2 CHEST: Diminished BS right base/axilla ABD: Soft, NT, + BS EXT: No c/c/e Results/Medications Result Diagram: 01/11/19 0853 01/09/19 0446 Results 24 hrs Laboratory Tests Test 01/11/19 08:53 White Blood Count 9.7 Red Blood Count 3.09 L Hemoglobin 8.3 L Hematocrit 27.4 L Mean Corpuscular Volume 88.7 Mean Corpuscular Hemoglobin 26.9 L Mean Corpuscular Hemoglobin Concent 30.3 L Red Cell Distribution Width 23.9 H Platelet Count 465 H Mean Platelet Volume 8.7 Immature Granulocytes % 0.800 H Neutrophils % 75.3 Lymphocytes % 16.7 Monocytes % 6.0 Eosinophils % 1.0 Basophils % 0.2 Nucleated Red Blood Cells % 0.0 Immature Granulocytes # 0.080 H Neutrophils # 7.3 Lymphocytes # 1.6 Monocytes # 0.6 Eosinophils # 0.1 Basophils # 0.0 Nucleated Red Blood Cells # 0.0 Home Meds Active Scripts Ferrous Sulfate* (Ferrous Sulfate*) 325 Mg Tabec, 325 MG PO BID for 30 Days, TAB Prov:RIANNA QUINTANA MD 10/22/18 Pantoprazole* (Pantoprazole*) 40 Mg Tablet.dr, 40 MG PO AC BREAKFAST for 30 Days, TAB Prov:RIANNA QUINTANA MD 10/22/18 Reported Medications Lisinopril* (Lisinopril*) 10 Mg Tablet, 10 MG PO BID, #30 TAB 05/24/17 Furosemide* (Furosemide*) 40 Mg Tablet, 40 MG PO DAILY, TAB 05/24/17 Atorvastatin* (Atorvastatin*) 40 Mg Tablet, 40 MG PO HS, TAB 12/23/14 Carvedilol* (Carvedilol*) 6.25 Mg Tablet, 6.25 MG PO BID, TAB 12/23/14 Discontinued Scripts Docusate Sodium* (Colace*) 100 Mg Capsule, 200 MG PO DAILY, #30 CAP Prov:RIANNA QUINTANA MD 10/22/18 Medications Current Medications Piperacillin Sod/ Tazobactam Sod 100 ml @ 200 mls/hr Q6 IVPB Last administered on 01/11/19 11:31; Admin Dose 200 MLS/HR; Start 01/05/19 at 18:00 Atorvastatin Calcium (Lipitor) 40 mg HS PO Last administered on 01/10/19 21:02; Admin Dose 40 MG; Start 01/06/19 at 21:00 Ferrous Sulfate (Ferrous Sulfate (Ec)) 325 mg BID PO Last administered on 01/11/19 08:43; Admin Dose 325 MG; Start 01/06/19 at 09:00 Lisinopril (Zestril) 10 mg BID PO Last administered on 01/11/19 08:43; Admin Dose 10 MG; Start 01/06/19 at 09:00 Pantoprazole (Protonix Tab) 40 mg AC BREAKFAST PO Last administered on 01/11/19 05:55; Admin Dose 40 MG; Start 01/06/19 at 07:00 Levalbuterol (Xopenex Neb) 0.63 mg Q8H RESP THERAPY HHN Last administered on 01/10/19 09:01; Admin Dose 0.63 MG; Start 01/06/19 at 00:00 Clonidine (Catapres) 0.1 mg Q6H PRN PO ELEVATED BLOOD PRESSURE Last administered on 01/10/19 18:29; Admin Dose 0.1 MG; Start 01/06/19 at 03:00 Furosemide (Lasix) 20 mg DAILY PO Last administered on 01/11/19 08:43; Admin Dose 20 MG; Start 01/07/19 at 09:00 Ferric Sodium Gluconate Complex 125 mg/Sodium Chloride 100 ml @ 100 mls/hr DAILY@1300 IVPB Last administered on 01/10/19 12:55; Admin Dose 100 MLS/HR; Start 01/09/19 at 13:00; Stop 01/11/19 at 13:59 Epoetin Arvin (Epogen (Esrd)) 10,000 units MoWeFr@17 SC Last administered on 01/09/19 17:30; Admin Dose 10,000 UNITS; Start 01/09/19 at 17:00 Carvedilol (Coreg) 12.5 mg BID PO Last administered on 01/11/19 08:44; Admin Dose 12.5 MG; Start 01/09/19 at 21:00 Potassium Chloride (Klor-Con 20) 20 meq DAILY PO Last administered on 01/11/19 08:50; Admin Dose 20 MEQ; Start 01/10/19 at 09:00 Docusate Sodium (Colace) 200 mg HS PO Last administered on 01/10/19 21:02; Admin Dose 200 MG; Start 01/09/19 at 21:00 Enoxaparin Sodium (Lovenox) 30 mg DAILY SC Last administered on 01/11/19 08:49; Admin Dose 30 MG; Start 01/10/19 at 09:30 Amlodipine Besylate (Norvasc) 2.5 mg DAILY PO Last administered on 01/11/19 08:44; Admin Dose 2.5 MG; Start 01/10/19 at 12:30 Assessment/Plan Assessment/Plan (Daily) IMP: 1. RML heterogenous/necrotic opacity--c/w lung abscess. However, cannot exclude a primary necrotic NSCLC. 2. Neutrophilic-predominant right-sided exudative effusion--likely related to #1. RECS: 1. Would favor 4-6 week course of abx with augmentin followed by repeat chest imaging. 2. CT chest does not show obvious proximal obstructive lesion which could contribute to the development of a post-obstructive pna; therefore, bronchoscopy will likely be low yield.Will defer decision to Dr. Bartlett who will see patient tomorrow. ABELINO NGUYEN MD Jan 11, 2019 12:40
[2019-01-11] MEDS: SOD FERRIC GLUC COMPLX 125 MG in SOD CHLORIDE 0.9% 100 ML IVPB SCH (12:49)
[2019-01-11 14:20] VITALS: BP 145/78; PULSE 78; RESP 18
[2019-01-11 19:58] VITALS: BP 165/72; PULSE 81; RESP 16
[2019-01-11] MEDS: ATORVASTATIN 40 MG TAB PO SCH (20:20)
[2019-01-11] MEDS: DOCUSATE SODIUM 100 MG CAP PO SCH (20:21)
[2019-01-12] MEDS: PIPER-TAZO 3.375 GM IV (PMX) 100 ML IVPB SCH ×2 (00:05→05:55)
[2019-01-12 01:26] VITALS: BP 166/70; PULSE 80; RESP 16
[2019-01-12] MEDS: PANTOPRAZOLE (EC) 40 MG TAB PO SCH (05:55)
--- NOTE | 2019-01-12 07:22 | CONS ---
Assessment/Plan Assessment/Plan Hospital Course (Demo Recall) 1) probable lung abscess with an indolent course the usual therapy is a prolonged course of antibiotics continue with zosyn at present (unasyn would be sufficient but there is a supply problem with unasyn at present) I have ordered routine sputum cx, nasal swab for MRSA and AFB culture and smear she is a prior smoker so atypical mycobacteria is a possibility I have ordered quant TB gold but doubt she has TB but with lung abscess that is always a possibility I have ordered beta d glucan and coccidiodomycosis titers also I have also ordered procalcitonin 01/07 - sputum cx was just sent to micro this a.m. continue with zosyn and when sputum cx is done can likely fashion an oral antibiotic regimen 01/08 - nasal for MRSA was neg, sputum cx is only yeast at this time continue with zosyn I will order chest U/S to quantify the fluid collection and see if it appears more like an abscess or pleural effusion and if accessible by IR 01/09 - moderate pleural effusion seen I have order u/s guided thorancentesis with routine, fungal and AFB cx, LDH, pH, glucose, protein and serum LDH continue with zosyn, sputum cx only had c.alb which is likely a colonizer 01/10 - pt has exudative fluid, around 500cc removed, pH was not done and I have just ordered the cell count on the fluid in lab LDH from serum was not done as ordered either, will order one today cx from pleural fluid are pending, cytology for pleural fluid ordered today continue with zosyn special serologies are pending 01/12 - JAZMIN was neg, TB gold was indeterminant beta d glucan was neg, so fungal infection of lung is unlikely pt is stable for discharge will change zosyn to augmentin if no bronchoscopy is planned can d/c on po augmentin (pt will likely need 1-2 months of it) and get repeat CXR in 3-4 weeks 2) CAD with hx of angioplasty and stenting 3) hx of CHF 4) HTN 5) elevated cholesterol 6) hx of GI bleed 7) ARF hydration is already bringing the creatinine down u/a, urine cx are pending 01/07 - spoke to nurse as u/a and urine cx are uncollected 01/08 - u/a is benign looking and creatinine is back to baseline Consultation Date/Type/Reason Admit Date/Time Jan 05, 2019 at 17:45 Initial Consult Date 01/06/19 Type of Consult ID Date/Time of Note DATE: 01/12/19 TIME: 07:13 24 HR Interval Summary Free Text/Dictation pt is stable no N, V, D no longer has a productive cough Exam/Review of Systems Exam Vitals Vital Signs Date Temp Pulse Resp B/P (MAP) Pulse Ox O2 O2 Flow FiO2 Time Delivery Rate 01/12/19 98.0 80 16 166/70 91 01:26 (102) 01/11/19 21 23:28 01/11/19 Room Air 14:20 Intake and Output 01/11/19 01/11/19 01/12/19 1515:00 23:00 07:00 IntakeIntake Total 820 ml 240 ml 200 ml BalanceBalance 820 ml 240 ml 200 ml Constitutional: alert, oriented Eyes: nl sclera ENMT: mucosa pink and moist Respiratory: clear to auscultation Cardiovascular: regular rate and rhythm Gastrointestinal: soft, non-tender Extremities: other (no swelling) Results Result Diagram: 01/12/19 0429 01/09/19 0446 Results 24hrs Laboratory Tests Test 01/11/19 08:53 01/12/19 04:29 White Blood Count 9.7 9.0 Red Blood Count 3.09 L 2.99 L Hemoglobin 8.3 L 8.2 L Hematocrit 27.4 L 26.2 L Mean Corpuscular Volume 88.7 87.6 Mean Corpuscular Hemoglobin 26.9 L 27.4 L Mean Corpuscular Hemoglobin Concent 30.3 L 31.3 L Red Cell Distribution Width 23.9 H 23.9 H Platelet Count 465 H 477 H Mean Platelet Volume 8.7 9.0 Immature Granulocytes % 0.800 H 0.800 H Neutrophils % 75.3 69.7 Lymphocytes % 16.7 20.9 Monocytes % 6.0 7.2 Eosinophils % 1.0 1.1 Basophils % 0.2 0.3 Nucleated Red Blood Cells % 0.0 0.0 Immature Granulocytes # 0.080 H 0.070 H Neutrophils # 7.3 6.2 Lymphocytes # 1.6 1.9 Monocytes # 0.6 0.6 Eosinophils # 0.1 0.1 Basophils # 0.0 0.0 Nucleated Red Blood Cells # 0.0 0.0 Medications Medication Current Medications Piperacillin Sod/ Tazobactam Sod 100 ml @ 200 mls/hr Q6 IVPB Last administered on 01/12/19 05:55; Admin Dose 200 MLS/HR; Start 01/05/19 at 18:00 Atorvastatin Calcium (Lipitor) 40 mg HS PO Last administered on 01/11/19 20:20; Admin Dose 40 MG; Start 01/06/19 at 21:00 Ferrous Sulfate (Ferrous Sulfate (Ec)) 325 mg BID PO Last administered on 01/11/19 20:21; Admin Dose 325 MG; Start 01/06/19 at 09:00 Lisinopril (Zestril) 10 mg BID PO Last administered on 01/11/19 20:21; Admin Dose 10 MG; Start 01/06/19 at 09:00 Pantoprazole (Protonix Tab) 40 mg AC BREAKFAST PO Last administered on 01/12/19 05:55; Admin Dose 40 MG; Start 01/06/19 at 07:00 Levalbuterol (Xopenex Neb) 0.63 mg Q8H RESP THERAPY HHN Last administered on 01/11/19 13:44; Admin Dose 0.63 MG; Start 01/06/19 at 00:00 Clonidine (Catapres) 0.1 mg Q6H PRN PO ELEVATED BLOOD PRESSURE Last administered on 01/10/19 18:29; Admin Dose 0.1 MG; Start 01/06/19 at 03:00 Furosemide (Lasix) 20 mg DAILY PO Last administered on 01/11/19 08:43; Admin Dose 20 MG; Start 01/07/19 at 09:00 Epoetin Arvin (Epogen (Esrd)) 10,000 units MoWeFr@17 SC Last administered on 01/09/19 17:30; Admin Dose 10,000 UNITS; Start 01/09/19 at 17:00 Carvedilol (Coreg) 12.5 mg BID PO Last administered on 01/11/19 20:21; Admin Dose 12.5 MG; Start 01/09/19 at 21:00 Potassium Chloride (Klor-Con 20) 20 meq DAILY PO Last administered on 01/11/19 08:50; Admin Dose 20 MEQ; Start 01/10/19 at 09:00 Docusate Sodium (Colace) 200 mg HS PO Last administered on 01/11/19at 20:21; Admin Dose 200 MG; Start 01/09/19 at 21:00 Enoxaparin Sodium (Lovenox) 30 mg DAILY SC Last administered on 01/11/19at 08:49; Admin Dose 30 MG; Start 01/10/19 at 09:30 Amlodipine Besylate (Norvasc) 2.5 mg DAILY PO Last administered on 01/11/19at 08:44; Admin Dose 2.5 MG; Start 01/10/19 at 12:30 TAYLOR ADAM MD Jan 12, 2019 07:22
[2019-01-12 07:36] VITALS: BP 196/84; PULSE 78; RESP 20
[2019-01-12 07:39] VITALS: BP 204/85
[2019-01-12] MEDS: AMLODIPINE 2.5 MG TAB PO SCH (08:26)
[2019-01-12] MEDS: AMOXICILLIN/CLAV 875 MG TAB PO SCH ×2 (08:26→21:02)
[2019-01-12] MEDS: LISINOPRIL 10 MG TAB PO SCH ×2 (08:26→21:02)
[2019-01-12] MEDS: FERROUS SULFATE (EC) 325 MG TAB PO SCH ×2 (08:27→21:02)
[2019-01-12] MEDS: POTASSIUM CHLORIDE (SR) 20 MEQ TAB PO SCH (08:27)
[2019-01-12] MEDS: FUROSEMIDE 20 MG TAB PO SCH (08:28)
--- NOTE | 2019-01-12 08:28 | PN ---
DATE: 01/09/2019 SUBJECTIVE: The patient states that she is feeling "sleepy today." She is not experiencing any ches t pain, cough or shortness of breath. She has had no shaking chills. OBJECTIVE: GENERAL: The patient is a well-developed, well-nourished female in no acute distress. VITAL SIGNS: Temperature 97.9, pulse 80 per minute and regular, respirations 18, blood pressure 169/ 77, pulse oximetry 92% on room air. SKIN: No ecchymosis, no petechiae or rashes. HEENT: Normocephalic. No evidence of trauma. Pupils equal, round, react to light and accommodation . Sclerae nonicteric. Oral mucosa moist without lesions. Conjunctivae and mucosa are pale. There are no telangiectasias. NECK: Supple. No jugular venous distention or thyroid enlargement. CHEST: Clear to auscultation and percussion. No rhonchi, wheezes, rales or rubs. NODES: No palpable lymphadenopathy in any lymph node bearing area. LUNGS: Decreased breath sounds on the right side. There are no changes. There is some dullness to percussion. HEART: Regular sinus rhythm, no S3, S4 or murmurs. No rubs. ABDOMEN: Soft, no masses, no ascites. Bowel sounds are active. EXTREMITIES: No clubbing, edema or cyanosis. No palpable cords or Homans sign. NEUROLOGIC: Normal. Regular sinus rhythm, no S3, S4 or murmurs. No rubs. ABDOMEN: Soft, no masses, no ascites. EXTREMITIES: Good range of motion. No clubbing, no edema or cyanosis. No palpable cords or Homans sign. NEUROLOGIC: Normal. LABORATORY DATA: White count 9200, hemoglobin 8.3, hematocrit 26.9, platelet count is 470,000. Sodium 141, potassium 3.5, BUN 5 and creatinine 0.69. ASSESSMENT: 1. 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 2. Right middle lobe consolidation, rule out a postobstructive pneumonia versus tuberculosis. 3. Lupus anticoagulant. Patient is receiving parenteral iron. She has received 125 mg of elemental iron thus far and is to r eceive 2 more infusions, giving a total of 375 mg of elemental iron. The patient is also receiving epoetin, 10,000 units on Saturday, Saturday and Saturday. Dr. Alvarez has requested a thoracentesis. The fluid will be sent for cultures as well as protein, gluc ose, etc. As noted previously, patient does have a prolonged PTT, but this is on the basis of "lupus anticoagul ant" and this should not be associated with any hemorrhagic complications. Dictated By: ATILIO PARKER MD SR/NTS Conf#: [id number] DID#: [id number] CC: RIANNA QUINTANA MD;*[facility]*
[2019-01-12] MEDS: ENOXAPARIN 30 MG/0.3 ML SYG SC SCH (09:20)
[2019-01-12] MEDS: LEVALBUTEROL (NEB) 0.63 MG/3 ML AMP HHN SCH ×2 (09:22→16:00)
[2019-01-12 14:03] VITALS: BP 198/74; PULSE 76; RESP 18
--- NOTE | 2019-01-12 15:12 | CONS ---
Consult Date/Type/Reason Admit Date/Time Jan 05, 2019 at 17:45 Initial Consult Date 01/06/19 Type of Consult Pulmonary Date/Time of Note DATE: 01/12/19 TIME: 15:11 Subjective Patient comfortable this morning no respiratory distress. Imaging and labs reviewed. Objective Vital Signs Date Temp Pulse Resp B/P (MAP) Pulse Ox O2 O2 Flow FiO2 Time Delivery Rate 01/12/19 97.6 76 18 198/74 96 Room Air 14:03 (115) 01/12/19 21 09:23 Intake and Output 01/11/19 01/11/19 01/12/19 1414:59 22:59 06:59 IntakeIntake Total 820 ml 240 ml 200 ml BalanceBalance 820 ml 240 ml 200 ml Exam GENERAL: VITAL SIGNS: per chart NECK: Supple. No JVD or lymphadenopathy. CARDIAC EXAM: S1, S2. No added sounds or murmurs. CHEST: clear bilaterally, No added sounds, rales or wheezes ABDOMEN: Soft, nontender. No guarding or rebound. EXTREMITIES: No cyanosis, clubbing or edema. NEUROLOGIC: Generalized weakness. No focal deficits. Vent Setting Fraction of Inspired Oxygen pe: 21 Results/Medications Result Diagram: 01/12/19 0429 01/09/19 0446 Results 24 hrs Laboratory Tests Test 01/12/19 04:29 01/12/19 12:35 White Blood Count 9.0 Red Blood Count 2.99 L Hemoglobin 8.2 L Hematocrit 26.2 L Mean Corpuscular Volume 87.6 Mean Corpuscular Hemoglobin 27.4 L Mean Corpuscular Hemoglobin Concent 31.3 L Red Cell Distribution Width 23.9 H Platelet Count 477 H Mean Platelet Volume 9.0 Immature Granulocytes % 0.800 H Neutrophils % 69.7 Lymphocytes % 20.9 Monocytes % 7.2 Eosinophils % 1.1 Basophils % 0.3 Nucleated Red Blood Cells % 0.0 Immature Granulocytes # 0.070 H Neutrophils # 6.2 Lymphocytes # 1.9 Monocytes # 0.6 Eosinophils # 0.1 Basophils # 0.0 Nucleated Red Blood Cells # 0.0 Stool Occult Blood POSITIVE Medications Current Medications Atorvastatin Calcium (Lipitor) 40 mg HS PO Last administered on 01/11/19at 20:20; Admin Dose 40 MG; Start 01/06/19 at 21:00 Ferrous Sulfate (Ferrous Sulfate (Ec)) 325 mg BID PO Last administered on 01/12/19 08:27; Admin Dose 325 MG; Start 01/06/19 at 09:00 Lisinopril (Zestril) 10 mg BID PO Last administered on 01/12/19 08:26; Admin Dose 10 MG; Start 01/06/19 at 09:00 Pantoprazole (Protonix Tab) 40 mg AC BREAKFAST PO Last administered on 01/12/19 05:55; Admin Dose 40 MG; Start 01/06/19 at 07:00 Levalbuterol (Xopenex Neb) 0.63 mg Q8H RESP THERAPY HHN Last administered on 01/12/19 09:22; Admin Dose 0.63 MG; Start 01/06/19 at 00:00 Clonidine (Catapres) 0.1 mg Q6H PRN PO ELEVATED BLOOD PRESSURE Last administered on 01/12/19 14:15; Admin Dose 0.1 MG; Start 01/06/19 at 03:00 Furosemide (Lasix) 20 mg DAILY PO Last administered on 01/12/19 08:28; Admin Dose 20 MG; Start 01/07/19 at 09:00 Epoetin Arvin (Epogen (Esrd)) 10,000 units MoWeFr@17 SC Last administered on 01/09/19 17:30; Admin Dose 10,000 UNITS; Start 01/09/19 at 17:00 Carvedilol (Coreg) 12.5 mg BID PO Last administered on 01/12/19 08:28; Admin Dose 12.5 MG; Start 01/09/19 at 21:00 Potassium Chloride (Klor-Con 20) 20 meq DAILY PO Last administered on 01/12/19 08:27; Admin Dose 20 MEQ; Start 01/10/19 at 09:00 Docusate Sodium (Colace) 200 mg HS PO Last administered on 01/11/19 20:21; Admin Dose 200 MG; Start 01/09/19 at 21:00 Enoxaparin Sodium (Lovenox) 30 mg DAILY SC Last administered on 01/12/19 09:20; Admin Dose 30 MG; Start 01/10/19 at 09:30 Amlodipine Besylate (Norvasc) 2.5 mg DAILY PO Last administered on 01/12/19 08:26; Admin Dose 2.5 MG; Start 01/10/19 at 12:30 Amoxicillin/ Clavulanate Potassium (Augmentin) 875 mg BID PO Last administered on 01/12/19at 08:26; Admin Dose 875 MG; Start 01/12/19 at 09:00 Assessment/Plan Hospital Course (Demo Recall) Assessment/Plan (Daily) IMP: 1. RML heterogenous/necrotic opacity--c/w lung abscess. However, cannot exclude a primary necrotic NSCLC. 2. Neutrophilic-predominant right-sided exudative effusion--likely related to #1. RECS: 1. Would favor 4-6 week course of abx with augmentin followed by repeat chest imaging. 2. CT chest reviewed. I would treat with p.o. Augmentin for 6 weeks and repeat chest imaging if still unchanged and proceed for bronchoscopy and/or VATS biopsy at that time. LAURA LOTT MD, [facility] Jan 12, 2019 15:12
--- NOTE | 2019-01-12 16:32 | PN ---
Date/Time of Note Date/Time of Note DATE: 01/12/19 TIME: 16:04 Assessment/Plan VTE Prophylaxis Risk score (from Ns)>0 risk: 4 SCD applied (from Ns): Yes Pharmacological prophylaxis: LMWH Lines/Catheters IV [facility]ter [facility]from [facility] Saline Lock Urinary Cath still in place: No Assessment/Plan Assessment/Plan (1) Right lung abcess vs post-obstructive pneumonia with necrosis Status: Acute Comment: AFB stain negative x3, will d/c isolation precaution so we can start PT for ambulation to see whether patient can go home or to SNF. Agree with ID and Pulmonary consults' plan for 6 weeks of oral antibiotics followed by imaging. (2) Anemia Status: Chronic Comment: agree with Iron and procrit treatment per Heme. Consider transfusion prior to discharge to home. Patient does have gastric ulcer, esophagitis with hiatal hernia and colon polyp on previous GI work up but anemia is more severe than expected. Will follow up with Dr. Pennington as outpatient. (3) Elevated partial thromboplastin time (PTT) Status: Acute Comment: Work up per Heme/Onc shows presence of lupus anticoagulant which may increase risk of thrombotic events. Patient currently on Lovenox but Coumadin may be contraindicated in this patient with history of GI bleed and current OB positive stool. (4) Hypertension Status: Chronic Comment: Increasing systolic bp despite addition of amlodipine and increase of carvedilol may be due to stress, cold, or less likely new onset secondary hypertension. Will consider abdominal CT angiogram for renal artery stenosis since patient has known atherosclerotic vascular disease. (5) Congestive heart failure Status: Chronic Comment: Continue carvedilol, lisinopril and lasix . (6) Gastric ulcer/ GERD Status: Acute Comment: Continue pantoprazole. Result Diagram: 01/12/19 0429 01/09/19 0446 Results 24hrs Laboratory Tests Test 01/12/19 04:29 01/12/19 12:35 White Blood Count 9.0 Red Blood Count 2.99 L Hemoglobin 8.2 L Hematocrit 26.2 L Mean Corpuscular Volume 87.6 Mean Corpuscular Hemoglobin 27.4 L Mean Corpuscular Hemoglobin Concent 31.3 L Red Cell Distribution Width 23.9 H Platelet Count 477 H Mean Platelet Volume 9.0 Immature Granulocytes % 0.800 H Neutrophils % 69.7 Lymphocytes % 20.9 Monocytes % 7.2 Eosinophils % 1.1 Basophils % 0.3 Nucleated Red Blood Cells % 0.0 Immature Granulocytes # 0.070 H Neutrophils # 6.2 Lymphocytes # 1.9 Monocytes # 0.6 Eosinophils # 0.1 Basophils # 0.0 Nucleated Red Blood Cells # 0.0 Stool Occult Blood POSITIVE Subjective 24 Hr Interval Summary Free Text/Dictation patient complains of the room being very cold throughout the day and last night. Constitutional: no complaints Exam/Review of Systems Exam Vitals Vital Signs Date Temp Pulse Resp B/P (MAP) Pulse Ox O2 O2 Flow FiO2 Time Delivery Rate 01/12/19 97.6 76 18 198/74 96 Room Air 14:03 (115) 01/12/19 21 09:23 Intake and Output 01/11/19 01/11/19 01/12/19 1515:00 23:00 07:00 IntakeIntake Total 820 ml 240 ml 200 ml BalanceBalance 820 ml 240 ml 200 ml Head: normocephalic, atraumatic Respiratory: clear to auscultation Cardiovascular: regular rate and rhythm Gastrointestinal: soft, non-tender Musculoskeletal: nl extremities to inspection Results Results 24hrs Laboratory Tests Test 01/12/19 04:29 01/12/19 12:35 White Blood Count 9.0 Red Blood Count 2.99 L Hemoglobin 8.2 L Hematocrit 26.2 L Mean Corpuscular Volume 87.6 Mean Corpuscular Hemoglobin 27.4 L Mean Corpuscular Hemoglobin Concent 31.3 L Red Cell Distribution Width 23.9 H Platelet Count 477 H Mean Platelet Volume 9.0 Immature Granulocytes % 0.800 H Neutrophils % 69.7 Lymphocytes % 20.9 Monocytes % 7.2 Eosinophils % 1.1 Basophils % 0.3 Nucleated Red Blood Cells % 0.0 Immature Granulocytes # 0.070 H Neutrophils # 6.2 Lymphocytes # 1.9 Monocytes # 0.6 Eosinophils # 0.1 Basophils # 0.0 Nucleated Red Blood Cells # 0.0 Stool Occult Blood POSITIVE Medications Medication Current Medications Atorvastatin Calcium (Lipitor) 40 mg HS PO Last administered on 01/11/19at 20:20; Admin Dose 40 MG; Start 01/06/19 at 21:00 Ferrous Sulfate (Ferrous Sulfate (Ec)) 325 mg BID PO Last administered on 01/12/19at 08:27; Admin Dose 325 MG; Start 01/06/19 at 09:00 Lisinopril (Zestril) 10 mg BID PO Last administered on 01/12/19 08:26; Admin Dose 10 MG; Start 01/06/19 at 09:00 Pantoprazole (Protonix Tab) 40 mg AC BREAKFAST PO Last administered on 01/12/19 05:55; Admin Dose 40 MG; Start 01/06/19 at 07:00 Levalbuterol (Xopenex Neb) 0.63 mg Q8H RESP THERAPY HHN Last administered on 01/12/19 09:22; Admin Dose 0.63 MG; Start 01/06/19 at 00:00 Clonidine (Catapres) 0.1 mg Q6H PRN PO ELEVATED BLOOD PRESSURE Last administered on 01/12/19 14:15; Admin Dose 0.1 MG; Start 01/06/19 at 03:00 Furosemide (Lasix) 20 mg DAILY PO Last administered on 01/12/19 08:28; Admin Dose 20 MG; Start 01/07/19 at 09:00 Epoetin Arvin (Epogen (Esrd)) 10,000 units MoWeFr@17 SC Last administered on 01/09/19 17:30; Admin Dose 10,000 UNITS; Start 01/09/19 at 17:00 Carvedilol (Coreg) 12.5 mg BID PO Last administered on 01/12/19 08:28; Admin Dose 12.5 MG; Start 01/09/19 at 21:00 Potassium Chloride (Klor-Con 20) 20 meq DAILY PO Last administered on 01/12/19 08:27; Admin Dose 20 MEQ; Start 01/10/19 at 09:00 Docusate Sodium (Colace) 200 mg HS PO Last administered on 01/11/19 20:21; Admin Dose 200 MG; Start 01/09/19 at 21:00 Enoxaparin Sodium (Lovenox) 30 mg DAILY SC Last administered on 01/12/19 09:20; Admin Dose 30 MG; Start 01/10/19 at 09:30 Amlodipine Besylate (Norvasc) 2.5 mg DAILY PO Last administered on 01/12/19 08:26; Admin Dose 2.5 MG; Start 2/9/19 at 12:30 Amoxicillin/ Clavulanate Potassium (Augmentin) 875 mg BID PO Last administered on 01/12/19at 08:26; Admin Dose 875 MG; Start 01/12/19 at 09:00 RIANNA QUINTANA MD Jan 12, 2019 16:19
[2019-01-12] MEDS: EPOETIN 10000 UNITS/1 ML INJ (ESRD) SC SCH (17:52)
[2019-01-12 19:28] VITALS: BP 147/68; PULSE 80; RESP 16
[2019-01-12] MEDS: ATORVASTATIN 40 MG TAB PO SCH (21:01)
[2019-01-12] MEDS: DOCUSATE SODIUM 100 MG CAP PO SCH (21:02)
[2019-01-13 00:56] VITALS: BP 157/68; PULSE 81; RESP 18
[2019-01-13] MEDS: PANTOPRAZOLE (EC) 40 MG TAB PO SCH (06:14)
[2019-01-13 07:39] VITALS: BP 181/78; PULSE 76; RESP 20
[2019-01-13] MEDS: FERROUS SULFATE (EC) 325 MG TAB PO SCH ×2 (08:36→21:01)
[2019-01-13] MEDS: POTASSIUM CHLORIDE (SR) 20 MEQ TAB PO SCH (08:36)
[2019-01-13] MEDS: FUROSEMIDE 20 MG TAB PO SCH (08:36)
[2019-01-13] MEDS: LISINOPRIL 10 MG TAB PO SCH ×2 (08:36→21:01)
[2019-01-13] MEDS: AMOXICILLIN/CLAV 875 MG TAB PO SCH ×2 (08:37→21:01)
[2019-01-13] MEDS: AMLODIPINE 2.5 MG TAB PO SCH (08:37)
[2019-01-13] MEDS: LEVALBUTEROL (NEB) 0.63 MG/3 ML AMP HHN SCH ×3 (08:39→16:36)
[2019-01-13] MEDS: ENOXAPARIN 30 MG/0.3 ML SYG SC SCH (08:42)
--- NOTE | 2019-01-13 11:31 | CONS ---
Consult Date/Type/Reason Admit Date/Time Jan 05, 2019 at 17:45 Initial Consult Date 01/06/19 Type of Consult Pulmonary Date/Time of Note DATE: 01/13/19 TIME: 11:30 Subjective Stable this morning denies cough or shortness of breath. Objective Vital Signs Date Temp Pulse Resp B/P (MAP) Pulse Ox O2 O2 Flow FiO2 Time Delivery Rate 01/13/19 82 20 95 21 08:39 01/13/19 98.6 181/78 07:39 (112) 01/12/19 Room Air 14:03 Intake and Output 01/12/19 01/12/19 01/13/19 1515:00 23:00 07:00 IntakeIntake Total 1240 ml 600 ml 180 ml BalanceBalance 1240 ml 600 ml 180 ml Exam GENERAL: Well-nourished well-developed lady comfortable at rest no acute distress VITAL SIGNS: per chart NECK: Supple. No JVD or lymphadenopathy. CARDIAC EXAM: S1, S2. No added sounds or murmurs. CHEST: clear bilaterally, No added sounds, rales or wheezes ABDOMEN: Soft, nontender. No guarding or rebound. EXTREMITIES: No cyanosis, clubbing or edema. NEUROLOGIC: Generalized weakness. No focal deficits. Vent Setting Fraction of Inspired Oxygen pe: 21 Results/Medications Result Diagram: 01/13/19 0552 01/09/19 0446 Results 24 hrs Laboratory Tests Test 01/12/19 12:35 01/13/19 05:52 Stool Occult Blood POSITIVE White Blood Count 9.2 Red Blood Count 2.80 L Hemoglobin 7.7 L Hematocrit 24.8 L Mean Corpuscular Volume 88.6 Mean Corpuscular Hemoglobin 27.5 L Mean Corpuscular Hemoglobin Concent 31.0 L Red Cell Distribution Width 23.7 H Platelet Count 445 H Mean Platelet Volume 8.5 Immature Granulocytes % 0.700 H Neutrophils % 64.8 Lymphocytes % 25.2 Monocytes % 8.2 Eosinophils % 0.9 Basophils % 0.2 Nucleated Red Blood Cells % 0.0 Immature Granulocytes # 0.060 H Neutrophils # 6.0 Lymphocytes # 2.3 Monocytes # 0.8 Eosinophils # 0.1 Basophils # 0.0 Nucleated Red Blood Cells # 0.0 Absolute Reticulocyte Count 0.102 Percent Reticulocyte Count 3.6 H Medications Current Medications Atorvastatin Calcium (Lipitor) 40 mg HS PO Last administered on 2/11/19at 21:01; Admin Dose 40 MG; Start 01/06/19 at 21:00 Ferrous Sulfate (Ferrous Sulfate (Ec)) 325 mg BID PO Last administered on 01/13/19 08:36; Admin Dose 325 MG; Start 01/06/19 at 09:00 Lisinopril (Zestril) 10 mg BID PO Last administered on 01/13/19 08:36; Admin Dose 10 MG; Start 01/06/19 at 09:00 Pantoprazole (Protonix Tab) 40 mg AC BREAKFAST PO Last administered on 01/13/19 06:14; Admin Dose 40 MG; Start 01/06/19 at 07:00 Levalbuterol (Xopenex Neb) 0.63 mg Q8H RESP THERAPY HHN Last administered on 01/13/19 08:39; Admin Dose 0.63 MG; Start 01/06/19 at 00:00 Clonidine (Catapres) 0.1 mg Q6H PRN PO ELEVATED BLOOD PRESSURE Last administered on 01/12/19 14:15; Admin Dose 0.1 MG; Start 01/06/19 at 03:00 Furosemide (Lasix) 20 mg DAILY PO Last administered on 01/13/19 08:36; Admin Dose 20 MG; Start 01/07/19 at 09:00 Epoetin Arvin (Epogen (Esrd)) 10,000 units MoWeFr@17 SC Last administered on 01/12/19 17:52; Admin Dose 10,000 UNITS; Start 01/09/19 at 17:00 Carvedilol (Coreg) 12.5 mg BID PO Last administered on 01/13/19 08:35; Admin Dose 12.5 MG; Start 01/09/19 at 21:00 Potassium Chloride (Klor-Con 20) 20 meq DAILY PO Last administered on 01/13/19 08:36; Admin Dose 20 MEQ; Start 01/10/19 at 09:00 Docusate Sodium (Colace) 200 mg HS PO Last administered on 01/12/19 21:02; Admin Dose 200 MG; Start 01/09/19 at 21:00 Enoxaparin Sodium (Lovenox) 30 mg DAILY SC Last administered on 01/13/19 08:42; Admin Dose 30 MG; Start 01/10/19 at 09:30 Amlodipine Besylate (Norvasc) 2.5 mg DAILY PO Last administered on 01/13/19at 08:37; Admin Dose 2.5 MG; Start 01/10/19 at 12:30 Amoxicillin/ Clavulanate Potassium (Augmentin) 875 mg BID PO Last administered on 01/13/19at 08:37; Admin Dose 875 MG; Start 01/12/19 at 09:00 Assessment/Plan Hospital Course (Demo Recall) Assessment/Plan IMP: 1. RML heterogenous/necrotic opacity--c/w lung abscess. However, cannot exclude a primary necrotic NSCLC. 2. Neutrophilic-predominant right-sided exudative effusion--likely related to #1. Cytology pending RECS: 1. Continue 4-6-week course of p.o. antibiotics 2. Repeat chest imaging in 4-6 weeks. If no improvement then proceed to bronchoscopy and/or VATS biopsy. Patient stable for discharge from pulmonary standpoint LAURA LOTT MD, [facility] Jan 13, 2019 11:31
[2019-01-13 14:13] VITALS: BP 119/56; PULSE 72; RESP 20
[2019-01-13 19:13] VITALS: BP 154/67; PULSE 76; RESP 18
--- NOTE | 2019-01-13 19:16 | PN ---
Date/Time of Note Date/Time of Note DATE: 01/13/19 TIME: 19:08 Assessment/Plan VTE Prophylaxis Risk score (from [facility])>0 risk: 3 SCD applied (from [facility]): Yes Pharmacological prophylaxis: NA/contraindicated Pharm contraindication: bleeding Lines/Catheters IV [facility]ter [facility]from [facility] Saline Lock Urinary Cath still in place: No Assessment/Plan Assessment/Plan (1) Right lung abcess vs post-obstructive pneumonia with necrosis Status: Acute Comment: AFB stain negative x3, starting PT treatment for weakness. Agree with ID and Pulmonary consults' plan for 6 weeks of oral antibiotics followed by imaging. (2) Anemia Status: Chronic Comment: H/H dropped further today, will transfuse 2 units of PRBC prior to discharge to home. Patient does have gastric ulcer, esophagitis with hiatal hernia and colon polyp on previous GI work up and stool OB is positive. Will discontinue lovenox for now and notify Dr. Pennington in case in wants to do further work up. (3) Elevated partial thromboplastin time (PTT) Status: Acute Comment: Work up per Heme/Onc shows presence of lupus anticoagulant which may increase risk of thrombotic events. Unfortunately, Lovenox and Coumadin is contraindicated in this patient with history of GI bleed and current OB positive stool. (4) Hypertension Status: Chronic Comment: Improving bp with addition of amlodipine and increase of carvedilol. (5) Congestive heart failure Status: Chronic Comment: Continue carvedilol, lisinopril and lasix . (6) Gastric ulcer/ GERD Status: Acute Comment: Continue pantoprazole. Check with Dr. Pennington regarding rescheduling of SBFT. Result Diagram: 01/13/19 0552 01/09/19 0446 Results 24hrs Laboratory Tests Test 01/13/19 05:52 01/13/19 12:28 White Blood Count 9.2 Red Blood Count 2.80 L Hemoglobin 7.7 L Hematocrit 24.8 L Mean Corpuscular Volume 88.6 Mean Corpuscular Hemoglobin 27.5 L Mean Corpuscular Hemoglobin Concent 31.0 L Red Cell Distribution Width 23.7 H Platelet Count 445 H Mean Platelet Volume 8.5 Immature Granulocytes % 0.700 H Neutrophils % 64.8 Lymphocytes % 25.2 Monocytes % 8.2 Eosinophils % 0.9 Basophils % 0.2 Nucleated Red Blood Cells % 0.0 Immature Granulocytes # 0.060 H Neutrophils # 6.0 Lymphocytes # 2.3 Monocytes # 0.8 Eosinophils # 0.1 Basophils # 0.0 Nucleated Red Blood Cells # 0.0 Absolute Reticulocyte Count 0.102 Percent Reticulocyte Count 3.6 H Lab Scanned Report REFERENCE LAB Subjective 24 Hr Interval Summary Free Text/Dictation Patient feels stronger today, was able to ambulate around the room and in the hallways. Constitutional: no complaints Exam/Review of Systems Exam Vitals Vital Signs Date Temp Pulse Resp B/P (MAP) Pulse Ox O2 O2 Flow FiO2 Time Delivery Rate 01/13/19 74 18 95 21 16:37 01/13/19 97.5 119/56 14:13 (77) 01/12/19 Room Air 14:03 Intake and Output 01/12/19 01/12/19 01/13/19 1515:00 23:00 07:00 IntakeIntake Total 1240 ml 600 ml 180 ml BalanceBalance 1240 ml 600 ml 180 ml Constitutional: alert, oriented Head: normocephalic, atraumatic ENMT: nl external ears & nose Respiratory: clear to auscultation Cardiovascular: regular rate and rhythm Gastrointestinal: soft, non-tender Musculoskeletal: nl extremities to inspection Extremities: normal pulses Results Results 24hrs Laboratory Tests Test 01/13/19 05:52 01/13/19 12:28 White Blood Count 9.2 Red Blood Count 2.80 L Hemoglobin 7.7 L Hematocrit 24.8 L Mean Corpuscular Volume 88.6 Mean Corpuscular Hemoglobin 27.5 L Mean Corpuscular Hemoglobin Concent 31.0 L Red Cell Distribution Width 23.7 H Platelet Count 445 H Mean Platelet Volume 8.5 Immature Granulocytes % 0.700 H Neutrophils % 64.8 Lymphocytes % 25.2 Monocytes % 8.2 Eosinophils % 0.9 Basophils % 0.2 Nucleated Red Blood Cells % 0.0 Immature Granulocytes # 0.060 H Neutrophils # 6.0 Lymphocytes # 2.3 Monocytes # 0.8 Eosinophils # 0.1 Basophils # 0.0 Nucleated Red Blood Cells # 0.0 Absolute Reticulocyte Count 0.102 Percent Reticulocyte Count 3.6 H Lab Scanned Report REFERENCE LAB Medications Medication Current Medications Atorvastatin Calcium (Lipitor) 40 mg HS PO Last administered on 01/12/19at 21:01; Admin Dose 40 MG; Start 01/06/19 at 21:00 Ferrous Sulfate (Ferrous Sulfate (Ec)) 325 mg BID PO Last administered on 01/13/19 08:36; Admin Dose 325 MG; Start 01/06/19 at 09:00 Lisinopril (Zestril) 10 mg BID PO Last administered on 01/13/19 08:36; Admin Dose 10 MG; Start 01/06/19 at 09:00 Pantoprazole (Protonix Tab) 40 mg AC BREAKFAST PO Last administered on 01/13/19 06:14; Admin Dose 40 MG; Start 01/06/19 at 07:00 Levalbuterol (Xopenex Neb) 0.63 mg Q8H RESP THERAPY HHN Last administered on 01/13/19 16:36; Admin Dose 0.63 MG; Start 01/06/19 at 00:00 Clonidine (Catapres) 0.1 mg Q6H PRN PO ELEVATED BLOOD PRESSURE Last administered on 01/12/19 14:15; Admin Dose 0.1 MG; Start 01/06/19 at 03:00 Furosemide (Lasix) 20 mg DAILY PO Last administered on 01/13/19 08:36; Admin Dose 20 MG; Start 01/07/19 at 09:00 Epoetin Arvin (Epogen (Esrd)) 10,000 units MoWeFr@17 SC Last administered on 01/12/19 17:52; Admin Dose 10,000 UNITS; Start 01/09/19 at 17:00 Carvedilol (Coreg) 12.5 mg BID PO Last administered on 01/13/19 08:35; Admin Dose 12.5 MG; Start 01/09/19 at 21:00 Potassium Chloride (Klor-Con 20) 20 meq DAILY PO Last administered on 01/13/19 08:36; Admin Dose 20 MEQ; Start 01/10/19 at 09:00 Docusate Sodium (Colace) 200 mg HS PO Last administered on 01/12/19 21:02; Admin Dose 200 MG; Start 01/09/19 at 21:00 Amlodipine Besylate (Norvasc) 2.5 mg DAILY PO Last administered on 01/13/19 08:37; Admin Dose 2.5 MG; Start 2/9/19 at 12:30 Amoxicillin/ Clavulanate Potassium (Augmentin) 875 mg BID PO Last administered on 01/13/19at 08:37; Admin Dose 875 MG; Start 01/12/19 at 09:00 RIANNA QUINTANA MD Jan 13, 2019 19:16
[2019-01-13] MEDS: DOCUSATE SODIUM 100 MG CAP PO SCH (21:00)
[2019-01-13] MEDS: ATORVASTATIN 40 MG TAB PO SCH (21:00)
[2019-01-14 01:35] VITALS: BP 148/64; PULSE 79; RESP 18
[2019-01-14] MEDS: PANTOPRAZOLE (EC) 40 MG TAB PO SCH (07:00)
--- NOTE | 2019-01-14 07:26 | CONS ---
Assessment/Plan Assessment/Plan Hospital Course (Demo Recall) 1) probable lung abscess with an indolent course the usual therapy is a prolonged course of antibiotics continue with zosyn at present (unasyn would be sufficient but there is a supply problem with unasyn at present) I have ordered routine sputum cx, nasal swab for MRSA and AFB culture and smear she is a prior smoker so atypical mycobacteria is a possibility I have ordered quant TB gold but doubt she has TB but with lung abscess that is always a possibility I have ordered beta d glucan and coccidiodomycosis titers also I have also ordered procalcitonin 01/07 - sputum cx was just sent to micro this a.m. continue with zosyn and when sputum cx is done can likely fashion an oral antibiotic regimen 01/08 - nasal for MRSA was neg, sputum cx is only yeast at this time continue with zosyn I will order chest U/S to quantify the fluid collection and see if it appears more like an abscess or pleural effusion and if accessible by IR 01/09 - moderate pleural effusion seen I have order u/s guided thorancentesis with routine, fungal and AFB cx, LDH, pH, glucose, protein and serum LDH continue with zosyn, sputum cx only had c.alb which is likely a colonizer 01/10 - pt has exudative fluid, around 500cc removed, pH was not done and I have just ordered the cell count on the fluid in lab LDH from serum was not done as ordered either, will order one today cx from pleural fluid are pending, cytology for pleural fluid ordered today continue with zosyn special serologies are pending 01/12 - JAZMIN was neg, TB gold was indeterminant beta d glucan was neg, so fungal infection of lung is unlikely pt is stable for discharge will change zosyn to augmentin if no bronchoscopy is planned can d/c on po augmentin (pt will likely need 1-2 months of it) and get repeat CXR in 3-4 weeks 01/14 - cocci titers were negative continue with po augmentin, to get outpt CXR or CT chest to follow up on lung lesion procalcitonin was neg but it is often negative with parapneumonic complicated effusions 2) CAD with hx of angioplasty and stenting 3) hx of CHF 4) HTN 5) elevated cholesterol 6) hx of GI bleed 01/14 - pt was Tx yesterday with good response and to get SBFT today 7) ARF hydration is already bringing the creatinine down u/a, urine cx are pending 01/07 - spoke to nurse as u/a and urine cx are uncollected 01/08 - u/a is benign looking and creatinine is back to baseline Consultation Date/Type/Reason Admit Date/Time Jan 05, 2019 at 17:45 Initial Consult Date 01/06/19 Type of Consult ID Date/Time of Note DATE: 01/14/19 TIME: 07:23 24 HR Interval Summary Free Text/Dictation pt states she is not coughing no SOB, N, V, D she was walking around yesterday pt is getting SBFT today and is NPO but wants to have breakfast Exam/Review of Systems Exam Vitals Vital Signs Date Temp Pulse Resp B/P (MAP) Pulse Ox O2 O2 Flow FiO2 Time Delivery Rate 01/14/19 97.8 79 18 148/64 93 01:35 (92) 01/13/19 21 16:37 01/12/19 Room Air 14:03 Intake and Output 01/13/19 01/13/19 01/14/19 1515:00 23:00 07:00 IntakeIntake Total 1240 ml 1070 ml BalanceBalance 1240 ml 1070 ml Constitutional: alert, oriented Eyes: nl sclera ENMT: mucosa pink and moist Respiratory: other (r base crackles) Cardiovascular: regular rate and rhythm Gastrointestinal: soft, non-tender Results Result Diagram: 01/14/19 0443 01/14/19 0443 Results 24hrs Laboratory Tests Test 01/13/19 12:28 01/13/19 22:19 01/14/19 04:43 Lab Scanned Report REFERENCE LAB Hemoglobin 8.9 L 9.5 L Hematocrit 28.0 L 30.4 L White Blood Count 10.0 Red Blood Count 3.42 #L Mean Corpuscular Volume 88.9 Mean Corpuscular Hemoglobin 27.8 L Mean Corpuscular 31.3 L Hemoglobin Concent Red Cell Distribution Width 21.8 H Platelet Count 455 H Mean Platelet Volume 8.8 Immature Granulocytes % 0.500 H Neutrophils % 66.6 Lymphocytes % 25.0 Monocytes % 7.0 Eosinophils % 0.7 Basophils % 0.2 Nucleated Red Blood Cells % 0.0 Immature Granulocytes # 0.050 H Neutrophils # 6.6 Lymphocytes # 2.5 Monocytes # 0.7 Eosinophils # 0.1 Basophils # 0.0 Nucleated Red Blood Cells # 0.0 Sodium Level 143 Potassium Level 3.3 L Chloride Level 103 Carbon Dioxide Level 30 Anion Gap 10 Blood Urea Nitrogen 5 L Creatinine 0.65 Est Glomerular Filtrat Rate mL/min Glucose Level 94 Calcium Level 8.8 Medications Medication Current Medications Atorvastatin Calcium (Lipitor) 40 mg HS PO Last administered on 01/13/19 21:00; Admin Dose 40 MG; Start 01/06/19 at 21:00 Ferrous Sulfate (Ferrous Sulfate (Ec)) 325 mg BID PO Last administered on 01/13/19 21:01; Admin Dose 325 MG; Start 01/06/19 at 09:00 Lisinopril (Zestril) 10 mg BID PO Last administered on 01/13/19 21:01; Admin Dose 10 MG; Start 01/06/19 at 09:00 Pantoprazole (Protonix Tab) 40 mg AC BREAKFAST PO Last administered on 01/13/19 06:14; Admin Dose 40 MG; Start 01/06/19 at 07:00 Levalbuterol (Xopenex Neb) 0.63 mg Q8H RESP THERAPY HHN Last administered on 01/13/19 16:36; Admin Dose 0.63 MG; Start 01/06/19 at 00:00 Clonidine (Catapres) 0.1 mg Q6H PRN PO ELEVATED BLOOD PRESSURE Last administered on 01/12/19 14:15; Admin Dose 0.1 MG; Start 01/06/19 at 03:00 Furosemide (Lasix) 20 mg DAILY PO Last administered on 01/13/19 08:36; Admin Dose 20 MG; Start 01/07/19 at 09:00 Epoetin Arvin (Epogen (Esrd)) 10,000 units MoWeFr@17 SC Last administered on 01/12/19 17:52; Admin Dose 10,000 UNITS; Start 01/09/19 at 17:00 Carvedilol (Coreg) 12.5 mg BID PO Last administered on 01/13/19 21:02; Admin Dose 12.5 MG; Start 01/09/19 at 21:00 Potassium Chloride (Klor-Con 20) 20 meq DAILY PO Last administered on 01/13/19 08:36; Admin Dose 20 MEQ; Start 01/10/19 at 09:00 Docusate Sodium (Colace) 200 mg HS PO Last administered on 01/13/19at 21:00; Admin Dose 200 MG; Start 01/09/19 at 21:00 Amlodipine Besylate (Norvasc) 2.5 mg DAILY PO Last administered on 01/13/19at 08:37; Admin Dose 2.5 MG; Start 01/10/19 at 12:30 Amoxicillin/ Clavulanate Potassium (Augmentin) 875 mg BID PO Last administered on 01/13/19at 21:01; Admin Dose 875 MG; Start 01/12/19 at 09:00 TAYLOR ADAM MD Jan 14, 2019 07:26
[2019-01-14 07:56] VITALS: BP 195/81; PULSE 75; RESP 16
[2019-01-14] MEDS: LEVALBUTEROL (NEB) 0.63 MG/3 ML AMP HHN SCH ×4 (08:00→23:45)
--- NOTE | 2019-01-14 08:00 | CONS ---
DATE OF ADMISSION: 01/05/2019 DATE OF CONSULTATION: TYPE OF CONSULTATION: Gastroenterology. Dear Dr. Rianna Burton: Thank you for asking me to see Mrs. Moseley in GI consultation. HISTORY OF PRESENT ILLNESS: The patient, as you know, is an 88-year-old white female who is admitted to the hospital with admitting diagnosis of a mass in the right lung, arteriosclerotic heart disease with congestive heart failure, history of anemia, gastric ulcer, hypertension, elevated PTT. From the GI standpoint, consultation is requested because of anemia with hemoglobin of 7.7. The kelechi ent has no history of passing bright red blood from the rectum. No history of hematemesis. She has other medical problems essentially as mentioned. MEDICATIONS PRIOR TO THE ADMISSION: Include: 1. Ferrous sulfate. 2. Atorvastatin. 3. Carvedilol. 4. Lisinopril. 5. Furosemide. 6. Pantoprazole. PAST MEDICAL HISTORY: She did have GI bleeding in the past. Please refer to the history and physical for more information. PHYSICAL EXAMINATION: GENERAL: The patient is an 88-year-old white female who at this time, she is alert, she is thin buil t. VITAL SIGNS: She is afebrile. Temperature 98.6, blood pressure 181/78. CARDIOVASCULAR: Normal heart sounds. RESPIRATORY: Normal breath sounds. ABDOMEN: Showed unremarkable findings. LABORATORY WORKUP: Hemoglobin was 8.0 on 01/08/2019. Now it is 7.7, WBC is 9200. CLINICAL IMPRESSION: 1. The patient is presenting with history of pneumonia. 2. There is a lung mass. 3. There is evidence of severe iron deficiency type of anemia. 4. She had a gastric ulcer in the past. The patient certainly could have a persistent gastric ulcer . 5. She has diverticulosis, colon polyps. PLAN: At this time, I would recommend to proceed with upper GI small bowel series to rule out small bowel causes of anemia and we will continue present management. Once again, Rianna, thank you for this consultation. Dictated By: ANGELA MAJOR MD NC/NTS Conf#: [id number] DID#: [id number] CC: RIANNA BURTON MD;*EndCC*
--- NOTE | 2019-01-14 08:24 | PN ---
DATE: 01/14/2019 SUBJECTIVE: The patient states she is feeling well. She feels that her strength and energy levels a re good. She is not complaining of any chest pain, no shortness of breath or cough. The patient did receive 1 unit of packed red blood cells on 01/13/2019. OBJECTIVE: GENERAL: The patient is a well-developed, well-nourished female in no acute distress. VITAL SIGNS: Temperature 97.8 orally, pulse 80 per minute and regular, respirations 18, blood pressu re 148/64 and pulse oximetry is 93% on room air. SKIN: No ecchymosis, no petechiae or rashes. HEENT: Normocephalic. No evidence of trauma. Pupils are equal, round, reactive to light and accomm odation. Sclerae are nonicteric. Oral mucosa is moist without lesions. Tongue is well papillated. No gingival hyperplasia. NECK: Supple. No jugular venous distention or thyroid enlargement. CHEST: Decreased breath sounds on the right side as compared to left in the right lower lung zone. There are no rubs, rhonchi, wheezes or rales heard. There are no changes. HEART: Regular sinus rhythm, no S3, S4 or murmurs. ABDOMEN: Soft, no masses, no ascites. EXTREMITIES: Good range of motion. No clubbing, no edema or cyanosis. No palpable cords or Homans sign. NEUROLOGIC: Normal. LABORATORY DATA: White count today is 10,000 with an absolute neutrophil count of 6600, hemoglobin i s 9.5, hematocrit 30.4, platelet count is 455,000. Sodium 143, potassium 3.3, BUN 5, creatinine 0.65 . I have contacted pathology. Unfortunately, they have never received the pleural fluid sample from e thoracentesis performed on 01/09/2019. Therefore, there is no cytology result available. ASSESSMENT: 1. Anemia, likely secondary to both inflammatory process and iron deficiency. 2. Right middle lobe consolidation, rule out postobstructive pneumonia. 3. Lupus anticoagulant. 4. Stools are positive for occult blood. DISCUSSION: The patient has again received a total of 375 mg of elemental iron. This is in addition to the previous 625 mg of elemental iron given earlier in the patient's hospitalization. As noted, stools are occult blood positive. This patient has had a persistent iron deficiency anemia , which can only be accounted for by GI blood loss. Awaiting cytology on the exudative fluid removed from the right chest on 01/09/2019. Dictated By: ATILIO PARKER MD SR/NTS Conf#: [id number] DID#: [id number] CC: RIANNA QUINTANA MD; LAURA LOTT MD;*EndCC*
[2019-01-14] MEDS: FUROSEMIDE 20 MG TAB PO SCH (09:00)
[2019-01-14] MEDS: AMLODIPINE 2.5 MG TAB PO SCH (09:00)
[2019-01-14] MEDS: FERROUS SULFATE (EC) 325 MG TAB PO SCH ×2 (09:00→20:30)
[2019-01-14] MEDS: AMOXICILLIN/CLAV 875 MG TAB PO SCH ×2 (09:00→20:30)
[2019-01-14] MEDS: LISINOPRIL 10 MG TAB PO SCH ×2 (09:00→20:31)
[2019-01-14] MEDS: POTASSIUM CHLORIDE (SR) 20 MEQ TAB PO SCH (09:00)
[2019-01-14 09:30] VITALS: BP 158/69
[2019-01-14] MEDS ORDERED: BARIUM SULFATE 135 ML (E-Z HD) PO ONE (12:00)
[2019-01-14 14:03] VITALS: BP 174/75; PULSE 73; RESP 16
--- NOTE | 2019-01-14 15:02 | CONS ---
Consult Date/Type/Reason Admit Date/Time Jan 05, 2019 at 17:45 Initial Consult Date 01/06/19 Type of Consult Pulmonary Date/Time of Note DATE: 01/14/19 TIME: 15:01 Subjective Small bowel follow-through. Respiratory status stable. Objective Vital Signs Date Temp Pulse Resp B/P (MAP) Pulse Ox O2 O2 Flow FiO2 Time Delivery Rate 01/14/19 97.7 73 16 174/75 95 14:03 (108) 01/14/19 21 09:56 01/12/19 Room Air 14:03 Intake and Output 01/13/19 01/13/19 01/14/19 1515:00 23:00 07:00 IntakeIntake Total 1240 ml 1070 ml BalanceBalance 1240 ml 1070 ml Exam GENERAL: Well-nourished well-developed lady comfortable at rest no acute distress VITAL SIGNS: per chart NECK: Supple. No JVD or lymphadenopathy. CARDIAC EXAM: S1, S2. No added sounds or murmurs. CHEST: clear bilaterally, No added sounds, rales or wheezes ABDOMEN: Soft, nontender. No guarding or rebound. EXTREMITIES: No cyanosis, clubbing or edema. NEUROLOGIC: Generalized weakness. No focal deficits. Vent Setting Fraction of Inspired Oxygen pe: 21 Results/Medications Result Diagram: 01/14/1944201/14/19442 Results 24 hrs Laboratory Tests Test 01/13/19 22:19 01/14/19 04:43 Hemoglobin 8.9 L 9.5 L Hematocrit 28.0 L 30.4 L White Blood Count 10.0 Red Blood Count 3.42 #L Mean Corpuscular Volume 88.9 Mean Corpuscular Hemoglobin 27.8 L Mean Corpuscular Hemoglobin Concent 31.3 L Red Cell Distribution Width 21.8 H Platelet Count 455 H Mean Platelet Volume 8.8 Immature Granulocytes % 0.500 H Neutrophils % 66.6 Lymphocytes % 25.0 Monocytes % 7.0 Eosinophils % 0.7 Basophils % 0.2 Nucleated Red Blood Cells % 0.0 Immature Granulocytes # 0.050 H Neutrophils # 6.6 Lymphocytes # 2.5 Monocytes # 0.7 Eosinophils # 0.1 Basophils # 0.0 Nucleated Red Blood Cells # 0.0 Sodium Level 143 Potassium Level 3.3 L Chloride Level 103 Carbon Dioxide Level 30 Anion Gap 10 Blood Urea Nitrogen 5 L Creatinine 0.65 Est Glomerular Filtrat Rate mL/min Glucose Level 94 Calcium Level 8.8 Medications Current Medications Atorvastatin Calcium (Lipitor) 40 mg HS PO Last administered on 01/13/19 21:00; Admin Dose 40 MG; Start 01/06/19 at 21:00 Ferrous Sulfate (Ferrous Sulfate (Ec)) 325 mg BID PO Last administered on 21:01; Admin Dose 325 MG; Start 01/06/19 at 09:00 Lisinopril (Zestril) 10 mg BID PO Last administered on 01/13/19 21:01; Admin Dose 10 MG; Start 01/06/19 at 09:00 Pantoprazole (Protonix Tab) 40 mg AC BREAKFAST PO Last administered on 01/13/19 06:14; Admin Dose 40 MG; Start 01/06/19 at 07:00 Levalbuterol (Xopenex Neb) 0.63 mg Q8H RESP THERAPY HHN Last administered on 01/13/19 16:36; Admin Dose 0.63 MG; Start 01/06/19 at 00:00 Clonidine (Catapres) 0.1 mg Q6H PRN PO ELEVATED BLOOD PRESSURE Last administered on 01/14/19 14:28; Admin Dose 0.1 MG; Start 01/06/19 at 03:00 Furosemide (Lasix) 20 mg DAILY PO Last administered on 01/13/19 08:36; Admin Dose 20 MG; Start 01/07/19 at 09:00 Epoetin Arvin (Epogen (Esrd)) 10,000 units MoWeFr@17 SC Last administered on 01/12/19 17:52; Admin Dose 10,000 UNITS; Start 01/09/19 at 17:00 Carvedilol (Coreg) 12.5 mg BID PO Last administered on 01/13/19 21:02; Admin Dose 12.5 MG; Start 01/09/19 at 21:00 Potassium Chloride (Klor-Con 20) 20 meq DAILY PO Last administered on 01/13/19 08:36; Admin Dose 20 MEQ; Start 01/10/19 at 09:00 Docusate Sodium (Colace) 200 mg HS PO Last administered on 01/13/19 21:00; Admin Dose 200 MG; Start 01/09/19 at 21:00 Amlodipine Besylate (Norvasc) 2.5 mg DAILY PO Last administered on 01/13/19at 08:37; Admin Dose 2.5 MG; Start 01/10/19 at 12:30 Amoxicillin/ Clavulanate Potassium (Augmentin) 875 mg BID PO Last administered on 01/13/19at 21:01; Admin Dose 875 MG; Start 01/12/19 at 09:00 Assessment/Plan Hospital Course (Demo Recall) Assessment/Plan IMP: 1. RML heterogenous/necrotic opacity--c/w lung abscess. However, cannot exclude a primary necrotic NSCLC. 2. Neutrophilic-predominant right-sided exudative effusion--likely related to #1. Cytology results noted. RECS: 1. Continue 4-6-week course of p.o. antibiotics 2. Repeat chest imaging in 4-6 weeks. If no improvement then proceed to bronchoscopy and/or VATS biopsy. 3. GI recommendations regarding anemia workup LAURA LOTT MD, [facility] Jan 14, 2019 15:02
--- NOTE | 2019-01-14 17:46 | PN ---
Date/Time of Note Date/Time of Note DATE: 01/14/19 TIME: 17:42 Assessment/Plan VTE Prophylaxis Risk [place] [facility] [place] risk: 4 SCD applied ([place] [facility] [place] Yes Pharmacological prophylaxis: NA/contraindicated Pharm contraindication: bleeding Lines/Catheters IV C[facility]ter Type (from [facility] [place] Urinary Cath still in place: No Assessment/Plan Problems: (1) Abscess of right lung with pneumonia Status: Acute Comment: Patient on 1st week of 6 weeks of oral antibiotics. (2) Anemia Status: Chronic Comment: work up for acute on chronic GI bleed per Dr. Pennington. Patient has received two units of packed red blood cell transfusion, will recheck CBC in a.m. Qualifiers: Anemia type: iron deficiency (3) Hypokalemia Status: Acute Comment: replace with oral potassium chloride and recheck potassium and magnesium level in a.m. 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 Hopefully it is transient. Will hold off on anticoagulant at this time due to G.I. bleed and follow PT/PTT as outpatient. (5) Hypertension Status: Chronic Comment: Bp still elevated, will increase amlodipine from 2.5 mg to 5 mg and change lisinopril from 10 mg PO bid to 20 mg PO Q a.m. (6) Congestive heart failure Status: Chronic Comment: stable on lisinopril, carvedilol and Lasix. (7) GERD with esophagitis Status: Acute Comment: Plan for EGD in am. Result Diagram: 01/14/19 0443 01/14/19 0443 Results 24hrs Laboratory Tests Test 01/13/19 22:19 01/14/19 04:43 Hemoglobin 8.9 L 9.5 L Hematocrit 28.0 L 30.4 L White Blood Count 10.0 Red Blood Count 3.42 #L Mean Corpuscular Volume 88.9 Mean Corpuscular Hemoglobin 27.8 L Mean Corpuscular Hemoglobin Concent 31.3 L Red Cell Distribution Width 21.8 H Platelet Count 455 H Mean Platelet Volume 8.8 Immature Granulocytes % 0.500 H Neutrophils % 66.6 Lymphocytes % 25.0 Monocytes % 7.0 Eosinophils % 0.7 Basophils % 0.2 Nucleated Red Blood Cells % 0.0 Immature Granulocytes # 0.050 H Neutrophils # 6.6 Lymphocytes # 2.5 Monocytes # 0.7 Eosinophils # 0.1 Basophils # 0.0 Nucleated Red Blood Cells # 0.0 Sodium Level 143 Potassium Level 3.3 L Chloride Level 103 Carbon Dioxide Level 30 Anion Gap 10 Blood Urea Nitrogen 5 L Creatinine 0.65 Est Glomerular Filtrat Rate mL/min Glucose Level 94 Calcium Level 8.8 Subjective 24 Hr Interval Summary Free Text/Dictation Patient has no complaints. Constitutional: no complaints Exam/Review of Systems Exam Vitals Vital Signs Date Temp Pulse Resp B/P (MAP) Pulse Ox O2 O2 Flow FiO2 Time Delivery Rate 01/14/19 97.7 73 16 174/75 95 14:03 (108) 01/14/19 09:56 01/12/19 Room Air 14:03 Intake and Output 01/13/19 01/13/19 01/14/19 1515:00 23:00 07:00 IntakeIntake Total 1240 ml 1070 ml BalanceBalance 1240 ml 1070 ml Constitutional: alert, oriented Psych: no complaints Eyes: nl conjunctiva Respiratory: clear to auscultation Cardiovascular: regular rate and rhythm Gastrointestinal: soft Musculoskeletal: nl extremities to inspection Results Results 24hrs Laboratory Tests Test 01/13/19 22:19 01/14/19 04:43 Hemoglobin 8.9 L 9.5 L Hematocrit 28.0 L 30.4 L White Blood Count 10.0 Red Blood Count 3.42 #L Mean Corpuscular Volume 88.9 Mean Corpuscular Hemoglobin 27.8 L Mean Corpuscular Hemoglobin Concent 31.3 L Red Cell Distribution Width 21.8 H Platelet Count 455 H Mean Platelet Volume 8.8 Immature Granulocytes % 0.500 H Neutrophils % 66.6 Lymphocytes % 25.0 Monocytes % 7.0 Eosinophils % 0.7 Basophils % 0.2 Nucleated Red Blood Cells % 0.0 Immature Granulocytes # 0.050 H Neutrophils # 6.6 Lymphocytes # 2.5 Monocytes # 0.7 Eosinophils # 0.1 Basophils # 0.0 Nucleated Red Blood Cells # 0.0 Sodium Level 143 Potassium Level 3.3 L Chloride Level 103 Carbon Dioxide Level 30 Anion Gap 10 Blood Urea Nitrogen 5 L Creatinine 0.65 Est Glomerular Filtrat Rate mL/min Glucose Level 94 Calcium Level 8.8 Medications Medication Current Medications Atorvastatin Calcium (Lipitor) 40 mg HS PO Last administered on 2/12/19at 21:00; Admin Dose 40 MG; Start 01/06/19 at 21:00 Ferrous Sulfate (Ferrous Sulfate (Ec)) 325 mg BID PO Last administered on 01/13/19 21:01; Admin Dose 325 MG; Start 01/06/19 at 09:00 Lisinopril (Zestril) 10 mg BID PO Last administered on 01/13/19 21:01; Admin Dose 10 MG; Start 01/06/19 at 09:00 Pantoprazole (Protonix Tab) 40 mg AC BREAKFAST PO Last administered on 06:14; Admin Dose 40 MG; Start 01/06/19 at 07:00 Levalbuterol (Xopenex Neb) 0.63 mg Q8H RESP THERAPY HHN Last administered on 01/13/19 16:36; Admin Dose 0.63 MG; Start 01/06/19 at 00:00 Clonidine (Catapres) 0.1 mg Q6H PRN PO ELEVATED BLOOD PRESSURE Last administered on 01/14/19 14:28; Admin Dose 0.1 MG; Start 01/06/19 at 03:00 Furosemide (Lasix) 20 mg DAILY PO Last administered on 01/13/19 08:36; Admin Dose 20 MG; Start 01/07/19 at 09:00 Epoetin Arvin (Epogen (Esrd)) 10,000 units MoWeFr@17 SC Last administered on 01/12/19 17:52; Admin Dose 10,000 UNITS; Start 01/09/19 at 17:00 Carvedilol (Coreg) 12.5 mg BID PO Last administered on 01/13/19 21:02; Admin Dose 12.5 MG; Start 01/09/19 at 21:00 Potassium Chloride (Klor-Con 20) 20 meq DAILY PO Last administered on 01/13/19 08:36; Admin Dose 20 MEQ; Start 01/10/19 at 09:00 Docusate Sodium (Colace) 200 mg HS PO Last administered on 01/13/19 21:00; Admin Dose 200 MG; Start 01/09/19 at 21:00 Amlodipine Besylate (Norvasc) 2.5 mg DAILY PO Last administered on 01/13/19 08:37; Admin Dose 2.5 MG; Start 01/10/19 at 12:30 Amoxicillin/ Clavulanate Potassium (Augmentin) 875 mg BID PO Last administered on 01/13/19at 21:01; Admin Dose 875 MG; Start 01/12/19 at 09:00 RIANNA QUINTANA MD Jan 14, 2019 17:46
[2019-01-14] MEDS ORDERED: POTASSIUM CHLORIDE (SR) 20 MEQ TAB PO STA (17:58)
[2019-01-14] MEDS: EPOETIN 10000 UNITS/1 ML INJ (ESRD) SC SCH (18:09)
[2019-01-14 19:49] VITALS: BP 169/89; PULSE 74; RESP 17
[2019-01-14] MEDS: DOCUSATE SODIUM 100 MG CAP PO SCH (20:30)
[2019-01-14] MEDS: ATORVASTATIN 40 MG TAB PO SCH (20:30)
[2019-01-15 02:23] VITALS: BP 167/70; PULSE 80; RESP 17
[2019-01-15 04:10] VITALS: BP 149/79; PULSE 81
[2019-01-15] MEDS: PANTOPRAZOLE (EC) 40 MG TAB PO SCH (05:58)
--- NOTE | 2019-01-15 07:29 | PN ---
DATE: 01/14/2016 HISTORY OF PRESENT ILLNESS: The patient was admitted with anemia, GI bleeding, and because she did n ot have a source of the bleeding that is detectable on upper endoscopy and lower endoscopy, at this t chrsita, a upper GI small bowel series was performed. Upper GI small bowel series shows evidence of a mo derate sized hiatal hernia. No evidence of obstruction, no other abnormality in the small bowel.. LABORATORY WORKUP: Hemoglobin is 7.7 on admission, today is 9.5. PHYSICAL EXAMINATION: GENERAL: The patient is an 88-year-old pleasant white female, who at this time is alert. VITAL SIGNS: Temperature 97.7, blood pressure 169/89. CARDIOVASCULAR: Normal heart sounds. RESPIRATORY: Normal breath sounds. ABDOMEN: Shows soft abdomen. CLINICAL IMPRESSION: The patient having anemia, GI bleeding. It appears that in October last year, upper endoscopy showed evidence of a gastric ulcer and this seems pertinent and prudent that we need to re-endoscope the patient to see if the ulcer is bleeding or there is any evidence of a possible m alignancy. I have discussed this with the patient, the patient agreed. Dictated By: ANGELA MAJOR MD NC/NTS Conf#: [id number] DID#: [id number] CC: RIANNA QUNITANA MD;*End*
[2019-01-15 07:33] VITALS: BP 143/65; PULSE 69; RESP 18
[2019-01-15] MEDS: LEVALBUTEROL (NEB) 0.63 MG/3 ML AMP HHN SCH ×3 (08:00→23:50)
[2019-01-15] MEDS: AMOXICILLIN/CLAV 875 MG TAB PO SCH ×2 (08:22→21:21)
[2019-01-15] MEDS: POTASSIUM CHLORIDE (SR) 20 MEQ TAB PO SCH (08:22)
[2019-01-15] MEDS: FERROUS SULFATE (EC) 325 MG TAB PO SCH ×2 (08:22→21:21)
[2019-01-15] MEDS: AMLODIPINE 5 MG TAB PO SCH (08:23)
[2019-01-15] MEDS: FUROSEMIDE 20 MG TAB PO SCH (08:23)
[2019-01-15] MEDS: LISINOPRIL 20 MG TAB PO SCH (08:24)
--- NOTE | 2019-01-15 11:22 | CONS ---
Consult Date/Type/Reason Admit Date/Time Jan 05, 2019 at 17:45 Initial Consult Date 01/06/19 Type of Consult Pulmonary Date/Time of Note DATE: 01/15/19 TIME: 11:18 Subjective No changes to respiratory status Objective Vital Signs Date Temp Pulse Resp B/P (MAP) Pulse Ox O2 O2 Flow FiO2 Time Delivery Rate 01/15/19 98.3 69 18 143/65 90 07:33 (91) 01/14/19 21 23:46 01/12/19 Room Air 14:03 Intake and Output 01/14/19 01/14/19 01/15/19 1515:00 23:00 07:00 IntakeIntake Total 830 ml BalanceBalance 830 ml Exam GENERAL: Well-nourished well-developed lady comfortable at rest no acute distress VITAL SIGNS: per chart NECK: Supple. No JVD or lymphadenopathy. CARDIAC EXAM: S1, S2. No added sounds or murmurs. CHEST: clear bilaterally, No added sounds, rales or wheezes ABDOMEN: Soft, nontender. No guarding or rebound. EXTREMITIES: No cyanosis, clubbing or edema. NEUROLOGIC: Generalized weakness. No focal deficits. Vent Setting Fraction of Inspired Oxygen pe: 21 Results/Medications Result Diagram: 01/15/1942801/15/19428 Results 24 hrs Laboratory Tests Test 01/15/19 04:29 White Blood Count 8.9 Red Blood Count 3.77 L Hemoglobin 10.6 L Hematocrit 33.9 L Mean Corpuscular Volume 89.9 Mean Corpuscular Hemoglobin 28.1 L Mean Corpuscular Hemoglobin Concent 31.3 L Red Cell Distribution Width 20.3 H Platelet Count 392 Mean Platelet Volume 8.6 Immature Granulocytes % 0.400 Neutrophils % 68.7 Lymphocytes % 23.5 Monocytes % 6.7 Eosinophils % 0.4 Basophils % 0.3 Nucleated Red Blood Cells % 0.0 Immature Granulocytes # 0.040 H Neutrophils # 6.1 Lymphocytes # 2.1 Monocytes # 0.6 Eosinophils # 0.0 Basophils # 0.0 Nucleated Red Blood Cells # 0.0 Sodium Level 141 Potassium Level 3.8 Chloride Level 105 Carbon Dioxide Level 27 Anion Gap 9 Blood Urea Nitrogen 6 L Creatinine 0.58 Est Glomerular Filtrat Rate mL/min Glucose Level 94 Calcium Level 9.0 Magnesium Level 1.7 Total Bilirubin 0.1 L Direct Bilirubin 0.00 Indirect Bilirubin 0.1 Aspartate Amino Transf (AST/SGOT) 28 Alanine Aminotransferase (ALT/SGPT) 9 L Alkaline Phosphatase 143 H Total Protein 6.3 Albumin 3.0 L Globulin 3.30 H Albumin/Globulin Ratio 0.90 Medications Current Medications Atorvastatin Calcium (Lipitor) 40 mg HS PO Last administered on 01/14/19 20:30; Admin Dose 40 MG; Start 01/06/19 at 21:00 Ferrous Sulfate (Ferrous Sulfate (Ec)) 325 mg BID PO Last administered on 08:22; Admin Dose 325 MG; Start 01/06/19 at 09:00 Pantoprazole (Protonix Tab) 40 mg AC BREAKFAST PO Last administered on 01/15/19 05:58; Admin Dose 40 MG; Start 01/06/19 at 07:00 Levalbuterol (Xopenex Neb) 0.63 mg Q8H RESP THERAPY HHN Last administered on 01/13/19 16:36; Admin Dose 0.63 MG; Start 01/06/19 at 00:00 Clonidine (Catapres) 0.1 mg Q6H PRN PO ELEVATED BLOOD PRESSURE Last admi nistered on 01/15/19 02:07; Admin Dose 0.1 MG; Start 01/06/19 at 03:00 Furosemide (Lasix) 20 mg DAILY PO Last administered on 01/15/19 08:23; Admin Dose 20 MG; Start 01/07/19 at 09:00 Epoetin Arvin (Epogen (Esrd)) 10,000 units MoWeFr@17 SC Last administered on 01/14/19 18:09; Admin Dose 10,000 UNITS; Start 01/09/19 at 17:00 Carvedilol (Coreg) 12.5 mg BID PO Last administered on 01/15/19 08:23; Admin Dose 12.5 MG; Start 01/09/19 at 21:00 Potassium Chloride (Klor-Con 20) 20 meq DAILY PO Last administered on 01/15/19 08:22; Admin Dose 20 MEQ; Start 01/10/19 at 09:00 Docusate Sodium (Colace) 200 mg HS PO Last administered on 01/14/19 20:30; Admin Dose 200 MG; Start 01/09/19 at 21:00 Amoxicillin/ Clavulanate Potassium (Augmentin) 875 mg BID PO Last administered on 01/15/19at 08:22; Admin Dose 875 MG; Start 01/12/19 at 09:00 Amlodipine Besylate (Norvasc) 5 mg DAILY PO Last administered on 01/15/19at 08:23; Admin Dose 5 MG; Start 01/15/19 at 09:00 Lisinopril (Zestril) 20 mg AM PO Last administered on 01/15/19at 08:24; Admin Dose 20 MG; Start 01/15/19 at 09:00 Assessment/Plan Hospital Course (Demo Recall) Assessment/Plan IMP: 1. RML heterogenous/necrotic opacity--c/w lung abscess. However, cannot exclude a primary necrotic NSCLC. 2. Neutrophilic-predominant right-sided exudative effusion--likely related to #1. Cytology results noted. RECS: 1. Continue 4-6-week course of p.o. antibiotics 2. Repeat chest imaging in 4-6 weeks. If no improvement then proceed to bronchoscopy and/or VATS biopsy. 3. GI recommendations regarding anemia workup LAURA LOTT MD, [facility] Jan 15, 2019 11:22
[2019-01-15 13:58] VITALS: BP 116/56; PULSE 74; RESP 18
[2019-01-15] MEDS ORDERED: METOCLOPRAMIDE 10 MG INJ IV ONE (14:30)
[2019-01-15 20:05] VITALS: BP 104/59; PULSE 61; RESP 18
[2019-01-15 20:06] VITALS: BP 148/62; PULSE 79; RESP 18
[2019-01-15] MEDS: DOCUSATE SODIUM 100 MG CAP PO SCH (21:22)
[2019-01-15] MEDS: ATORVASTATIN 40 MG TAB PO SCH (21:22)
--- NOTE | 2019-01-16 00:12 | PN ---
Date/Time of Note Date/Time of Note DATE: 01/16/19 TIME: 00:06 Assessment/Plan VTE Prophylaxis Risk score (from [facility] [place])>0 risk: 5 SCD applied (from [facility] [place]): Yes Pharmacological prophylaxis: NA/contraindicated Pharm contraindication: bleeding Lines/Catheters IV [facility] Type ([facility] Peripheral IV Urinary Cath still in place: No Assessment/Plan Assessment/Plan (1) Anemia with history of gastric ulcer. Status: Acute Comment: Plan for EGD to work up for acute on chronic GI bleed per Dr. Pennington. Patient has received two units of packed red blood cell transfusion, cbc shows improved H/H. (2) Abscess of right lung with pneumonia Status: Acute Comment: Patient on 1st week of 6 weeks of oral antibiotics. (3) Hypokalemia Status: Acute Comment: replaced with oral potassium chloride and recheck potassium and magnesium levels are normal. 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 Hopefully it is transient. Will hold off on anticoagulant at this time due to G.I. bleed and follow PT/PTT as outpatient. (5) Hypertension Status: Chronic Comment: Bp improved on amlodipine 5 mg and lisinopril 20 mg q a.m. (6) Congestive heart failure Status: Chronic Comment: stable on lisinopril, carvedilol and Lasix. (7) Result Diagram: 01/15/1942801/15/19428 Results 24hrs Laboratory Tests Test 01/15/19 04:29 White Blood Count 8.9 Red Blood Count 3.77 L Hemoglobin 10.6 L Hematocrit 33.9 L Mean Corpuscular Volume 89.9 Mean Corpuscular Hemoglobin 28.1 L Mean Corpuscular Hemoglobin Concent 31.3 L Red Cell Distribution Width 20.3 H Platelet Count 392 Mean Platelet Volume 8.6 Immature Granulocytes % 0.400 Neutrophils % 68.7 Lymphocytes % 23.5 Monocytes % 6.7 Eosinophils % 0.4 Basophils % 0.3 Nucleated Red Blood Cells % 0.0 Immature Granulocytes # 0.040 H Neutrophils # 6.1 Lymphocytes # 2.1 Monocytes # 0.6 Eosinophils # 0.0 Basophils # 0.0 Nucleated Red Blood Cells # 0.0 Sodium Level 141 Potassium Level 3.8 Chloride Level 105 Carbon Dioxide Level 27 Anion Gap 9 Blood Urea Nitrogen 6 L Creatinine 0.58 Est Glomerular Filtrat Rate mL/min Glucose Level 94 Calcium Level 9.0 Magnesium Level 1.7 Total Bilirubin 0.1 L Direct Bilirubin 0.00 Indirect Bilirubin 0.1 Aspartate Amino Transf (AST/SGOT) 28 Alanine Aminotransferase (ALT/SGPT) 9 L Alkaline Phosphatase 143 H Total Protein 6.3 Albumin 3.0 L Globulin 3.30 H Albumin/Globulin Ratio 0.90 Subjective 24 Hr Interval Summary Constitutional: no complaints Exam/Review of Systems Exam Vitals Vital Signs Date Temp Pulse Resp B/P (MAP) Pulse Ox O2 O2 Flow FiO2 Time Delivery Rate 01/15/19 98.0 79 18 148/62 92 20:06 (90) 01/15/19 21 08:16 01/12/19 Room Air 14:03 Intake and Output 01/15/19 01/15/19 01/16/19 1515:00 23:00 07:00 IntakeIntake Total 240 ml 240 ml BalanceBalance 240 ml 240 ml Constitutional: alert, oriented Head: normocephalic Eyes: nl conjunctiva Respiratory: clear to auscultation Cardiovascular: regular rate and rhythm Gastrointestinal: soft, non-tender Musculoskeletal: nl extremities to inspection Results Results 24hrs Laboratory Tests Test 01/15/19 04:29 White Blood Count 8.9 Red Blood Count 3.77 L Hemoglobin 10.6 L Hematocrit 33.9 L Mean Corpuscular Volume 89.9 Mean Corpuscular Hemoglobin 28.1 L Mean Corpuscular Hemoglobin Concent 31.3 L Red Cell Distribution Width 20.3 H Platelet Count 392 Mean Platelet Volume 8.6 Immature Granulocytes % 0.400 Neutrophils % 68.7 Lymphocytes % 23.5 Monocytes % 6.7 Eosinophils % 0.4 Basophils % 0.3 Nucleated Red Blood Cells % 0.0 Immature Granulocytes # 0.040 H Neutrophils # 6.1 Lymphocytes # 2.1 Monocytes # 0.6 Eosinophils # 0.0 Basophils # 0.0 Nucleated Red Blood Cells # 0.0 Sodium Level 141 Potassium Level 3.8 Chloride Level 105 Carbon Dioxide Level 27 Anion Gap 9 Blood Urea Nitrogen 6 L Creatinine 0.58 Est Glomerular Filtrat Rate mL/min Glucose Level 94 Calcium Level 9.0 Magnesium Level 1.7 Total Bilirubin 0.1 L Direct Bilirubin 0.00 Indirect Bilirubin 0.1 Aspartate Amino Transf (AST/SGOT) 28 Alanine Aminotransferase (ALT/SGPT) 9 L Alkaline Phosphatase 143 H Total Protein 6.3 Albumin 3.0 L Globulin 3.30 H Albumin/Globulin Ratio 0.90 Medications Medication Current Medications Atorvastatin Calcium (Lipitor) 40 mg HS PO Last administered on 01/15/19 21:22; Admin Dose 40 MG; Start 01/06/19 at 21:00 Ferrous Sulfate (Ferrous Sulfate (Ec)) 325 mg BID PO Last administered on 01/15/19 21:21; Admin Dose 325 MG; Start 01/06/19 at 09:00 Pantoprazole (Protonix Tab) 40 mg AC BREAKFAST PO Last administered on 01/15/19 05:58; Admin Dose 40 MG; Start 01/06/19 at 07:00 Levalbuterol (Xopenex Neb) 0.63 mg Q8H RESP THERAPY HHN Last administered on 01/13/19 16:36; Admin Dose 0.63 MG; Start 01/06/19 at 00:00 Clonidine (Catapres) 0.1 mg Q6H PRN PO ELEVATED BLOOD PRESSURE Last administered on 01/15/19 02:07; Admin Dose 0.1 MG; Start 01/06/19 at 03:00 Furosemide (Lasix) 20 mg DAILY PO Last administered on 01/15/19 08:23; Admin Dose 20 MG; Start 01/07/19 at 09:00 Epoetin Arvin (Epogen (Esrd)) 10,000 units MoWeFr@17 SC Last administered on 01/14/19 18:09; Admin Dose 10,000 UNITS; Start 01/09/19 at 17:00 Carvedilol (Coreg) 12.5 mg BID PO Last administered on 01/15/19 21:22; Admin Dose 12.5 MG; Start 01/09/19 at 21:00 Potassium Chloride (Klor-Con 20) 20 meq DAILY PO Last administered on 01/15/19 08:22; Admin Dose 20 MEQ; Start 01/10/19 at 09:00 Docusate Sodium (Colace) 200 mg HS PO Last administered on 01/15/19 21:22; Admin Dose 200 MG; Start 01/09/19 at 21:00 Amoxicillin/ Clavulanate Potassium (Augmentin) 875 mg BID PO Last administered on 2/14/19at 21:21; Admin Dose 875 MG; Start 01/12/19 at 09:00 Amlodipine Besylate (Norvasc) 5 mg DAILY PO Last administered on 01/15/19at 08:23; Admin Dose 5 MG; Start 01/15/19 at 09:00 Lisinopril (Zestril) 20 mg AM PO Last administered on 01/15/19 08:24; Admin Dose 20 MG; Start 01/15/19 at 09:00 RIANNA QUINTANA MD Jan 16, 2019 00:12
[2019-01-16 01:56] VITALS: BP 149/67; PULSE 80; RESP 17
[2019-01-16] MEDS: PANTOPRAZOLE (EC) 40 MG TAB PO SCH (05:52)
--- NOTE | 2019-01-16 06:35 | PN ---
DATE: 01/15/2019 SUBJECTIVE: The patient has a history of anemia, admitted with anemia. Upper GI small bowel series is unremarkable. Previous endoscopy in 10/2018 showed evidence of a gastric ulcer and at this time, the evaluation of the gastric ulcer needs to be performed. PHYSICAL EXAMINATION: VITAL SIGNS: Temperature 98.3, blood pressure 116/56, pulse is 74. CLINICAL IMPRESSION: Gastrointestinal bleeding, likely secondary to gastric ulcer as noted on EGD in 10/2018. PLAN: At this time, repeat upper endoscopy to evaluate the status of the ulcer. Dictated By: ANGELA MCLAIN/NTS Conf#: [id number] DID#: [id number]
--- NOTE | 2019-01-16 07:51 | CONS ---
Assessment/Plan Assessment/Plan Hospital Course (Demo Recall) 1) probable lung abscess with an indolent course the usual therapy is a prolonged course of antibiotics continue with zosyn at present (unasyn would be sufficient but there is a supply problem with unasyn at present) I have ordered routine sputum cx, nasal swab for MRSA and AFB culture and smear she is a prior smoker so atypical mycobacteria is a possibility I have ordered quant TB gold but doubt she has TB but with lung abscess that is always a possibility I have ordered beta d glucan and coccidiodomycosis titers also I have also ordered procalcitonin 01/07 - sputum cx was just sent to micro this a.m. continue with zosyn and when sputum cx is done can likely fashion an oral antibiotic regimen 01/08 - nasal for MRSA was neg, sputum cx is only yeast at this time continue with zosyn I will order chest U/S to quantify the fluid collection and see if it appears more like an abscess or pleural effusion and if accessible by IR 01/09 - moderate pleural effusion seen I have order u/s guided thorancentesis with routine, fungal and AFB cx, LDH, pH, glucose, protein and serum LDH continue with zosyn, sputum cx only had c.alb which is likely a colonizer 01/10 - pt has exudative fluid, around 500cc removed, pH was not done and I have just ordered the cell count on the fluid in lab LDH from serum was not done as ordered either, will order one today cx from pleural fluid are pending, cytology for pleural fluid ordered today continue with zosyn special serologies are pending 01/12 - JAZMIN was neg, TB gold was indeterminant beta d glucan was neg, so fungal infection of lung is unlikely pt is stable for discharge will change zosyn to augmentin if no bronchoscopy is planned can d/c on po augmentin (pt will likely need 1-2 months of it) and get repeat CXR in 3-4 weeks 01/14 - cocci titers were negative continue with po augmentin, to get outpt CXR or CT chest to follow up on lung lesion procalcitonin was neg but it is often negative with parapneumonic complicated effusions 01/16 - stable on prolonged course of po augmentin follow up CXR or chest CT in 3-4 weeks I will sign off on case, thank you 2) CAD with hx of angioplasty and stenting 3) hx of CHF 4) HTN 5) elevated cholesterol 6) hx of GI bleed 01/14 - pt was Tx yesterday with good response and to get SBFT today 01/16 - SBFT did not show ulcers, to get EGD today stable Hgb 7) ARF hydration is already bringing the creatinine down u/a, urine cx are pending 01/07 - spoke to nurse as u/a and urine cx are uncollected 01/08 - u/a is benign looking and creatinine is back to baseline Consultation Date/Type/Reason Admit Date/Time Jan 05, 2019 at 17:45 Initial Consult Date 01/06/19 Type of Consult ID Date/Time of Note DATE: 01/16/19 TIME: 07:49 24 HR Interval Summary Free Text/Dictation pt denies SOB or cough no CP, N, V, D pt is NPO again for EGD this time Exam/Review of Systems Exam Vitals Vital Signs Date Temp Pulse Resp B/P (MAP) Pulse Ox O2 O2 Flow FiO2 Time Delivery Rate 01/16/19 98.1 80 17 149/67 98 01:56 (94) 01/15/19 08:16 01/12/19 Room Air 14:03 Intake and Output 01/15/19 01/15/19 01/16/19 1515:00 23:00 07:00 IntakeIntake Total 240 ml 240 ml BalanceBalance 240 ml 240 ml Constitutional: alert Eyes: nl sclera ENMT: mucosa pink and moist Respiratory: clear to auscultation Cardiovascular: regular rate and rhythm Gastrointestinal: soft, non-tender Results Result Diagram: 01/15/19 0429 01/15/19428 Medications Medication Current Medications Atorvastatin Calcium (Lipitor) 40 mg HS PO Last administered on 01/15/19at 21:22; Admin Dose 40 MG; Start 01/06/19 at 21:00 Ferrous Sulfate (Ferrous Sulfate (Ec)) 325 mg BID PO Last administered on 01/15/19at 21:21; Admin Dose 325 MG; Start 01/06/19 at 09:00 Pantoprazole (Protonix Tab) 40 mg AC BREAKFAST PO Last administered on 01/02 03/20at 05:58; Admin Dose 40 MG; Start 01/06/19 at 07:00 Levalbuterol (Xopenex Neb) 0.63 mg Q8H RESP THERAPY HHN Last administered on 01/13/19 16:36; Admin Dose 0.63 MG; Start 01/06/19 at 00:00 Clonidine (Catapres) 0.1 mg Q6H PRN PO ELEVATED BLOOD PRESSURE Last administered on 01/15/19 02:07; Admin Dose 0.1 MG; Start 01/06/19 at 03:00 Furosemide (Lasix) 20 mg DAILY PO Last administered on 01/15/19 08:23; Admin Dose 20 MG; Start 01/07/19 at 09:00 Epoetin Arvin (Epogen (Esrd)) 10,000 units MoWeFr@17 SC Last administered on 01/14/19 18:09; Admin Dose 10,000 UNITS; Start 01/09/19 at 17:00 Carvedilol (Coreg) 12.5 mg BID PO Last administered on 01/15/19 21:22; Admin Dose 12.5 MG; Start 01/09/19 at 21:00 Potassium Chloride (Klor-Con 20) 20 meq DAILY PO Last administered on 01/15/19 08:22; Admin Dose 20 MEQ; Start 01/10/19 at 09:00 Docusate Sodium (Colace) 200 mg HS PO Last administered on 01/15/19 21:22; Admin Dose 200 MG; Start 01/09/19 at 21:00 Amoxicillin/ Clavulanate Potassium (Augmentin) 875 mg BID PO Last administered on 01/15/19 21:21; Admin Dose 875 MG; Start 01/12/19 at 09:00 Amlodipine Besylate (Norvasc) 5 mg DAILY PO Last administered on 01/15/19 08:23; Admin Dose 5 MG; Start 01/15/19 at 09:00 Lisinopril (Zestril) 20 mg AM PO Last administered on 01/15/19 08:24; Admin Dose 20 MG; Start 01/15/19 at 09:00 TAYLOR ADAM MD Jan 16, 2019 07:51
[2019-01-16 07:52] VITALS: BP 193/80; PULSE 75; RESP 16
[2019-01-16] MEDS: LEVALBUTEROL (NEB) 0.63 MG/3 ML AMP HHN SCH (08:52)
[2019-01-16] MEDS: FUROSEMIDE 20 MG TAB PO SCH (09:00)
[2019-01-16] MEDS: LISINOPRIL 20 MG TAB PO SCH (09:00)
[2019-01-16] MEDS: POTASSIUM CHLORIDE (SR) 20 MEQ TAB PO SCH (09:00)
[2019-01-16] MEDS: AMOXICILLIN/CLAV 875 MG TAB PO SCH (09:00)
[2019-01-16] MEDS: FERROUS SULFATE (EC) 325 MG TAB PO SCH (09:00)
[2019-01-16] MEDS: AMLODIPINE 5 MG TAB PO SCH (09:00)
[2019-01-16] MEDS ORDERED: METOCLOPRAMIDE 10 MG INJ IV STA (11:47)
[2019-01-16 12:40] VITALS: BP 194/83; PULSE 77; RESP 18
[2019-01-16] MEDS ORDERED: LIDOCAINE 4% SOLUTION 50 ML BTL ONE (12:40)
--- NOTE | 2019-01-16 12:54 | CONS ---
Consult Date/Type/Reason Admit Date/Time Jan 05, 2019 at 17:45 Initial Consult Date 01/06/19 Type of Consult Pulmonary Date/Time of Note DATE: 01/16/19 TIME: 12:53 Subjective Patient stable this morning. Pending EGD Objective Vital Signs Date Temp Pulse Resp B/P (MAP) Pulse Ox O2 O2 Flow FiO2 Time Delivery Rate 01/16/19 67 20 93 21 09:02 01/16/19 98.3 193/80 07:52 (117) 01/12/19 Room Air 14:03 Intake and Output 01/15/19 01/15/19 01/16/19 1515:00 23:00 07:00 IntakeIntake Total 240 ml 240 ml BalanceBalance 240 ml 240 ml Exam GENERAL: VITAL SIGNS: per chart NECK: Supple. No JVD or lymphadenopathy. CARDIAC EXAM: S1, S2. No added sounds or murmurs. CHEST: clear bilaterally, No added sounds, rales or wheezes ABDOMEN: Soft, nontender. No guarding or rebound. EXTREMITIES: No cyanosis, clubbing or edema. NEUROLOGIC: Generalized weakness. No focal deficits. Vent Setting Fraction of Inspired Oxygen pe: 21 Results/Medications Result Diagram: 01/15/1942801/15/19428 Medications Current Medications Atorvastatin Calcium (Lipitor) 40 mg HS PO Last administered on 01/15/19at 21:22; Admin Dose 40 MG; Start 01/06/19 at 21:00 Ferrous Sulfate (Ferrous Sulfate (Ec)) 325 mg BID PO Last administered on 01/15/19 21:21; Admin Dose 325 MG; Start 01/06/19 at 09:00 Pantoprazole (Protonix Tab) 40 mg AC BREAKFAST PO Last administered on 01/15/19at 05:58; Admin Dose 40 MG; Start 01/06/19 at 07:00 Levalbuterol (Xopenex Neb) 0.63 mg Q8H RESP THERAPY HHN Last administered on 01/16/19at 08:52; Admin Dose 0.63 MG; Start 01/06/19 at 00:00 Clonidine (Catapres) 0.1 mg Q6H PRN PO ELEVATED BLOOD PRESSURE Last administered on 01/15/19at 02:07; Admin Dose 0.1 MG; Start 01/06/19 at 03:00 Furosemide (Lasix) 20 mg DAILY PO Last administered on 01/15/19 08:23; Admin Dose 20 MG; Start 01/07/19 at 09:00 Epoetin Arvin (Epogen (Esrd)) 10,000 units MoWeFr@17 SC Last administered on 01/14/19 18:09; Admin Dose 10,000 UNITS; Start 01/09/19 at 17:00 Carvedilol (Coreg) 12.5 mg BID PO Last administered on 01/15/19 21:22; Admin Dose 12.5 MG; Start 01/09/19 at 21:00 Potassium Chloride (Klor-Con 20) 20 meq DAILY PO Last administered on 01/15/19 08:22; Admin Dose 20 MEQ; Start 01/10/19 at 09:00 Docusate Sodium (Colace) 200 mg HS PO Last administered on 01/15/19 21:22; Admin Dose 200 MG; Start 01/09/19 at 21:00 Amoxicillin/ Clavulanate Potassium (Augmentin) 875 mg BID PO Last administered on 01/15/19 21:21; Admin Dose 875 MG; Start 01/12/19 at 09:00 Amlodipine Besylate (Norvasc) 5 mg DAILY PO Last administered on 01/15/19 08:23; Admin Dose 5 MG; Start 01/15/19 at 09:00 Lisinopril (Zestril) 20 mg AM PO Last administered on 01/15/19 08:24; Admin Dose 20 MG; Start 01/15/19 at 09:00 Assessment/Plan Hospital Course (Demo Recall) Assessment/Plan IMP: 1. RML heterogenous/necrotic opacity--c/w lung abscess. Continues 6 weeks of antibiotics 2. Neutrophilic-predominant right-sided exudative effusion--likely related to #1. Cytology results noted. RECS: 1. Continue 4-6-week course of p.o. antibiotics 2. Repeat chest imaging in 4-6 weeks. If no improvement then proceed to bronchoscopy and/or VATS biopsy. 3. GI recommendations regarding anemia workup pending EGD LAURA LOTT MD, [facility] Jan 16, 2019 12:54
[2019-01-16 13:27] VITALS: BP 174/74; PULSE 67; RESP 18
--- NOTE | 2019-01-16 13:57 | PN ---
Date/Time of Note Date/Time of Note DATE: 01/16/19 TIME: 13:54 Assessment/Plan VTE Prophylaxis Risk score (from Ns)>0 risk: 4 SCD applied (from [facility] [place]): Yes Pharmacological prophylaxis: other Pharm contraindication: bleeding Lines/Catheters IV Catheter Type (from [facility]): Peripheral IV Urinary Cath still in place: No Assessment/Plan Assessment/Plan Pt had EGD that showed chronic gastritis and esophagitis but no bleeding or tumor. Hgb 10.6 yesterday. Iron was and is being given. Cytology from the right pleural fluid was negative for malignant cells. No new suggestions now. Will see intermittently. Result Diagram: 01/15/1942801/15/19428 Subjective 24 Hr Interval Summary Free Text/Dictation Pt is off floor Exam/Review of Systems Exam Vitals Vital Signs Date Temp Pulse Resp B/P (MAP) Pulse Ox O2 O2 Flow FiO2 Time Delivery Rate 01/16/19 98.0 67 18 174/74 100 Mask 5.0 13:27 (107) 01/16/19 21 09:02 Intake and Output 01/15/19 01/15/19 01/16/19 1515:00 23:00 07:00 IntakeIntake Total 240 ml 240 ml BalanceBalance 240 ml 240 ml Exam Pt off floor for EGD Medications Medication Current Medications Atorvastatin Calcium (Lipitor) 40 mg HS PO Last administered on 01/15/19at 21:22; Admin Dose 40 MG; Start 01/06/19 at 21:00 Ferrous Sulfate (Ferrous Sulfate (Ec)) 325 mg BID PO Last administered on 01/15/19 21:21; Admin Dose 325 MG; Start 01/06/19 at 09:00 Pantoprazole (Protonix Tab) 40 mg AC BREAKFAST PO Last administered on 01/15/19 05:58; Admin Dose 40 MG; Start 01/06/19 at 07:00 Levalbuterol (Xopenex Neb) 0.63 mg Q8H RESP THERAPY HHN Last administered on 01/16/19 08:52; Admin Dose 0.63 MG; Start 01/06/19 at 00:00 Clonidine (Catapres) 0.1 mg Q6H PRN PO ELEVATED BLOOD PRESSURE Last administered on 01/15/19 02:07; Admin Dose 0.1 MG; Start 01/06/19 at 03:00 Furosemide (Lasix) 20 mg DAILY PO Last administered on 01/15/19 08:23; Admin Dose 20 MG; Start 01/07/19 at 09:00 Epoetin Arvin (Epogen (Esrd)) 10,000 units MoWeFr@17 SC Last administered on 01/14/19 18:09; Admin Dose 10,000 UNITS; Start 01/09/19 at 17:00 Carvedilol (Coreg) 12.5 mg BID PO Last administered on 01/15/19 21:22; Admin Dose 12.5 MG; Start 01/09/19 at 21:00 Potassium Chloride (Klor-Con 20) 20 meq DAILY PO Last administered on 01/15/19 08:22; Admin Dose 20 MEQ; Start 01/10/19 at 09:00 Docusate Sodium (Colace) 200 mg HS PO Last administered on 01/15/19 21:22; Admin Dose 200 MG; Start 01/09/19 at 21:00 Amoxicillin/ Clavulanate Potassium (Augmentin) 875 mg BID PO Last administered on 01/15/19 21:21; Admin Dose 875 MG; Start 01/12/19 at 09:00 Amlodipine Besylate (Norvasc) 5 mg DAILY PO Last administered on 01/15/19 08:23; Admin Dose 5 MG; Start 01/15/19 at 09:00 Lisinopril (Zestril) 20 mg AM PO Last administered on 01/15/19 08:24; Admin Dose 20 MG; Start 01/15/19 at 09:00 RICK CARABALLO MD Jan 16, 2019 13:57
[2019-01-16] MEDS ORDERED: AMOX1TAB10 PO (14:37)
[2019-01-16] MEDS ORDERED: POTA20TA15 PO (14:37)
[2019-01-16] MEDS ORDERED: AMLO-145 PO (14:37)
[2019-01-16] MEDS ORDERED: MIDAZOLAM 1 MG/ML 2 ML INJ ONE (14:50)
[2019-01-16] MEDS ORDERED: FENTAnyl 50 MCG/ML VIAL ONE (14:51)
--- NOTE | 2019-01-16 15:12 | DS ---
Date/Time of Note Date/Time of Note DATE: 01/16/19 TIME: 14:43 Discharge Summary Admission/Discharge Info Admit Date/Time Jan 05, 2019 at 17:45 Discharge Date/Time Jan at 15:45 Discharge Diagnosis (1) Right lung pneumonia with necrosis and pleural effusion (2) Anemia of iron deficiency (3) GI bleed (4) Hypertension (5) Congestive heart failure (6) Lupus anticoagulant (7) Dehydration Patient Condition: Fair Consults Infectious Disease, Hematology/Oncology, Pulmonary, Gastroenterology Procedures Chest CT scan, Chest ultrasound, Ultrasound guided thoracentesis, Upper GI series with SBFT, EGD Hx of Present Illness 88 year old female presents with progressive weakness, loss of appetite and weight loss. Work up shows elevated wbc, bun/ cr and right middle lobe mass. Patient was admitted for treatment and work up of pneumonia vs neoplasm. Hospital Course (1) Right lung abcess vs post-obstructive pneumonia with necrosis Chest CT showed localized fluid in right lung. Patient was started on Zosyn with normalization of leukocytosis. Ultrasounded guided thoracentesis showed transudative fluid , cultures negative , cytology negative. She was kept in respiratory isolation until AFB stain negative x3. Infectious Disease and Pulmonary consultants suggests trial of 6 weeks of oral antibiotics followed by repeat imaging. (2) Anemia due to GI bleed Patient's H/H dropped gradually during hospital course requiring transfusion of 2 units of PRBC. Work up by Hematology showed iron deficiency anemia and patient had stool OB positive. Patient has history of gastric ulcer, esophagitis with hiatal hernia and colon polyp on previous GI work up. GI consultation was obtained and work up showed chronic esophagitis but no obvious acute bleed. The plan is to do further work up as outpatient with Dr. Pennington. (3) Lupus Anticoagulant Patient was noted to have elevated PTT on admission and work up per Heme/Onc shows presence of lupus anticoagulant which may increase risk of thrombotic events. Unfortunately, Lovenox and Coumadin is contraindicated in this patient with history of occult GI bleed and current OB positive stool. (4) Hypertension Patient's bp was frequently elevated during current hospital course requiring addition of amlodipine to her normal regimen of carvedilol, lisinopril and lasix (5) Dehydration Patient was placed on IV fluids and her bun/cr corrected quickly. Home Meds Active Scripts Potassium Chloride* (K-Dur*) 20 Meq Tab.prt.sr, 20 MEQ PO DAILY for 30 Days, #30 Prov:RIANNA BURTON MD 01/16/19 Amlodipine Besylate* (Amlodipine Besylate*) 5 Mg Tablet, 5 MG PO DAILY for 30 Days, #30 TAB Prov:RIANNA BURTON MD 01/16/19 Amoxicillin/Potassium Clav (Amox-Clav 875-125 mg Tablet) 875-125 mg Tab, 875 MG PO BID for 32 Days, #64 TAB Prov:RIANNA BURTON MD 01/16/19 Ferrous Sulfate* (Ferrous Sulfate*) 325 Mg Tabec, 325 MG PO BID for 30 Days, TAB Prov:RIANNA BURTON MD 10/22/18 Pantoprazole* (Pantoprazole*) 40 Mg Tablet.dr, 40 MG PO AC BREAKFAST for 30 Days, TAB Prov:RIANNA BURTON MD 10/22/18 Reported Medications Lisinopril* (Lisinopril*) 10 Mg Tablet, 10 MG PO BID, #30 TAB 05/24/17 Furosemide* (Furosemide*) 40 Mg Tablet, 40 MG PO DAILY, TAB 05/24/17 Atorvastatin* (Atorvastatin*) 40 Mg Tablet, 40 MG PO HS, TAB 12/23/14 Carvedilol* (Carvedilol*) 6.25 Mg Tablet, 6.25 MG PO BID, TAB 12/23/14 Follow-up Plan Patient is to follow up with Dr. Burton within 1 week. Primary Care Provider Rianna Burton MD Time spent on discharge: > 30 minutes RIANNA BURTON MD Jan 16, 2019 15:04
== END 2019-01-16 17:10 | disposition home health service (06) | DRG 193 ==
LOC: 2NE 17:45
PROVIDERS: ADMIT Internal Medicine; ATTEND Internal Medicine
PROC: 0W993ZX Drainage of Right Pleural Cavity, Percutaneous Approach, Diagnostic (ICD-10-PCS; principal; 2019-01-05)
PROC: 30233N1 Transfusion of Nonautologous Red Blood Cells into Peripheral Vein, Percutaneous Approach (ICD-10-PCS; 2019-01-13)
PROC: 0DB68ZX Excision of Stomach, Via Natural or Artificial Opening Endoscopic, Diagnostic (ICD-10-PCS; 2019-01-16)
DX: J18.9 Pneumonia, unspecified organism (principal); J85.0 Gangrene and necrosis of lung; N17.9 Acute kidney failure, unspecified; J90 Pleural effusion, not elsewhere classified; K92.2 Gastrointestinal hemorrhage, unspecified; D50.0 Iron deficiency anemia secondary to blood loss (chronic); I11.0 Hypertensive heart disease with heart failure; I50.9 Heart failure, unspecified; E86.0 Dehydration; K20.9 Esophagitis, unspecified; I25.10 Atherosclerotic heart disease of native coronary artery without angina pectoris; Z87.891 Personal history of nicotine dependence; E87.6 Hypokalemia; K29.50 Unspecified chronic gastritis without bleeding; K44.9 Diaphragmatic hernia without obstruction or gangrene; R79.1 Abnormal coagulation profile; Z95.5 Presence of coronary angioplasty implant and graft; R76.0 Raised antibody titer
CPT/HCPCS: 32555; 36430; 71045; 71260; 74240; 74250; 76604; 80048; 80053; 81001; 82270; 82668; 82728; 82945; 83540; 83615; 83735; 83986; 84132; 84145; 84157; 85014; 85018; 85025; 85045; 85335; 85610; 85613; 85651; 85730; 86038; 86147; 86480; 86635; 86850; 86900; 86901; 86920; 87040; 87070; 87081; 87086; 87102; 87116; 88104; 88305; 88312; 89051; 94640; 94664; 97110; 97116; 97162; 97530; J1650; J2250; J2543; J2765; J2916; J3010; J3480; J7042; P9016; Q4081; Q9967

== ENCOUNTER → 2019-02-03 | Outpatient (CLI) | payer MEDICARE, OTHER ==
[~2019-02-03] MED LIST changes: +AMLO-145 PO; +AMOX1TAB10 PO; -DOCU-144 PO; +POTA20TA15 PO
== END | disposition home or self-care (01) ==
LOC: LAB 11:27
PROVIDERS: ATTEND Internal Medicine
DX: J85.1 Abscess of lung with pneumonia (principal); R52 Pain, unspecified
CPT/HCPCS: 71046

== ENCOUNTER 2019-04-10 08:33 | Day surgery (SDC) | payer MEDICARE, OTHER ==
[~2019-04-10] VITALS: Ht 160 cm; Wt 60.9 kg
[2019-04-10 09:39] VITALS: Ht 160 cm; Wt 60.9 kg
[2019-04-10] MEDS ORDERED: ERGO500013 PO (09:46)
[2019-04-10] MEDS ORDERED: OXYB5TAB7 PO (09:46)
[2019-04-10 10:45] VITALS: BP 115/55; PULSE 64; RESP 12
--- NOTE | 2019-04-10 10:58 | PREAC ---
Date/Time of Note Date/Time of Note DATE: 04/10/19 TIME: 10:58 Anesthesia Eval and Record Evaluation Time Pre-Procedure Interview DATE: 04/10/19 TIME: 10:58 Age 89 Sex female NPO: 8 hrs Preoperative diagnosis weight loss Planned procedure EGD Past Medical History Past Medical History: Includes Cardio: HTN, Dyslipidemia, CAD, CABG Surgery & Anesthesia Issues No known issue Meds Anticoagulation: No Beta Mary within 24 hr: Yes Reason Beta Mary not given: Bradycarida, Hypotension Active Scripts Potassium Chloride* (K-Dur*) 20 Meq Tab.prt.sr, 20 MEQ PO DAILY for 30 Days, #30 Prov:RIANNA QUINTANA MD 01/16/19 Amlodipine Besylate* (Amlodipine Besylate*) 5 Mg Tablet, 5 MG PO DAILY for 30 Days, #30 TAB Prov:RIANNA QUINTANA MD 01/16/19 Ferrous Sulfate* (Ferrous Sulfate*) 325 Mg Tabec, 325 MG PO BID for 30 Days, TAB Prov:RIANNA QUINTANA MD 10/22/18 Pantoprazole* (Pantoprazole*) 40 Mg Tablet.dr, 40 MG PO AC BREAKFAST for 30 Days, TAB Prov:RIANNA QUINTANA MD 10/22/18 Reported Medications Ergocalciferol (Vitamin D2) (VITAMIN D2) 50,000 Unit Capsule, 74191 UNIT PO, CAP 04/10/19 Oxybutynin Chloride* (Ditropan*) 5 Mg Tablet, 5 MG PO TID, TAB 04/10/19 Lisinopril* (Lisinopril*) 10 Mg Tablet, 10 MG PO BID, #30 TAB 05/24/17 Furosemide* (Furosemide*) 40 Mg Tablet, 40 MG PO DAILY, TAB 05/24/17 Atorvastatin* (Atorvastatin*) 40 Mg Tablet, 40 MG PO HS, TAB 12/23/14 Carvedilol* (Carvedilol*) 6.25 Mg Tablet, 6.25 MG PO BID, TAB 12/23/14 Discontinued Scripts Amoxicillin/Potassium Clav (Amox-Clav 875-125 mg Tablet) 875-125 mg Tab, 875 MG PO BID for 32 Days, #64 TAB Prov:RIANNA QUINTANA MD 01/16/19 Meds reviewed: Yes Allergies Coded Allergies: No Known Allergy (Unverified , 12/06/16) Allergies Reviewed: Yes Labs/Studies Labs Reviewed: Reviewed by anesthesiologist test: N/A Pre-procedure Exam Airway: Adequate mouth opening, Adequate thyromental dist Mallampati: Mallampati II Teeth: Normal Lung: Normal Heart: Normal ASA Physical Status ASA physical status: 3 Emergency: None Planned Anesthetic General/MAC: Mask Planned Pain Management Parenteral pain med Pre-operative Attestations Prior to commencing anesthesia and surgery, the patient was re-evaluated, there was verification of: *The patient's identity *The results of appropriate recent lab work and preoperative vital signs *The above evaluation not changing prior to induction *Anesthetic plan, risk benefits, alternative and complications discussed with patient/family; questions answered; patient/family understands, accepts and wishes to proceed. DELPHINE KEY MD April 10, 2019 10:58
[2019-04-10] MEDS ORDERED: ETOMIDATE 20 MG INJ ONE (11:00)
[2019-04-10] MEDS ORDERED: FENTAnyl 50 MCG/ML VIAL ONE (11:00)
--- NOTE | 2019-04-10 11:29 | PAC ---
Date/Time of Note Date/Time of Note DATE: 04/10/19 TIME: 11:28 Post-Anesthesia Notes Post-Anesthesia Note Last documented vital signs Vital Signs Date Temp Pulse Resp B/P (MAP) Pulse Ox O2 O2 Flow FiO2 Time Delivery Rate 04/10/19 98.6 64 12 115/55 97 Room Air 10:45 (75) Activity: WNL Respiratory function: WNL Cardiovascular function: WNL Mental status: Baseline Pain reasonably controlled: Yes Hydration appropriate: Yes Nausea/Vomiting absent: Yes Comments BP: 125/56 HR: 60 RR: 15 T: 98 SaO2: 99% DELPHINE KEY MD April 10, 2019 11:29
[2019-04-10 11:30] VITALS: BP 113/57; RESP 19
[2019-04-10] MEDS ORDERED: ONDANSETRON 4 MG INJ IV PRN (11:30)
[2019-04-10 11:36] VITALS: BP 109/55; PULSE 61; RESP 20
[2019-04-10 11:43] VITALS: BP 134/56; PULSE 61; RESP 18
== END 2019-04-10 11:56 | disposition home or self-care (01) ==
LOC: GIL 08:33
PROVIDERS: ATTEND Internal Medicine Gastroenterology
DX: K44.9 Diaphragmatic hernia without obstruction or gangrene (principal); K21.0 Gastro-esophageal reflux disease with esophagitis; I25.10 Atherosclerotic heart disease of native coronary artery without angina pectoris; I10 Essential (primary) hypertension; E78.5 Hyperlipidemia, unspecified
CPT/HCPCS: 43239; 88305; 88312; 88313; J3010